=== PATIENT | female | born 1955 | race Caucasian/White ===

== ENCOUNTER 2017-05-12 13:04 | Inpatient (IN) | payer OTHER, MEDICARE ==
[~2017-05-12] VITALS: Ht 165.1 cm; Wt 62.7 kg
[2017-05-12] MEDS ORDERED: FLEET ENEMA PR PRN (13:45)
[2017-05-12] MEDS ORDERED: GLUCAGON FOR INJ 1 MG VIAL (J1610) SC PRN (13:45)
[2017-05-12] MEDS ORDERED: DEXTROSE 50% 50 ML SYRINGE IV PRN (13:45)
[2017-05-12] MEDS ORDERED: GLUCOSE 4 GM CHEW TABLET PO PRN (13:45)
[2017-05-12] MEDS ORDERED: POLYVINYL ALCOHOL OPHTH SOLN 15 ML(LIQUITEARS) OU PRN (13:45)
[2017-05-12] MEDS ORDERED: SYMBICORT 80/4.5MCG INHALER 6GM INH PRN (13:45)
[2017-05-12 14:23] VITALS: BP 121/60
[2017-05-12] MEDS ORDERED: AMIT50TA PO (15:25)
[2017-05-12] MEDS ORDERED: SENN8.6T17 PO (15:25)
[2017-05-12] MEDS ORDERED: DIFL200T PO (15:25)
[2017-05-12] MEDS ORDERED: METH18TA2 PO (15:25)
[2017-05-12] MEDS ORDERED: ALEN70SO PO (15:25)
[2017-05-12] MEDS ORDERED: DILT60TA PO (15:25)
[2017-05-12] MEDS ORDERED: FLUTISP (15:25)
[2017-05-12] MEDS ORDERED: PANT40TA2 PO (15:25)
[2017-05-12] MEDS ORDERED: LOPR1TAB6 PO (15:25)
[2017-05-12] MEDS ORDERED: INSUHUMDS SC (15:25)
[2017-05-12] MEDS ORDERED: DEXA2TA PO ×2 (15:25→15:27)
[2017-05-12] MEDS ORDERED: FLOM5CAP PO (15:25)
[2017-05-12] MEDS ORDERED: DEXA1TA PO (15:25)
[2017-05-12] MEDS ORDERED: TYLE500T78 PO (15:25)
[2017-05-12] MEDS ORDERED: LISI40TAB PO (15:25)
[2017-05-12] MEDS ORDERED: ARTI99.0 OU (15:25)
[2017-05-12] MEDS ORDERED: CLAR10CA3 PO (15:25)
[2017-05-12] MEDS ORDERED: TRAM50TA2 PO (15:25)
[2017-05-12] MEDS ORDERED: HYDR25TAB PO (15:25)
[2017-05-12] MEDS ORDERED: DOCU60SY2 PO (15:25)
[2017-05-12] MEDS ORDERED: SYMB80INH INH (15:25)
[2017-05-12] MEDS ORDERED: SIMV10TA2 PO (15:25)
[2017-05-12] MEDS ORDERED: BACI500O8 TOP (15:25)
--- NOTE | 2017-05-12 16:27 | PMRHPE ---
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 HISTORY OF PRESENT ILLNESS: The patient is a right-handed, middle-aged, white female who had had progressive loss of hearing in her right ear and some facial weakness. 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 The patient is having trouble with closing the right eye as well as closing the right mouth and having facial drooling. The patient needs to regain moderate distance mobility, approximately 4-5 steps to enter home and will function on the first floor until she is able to better tolerate ambulation to the second floor of the home. The patient lives with her and has a number of adult family members in the area to assist her. They live in the [place], [place] area. PAST MEDICAL HISTORY: Includes: 1. Hypertension. 2. Hyperlipidemia. 3. Attention deficit hyperactivity disorder. 4. Gastroesophageal reflux disease (GERD). 5. Osteoarthritis with intravertebral disc disease. PAST SURGICAL HISTORY: Includes: 1. section. 2. Tonsillectomy. 3. Right ankle surgery in 1998 secondary to trauma from a fall. 4. Sinus surgery with polyp removal in the . SOCIAL HISTORY: As noted above, the patient lives with her in the [facility] in a two-story home. They have two dogs and several cats as well as a bird, hamster, and rabbit in the home. 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 She has never smoked. She occasionally drinks alcohol, 1-2 drinks per month. No illicit drug use. She consumes about one cup of coffee per day. ALLERGIES: Allergic to AMOXICILLIN, SHELLFISH, STRAWBERRIES, and SULFA ANTIBIOTICS. MEDICATIONS ON ADMISSION: - Fosamax for osteoporosis - amitriptyline - artificial tears - bacitracin ointment to the mastoid sinus incision - Symbicort for chronic obstructive pulmonary disease (COPD)/asthma - Decadron 20 mg twice a day for the next three days and then 2 mg daily for three more and then discontinue - diltiazem 60 mg every six hours for hypertension - Diflucan 200 mg daily for urinary tract infection (UTI) and this will also be helpful with thrush - fluticasone propionate nasal spray - heparin 5000 units every 12 hours for deep vein thrombosis (DVT) prophylaxis - hydrochlorothiazide 25 mg a day - insulin sliding scale for diabetes - lisinopril 20 mg twice a day for hypertension - Claritin 10 mg daily for allergies - Ritalin, patient previously on long-acting. However, due to swallowing difficulties, we will switch her over to twice a day at 0700 and 1200 hours which will assist more with therapy participation of 10 mg each time. - metoprolol tartrate 50 mg twice a day - pantoprazole 40 mg daily - Zocor 10 mg at bedtime - tamsulosin 0.4 mg at bedtime - tramadol 50 mg every 12 hours as needed for pain - Dulcolax suppositories for constipation - Fleets enema for constipation The patient will have hypoglycemic protocol of glucagon, glucose and IV dextrose ordered. REVIEW OF SYSTEMS: The patient is a fair historian but has principally the right facial weakness causing difficulty keeping the right eye moist as well as frequent drooling from the right mouth that she is having difficulty closing and some ataxia motion in the right upper and lower extremity affecting her dominant arm in function. Otherwise, negative 10-point review of systems. PHYSICAL EXAMINATION: The patient is a short, mildly overweight, 61-year-old white female who looks slightly older than stated age and weighs 67.5 kg. VITAL SIGNS: Show a temperature of 98.4, blood pressure 121/60, pulse is 94 beats per minute, respiratory rate 16, and pulse oximetry 99% on room air on admission. HEENT: Right lower motor neuron facial palsy with right pupil at 4 mm and left pupil at 6 mm but extraocular motions grossly intact on tracking and some mild reduction on accommodation in both pupils. Speech is dysarthric and the patient is having difficulty with secretion, drooling frequently out of the open right side of the mouth and appears to have more secretion in her mouth than normal and a little bit of gurgling to her speech pattern. She is very hard of hearing in the right ear and appears to have mild decrease in the left ear. NECK: Supple. LUNGS: Clear in all saez to auscultation. CARDIAC: Regular rate and rhythm with normal S1, S2 without S3, S4, murmurs or rubs. ABDOMEN: Mildly obese but nontender with normal bowel sounds in all quadrants. There is a healing incision at the umbilicus which is Steri-Stripped. The fat donation site to go with the right mastoid sinus surgery which is dressed in a bulky dry gauze dressing. EXTREMITIES: With functional range of motion. However, the patient with mild ataxia noted in the right upper and lower extremities. NEUROLOGIC: The patient is alert and oriented to person, place, general aspects of time but does not seem to be fully oriented to situation and is getting confused on right and left body at times. Memory will be further assessed at speech therapy evaluation. Speech at this time is somewhat concrete in nature and dysarthric as noted above. Affect is mildly anxious but overall pleasant and cooperative and trying hard to participate. Motor strength on the left upper and lower extremities is approximately 4/5 but only +3 to -4 out of 5 in the right upper and lower extremities, limited by some ataxia that is affecting both the upper and lower extremities. Light touch is intact in bilateral upper and lower extremities and vibration is grossly intact in bilateral upper extremities and mildly diminished in both lower extremities down in the feet and ankle areas. ASSESSMENT AND PLAN: 1. Rehabilitation of right acoustic neuroma, status post resection. The patient with secondary complications of infarct in the ventral right cerebellar region and the cerebral pontine angle affecting the isha. This is causing a number of difficulties. She clearly has a lower motor neuron lesion with the loss of good muscle control in both the upper and lower right face and also some difficulty with the visual nerve for balancing out her pupils as noted with the constriction on the right eye versus the left. The patient, however, should be able to work to learn adaptive mobility and build up her strength to allow her to return home with assistance from the family. She has multiple trained professional caregivers in the family to aide with this, so this should facilitate well. However, a very significant factor is going to be the dysarthria, dysphagia, and control of secretions to avoid aspiration pneumonia. The patient is currently on a pureed diet with honey-thickened liquids and we will be trying to limit risk in pill taking at this time. The patient will probably need modified barium swallow going forward, and so will be participating in speech as well as physical and occupational therapy. 2. 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 We will go ahead and work with this in physical and occupational therapy. 3. Lethargy/confusion. It is unclear fully to me why the patient is having these confusions, as this was supposedly not present prior to the development of this tumor and surgery. It does raise some concern in spite of postoperative imaging as to whether there was any type of brainstem or any period of anoxia. We will go ahead and continue to observe this and we will consider further testing and evaluation, including a neurology consult as appropriate. 4. Diabetes mellitus. The patient is on a taper off of Decadron. She is on insulin sliding scale at this time and we will see how she responds and what her needs are going forward. 5. Atherosclerotic cardiovascular disease with hypertension, hyperlipidemia. The patient will continue on the Lopressor and lisinopril and hydrochlorothiazide. She does have a positive family history including father with history of coronary artery bypass grafting as well as secondary kidney disease and mother with stroke. 6. Leukocytosis: Declining with Decadron taper. 39.2 K on 05/11. Medicine consultation has been sent and will assist care and management of this fairly complex patient. POSTADMISSION PHYSICIAN EVALUATION: The patient has some unexplained deficits including some decrease in sensorium in the lower extremities distally as well as the lethargy and confusion. The actual source is uncertain and of course these will not be assisting the patient in having a rapid progress through her therapy. However, I do feel that the patient has a fairly good prognosis for being able to participate in three hours of therapy a day and gain from it, especially in light of very good family support, and I anticipate discharge in approximately 17 days to home with family. Time spent on chart review, history and physical, and documentation was greater than 70 minutes. CARLO
[2017-05-12] MEDS: METHYLPHENIDATE 5 MG TAB PO SCH (17:16)
[2017-05-12] MEDS: HumaLOG INSULIN (NovoLOG) PER UNIT SC SCH ×2 (17:42→20:17)
[2017-05-12] MEDS: AMITRIPTYLINE 50 MG TAB PO SCH (20:14)
[2017-05-12] MEDS: SIMVASTATIN 10 MG TAB PO SCH (20:14)
[2017-05-12] MEDS: METOPROLOL TART 50 MG TAB PO SCH (20:15)
[2017-05-12] MEDS: traMADol 50 MG TAB PO PRN (20:16)
[2017-05-12 20:17] VITALS: BP 117/59
[2017-05-12] MEDS: HEPARIN SOD (PORCINE) 5000 UNITS/ML VIAL SC SCH (20:17)
[2017-05-13 06:00] VITALS: BP 102/59
[2017-05-13 06:50] LABS: BASO % 0.2 % (0.0-1.0); IMMATURE GRANULOCYTE % 4.8 % (0-0); LYMPH # 1.3 10^3/uL (1.5-4.5); LYMPH % 6.2 % (24.0-44.0); MEAN CORPUSCULAR HEMOGLOBIN 30.1 pg (27.0-33.0); MEAN CORPUSCULAR HGB CONC 33.4 g/dl (32.0-36.5); MONO # 1.4 10^3/uL (0.0-0.8); MONO % 6.6 % (0.0-5.0); NEUTROPHILS # 17.4 10^3/uL (1.8-7.7); NEUTROPHILS % 82.2 % (36.0-66.0); PLATELET COUNT, AUTOMATED 269 10^3/uL (150-450); RED CELL DISTRIBUTION WIDTH 15.8 % (11.5-14.5); WHITE BLOOD COUNT 21.2 10^3/uL (4.0-10.0)
[2017-05-13 07:18] LABS: ALBUMIN 2.6 GM/DL (3.2-5.2); ALBUMIN/GLOBULIN RATIO 0.81 (1.00-1.93); ALKALINE PHOSPHATASE 42 U/L (45-117); ALT/SGPT 29 U/L (12-78); ANION GAP 10 MEQ/L (8-16); AST/SGOT 11 U/L (7-37); BILIRUBIN,TOTAL 0.6 MG/DL (0.2-1.0); BLOOD UREA NITROGEN 48 MG/DL (7-18); CALCIUM LEVEL 8.4 MG/DL (8.8-10.2); CARBON DIOXIDE LEVEL 16 MEQ/L (21-32); CHLORIDE LEVEL 104 MEQ/L (98-107); CREATININE FOR GFR 0.71 MG/DL (0.55-1.02); GLOMERULAR FILTRATION RATE > 60.0 (>45); GLUCOSE, FASTING 143 MG/DL (80-110); POTASSIUM SERUM 4.7 MEQ/L (3.5-5.1); SODIUM LEVEL 130 MEQ/L (136-145); TOTAL PROTEIN 5.8 GM/DL (6.4-8.2)
[2017-05-13] MEDS: FLUTICASONE PROP 0.05% NASAL SPRAY 16 GM (FLONASE) SCH (08:45)
[2017-05-13] MEDS: BACITRACIN OINT 30GM TOP SCH (08:45)
[2017-05-13] MEDS: HEPARIN SOD (PORCINE) 5000 UNITS/ML VIAL SC SCH ×2 (08:46→21:49)
[2017-05-13] MEDS: LORATADINE 10 MG TAB PO SCH (08:47)
[2017-05-13] MEDS: TAMSULOSIN 0.4 MG CAP PO SCH (08:47)
[2017-05-13] MEDS: METHYLPHENIDATE 5 MG TAB PO SCH ×2 (08:47→15:23)
[2017-05-13] MEDS: hydroCHLOROthiazide 25 MG TAB PO SCH (08:47)
[2017-05-13] MEDS: PANTOPRAZOLE 40MG TAB (PROTONIX) PO SCH (08:47)
[2017-05-13] MEDS: HumaLOG INSULIN (NovoLOG) PER UNIT SC SCH ×4 (08:47→21:00)
[2017-05-13] MEDS: FLUCONAZOLE 100 MG TAB PO SCH (08:48)
[2017-05-13] MEDS: METOPROLOL TART 50 MG TAB PO SCH ×2 (09:00→21:50)
[2017-05-13] MEDS: LISINOPRIL 20 MG TAB PO SCH ×2 (09:00→21:49)
--- NOTE | 2017-05-13 12:23 | CR.PDOC ---
[facility] Consultation Consultation CONSULTATION REPORT FOR: Dr Duran REASON FOR CONSULTATION: Medical Management DATE OF VISIT: 05/13/17 ATTENDING: Dr. Robbi Galo PCP: Dr Fabiano RAZA. HPI: 61year oldF S/P resection of Rt acoustic neuroma with secondary infarcts Rt cerebellum and cerebral pontine angle of the isha 04/28/17 at [facility]. Pt with residual Rt facial droop, dysarthria, dysphagia, Rt facial nerve palsy, ataxia and generalized weakness. Pt was transferred to the care of [facility]U, Dr Duran 05/12/17. The Pt's only complaint today is dry eyes, requesting artificial tears. No eye pain, drainage per pt. Denies any fevers, chills, weakness, fatigue, Headache, Chest Pain, Shortness of breath, cough, palpitations, abdominal pain, N/V/D or changes in bowel or bladder habits. PAST MEDICAL HISTORY: Includes: 1. Hypertension. 2. Hyperlipidemia. 3. Attention deficit hyperactivity disorder. 4. Gastroesophageal reflux disease (GERD). 5. Osteoarthritis with intravertebral disc disease. 6. Osteoporosis 7. COPD 8. DM 9. Allergic rhinitis PAST SURGICAL HISTORY: Includes: 1. section. 2. Tonsillectomy. 3. Right ankle surgery in 1998 secondary to trauma from a fall. 4. Sinus surgery with polyp removal in the SOCHX: Resides in: [facility] Marital Status: Tobacco use: denies ETOH: denies Illicit Drugs: Denies FAMHX: non contributory. ROS: As noted in HPI, otherwise 11pt ROS of systems reviewed and unremarkable. PE: GEN: 61yoF, appears stated age. Well-nourished, well developed. No acute distress. Alert and oriented x 3. Pleasant, interactive. HEENT: Normocephalic, atraumatic. Extraocular movements are intact. Sclera are nonicteric. Conjunctiva without injection. Nose midline. Rt facial droop noted. Moist mucous membranes. Pharynx pink and moist. Neck supple, trachea midline. No lymphadenopathy or thyromegaly appreciated. CHEST: Regular rate and rhythm, +S1, +S2 LUNGS: Clear to auscultation bilaterally. No wheezes, rales, or rhonchi. Breathing appears symmetric and easy. Patient is speaking in full sentences. No accessory muscle use. ABD: Round, soft, non-tender, non-distended. +Bowel sounds throughout. No rebound or guarding. No costovertebral angle tenderness. EXT: Pulses 2+ bilaterally dorsalis pedis and radial. No lower extremity edema appreciated. SKIN: [place], dry, warm. Capillary refill <2sec. No rashes. NEURO: Alert and oriented x 3. Speech is dysarthric. Pathology pending from [place]. A&P: 61year oldF S/P resection of Rt acoustic neuroma with secondary infarcts Rt cerebellum and cerebral pontine angle of the isha 04/28/17 at [facility]. Pt with residual Rt facial droop, dysarthria, dysphagia, Rt facial nerve palsy, ataxia and weakness. Pt was transferred to the care of ARU, Dr Duran 05/12/17. 1. S/P resection of Rt acoustic neuroma with secondary infarcts Rt cerebellum and cerebral pontine angle of the isha 04/28/17 at [facility]. Pt with residual Rt facial droop, dysarthria, dysphagia, Rt facial nerve palsy, ataxia and weakness. Mgmt as per ARU. PT/OT/St as per ARU. pain control as per ARU. bowel care as per ARU. DVT prophylaxis. As per ARU. Dispo as per ARU. Outpt F/U with neurosurgery Decadron tapering. Final pathology result pending from [place]. 2. HTN. Cont current regimen. Metoprolol 50mg BID with hold parameters. Lisinopril 20 mg BID. with hold parameters Diltiazem 60 Q6hrs. with hold parameters. HCTZ 25 mg po daily. 3. HLD. Statin. 4. GERD. Continue PPI. 5. OA/DDD. 6. Osteoporosis. Fosamax. 7. Dry eyes. Artificial tears. 8. Allergic rhinitis. Claritin/Flonase. 9. COPD. Symbicort. Enc I/S. 10. Hyponatremia. Monitor I/O. Recheck BMP in AM. Add mag and TSH to labs today. Check Ur Na, Cr and Osm. 11. Leukocytosis. Trending downward from [facility] with Decadron tapering. Pt with no complaints. T Max 99.1 Check UA/UC. Monitor. Recheck CBC in AM. 12. Recent UTI. Currently treated with Diflucan. Recheck UA/UC. 13. DM. CC diet. SSI. 14. Anemia. Check Fe studies, B12, folate. Stool OB. Thank you for your consultation. We will continue to follow along with you. Vital Signs/I&O Vital Signs Date Time Temp Pulse Resp B/P (MAP) Pulse Ox O2 Delivery O2 Flow Rate FiO2 05/13/17 09:00 81 102/59 05/13/17 06:00 98.9 16 100 Room Air I&O- Last 24 Hours up to 6 AM 05/14/17 06:00 Intake Total 60 ml Output Total 800 ml Balance -740 ml Laboratory Data Labs 24H Laboratory Tests 2 05/12/17 16:38: Bedside Glucose (Misc Panel) 128H 05/12/17 20:11: Bedside Glucose (Misc Panel) 135H 05/13/17 06:20: Immature Granulocyte % (Auto) 4.8H, White Blood Count 21.2H, Red Blood Count 3.19L, Hemoglobin 9.6L, Hematocrit 28.7L, Mean Corpuscular Volume 90.0, Mean Corpuscular Hemoglobin 30.1, Mean Corpuscular Hemoglobin Concent 33.4, Red Cell Distribution Width 15.8H, Platelet Count 269, Neutrophils (%) (Auto) 82.2H, Lymphocytes (%) (Auto) 6.2L, Monocytes (%) (Auto) 6.6H, Eosinophils (%) (Auto) 0.0, Basophils (%) (Auto) 0.2, Neutrophils # (Auto) 17.4H, Lymphocytes # (Auto) 1.3L, Monocytes # (Auto) 1.4H, Eosinophils # (Auto) 0.0, Basophils # (Auto) 0.0 , Immature Granulocyte # (Auto) 1.0H, Nucleated Red Blood Cells % (auto) 0.0, Anion Gap 10, Glomerular Filtration Rate > 60.0, Blood Urea Nitrogen 48H, Creatinine 0.71, Sodium Level 130L, Potassium Level 4.7, Chloride Level 104, Carbon Dioxide Level 16L, Calcium Level 8.4L, Aspartate Amino Transf (AST/SGOT) 11, Alanine Aminotransferase (ALT/SGPT) 29, Alkaline Phosphatase 42L, Total Bilirubin 0.6, Total Protein 5.8L, Albumin 2.6L, Albumin/Globulin Ratio 0.81L 05/13/17 11:40: Bedside Glucose (Misc Panel) 167H CBC/BMP Laboratory Tests 05/13/17 06:20 Red Blood Count 3.19 L, Mean Corpuscular Volume 90.0, Mean Corpuscular Hemoglobin 30.1, Mean Corpuscular Hemoglobin Concent 33.4, Red Cell Distribution Width 15.8 H, Neutrophils (%) (Auto) 82.2 H, Lymphocytes (%) (Auto ) 6.2 L, Monocytes (%) (Auto) 6.6 H, Eosinophils (%) (Auto) 0.0, Basophils (%) ( Auto) 0.2, Neutrophils # (Auto) 17.4 H, Lymphocytes # (Auto) 1.3 L, Monocytes # (Auto) 1.4 H, Eosinophils # (Auto) 0.0, Basophils # (Auto) 0.0, Calcium Level 8.4 L, Aspartate Amino Transf (AST/SGOT) 11, Alanine Aminotransferase (ALT/SGPT ) 29, Alkaline Phosphatase 42 L, Total Bilirubin 0.6, Total Protein 5.8 L, Albumin 2.6 L Allergies Coded Allergies: Amoxicillin (Verified Allergy, Unknown, 05/12/17) Shellfish Allergy (Verified Allergy, Unknown, 05/12/17) [place] (Verified Allergy, Unknown, 05/12/17) Sulfa Antibiotics (Verified Allergy, Unknown, 05/12/17) Home Medications Scheduled (Docusate Sodium) 60 Mg/15 Ml Syp, 60 MG PO BID, (Reported) Alendronate Sodium (Alendronate Sodium) 70 Mg/75 Ml Kerri, 70 MG PO QWEEK, ( Reported) WEDNESDAY Amitriptyline HCl (Amitriptyline HCl) 50 Mg Tab, 50 MG PO QHS, (Reported) Artificial Tears (Artificial Tears) 1.4 % Kerri, 2 DROP OU Q4H for DRY EYES, ( Reported) Bacitracin Base (Bacitracin) 500 Unit/Gm Oin, 1 DOSE TOP DAILY, (Reported) Dexamethasone (Dexamethasone) 2 Mg Tab, 2 MG PO BID, (Reported) TO START 05/13, TO END 05/16 Dexamethasone (Dexamethasone) 1 Mg Tab, 3 MG PO BID, (Reported) TO END 05/12 Dexamethasone (Dexamethasone) 2 Mg Tab, 2 MG PO DAILY, (Reported) TO START 05/17 TO 05/20 THEN STOP Diltiazem Hcl (Cardizem) 60 Mg Tab, 60 MG PO QID, (Reported) Fluconazole (Diflucan) 200 Mg Tab, 200 MG PO DAILY, (Reported) FOR 14 DAYS Fluticasone Propionate (Fluticasone Propionate) 50 Mcg/Act Spr, 2 SPRAY NA BID, #1 (Reported) Hydrochlorothiazide (Hydrochlorothiazide) 25 Mg Tab, 25 MG PO DAILY, (Reported) Insulin Human Lispro (Humalog) 1 Units/0.01 Ml Inj, 1 DOSE SC ACHS, (Reported) Lisinopril (Lisinopril) 40 Mg Tab, 40 MG PO DAILY, (Reported) Loratadine (Claritin) 10 Mg Cap, 10 MG PO DAILY, (Reported) Methylphenidate HCl (Methylphenidate HCl ER) 18 Mg Tab, 18 MG PO DAILY, ( Reported) Metoprolol Tartrate (Lopressor) 50 Mg Tab, 50 MG PO BID, (Reported) Pantoprazole Sodium (Pantoprazole Sodium) 40 Mg Tab, 40 MG PO DAILY, (Reported) Senna (Senna Laxative) 8.6 Mg Tab, 2 TAB PO QHS, (Reported) Simvastatin (Simvastatin) 10 Mg Tab, 10 MG PO QHS, (Reported) Tamsulosin Hydrochloride (Flomax) 0.4 Mg Cap, 0.4 MG PO DAILY, (Reported) Scheduled PRN Acetaminophen (Tylenol Extra Strength) 500 Mg Tab, 1,000 MG PO Q6H PRN for PAIN, (Reported) Budesonide/Formoterol (Symbicort 80-4.5 Mcg/Act) 60 Puff/Inhaler Aers, 2 PUFF INH BID PRN for SHORTNESS OF BREATH, (Reported) Tramadol HCl (Tramadol HCl) 50 Mg Tab, 50 MG PO BID PRN for PAIN, (Reported) Miranda Morin May 13, 2017 12:23
[2017-05-13 14:00] VITALS: BP 130/58
--- NOTE | 2017-05-13 15:54 | IPNPDOC ---
PM&R Progress Note Grades 1 Thru 5 Teacher Progress Note DATE OF SERVICE: 05/13/17 DATE OF ADMISSION: May 12, 2017 at 13:49 INPATIENT REHABILITATION ADMISSION DAY: #2 SUBJECTIVE: The patient is a right-handed, middle-aged, white female who had had progressive loss of hearing in her right ear and some facial weakness. 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 The patient is having trouble with closing the right eye as well as closing the right mouth and having facial drooling. The patient needs to regain moderate distance mobility, approximately 4-5 steps to enter home and will function on the first floor until she is able to better tolerate ambulation to the second floor of the home. The patient lives with her and has a number of adult family members in the area to assist her. They live in the [place], [place] area. ALLERGIES: See Below MEDICATIONS: Reviewed, see below. OBJECTIVE: VITAL SIGNS: Please see below. 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 HEENT: Patient with difficulty closing right INR right facial droop and left tongue deviation who is hard of hearing in the right ear. CARDIOVASCULAR: Regular rate and rhythm with normal S1-S2. 2 out 4 radial pulses. LUNGS: All saez clear auscultation. ABDOMEN: Bowel sounds normal in all quadrants. NEUROLOGICAL: The patient is alert and oriented to person, place, general aspects of time but does not seem to be fully oriented to situation and is getting confused on right and left body at times. Memory will be further assessed at speech therapy evaluation. Speech at this time is somewhat concrete in nature and dysarthric as noted above. Affect is mildly anxious but overall pleasant and cooperative and trying hard to participate. Motor strength on the left upper and lower extremities is approximately 4/5 but only +3 to -4 out of 5 in the right upper and lower extremities, limited by some ataxia that is affecting both the upper and lower extremities. Light touch is intact in bilateral upper and lower extremities and vibration is grossly intact in bilateral upper extremities and mildly diminished in both lower extremities down in the feet and ankle areas. SKIN: Grossly intact except for healing right mastoid incision and abdominal umbilicus incision. Both of which are without inflammation. LABORATORY DATA: Reviewed. Please see below. MICROBIOLOGY: Please see below. IMAGING: No new imaging. DVT prophylaxis ordered?: 5000 units heparin subcutaneous twice a day, PIPER hose and sequential compression stockings. ASSESSMENT AND PLAN: 1. 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 Final pathology is pending on the neuroma. At this time a should start a program of physical, occupational and speech therapies. Please see initial evaluations. Rehabilitation team conference: Patient with multiple deficits functioning at fairly low level is anticipated to require approximately 21 days to reach discharge goals. She has a very supportive family and we will work with them and try to train them. Approximate date of discharge is expected be 06/03/17. 2. Urinary retention: As patient is having low blood pressures and alpha sumeet will not be a choice at this time. For now we will work on getting patient more up and active and consider voiding trials. 3. Type 2 diabetes mellitus: At this time we'll proceed with consistent carbohydrate diet and insulin sliding scale. Medicine to make adjustments as appropriate. TIME SPENT: Chart Review, examination and documentation require greater than 25 minutes. Allergies Coded Allergies: Amoxicillin (Verified Allergy, Unknown, 05/12/17) Shellfish Allergy (Verified Allergy, Unknown, 05/12/17) Burdine (Verified Allergy, Unknown, 05/12/17) Sulfa Antibiotics (Verified Allergy, Unknown, 05/12/17) Vital Signs Vital Signs Date Time Temp Pulse Resp B/P (MAP) Pulse Ox O2 Delivery O2 Flow Rate FiO2 05/13/17 14:00 98.8 94 14 130/58 (82) 95 Room Air Laboratory Data CBC/BMP Laboratory Tests 05/13/17 06:20 Red Blood Count 3.19 L, Mean Corpuscular Volume 90.0, Mean Corpuscular Hemoglobin 30.1, Mean Corpuscular Hemoglobin Concent 33.4, Red Cell Distribution Width 15.8 H, Neutrophils (%) (Auto) 82.2 H, Lymphocytes (%) (Auto ) 6.2 L, Monocytes (%) (Auto) 6.6 H, Eosinophils (%) (Auto) 0.0, Basophils (%) ( Auto) 0.2, Neutrophils # (Auto) 17.4 H, Lymphocytes # (Auto) 1.3 L, Monocytes # (Auto) 1.4 H, Eosinophils # (Auto) 0.0, Basophils # (Auto) 0.0, Calcium Level 8.4 L, Aspartate Amino Transf (AST/SGOT) 11, Alanine Aminotransferase (ALT/SGPT ) 29, Alkaline Phosphatase 42 L, Total Bilirubin 0.6, Total Protein 5.8 L, Albumin 2.6 L Labs 24H Laboratory Tests 2 05/12/17 16:38: Bedside Glucose (Misc Panel) 128H 05/12/17 20:11: Bedside Glucose (Misc Panel) 135H 05/13/17 06:20: Immature Granulocyte % (Auto) 4.8H, White Blood Count 21.2H, Red Blood Count 3.19L, Hemoglobin 9.6L, Hematocrit 28.7L, Mean Corpuscular Volume 90.0, Mean Corpuscular Hemoglobin 30.1, Mean Corpuscular Hemoglobin Concent 33.4, Red Cell Distribution Width 15.8H, Platelet Count 269, Neutrophils (%) (Auto) 82.2H, Lymphocytes (%) (Auto) 6.2L, Monocytes (%) (Auto) 6.6H, Eosinophils (%) (Auto) 0.0, Basophils (%) (Auto) 0.2, Neutrophils # (Auto) 17.4H, Lymphocytes # (Auto) 1.3L, Monocytes # (Auto) 1.4H, Eosinophils # (Auto) 0.0, Basophils # (Auto) 0.0 , Immature Granulocyte # (Auto) 1.0H, Nucleated Red Blood Cells % (auto) 0.0, Anion Gap 10, Glomerular Filtration Rate > 60.0, Blood Urea Nitrogen 48H, Creatinine 0.71, Sodium Level 130L, Potassium Level 4.7, Chloride Level 104, Carbon Dioxide Level 16L, Calcium Level 8.4L, Aspartate Amino Transf (AST/SGOT) 11, Alanine Aminotransferase (ALT/SGPT) 29, Alkaline Phosphatase 42L, Total Bilirubin 0.6, Total Protein 5.8L, Albumin 2.6L, Albumin/Globulin Ratio 0.81L 05/13/17 11:40: Bedside Glucose (Misc Panel) 167H Current Medications Current Medications Current Medications Alendronate Sodium (Fosamax) 70 mg Sa@07 PO ; Start 05/15/17 at 07:00; Stop at 06:59 Amitriptyline HCl (Elavil) 50 mg QHS PO Last administered on 05/12/17 20:14; Start 05/12/17 at 21:00; Stop 06/11/17 at 20:59 Artificial Tears ([place] Tears) 2 drop Q4H OU ; Start 05/13/17 at 16:00; Stop at 15:59 Artificial Tears ([place] Tears) 2 drop Q4HP PRN OU DRY EYES; Start 05/12/17 at 13:45; Stop 05/13/17 at 12:04; Status DC Bacitracin (Bacitracin Oint) Right Mastoid a... DAILY TOP Last administered on 05/13/17 08:45; Start 05/13/17 at 09:00; Stop 06/12/17 at 08:59 Bisacodyl (Dulcolax Suppository) 10 mg DAILYPRN PRN [place] CONSTIPATION; Start at 13:45; Stop 06/11/17 at 13:44 Budesonide/ Formoterol Fumarate (Symbicort 80/ 4.5mcg) 2 puff BID PRN INH Dyspnea; Start 05/12/17 at 13:45; Stop 06/11/17 at 13:44 Dexamethasone (Decadron) 2 mg BID PO Last administered on 05/13/17 08:49; Start 05/12/17 at 21:00; Stop 05/16/17 at 23:55 Dexamethasone (Decadron) 2 mg DAILY PO ; Start 05/17/17 at 09:00; Stop at 08:59 Dextrose (Dextrose 50%) 25 ml ASDIRECTED PRN IV SEE LABEL COMMENTS; Start at 13:45; Stop 06/11/17 at 13:44 Diltiazem HCl (Cardizem) 60 mg Q6H PO Last administered on 05/13/17 12:13; Start 05/12/17 at 18:00; Stop 06/11/17 at 17:59 Fluconazole (Diflucan) 200 mg DAILY PO Last administered on 05/13/17 08:48; Start 05/13/17 at 09:00; Stop 05/27/17 at 08:59 Fluticasone Propionate (Flonase 0.05% Nasal [place]) 2 spray DAILY NA Last administered on 05/13/17 08:45; Start 05/13/17 at 09:00; Stop 06/12/17 at 08 :59 Glucagon (Glucagon) 1 mg ASDIRECTED PRN SC SEE LABEL COMMENTS; Start 05/12/17 at 13:45; Stop 06/11/17 at 13:44 Glucose (Glucose) 16 GM ASDIRECTED PRN PO SEE LABEL COMMENTS; Start 05/12/17 at 13:45; Stop 06/11/17 at 13:44 Heparin Sodium (Porcine) (Heparin) 5,000 units Q12H SC Last administered on 08:46; Start 05/12/17 at 21:00; Stop 05/17/17 at 20:59 Home Med (Med Rec Complete!) ASDIRECTED XX ; Start 05/12/17 at 15:30; Stop at 15:33; Status DC Hydrochlorothiazide (Hydrodiuril) 25 mg DAILY PO Last administered on 08:47; Start 05/13/17 at 09:00; Stop 06/12/17 at 08:59 Insulin Human Lispro (HumaLOG INSULIN) See Protocol Table AC SC Last administered on 05/13/17 12:13; Start 05/12/17 at 17:30; Stop 06/11/17 at 17 :29 Insulin Human Lispro (HumaLOG INSULIN) See Protocol Table QHS SC ; Start at 21:00; Stop 06/11/17 at 20:59 Lisinopril (Prinivil) 20 mg BID PO ; Start 05/13/17 at 09:00; Stop 06/12/17 at 08:59 Loratadine (Claritin) 10 mg DAILY PO Last administered on 05/13/17 08:47; Start 05/13/17 at 09:00; Stop 06/12/17 at 08:59 Methylphenidate HCl (Ritalin) 10 mg BID@,14 PO Last administered on 15:23; Start 05/12/17 at 14:00; Stop 05/19/17 at 13:59 Metoprolol Tartrate (Lopressor) 50 mg BID PO Last administered on 05/12/17 20 :15; Start 05/12/17 at 21:00; Stop 06/11/17 at 20:59 Pantoprazole Sodium (Protonix) 40 mg DAILY PO Last administered on 05/13/17 08:47; Start 05/13/17 at 09:00; Stop 06/12/17 at 08:59 Simvastatin (Zocor) 10 mg QHS PO Last administered on 05/12/17 20:14; Start 05/12/17 at 21:00; Stop 06/11/17 at 20:59 Sodium Biphosphate/ Sodium Phosphate (Fleet Enema) 1 ea DAILYPRN PRN [place] CONSTIPATION; Start 05/12/17 at 13:45; Stop 06/11/17 at 13:44 Tamsulosin HCl (Flomax) 0.4 mg DAILY PO Last administered on 05/13/17 08:47; Start 05/13/17 at 09:00; Stop 06/12/17 at 08:59 Tramadol HCl (Ultram) 50 mg Q12HP PRN PO PAIN Last administered on 05/12/17 20:16; Start 05/12/17 at 13:45; Stop 05/19/17 at 13:44 NICOLASA MACK MD May 13, 2017 15:54
[2017-05-13] MEDS: POLYVINYL ALCOHOL OPHTH SOLN 15 ML(LIQUITEARS) OU SCH ×2 (16:00→20:48)
[2017-05-13 20:00] VITALS: BP 124/60
[2017-05-13] MEDS: AMITRIPTYLINE 50 MG TAB PO SCH (21:49)
[2017-05-13] MEDS: SIMVASTATIN 10 MG TAB PO SCH (21:50)
[2017-05-14] MEDS: POLYVINYL ALCOHOL OPHTH SOLN 15 ML(LIQUITEARS) OU SCH ×6 (00:17→21:14)
[2017-05-14 06:00] VITALS: BP 112/84
[2017-05-14] MEDS: HumaLOG INSULIN (NovoLOG) PER UNIT SC SCH ×4 (08:04→21:00)
[2017-05-14 08:30] LABS: MEAN CORPUSCULAR HEMOGLOBIN 30.4 pg (27.0-33.0); MEAN CORPUSCULAR HGB CONC 33.3 g/dl (32.0-36.5); MEAN CORPUSCULAR VOLUME 91.2 fl (80.0-96.0); PLATELET COUNT, AUTOMATED 287 10^3/uL (150-450); RED CELL DISTRIBUTION WIDTH 15.9 % (11.5-14.5); WHITE BLOOD COUNT 16.4 10^3/uL (4.0-10.0)
[2017-05-14 08:48] LABS: ANION GAP 11 MEQ/L (8-16); BLOOD UREA NITROGEN 39 MG/DL (7-18); CALCIUM LEVEL 8.7 MG/DL (8.8-10.2); CARBON DIOXIDE LEVEL 20 MEQ/L (21-32); CHLORIDE LEVEL 100 MEQ/L (98-107); FERRITIN 478 NG/ML (8-252); GLOMERULAR FILTRATION RATE > 60.0 (>45); GLUCOSE, FASTING 148 MG/DL (80-110); PERCENT SATURATION 21.3 % (13.2-45.0); POTASSIUM SERUM 5.1 MEQ/L (3.5-5.1); SODIUM LEVEL 131 MEQ/L (136-145); TOTAL IRON BINDING CAPACITY 287 UG/DL (250-450)
[2017-05-14] MEDS: TAMSULOSIN 0.4 MG CAP PO SCH (09:00)
[2017-05-14] MEDS: LISINOPRIL 20 MG TAB PO SCH ×2 (09:00→21:23)
[2017-05-14] MEDS: METOPROLOL TART 50 MG TAB PO SCH ×2 (09:00→21:23)
[2017-05-14] MEDS: HEPARIN SOD (PORCINE) 5000 UNITS/ML VIAL SC SCH ×2 (09:19→21:24)
[2017-05-14] MEDS: FLUCONAZOLE 100 MG TAB PO SCH (09:20)
[2017-05-14] MEDS: PANTOPRAZOLE 40MG TAB (PROTONIX) PO SCH (09:20)
[2017-05-14] MEDS: METHYLPHENIDATE 5 MG TAB PO SCH ×2 (09:20→13:15)
[2017-05-14] MEDS: LORATADINE 10 MG TAB PO SCH (09:20)
[2017-05-14] MEDS: FLUTICASONE PROP 0.05% NASAL SPRAY 16 GM (FLONASE) SCH (09:21)
[2017-05-14] MEDS: BACITRACIN OINT 30GM TOP SCH (09:21)
[2017-05-14 09:23] LABS: FOLATE 13.4 NG/ML (>5.4); VITAMIN B12 LEVEL 814 PG/ML (247-911)
[2017-05-14] MEDS: hydroCHLOROthiazide 25 MG TAB PO SCH (09:24)
--- NOTE | 2017-05-14 12:24 | IPNPDOC ---
Date Seen The patient was seen on 05/14/17. Progress Note HPI: 61year oldF S/P resection of Rt acoustic neuroma with secondary infarcts Rt cerebellum and cerebral pontine angle of the isha 04/28/17 at [facility]. Pt with residual Rt facial droop, dysarthria, dysphagia, Rt facial nerve palsy, ataxia and generalized weakness. Pt was transferred to the care of ARU, Dr Duran 05/12/17. Pt states the right eye still feels irritated but overall better today. No eye pain, drainage per pt. Denies any fevers, chills, weakness, fatigue, Headache, Chest Pain, Shortness of breath, cough, palpitations, abdominal pain, N/V/D or changes in bowel or bladder habits. PAST MEDICAL HISTORY: Includes: 1. Hypertension. 2. Hyperlipidemia. 3. Attention deficit hyperactivity disorder. 4. Gastroesophageal reflux disease (GERD). 5. Osteoarthritis with intravertebral disc disease. 6. Osteoporosis 7. COPD 8. DM 9. Allergic rhinitis PAST SURGICAL HISTORY: Includes: 1. section. 2. Tonsillectomy. 3. Right ankle surgery in 1998 secondary to trauma from a fall. 4. Sinus surgery with polyp removal in the PE: GEN: 61yoF, appears stated age. Well-nourished, well developed. No acute distress. Alert and oriented x 3. Pleasant, interactive. HEENT: Normocephalic, atraumatic. Wearing eye patch on Rt eye. Sclera are nonicteric. Conjunctiva with injection noted Rt eye, no TTP, surrounding erythema, warmth, slight amt of yellowish drainage. Nose midline. Rt facial droop noted. Moist mucous membranes. Pharynx pink and moist. Neck supple, trachea midline. No lymphadenopathy or thyromegaly appreciated. CHEST: Regular rate and rhythm, +S1, +S2 LUNGS: Clear to auscultation bilaterally. No wheezes, rales, or rhonchi. Breathing appears symmetric and easy. ABD: Round, soft, non-tender, non-distended. +Bowel sounds throughout. No rebound or guarding. No costovertebral angle tenderness. EXT: Pulses 2+ bilaterally dorsalis pedis and radial. No lower extremity edema appreciated. SKIN: [place], dry, warm. Capillary refill <2sec. No rashes. NEURO: Alert and oriented x 3. Speech is dysarthric. Pathology pending from [place]. A&P: 61year oldF S/P resection of Rt acoustic neuroma with secondary infarcts Rt cerebellum and cerebral pontine angle of the isha 04/28/17 at [facility]. Pt with residual Rt facial droop, dysarthria, dysphagia, Rt facial nerve palsy, ataxia and weakness. Pt was transferred to the care of ARU, Dr Duran 05/12/17. 1. S/P resection of Rt acoustic neuroma with secondary infarcts Rt cerebellum and cerebral pontine angle of the isah 04/28/17 at [facility]. Pt with residual Rt facial droop, dysarthria, dysphagia, Rt facial nerve palsy, ataxia and weakness. Mgmt as per ARU. PT/OT/St as per ARU. pain control as per ARU. bowel care as per ARU. DVT prophylaxis. As per ARU. Dispo as per ARU. Outpt F/U with neurosurgery Decadron tapering. Final pathology result pending from [place]. 2. HTN. Cont current regimen. Metoprolol 50mg BID with hold parameters. Lisinopril 20 mg BID. with hold parameters Diltiazem 60 Q6hrs. with hold parameters. HCTZ 25 mg po daily. 3. HLD. Statin. 4. GERD. Continue PPI. 5. OA/DDD. 6. Osteoporosis. Fosamax. 7. Dry eyes/Rt eye irritation. Cont Artificial tears QID. Add erythromycin ointment Rt eye. 8. Allergic rhinitis. Claritin/Flonase. 9. COPD. Symbicort. Enc I/S. 10. Hyponatremia. Na improved slightly today. Recheck BMP in AM. Mag and TSH pending. Check Ur Na, Cr and Osm. 11. Leukocytosis. Trending downward from [place] with Decadron tapering. Pt was seen by Hematology at [place] with plan for outpt f/u. Pt with no complaints. T Max 99.0 UC pending. Monitor. Recheck CBC in AM. 12. Recent UTI. Currently treated with Diflucan. UA neg. 05/13/17 UC pending. Pt with urinary retention, IC 13. DM. CC diet. SSI. 14. Anemia. Hgb trend upward. Fe studies, B12, folate. Stool OB. VS, I&O, 24H, Fishbone Vital Signs/I&O Vital Signs Date Time Temp Pulse Resp B/P (MAP) Pulse Ox O2 Delivery O2 Flow Rate FiO2 05/14/17 12:00 70 104/68 05/14/17 06:00 97.8 18 97 Room Air I&O- Last 24 Hours up to 6 AM 05/15/17 06:00 Intake Total 60 ml Output Total 950 ml Balance -890 ml Laboratory Data 24H LABS Laboratory Tests 2 05/13/17 16:59: Bedside Glucose (Misc Panel) 167H 05/13/17 18:17: Urine Appearance CLEAR, Urine Color YELLOW, Urine pH 5.0, Urine Specific [place] 1.017, Urine Protein NEGATIVE, Urine Glucose (UA) NEGATIVE, Urine Ketones NEGATIVE, Urine Urobilinogen 0.2, Urine Bilirubin NEGATIVE, Urine Leukocyte Esterase NEGATIVE, Urine Blood NEGATIVE, Urine Nitrite NEGATIVE, Urine WBC (Auto) 1, Urine RBC (Auto) 1, Urine Hyaline Casts (Auto) 0, Urine Bacteria (Auto) NEGATIVE, Urine Squamous Epithelial Cells 0, Urine Mucus (Auto) SMALL, Urine Sperm (Auto) 05/13/17 19:53: Bedside Glucose (Misc Panel) 194H 05/14/17 07:48: Bedside Glucose (Misc Panel) 248H 05/14/17 07:54: Nucleated Red Blood Cells % (auto) 0.0, Anion Gap 11, Glomerular Filtration Rate > 60.0, Blood Urea Nitrogen 39H, Creatinine 0.80, Sodium Level 131L, Potassium Level 5.1, Chloride Level 100, Carbon Dioxide Level 20L, Calcium Level 8.7L, Iron Level 61, Total Iron Binding Capacity 287, Transferrin % Saturation 21.3, Ferritin 478H, Vitamin B12 Level 814, Folate 13.4 05/14/17 11:06: Bedside Glucose (Misc Panel) 163H CBC/BMP Laboratory Tests 05/14/17 07:54 Red Blood Count 3.42 L, Mean Corpuscular Volume 91.2, Mean Corpuscular Hemoglobin 30.4, Mean Corpuscular Hemoglobin Concent 33.3, Red Cell Distribution Width 15.9 H, Calcium Level 8.7 L Microbiology Microbiology 05/13/17 Urine Culture, Received Pending Miranda Morin May 14, 2017 12:24
[2017-05-14 13:22] LABS: MAGNESIUM LEVEL 2.2 MG/DL (1.8-2.4)
[2017-05-14 14:10] VITALS: BP 125/61
[2017-05-14] MEDS: ERYTHROMYCIN OPHTH OINT OD SCH ×2 (15:43→21:13)
[2017-05-14 20:00] VITALS: BP 114/56
[2017-05-14] MEDS: AMITRIPTYLINE 50 MG TAB PO SCH (21:22)
[2017-05-14] MEDS: SIMVASTATIN 10 MG TAB PO SCH (21:24)
[2017-05-15] MEDS: POLYVINYL ALCOHOL OPHTH SOLN 15 ML(LIQUITEARS) OU SCH ×7 (00:34→23:57)
[2017-05-15 04:51] VITALS: BP 106/56
[2017-05-15] MEDS: ALENDRONATE 35MG TABLET PO SCH (06:29)
[2017-05-15 06:56] LABS: MEAN CORPUSCULAR HEMOGLOBIN 30.4 pg (27.0-33.0); MEAN CORPUSCULAR HGB CONC 33.9 g/dl (32.0-36.5); MEAN CORPUSCULAR VOLUME 89.6 fl (80.0-96.0); PLATELET COUNT, AUTOMATED 289 10^3/uL (150-450); RED CELL DISTRIBUTION WIDTH 15.8 % (11.5-14.5); WHITE BLOOD COUNT 14.8 10^3/uL (4.0-10.0)
[2017-05-15 07:24] LABS: ANION GAP 12 MEQ/L (8-16); BLOOD UREA NITROGEN 45 MG/DL (7-18); CALCIUM LEVEL 8.8 MG/DL (8.8-10.2); CARBON DIOXIDE LEVEL 17 MEQ/L (21-32); CHLORIDE LEVEL 101 MEQ/L (98-107); CREATININE FOR GFR 0.75 MG/DL (0.55-1.02); GLOMERULAR FILTRATION RATE > 60.0 (>45); GLUCOSE, FASTING 158 MG/DL (80-110); POTASSIUM SERUM 4.6 MEQ/L (3.5-5.1); SODIUM LEVEL 130 MEQ/L (136-145)
[2017-05-15] MEDS: FLUCONAZOLE 100 MG TAB PO SCH (07:57)
[2017-05-15] MEDS: PANTOPRAZOLE 40MG TAB (PROTONIX) PO SCH (07:57)
[2017-05-15] MEDS: FLUTICASONE PROP 0.05% NASAL SPRAY 16 GM (FLONASE) SCH (07:57)
[2017-05-15] MEDS: LORATADINE 10 MG TAB PO SCH (07:57)
[2017-05-15] MEDS: TAMSULOSIN 0.4 MG CAP PO SCH (07:57)
[2017-05-15] MEDS: METHYLPHENIDATE 5 MG TAB PO SCH ×2 (07:58→14:07)
[2017-05-15] MEDS: hydroCHLOROthiazide 25 MG TAB PO SCH (07:59)
[2017-05-15] MEDS: HEPARIN SOD (PORCINE) 5000 UNITS/ML VIAL SC SCH ×2 (07:59→21:17)
[2017-05-15] MEDS: HumaLOG INSULIN (NovoLOG) PER UNIT SC SCH ×4 (07:59→21:00)
[2017-05-15] MEDS: ERYTHROMYCIN OPHTH OINT OD SCH ×3 (07:59→21:20)
[2017-05-15] MEDS: BACITRACIN OINT 30GM TOP SCH (08:00)
[2017-05-15] MEDS: METOPROLOL TART 50 MG TAB PO SCH ×2 (08:08→21:00)
[2017-05-15] MEDS: LISINOPRIL 20 MG TAB PO SCH ×2 (08:09→21:00)
[2017-05-15 14:00] VITALS: BP 96/54
[2017-05-15 20:25] VITALS: BP 103/53
[2017-05-15] MEDS: AMITRIPTYLINE 50 MG TAB PO SCH (21:17)
[2017-05-15] MEDS: SIMVASTATIN 10 MG TAB PO SCH (21:17)
[2017-05-16] MEDS: POLYVINYL ALCOHOL OPHTH SOLN 15 ML(LIQUITEARS) OU SCH ×6 (04:14→23:54)
[2017-05-16 05:19] VITALS: BP 128/66
[2017-05-16 06:55] LABS: MEAN CORPUSCULAR HEMOGLOBIN 29.8 pg (27.0-33.0); MEAN CORPUSCULAR HGB CONC 33.1 g/dl (32.0-36.5); MEAN CORPUSCULAR VOLUME 90.1 fl (80.0-96.0); PLATELET COUNT, AUTOMATED 305 10^3/uL (150-450); RED CELL DISTRIBUTION WIDTH 15.8 % (11.5-14.5); WHITE BLOOD COUNT 18.1 10^3/uL (4.0-10.0)
[2017-05-16 07:16] LABS: ANION GAP 11 MEQ/L (8-16); BLOOD UREA NITROGEN 52 MG/DL (7-18); CALCIUM LEVEL 8.8 MG/DL (8.8-10.2); CARBON DIOXIDE LEVEL 17 MEQ/L (21-32); CHLORIDE LEVEL 102 MEQ/L (98-107); CREATININE FOR GFR 0.96 MG/DL (0.55-1.02); GLOMERULAR FILTRATION RATE > 60.0 (>45); GLUCOSE, FASTING 149 MG/DL (80-110); POTASSIUM SERUM 4.8 MEQ/L (3.5-5.1); SODIUM LEVEL 130 MEQ/L (136-145)
[2017-05-16] MEDS: HumaLOG INSULIN (NovoLOG) PER UNIT SC SCH ×4 (08:35→20:41)
[2017-05-16] MEDS: HEPARIN SOD (PORCINE) 5000 UNITS/ML VIAL SC SCH ×2 (08:36→20:41)
[2017-05-16] MEDS: METHYLPHENIDATE 5 MG TAB PO SCH ×2 (08:38→13:42)
[2017-05-16] MEDS: TAMSULOSIN 0.4 MG CAP PO SCH (08:38)
[2017-05-16] MEDS: METOPROLOL TART 50 MG TAB PO SCH ×2 (08:38→20:42)
[2017-05-16] MEDS: PANTOPRAZOLE 40MG TAB (PROTONIX) PO SCH (08:38)
[2017-05-16] MEDS: LISINOPRIL 20 MG TAB PO SCH ×2 (08:38→20:41)
[2017-05-16] MEDS: FLUCONAZOLE 100 MG TAB PO SCH (08:39)
[2017-05-16] MEDS: ERYTHROMYCIN OPHTH OINT OD SCH ×3 (08:39→20:41)
[2017-05-16] MEDS: LORATADINE 10 MG TAB PO SCH (08:39)
[2017-05-16] MEDS: FLUTICASONE PROP 0.05% NASAL SPRAY 16 GM (FLONASE) SCH (08:39)
[2017-05-16] MEDS: hydroCHLOROthiazide 25 MG TAB PO SCH (08:39)
[2017-05-16] MEDS: BACITRACIN OINT 30GM TOP SCH (08:39)
[2017-05-16] MEDS: BISACODYL 10 MG SUPP PR PRN (13:40)
[2017-05-16 14:00] VITALS: BP 83/55
[2017-05-16] MEDS ORDERED: METHYLPHENIDATE 5 MG TAB PO SCH (14:00)
[2017-05-16 20:00] VITALS: BP 122/65
[2017-05-16] MEDS: AMITRIPTYLINE 50 MG TAB PO SCH (20:40)
[2017-05-16] MEDS: SIMVASTATIN 10 MG TAB PO SCH (20:40)
[2017-05-17] MEDS: POLYVINYL ALCOHOL OPHTH SOLN 15 ML(LIQUITEARS) OU SCH ×5 (04:47→20:29)
[2017-05-17 06:00] VITALS: BP 97/58
[2017-05-17] MEDS: METHYLPHENIDATE 5 MG TAB PO SCH ×2 (06:30→14:58)
[2017-05-17 06:59] LABS: MEAN CORPUSCULAR HEMOGLOBIN 29.8 pg (27.0-33.0); MEAN CORPUSCULAR HGB CONC 33.1 g/dl (32.0-36.5); PLATELET COUNT, AUTOMATED 302 10^3/uL (150-450); RED CELL DISTRIBUTION WIDTH 15.8 % (11.5-14.5); WHITE BLOOD COUNT 16.4 10^3/uL (4.0-10.0)
[2017-05-17 07:19] LABS: ANION GAP 8 MEQ/L (8-16); BLOOD UREA NITROGEN 42 MG/DL (7-18); CALCIUM LEVEL 8.9 MG/DL (8.8-10.2); CARBON DIOXIDE LEVEL 20 MEQ/L (21-32); CHLORIDE LEVEL 101 MEQ/L (98-107); CREATININE FOR GFR 0.81 MG/DL (0.55-1.02); GLOMERULAR FILTRATION RATE > 60.0 (>45); GLUCOSE, FASTING 126 MG/DL (80-110); SODIUM LEVEL 129 MEQ/L (136-145)
[2017-05-17] MEDS: HumaLOG INSULIN (NovoLOG) PER UNIT SC SCH ×4 (08:28→21:00)
[2017-05-17] MEDS: FLUCONAZOLE 100 MG TAB PO SCH (08:29)
[2017-05-17] MEDS: hydroCHLOROthiazide 25 MG TAB PO SCH (08:29)
[2017-05-17] MEDS: PANTOPRAZOLE 40MG TAB (PROTONIX) PO SCH (08:29)
[2017-05-17] MEDS: HEPARIN SOD (PORCINE) 5000 UNITS/ML VIAL SC SCH (08:30)
[2017-05-17] MEDS: LORATADINE 10 MG TAB PO SCH (08:30)
[2017-05-17] MEDS: BACITRACIN OINT 30GM TOP SCH (08:31)
[2017-05-17] MEDS: ERYTHROMYCIN OPHTH OINT OD SCH ×3 (08:31→20:29)
[2017-05-17] MEDS: FLUTICASONE PROP 0.05% NASAL SPRAY 16 GM (FLONASE) SCH (08:31)
[2017-05-17] MEDS: METOPROLOL TART 50 MG TAB PO SCH (08:32)
[2017-05-17] MEDS: LISINOPRIL 20 MG TAB PO SCH ×2 (08:32→20:32)
[2017-05-17 08:33] VITALS: BP 99/53
[2017-05-17] MEDS: TAMSULOSIN 0.4 MG CAP PO SCH (08:33)
--- NOTE | 2017-05-17 11:39 | IPNPDOC ---
Date Seen The patient was seen on 05/17/17. Progress Note HPI: 61year oldF S/P resection of Rt acoustic neuroma with secondary infarcts Rt cerebellum and cerebral pontine angle of the isha 04/28/17 at [facility]. Pt with residual Rt facial droop, dysarthria, dysphagia, Rt facial nerve palsy, ataxia and generalized weakness. Pt was transferred to the care of ARU, Dr Duran 05/12/17. Pt states the right eye is feeling better. No eye pain per pt. Denies any fevers, chills, weakness, fatigue, Headache, Chest Pain, Shortness of breath, cough, palpitations, abdominal pain, N/V/D or changes in bowel or bladder habits. PAST MEDICAL HISTORY: Includes: 1. Hypertension. 2. Hyperlipidemia. 3. Attention deficit hyperactivity disorder. 4. Gastroesophageal reflux disease (GERD). 5. Osteoarthritis with intravertebral disc disease. 6. Osteoporosis 7. COPD 8. DM 9. Allergic rhinitis PAST SURGICAL HISTORY: Includes: 1. section. 2. Tonsillectomy. 3. Right ankle surgery in 1998 secondary to trauma from a fall. 4. Sinus surgery with polyp removal in the PE: GEN: 61yoF, appears stated age. Well-nourished, well developed. No acute distress. Alert and oriented x 3. Pleasant, interactive. HEENT: Normocephalic, atraumatic. Wearing eye patch on Rt eye. Sclera are nonicteric. Conjunctiva with injection noted Rt eye, no TTP, no surrounding erythema, warmth, no drainage. Nose midline. Rt facial droop noted. Moist mucous membranes. Pharynx pink and moist. Neck supple, trachea midline. No lymphadenopathy or thyromegaly appreciated. CHEST: Regular rate and rhythm, +S1, +S2 LUNGS: Clear to auscultation bilaterally. No wheezes, rales, or rhonchi. Breathing appears symmetric and easy. ABD: Round, soft, non-tender, non-distended. +Bowel sounds throughout. No rebound or guarding. No costovertebral angle tenderness. EXT: Pulses 2+ bilaterally dorsalis pedis and radial. No lower extremity edema appreciated. SKIN: [place], dry, warm. Capillary refill <2sec. No rashes. NEURO: Alert and oriented x 3. Speech is dysarthric. Pathology pending from [place]. A&P: 61year oldF S/P resection of Rt acoustic neuroma with secondary infarcts Rt cerebellum and cerebral pontine angle of the isha 04/28/17 at [facility]. Pt with residual Rt facial droop, dysarthria, dysphagia, Rt facial nerve palsy, ataxia and weakness. Pt was transferred to the care of ARU, Dr Duran 05/12/17. 1. S/P resection of Rt acoustic neuroma with secondary infarcts Rt cerebellum and cerebral pontine angle of the isha 04/28/17 at [facility]. Pt with residual Rt facial droop, dysarthria, dysphagia, Rt facial nerve palsy, ataxia and weakness. Mgmt as per ARU. PT/OT/St as per ARU. pain control as per ARU. bowel care as per ARU. DVT prophylaxis. As per ARU. Dispo as per ARU. Outpt F/U with neurosurgery Decadron tapering. Final pathology result pending from [place]. 2. HTN. BP is noted in 90s systolic. Per nursing, Pt weak, mild dizziness. IVF x 500cc x 1 this afternoon. Monitor. Reduce Metoprolol to 25mg BID with hold parameters. Lisinopril 20 mg BID, with hold parameters Hold Diltiazem and HCTZ. 3. HLD. Statin. 4. GERD. Continue PPI. 5. OA/DDD. 6. Osteoporosis. Fosamax. 7. Dry eyes/Rt eye irritation. Cont Artificial tears QID. Erythromycin ointment Rt eye. 8. Allergic rhinitis. Claritin/Flonase. 9. COPD. Symbicort. Enc I/S. 10. Hyponatremia. Na 129 today. Daily BMP Mag WNL TSH WNL. Ur Na, Cr and Osm pending. (Orders 05/14/17 cancelled.) 11. Leukocytosis. Trending downward from [place] with Decadron tapering. Pt was seen by Hematology at [place] with plan for outpt f/u. Pt with no complaints. Afebrile Monitor. 12. Recent UTI. Currently treated with Diflucan. UA neg. 05/13/17 UC 05/13/17 Organism 1 ENTEROCOCCUS FAECALIS COLONY COUNT 80,000 CFU/ml. Pt with perez cath since 05/15. Monitor. 13. DM. CC diet. SSI. 14. Anemia. Hgb trend upward. Fe studies, B12, folate. Stool OB pending. 15. Poor po intake. Daily weight. I/O. Nutrition consult. VS, I&O, 24H, Fishbone Vital Signs/I&O Vital Signs Date Time Temp Pulse Resp B/P (MAP) Pulse Ox O2 Delivery O2 Flow Rate FiO2 05/17/17 08:33 85 99/53 (68) 05/17/17 06:00 97.5 18 100 Room Air Laboratory Data 24H LABS Laboratory Tests 2 05/16/17 16:32: Bedside Glucose (Misc Panel) 135H 05/16/17 20:38: Bedside Glucose (Misc Panel) 150H 05/17/17 06:39: Nucleated Red Blood Cells % (auto) 0.0, Anion Gap 8, Glomerular Filtration Rate > 60.0, Blood Urea Nitrogen 42H, Creatinine 0.81, Sodium Level 129L, Potassium Level 5.0, Chloride Level 101, Carbon Dioxide Level 20L, Calcium Level 8.9 CBC/BMP Laboratory Tests 05/17/17 06:39 Red Blood Count 3.49 L, Mean Corpuscular Volume 90.0, Mean Corpuscular Hemoglobin 29.8, Mean Corpuscular Hemoglobin Concent 33.1, Red Cell Distribution Width 15.8 H, Calcium Level 8.9 Microbiology Microbiology 05/13/17 Urine Culture - Final, Complete Enterococcus Faecalis Miranda Morin May 17, 2017 11:39
[2017-05-17 12:37] VITALS: BP 98/52
[2017-05-17] MEDS: traMADol 50 MG TAB PO PRN (13:09)
[2017-05-17 14:00] VITALS: BP 92/54
[2017-05-17] MEDS ORDERED: NS 500 ML IV ONE (15:45)
[2017-05-17 16:56] VITALS: BP 118/78
[2017-05-17 20:00] VITALS: BP 120/56
[2017-05-17] MEDS: AMITRIPTYLINE 50 MG TAB PO SCH (20:29)
[2017-05-17] MEDS: SIMVASTATIN 10 MG TAB PO SCH (20:29)
[2017-05-17] MEDS: ACETAMINOPHEN TAB 650MG DOSE (2X325MG) PO PRN (20:30)
[2017-05-17] MEDS: METOPROLOL TART 25 MG TABLET PO SCH (20:32)
[2017-05-18] MEDS: POLYVINYL ALCOHOL OPHTH SOLN 15 ML(LIQUITEARS) OU SCH ×6 (00:23→20:00)
[2017-05-18] MEDS: HEPARIN SOD (PORCINE) 5000 UNITS/ML VIAL SC SCH ×3 (03:15→21:21)
[2017-05-18 06:00] VITALS: BP 115/62
[2017-05-18] MEDS: METHYLPHENIDATE 5 MG TAB PO SCH ×2 (06:34→14:11)
[2017-05-18] MEDS: ACETAMINOPHEN TAB 650MG DOSE (2X325MG) PO PRN ×3 (06:36→21:27)
[2017-05-18 06:38] LABS: MEAN CORPUSCULAR HEMOGLOBIN 29.7 pg (27.0-33.0); MEAN CORPUSCULAR HGB CONC 32.7 g/dl (32.0-36.5); PLATELET COUNT, AUTOMATED 270 10^3/uL (150-450); RED CELL DISTRIBUTION WIDTH 15.8 % (11.5-14.5)
[2017-05-18 06:53] LABS: ANION GAP 9 MEQ/L (8-16); BLOOD UREA NITROGEN 42 MG/DL (7-18); CALCIUM LEVEL 8.8 MG/DL (8.8-10.2); CARBON DIOXIDE LEVEL 21 MEQ/L (21-32); CHLORIDE LEVEL 101 MEQ/L (98-107); CREATININE FOR GFR 0.83 MG/DL (0.55-1.02); GLOMERULAR FILTRATION RATE > 60.0 (>45); GLUCOSE, FASTING 108 MG/DL (80-110); POTASSIUM SERUM 5.1 MEQ/L (3.5-5.1); SODIUM LEVEL 131 MEQ/L (136-145)
[2017-05-18] MEDS: MUPIROCIN 2% OINT 22 GM TUBE TOP SCH ×2 (09:00→21:27)
[2017-05-18] MEDS: METOPROLOL TART 25 MG TABLET PO SCH ×2 (09:00→21:25)
[2017-05-18] MEDS: LISINOPRIL 20 MG TAB PO SCH (09:00)
[2017-05-18] MEDS: HumaLOG INSULIN (NovoLOG) PER UNIT SC SCH ×4 (09:25→21:00)
[2017-05-18] MEDS: PANTOPRAZOLE 40MG TAB (PROTONIX) PO SCH (09:26)
[2017-05-18] MEDS: LORATADINE 10 MG TAB PO SCH (09:26)
[2017-05-18] MEDS: FLUCONAZOLE 100 MG TAB PO SCH (09:26)
[2017-05-18] MEDS: TAMSULOSIN 0.4 MG CAP PO SCH (09:26)
[2017-05-18] MEDS: ERYTHROMYCIN OPHTH OINT OD SCH ×3 (09:27→21:26)
[2017-05-18] MEDS: FLUTICASONE PROP 0.05% NASAL SPRAY 16 GM (FLONASE) SCH (09:27)
[2017-05-18] MEDS: BACITRACIN OINT 30GM TOP SCH (09:28)
--- NOTE | 2017-05-18 10:24 | IPNPDOC ---
Date Seen The patient was seen on 05/18/17. 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 Pt with residual Rt facial droop, dysarthria, dysphagia, Rt facial nerve palsy, ataxia and generalized weakness. Pt was transferred to the care of ARU, Dr Duran 05/12/17. Pt states the right eye is feeling better. No eye pain per pt. Denies any fevers, chills, weakness, fatigue, Headache, Chest Pain, Shortness of breath, cough, palpitations, abdominal pain, N/V/D or changes in bowel or bladder habits. PAST MEDICAL HISTORY: Includes: 1. Hypertension. 2. Hyperlipidemia. 3. Attention deficit hyperactivity disorder. 4. Gastroesophageal reflux disease (GERD). 5. Osteoarthritis with intravertebral disc disease. 6. Osteoporosis 7. COPD 8. DM 9. Allergic rhinitis PAST SURGICAL HISTORY: Includes: 1. section. 2. Tonsillectomy. 3. Right ankle surgery in 1998 secondary to trauma from a fall. 4. Sinus surgery with polyp removal in the PE: GEN: 61yoF, appears stated age. Well-nourished, well developed. No acute distress. Alert and oriented x 3. Pleasant, interactive. HEENT: Normocephalic, atraumatic. Wearing eye patch on Rt eye. Sclera are nonicteric. Conjunctiva with injection noted Rt eye, no TTP, no surrounding erythema, warmth, no drainage. Nose midline. Rt facial droop noted. Moist mucous membranes. Pharynx pink and moist. Neck supple, trachea midline. No lymphadenopathy or thyromegaly appreciated. CHEST: Regular rate and rhythm, +S1, +S2 LUNGS: Clear to auscultation bilaterally. No wheezes, rales, or rhonchi. Breathing appears symmetric and easy. ABD: Round, soft, non-tender, non-distended. +Bowel sounds throughout. No rebound or guarding. No costovertebral angle tenderness. EXT: Pulses 2+ bilaterally dorsalis pedis and radial. No lower extremity edema appreciated. SKIN: [place], dry, warm. Capillary refill <2sec. No rashes. NEURO: Alert and oriented x 3. Speech is dysarthric. Pathology pending from [facility]. 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 Pt with residual Rt facial droop, dysarthria, dysphagia, Rt facial nerve palsy, ataxia and weakness. Pt was transferred to the care of ARU, Dr Duran 05/12/17. 1. 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 Pt with residual Rt facial droop, dysarthria, dysphagia, Rt facial nerve palsy, ataxia and weakness. Mgmt as per ARU. PT/OT/St as per ARU. pain control as per ARU. bowel care as per ARU. DVT prophylaxis. As per ARU. Dispo as per [facility]U. Outpt F/U with neurosurgery Decadron tapering as per D/C instructions. Final pathology result pending from [facility]. Plan for outpt F/U with Dr Salguero, Neurosurgery [facility]. 2. HTN. IVF 500cc x 1 05/17 Metoprolol decreased to 25mg BID with hold parameters. Lisinopril decreased to 10 mg BID, with hold parameters D/Cd Diltiazem and HCTZ. Will give additional 500cc x 1 today. 3. HLD. Statin. 4. GERD. Continue PPI. 5. OA/DDD. 6. Osteoporosis. Fosamax. 7. Dry eyes/Rt eye irritation. Cont Artificial tears QID. Erythromycin ointment Rt eye. 8. Allergic rhinitis. Claritin/Flonase. 9. COPD. Symbicort. Enc I/S. 10. Hyponatremia. Na 131 today. Improved. Daily BMP Mag WNL TSH WNL. Ur Na, Cr and Osm. 11. Leukocytosis. Trending downward from [facility] with Decadron tapering. Pt was seen by Hematology at [facility] with plan for outpt f/u with Dr Kitty Dawn/ [facility]. Pt with no complaints. Afebrile Monitor. UC pending. 12. Recent UTI. Currently treated with Diflucan. UA neg. 05/13/17 UC 05/13/17 Organism 1 ENTEROCOCCUS FAECALIS COLONY COUNT 80,000 CFU/ml. Pt with perez catheter since 05/15. Recheck UC. Monitor. 13. DM. CC diet. SSI. 14. Anemia. Hgb trend upward. Fe studies, B12, folate. Stool OB pending. 15. Poor po intake. Daily weight. I/O. Nutrition consult. VS, I&O, 24H, Fishbone Vital Signs/I&O Vital Signs Date Time Temp Pulse Resp B/P (MAP) Pulse Ox O2 Delivery O2 Flow Rate FiO2 05/18/17 09:00 68 90/54 05/18/17 06:00 98.5 16 100 Room Air I&O- Last 24 Hours up to 6 AM 05/19/17 05:59 Intake Total 240 ml Output Total 1150 ml Balance -910 ml Laboratory Data 24H LABS Laboratory Tests 2 05/17/17 11:35: Bedside Glucose (Misc Panel) 182H 05/17/17 13:27: Urine Random Osmolality 487L, Urine Random Creatinine 68.5, Urine Random Sodium 52 05/17/17 16:57: Bedside Glucose (Misc Panel) 105 05/17/17 21:45: Bedside Glucose (Misc Panel) 166H 05/18/17 06:16: Nucleated Red Blood Cells % (auto) 0.0, Anion Gap 9, Glomerular Filtration Rate > 60.0, Blood Urea Nitrogen 42H, Creatinine 0.83, Sodium Level 131L, Potassium Level 5.1, Chloride Level 101, Carbon Dioxide Level 21, Calcium Level 8.8 CBC/BMP Laboratory Tests 05/18/17 06:16 Red Blood Count 3.33 L, Mean Corpuscular Volume 91.0, Mean Corpuscular Hemoglobin 29.7, Mean Corpuscular Hemoglobin Concent 32.7, Red Cell Distribution Width 15.8 H, Calcium Level 8.8 Microbiology Microbiology 05/13/17 Urine Culture - Final, Complete Enterococcus Faecalis Miranda Morin May 18, 2017 10:24
[2017-05-18 14:00] VITALS: BP 107/62
[2017-05-18] MEDS ORDERED: NS 500 ML IV ONE (14:30)
--- NOTE | 2017-05-18 18:28 | IPNPDOC ---
PM&R Progress Note [facility] Progress Note DATE OF SERVICE: 05/18/17 DATE OF ADMISSION: May 12, 2017 at 13:49 INPATIENT REHABILITATION ADMISSION DAY: #7 SUBJECTIVE: The patient is a right-handed, middle-aged, white female who had had progressive loss of hearing in her right ear and some facial weakness. 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 The patient is having trouble with closing the right eye as well as closing the right mouth and having facial drooling. The patient needs to regain moderate distance mobility, approximately 4-5 steps to enter home and will function on the first floor until she is able to better tolerate ambulation to the second floor of the home. The patient lives with her and has a number of adult family members in the area to assist her. They live in the [place], [place] area. ALLERGIES: See Below MEDICATIONS: Reviewed, see below. OBJECTIVE: VITAL SIGNS: Please see below. 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 HEENT: Patient with difficulty closing right INR right facial droop and left tongue deviation who is hard of hearing in the right ear. CARDIOVASCULAR: Regular rate and rhythm with normal S1-S2. 2 out 4 radial pulses. LUNGS: All saez clear auscultation. ABDOMEN: Bowel sounds normal in all quadrants. NEUROLOGICAL: The patient is alert and oriented to person, place, general aspects of time but does not seem to be fully oriented to situation and is getting confused on right and left body at times. Memory will be further assessed at speech therapy evaluation. Speech at this time is somewhat concrete in nature and dysarthric as noted above. Affect is mildly anxious but overall pleasant and cooperative and trying hard to participate. Motor strength on the left upper and lower extremities is approximately 4/5 but only +3 to -4 out of 5 in the right upper and lower extremities, limited by some ataxia that is affecting both the upper and lower extremities. Light touch is intact in bilateral upper and lower extremities and vibration is grossly intact in bilateral upper extremities and mildly diminished in both lower extremities down in the feet and ankle areas. SKIN: Grossly intact except for healing right mastoid incision and abdominal umbilicus incision. Both of which are without inflammation. LABORATORY DATA: Reviewed. Please see below. MICROBIOLOGY: Please see below. IMAGING: No new imaging. DVT prophylaxis ordered?: 5000 units heparin subcutaneous twice a day, PIPER hose and sequential compression stockings. ASSESSMENT AND PLAN: 1. 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 Final pathology is pending on the neuroma. At this time a should start a program of physical, occupational and speech therapies. Please see initial evaluations. Rehabilitation team conference: Patient working very hard with PT, OT and SECURITY SOFTWARE ENGINEER showing very good motivation. Currently having difficulties with hypotension and dizziness as fluid status and blood pressure medicines are being adjusted by Medicine account consultant. Significant problem is with oral awareness that limits her ability to advance diet. Approximate date of discharge is expected be . Please see attached therapy notes below. 2. Urinary retention: As patient is having low blood pressures and alpha sumeet will not be a choice at this time, so she is on perez to gravity. For now we will work on getting patient more up and active and consider voiding trials. 3. Type 2 diabetes mellitus: At this time we'll proceed with consistent carbohydrate diet and insulin sliding scale. Medicine to make adjustments as appropriate. 4. Anemia: H&H today is 9.9 and 30.3%. We will continue to watch this along with her blood pressure. 5. Hyponatremia: Hopefully the fluid challenge will further increase her sodium level which is 131 today up from 129 a couple days ago. BUN remains elevated at 42. TIME SPENT: Chart Review, examination and documentation require greater than 25 minutes. Patient: Cris Reardon : 1955 Age/Sex: 61/F Unit#: [id number] Room/Bed: [place] [address] User: Migdalia Garcia OT OT Date: 05/18/17 12:02 Type: OT Progress Time In * 10:15 Time Out * 11:30 OT Treatment Time-Minutes * 75 mins Type of Therapy Provided * Individual Precautions * Fall Unit * Acute Inpatient Rehab Pain Start of Session * 0 Pain Comment * No formal c/o pain Subjective * Pt supine upon OT arrival, agreeable to tx. Cognition Comments * WFL; A&Ox3, polite and cooperative throughout tx. Supine to Sit * Standby Assist Sit to Supine * Standby Assist Rolling * Standby Assist Bed Mobility Notes * SBA rolling bilaterally during LB dressing. Pt transfers supine to sit EOB with SBA. SBA sit to supine with assist to boost to HOB due to fatigue Sit to Stand * Total Assist Stand to Sit * Total Assist Functional Transfer Notes: * Min assist x2 sit<>stand at RW. Pt unable to stand long due to increased dizziness. Unable to take BP in standing, though initially upon returning to sit EOB, BP= 85/48. No further standing attempts due to dizziness. Bathing * Moderate Assist Dressing-Upper Body * Standby Assist Dressing-Lower Body * Moderate Assist Grooming * Standby Assist Toileting * Total Assist Eating * Not Tested Meal Preparation/Home Management * Not Tested ADL Training Note * Pt completed sponge bathing while supine. Pt able to wash all parts except B feet and buttocks. UB dressing- set-up assist only. LB dressing- pt edu re: ore sampler for threading BLE into LB clothing. Pt then able to thread BLE into brief with incidental assistance for correct holes, as well as able to thread BLE into pants. Pt able to roll bilaterally to complete pulling up pants with min assist. Assist to don B slippers while supine. Pt able to complete grooming to wash face and comb hair with VCs to avoid incision behind R ear. Assist to put hair up in ponytail. Pt currently with perez catheter. A. Eating (include only those with PO intake): * 88.Not Attempted Oral Hygiene Comments: * Pt completed with SECURITY SOFTWARE ENGINEER this am. C. Toileting Hygiene (not transfers): * 01.Dependent Toileting Hygiene Comments: * Perez catheter E. Shower/Bathe Self (not transfers, can be sponge bath): * 03.Partial/Mod Assist Shower/Bathe Self Comments: * See ADL note. F. Upper Body Dressing (includes bra, not hospital gown): * 05.Setup/clean up Asst Upper Body Dressing Comments: * See ADL note. G. Lower Body Dressing (includes briefs and knee braces): * 03.Partial/Mod Assist Lower Body Dressing Comments: * See ADL note. H. Putting on/taking off footwear (includes TEDS and AFO): * 01.Dependent Putting on/taking off footwear Comments: * See ADL note. Dependent for slippers. Sit-Static * F+ Sit-Dynamic * F- Stand-Static * F- Stand-Dynamic * P+ Balance Training Note * Pt able to sit EOB for ~20 minutes during session today with occasional LUE assist on bed rail; increasing when fatigued. Sit<>Stand with min assist x2 and pt noted to have fair balance in standing, though unable to tolerate longer than 15-20 seconds due to dizziness/fatigue. OT Intervention Note * BP taken in supine= 106/543. Pt then completed supine ADLs. BP following ADLs= 93/53. Pt edu re: ankle pumps and BLE ex's to increase BP. Co-tx with PT and pt able to transfer to EOB with SBA. No c/o dizziness upon initial sit EOB and FF=523/54. BP after ~4minutes in bggifho=196/58 We then attempted standing briefly; pt able to stand with min assist x2 for safety to RW. Pt able to stand only 15-20 seconds, then returned to sitting EOB due to dizziness. BP taken once returned to sitting=85/48. Unable to get further BP readings due to machine at this time, though pt reports dizziness decreased some once returning to sitting, requesting to return to supine. Pt did return to supine with all needs met, call light and phone in reach. Pts family present throughout tx. RN notified of BP readings during activity. Discharge Recommendations * Home w/services Safe for discharge at this time * No Patient: Cris Reardon : 1955 Age/Sex: 61/F Unit#: [id number] Room/Bed: M4142/01 User: Alexa Mandel PT PT Date: 05/18/17 16:01 Type: PT Progress Note Time In * 15:00 Time Out * 15:30 PT Treatment Time-Minutes * 30 mins Type of Therapy Provided * Individual Precautions * Fall Unit * Acute Inpatient Rehab Pain Start of Session * 0 Pain Comment * No formal c/o pain Subjective * pt presents supine in bed upon entering the room. She is excited to complete therapy today. Cognition Comments * WFL; A&Ox3, polite and cooperative throughout tx. Supine to Sit * Standby Assist Sit to Supine * Standby Assist Rolling * Standby Assist Bed Mobility Notes * pt con't to be SBA t/o session with bed mobility and in bed movement. Pt given technique for "sift scoot" to move one side of pelvis forward on the bed then "shift scoot" to move the otherside to get her feet on the floor. Pt able to complete well. Bed to Chair * Not Tested Chair to Bed * Not Tested Toilet/Commode * Not Tested Transfer Training Notes * Pt does not reach full standing today however with Mod A x 1 is able to gain partial standing with brief ~5 sec squat position maintained x 2. Will con't to retry in hopes of strengthening LEs for ambulation and standing. Sit-Static * F+ Sit-Dynamic * F- Balance Training Note * Pt sits EOB for ~20 minutes during session with 5 full minutes of unsupported time, however this time is broken into smaller pieces due to being later in the day. Pt tolerating 1 minute at a time prior to needing ~15-30secon break Ambulation Level of Assist * Not Tested Gait Training Note * BP con't to decrease to with symptomatic dizziness. Wheelchair Mobility Level of Assist * Not Tested Stair Training Note * pt has ramp present to get into her home. Should check with family when present. A. Roll Left and Right: * 05.Setup/clean up Asst B. Sit to Lying: * 05.Setup/clean up Asst C. Lying to Sitting on Side of Bed: * 05.Setup/clean up Asst D. Sit to Stand: * 88.Not Attempted E. Chair/Tmb-fi-Noafc Transfer: * 88.Not Attempted F. Toilet Transfer: * 88.Not Attempted G. Car Transfer: * 88.Not Attempted H. Does the patient walk?: * 1. No, indicated Q. Does the patient use a w/c (other than just transport): * 0. No Lower Extremity Exercised * Bilateral Supine Exercises * Ankle Pumps Number of Reps Supine * 15-20 Reps PT Interventions * Gait Training * Wheelchair Mobility * Therapeutic Excercise * Functional Training * Bed Mobility * Balance Activities * Safety/Precautions * HEP * Pt./Family Education * D/C Needs * Neuro Re-Education PT Progress Note * pt was left supine in her bed after session. Pt tolerating session with with imporved balance while sitting EOB. Pt states that she would be willing to try use of the tilt table in an effort to complete standing. PT Goal Note * sitting up in Stretcher chair for meals as tolerated, close observation needed while in the chair due to soft BP. Discharge Recommendations * Home w/services Safe for discharge at this time * No Patient: Cris Reardon : 1955 Age/Sex: 61/F Unit#: [id number] Room/Bed: M4142/01 User: St Luis Hernandez Date: 05/18/17 14:28 Type: Progress-Dysphagia Exercise Exercise Education Label * Effortful Swallow Manuver * Other Direct Dysphagia Mangement OME's face/lip/tongue, compensatory strategies during mealtime, oral care * Measure Initiates OME's w/ written instructions. Mod verbal cues to inc. accuracy * Level of Assistance Maximal Assist Moderate Assist * Level of Assistance Comment Recalled 3/6 compensatory strategies. Assist needed for oral care 3x/day. * Tolerance Excellent * Therapeutic Exercise Yes Compensatory Strategies Pt/Family Education * Therapeutic Exercise Comment Supervising SECURITY SOFTWARE ENGINEER present, agrees w/ tx and outcomes. MS Emily, CCC-SECURITY SOFTWARE ENGINEER. Patient: Cris Reardon : 1955 Age/Sex: 61/F Unit#: [id number] Room/Bed: [place] [address] User: St Luis Hernandez SP Date: 05/18/17 14:32 Type: ST-Progress Speech Production ... Exercise Education Label * Bilabials Word * Other Speech Production Exercises Functional phrases. Isolation of bilabials and labiodentals. * Level of Assistance Maximal Assist Consistently Multi-modality Cues * Level of Assistance Comment Phonetic placement cues, clinician models, mirror use, audio record/playbac * Tolerance Excellent * Therapeutic Exercise Yes Pt/Family Education * Therapeutic Exercise Comment Supervising SECURITY SOFTWARE ENGINEER present, agrees w/ tx and outcomes. MS Emily, CCC-SECURITY SOFTWARE ENGINEER. Allergies Coded Allergies: Amoxicillin (Verified Allergy, Unknown, 05/12/17) Shellfish Allergy (Verified Allergy, Unknown, 05/12/17) [place] (Verified Allergy, Unknown, 05/12/17) Sulfa Antibiotics (Verified Allergy, Unknown, 05/12/17) Vital Signs Vital Signs Date Time Temp Pulse Resp B/P (MAP) Pulse Ox O2 Delivery O2 Flow Rate FiO2 05/18/17 14:00 97.2 94 18 107/62 (77) 100 05/18/17 06:00 Room Air Laboratory Data CBC/BMP Laboratory Tests 05/18/17 06:16 Red Blood Count 3.33 L, Mean Corpuscular Volume 91.0, Mean Corpuscular Hemoglobin 29.7, Mean Corpuscular Hemoglobin Concent 32.7, Red Cell Distribution Width 15.8 H, Calcium Level 8.8 Labs 24H Laboratory Tests 2 05/17/17 21:45: Bedside Glucose (Misc Panel) 166H 05/18/17 06:16: Nucleated Red Blood Cells % (auto) 0.0, Anion Gap 9, Glomerular Filtration Rate > 60.0, Blood Urea Nitrogen 42H, Creatinine 0.83, Sodium Level 131L, Potassium Level 5.1, Chloride Level 101, Carbon Dioxide Level 21, Calcium Level 8.8 05/18/17 16:49: Bedside Glucose (Misc Panel) 293H Microbiology Microbiology 05/18/17 Urine Culture, Received Pending 05/13/17 Urine Culture - Final, Complete Enterococcus Faecalis Current Medications Current Medications Current Medications Acetaminophen (Tylenol Tab) 650 mg Q6HP PRN PO PAIN / FEVER Last administered on 05/18/17 14:11; Start 05/17/17 at 14:15; Stop 06/16/17 at 14:14 Alendronate Sodium (Fosamax) 70 mg Sa@07 PO Last administered on 05/15/17 06: 29; Start 05/15/17 at 07:00; Stop 06/14/17 at 06:59 Amitriptyline HCl (Elavil) 50 mg QHS PO Last administered on 05/17/17 20:29; Start 05/12/17 at 21:00; Stop 06/11/17 at 20:59 Artificial Tears (Akwa Tears) 2 drop Q4H OU Last administered on 05/18/17 16: 30; Start 05/13/17 at 16:00; Stop 06/11/17 at 15:59 Artificial Tears (Akwa Tears) 2 drop Q4HP PRN OU DRY EYES; Start 05/12/17 at 13:45; Stop 05/13/17 at 12:04; Status DC Bacitracin (Bacitracin Oint) Right Mastoid a... DAILY TOP Last administered on 05/18/17 09:28; Start 05/13/17 at 09:00; Stop 06/12/17 at 08:59 Bisacodyl (Dulcolax Suppository) 10 mg DAILYPRN PRN MS CONSTIPATION Last administered on 05/16/17 13:40; Start 05/12/17 at 13:45; Stop 06/11/17 at 13 :44 Budesonide/ Formoterol Fumarate (Symbicort 80/ 4.5mcg) 2 puff BID PRN INH Dyspnea; Start 05/12/17 at 13:45; Stop 06/11/17 at 13:44 Dexamethasone (Decadron) 2 mg BID PO Last administered on 05/16/17 20:40; Start 05/12/17 at 21:00; Stop 05/16/17 at 23:55; Status DC Dexamethasone (Decadron) 2 mg DAILY PO Last administered on 05/18/17 09:25; Start 05/17/17 at 09:00; Stop 05/20/17 at 08:59 Dextrose (Dextrose 50%) 25 ml ASDIRECTED PRN IV SEE LABEL COMMENTS; Start at 13:45; Stop 06/11/17 at 13:44 Diltiazem HCl (Cardizem) 60 mg Q6H PO Last administered on 05/16/17 23:54; Start 05/12/17 at 18:00; Stop 05/17/17 at 12:33; Status DC Erythromycin (Ilotycin) 1 dose TID OD Last administered on 05/18/17 16:30; Start 05/14/17 at 16:00; Stop 05/24/17 at 12:00 Fluconazole (Diflucan) 200 mg DAILY PO Last administered on 05/18/17 09:26; Start 05/13/17 at 09:00; Stop 05/27/17 at 08:59 Fluticasone Propionate (Flonase 0.05% Nasal [place]) 2 spray DAILY NA Last administered on 05/18/17 09:27; Start 05/13/17 at 09:00; Stop 06/12/17 at 08 :59 Glucagon (Glucagon) 1 mg ASDIRECTED PRN SC SEE LABEL COMMENTS; Start 05/12/17 at 13:45; Stop 06/11/17 at 13:44 Glucose (Glucose) 16 GM ASDIRECTED PRN PO SEE LABEL COMMENTS; Start 05/12/17 at 13:45; Stop 06/11/17 at 13:44 Heparin Sodium (Porcine) (Heparin) 5,000 units Q12H SC Last administered on 09:27; Start 05/12/17 at 21:00; Stop 05/23/17 at 20:59 Home Med (Med Rec Complete!) ASDIRECTED XX ; Start 05/12/17 at 15:30; Stop at 15:33; Status DC Hydrochlorothiazide (Hydrodiuril) 25 mg DAILY PO Last administered on 08:29; Start 05/13/17 at 09:00; Stop 05/17/17 at 12:21; Status DC Insulin Human Lispro (HumaLOG INSULIN) See Protocol Table AC SC Last administered on 05/18/17 18:03; Start 05/12/17 at 17:30; Stop 06/11/17 at 17 :29 Insulin Human Lispro (HumaLOG INSULIN) See Protocol Table QHS SC ; Start at 21:00; Stop 06/11/17 at 20:59 Lisinopril (Prinivil) 10 mg BID PO ; Start 05/18/17 at 21:00; Stop 06/17/17 at 20:59 Lisinopril (Prinivil) 20 mg BID PO Last administered on 05/17/17 20:32; Start 05/13/17 at 09:00; Stop 05/18/17 at 09:45; Status DC Loratadine (Claritin) 10 mg DAILY PO Last administered on 05/18/17 09:26; Start 05/13/17 at 09:00; Stop 06/12/17 at 08:59 Methylphenidate HCl (Ritalin) 10 mg BID@0700,1400 PO Last administered on 05/18 14:11; Start 05/16/17 at 07:00; Stop 05/23/17 at 06:59 Methylphenidate HCl (Ritalin) 10 mg BID@0700,1400 PO ; Start 05/16/17 at 14:00 ; Stop 05/16/17 at 14:00; Status DC Methylphenidate HCl (Ritalin) 10 mg BID@09,14 PO Last administered on 14:07; Start 05/12/17 at 14:00; Stop 05/16/17 at 08:34; Status DC Metoprolol Tartrate (Lopressor) 25 mg BID PO Last administered on 05/17/17 20 :32; Start 05/17/17 at 21:00; Stop 06/16/17 at 20:59 Metoprolol Tartrate (Lopressor) 50 mg BID PO Last administered on 05/16/17 20 :42; Start 05/12/17 at 21:00; Stop 05/17/17 at 12:33; Status DC Mupirocin (Bactroban 2% Ointment) 1 dose BID TOP Last administered on 09:00; Start 05/18/17 at 09:00; Stop 06/17/17 at 08:59 Pantoprazole Sodium (Protonix) 40 mg DAILY PO Last administered on 05/18/17 09:26; Start 05/13/17 at 09:00; Stop 06/12/17 at 08:59 Simvastatin (Zocor) 10 mg QHS PO Last administered on 05/17/17 20:29; Start 05/12/17 at 21:00; Stop 06/11/17 at 20:59 Sodium Biphosphate/ Sodium Phosphate (Fleet Enema) 1 ea DAILYPRN PRN MS CONSTIPATION; Start 05/12/17 at 13:45; Stop 06/11/17 at 13:44 Tamsulosin HCl (Flomax) 0.4 mg DAILY PO Last administered on 05/18/17 09:26; Start 05/13/17 at 09:00; Stop 06/12/17 at 08:59 Tramadol HCl (Ultram) 50 mg Q12HP PRN PO PAIN Last administered on 05/17/17 13:09; Start 05/12/17 at 13:45; Stop 05/17/17 at 14:15; Status DC NICOLASA MACK MD May 18, 2017 18:28
[2017-05-18 20:00] VITALS: BP 119/60
[2017-05-18] MEDS: SIMVASTATIN 10 MG TAB PO SCH (21:22)
[2017-05-18] MEDS: AMITRIPTYLINE 50 MG TAB PO SCH (21:22)
[2017-05-18] MEDS: LISINOPRIL 10 MG TAB PO SCH (21:26)
[2017-05-19] MEDS: POLYVINYL ALCOHOL OPHTH SOLN 15 ML(LIQUITEARS) OU SCH ×7 (00:58→23:18)
[2017-05-19 06:00] VITALS: BP 118/56
[2017-05-19] MEDS: METHYLPHENIDATE 5 MG TAB PO SCH ×2 (06:48→13:40)
[2017-05-19 07:01] LABS: MEAN CORPUSCULAR HEMOGLOBIN 30.1 pg (27.0-33.0); MEAN CORPUSCULAR HGB CONC 32.5 g/dl (32.0-36.5); MEAN CORPUSCULAR VOLUME 92.6 fl (80.0-96.0); PLATELET COUNT, AUTOMATED 259 10^3/uL (150-450); RED CELL DISTRIBUTION WIDTH 15.9 % (11.5-14.5); WHITE BLOOD COUNT 17.2 10^3/uL (4.0-10.0)
[2017-05-19 07:13] LABS: ANION GAP 9 MEQ/L (8-16); BLOOD UREA NITROGEN 28 MG/DL (7-18); CALCIUM LEVEL 8.9 MG/DL (8.8-10.2); CARBON DIOXIDE LEVEL 21 MEQ/L (21-32); CHLORIDE LEVEL 103 MEQ/L (98-107); CREATININE FOR GFR 0.62 MG/DL (0.55-1.02); GLOMERULAR FILTRATION RATE > 60.0 (>45); GLUCOSE, FASTING 92 MG/DL (80-110); POTASSIUM SERUM 4.6 MEQ/L (3.5-5.1); SODIUM LEVEL 133 MEQ/L (136-145)
[2017-05-19] MEDS: HumaLOG INSULIN (NovoLOG) PER UNIT SC SCH ×4 (07:56→21:00)
[2017-05-19] MEDS: MUPIROCIN 2% OINT 22 GM TUBE TOP SCH ×2 (09:20→21:28)
[2017-05-19] MEDS: HEPARIN SOD (PORCINE) 5000 UNITS/ML VIAL SC SCH ×2 (09:21→21:27)
[2017-05-19] MEDS: FLUTICASONE PROP 0.05% NASAL SPRAY 16 GM (FLONASE) SCH (09:21)
[2017-05-19] MEDS: BACITRACIN OINT 30GM TOP SCH (09:21)
[2017-05-19] MEDS: ERYTHROMYCIN OPHTH OINT OD SCH ×3 (09:21→21:28)
[2017-05-19] MEDS: FLUCONAZOLE 100 MG TAB PO SCH (09:22)
[2017-05-19] MEDS: TAMSULOSIN 0.4 MG CAP PO SCH (09:22)
[2017-05-19] MEDS: LORATADINE 10 MG TAB PO SCH (09:22)
[2017-05-19] MEDS: PANTOPRAZOLE 40MG TAB (PROTONIX) PO SCH (09:22)
[2017-05-19] MEDS: METOPROLOL TART 25 MG TABLET PO SCH (09:25)
[2017-05-19] MEDS: LISINOPRIL 10 MG TAB PO SCH (09:25)
[2017-05-19 10:40] VITALS: BP 72/50
[2017-05-19] MEDS: BISACODYL 10 MG SUPP PR PRN (11:50)
[2017-05-19] MEDS ORDERED: NS 500 ML IV ONE (13:30)
[2017-05-19 14:00] VITALS: BP 111/74
--- NOTE | 2017-05-19 14:21 | IPNPDOC ---
Text Note Date of Service The patient was seen on 05/19/17. NOTE Called to see patient for hypotension. Pt asymptomatic. Taking PO. Held BP meds this am. Discussed with Dr. Duran in person. Likely secondary to PO intake, medication effect, and recovery from acute illness. Less likely adrenal insufficiency. Plan as follows: 1) IV fluid bolus 2) D/C sheyla inhibitor/ D/C beta sumeet 3) D/C Flomax 4) increase steroid to BID VS,Fishbone, I+O VS, Fishbone, I+O Laboratory Tests 05/19/17 06:35 Red Blood Count 3.26 L, Mean Corpuscular Volume 92.6, Mean Corpuscular Hemoglobin 30.1, Mean Corpuscular Hemoglobin Concent 32.5, Red Cell Distribution Width 15.9 H, Calcium Level 8.9 Vital Signs Date Time Temp Pulse Resp B/P (MAP) Pulse Ox O2 Delivery O2 Flow Rate FiO2 05/19/17 10:40 72/50 (57) 05/19/17 09:25 102 05/19/17 06:00 97.4 18 100 Room Air I&O- Last 24 Hours up to 6 AM 05/20/17 06:00 Intake Total 360 ml Balance 360 ml KYLE MCKEON MD May 19, 2017 14:21
--- NOTE | 2017-05-19 15:08 | IPNPDOC ---
PM&R Progress Note Jewel Setter Progress Note DATE OF SERVICE: 05/19/17 DATE OF ADMISSION: May 12, 2017 at 13:49 INPATIENT REHABILITATION ADMISSION DAY: #8 SUBJECTIVE: The patient is a right-handed, middle-aged, white female who had had progressive loss of hearing in her right ear and some facial weakness. 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 The patient is having trouble with closing the right eye as well as closing the right mouth and having facial drooling. The patient needs to regain moderate distance mobility, approximately 4-5 steps to enter home and will function on the first floor until she is able to better tolerate ambulation to the second floor of the home. The patient lives with her and has a number of adult family members in the area to assist her. They live in the [facility]. Main complaint is lightheadedness when up and this is consistent with her BP dropping when she is elevated. ALLERGIES: See Below MEDICATIONS: Reviewed, see below. OBJECTIVE: VITAL SIGNS: Please see below. 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 HEENT: Patient with difficulty closing right INR right facial droop and left tongue deviation who is hard of hearing in the right ear. CARDIOVASCULAR: Regular rate and rhythm with normal S1-S2. 2/4 radial pulses. LUNGS: All saez clear auscultation. ABDOMEN: Bowel sounds normal in all quadrants. NEUROLOGICAL: The patient is alert and oriented to person, place, general aspects of time but does not seem to be fully oriented to situation and is getting confused on right and left body at times. Memory will be further assessed at speech therapy evaluation. Speech at this time is somewhat concrete in nature and dysarthric as noted above. Affect is mildly anxious but overall pleasant and cooperative and trying hard to participate. Motor strength on the left upper and lower extremities is approximately 4/5 but only +3 to -4 out of 5 in the right upper and lower extremities, limited by some ataxia that is affecting both the upper and lower extremities. Light touch is intact in bilateral upper and lower extremities and vibration is grossly intact in bilateral upper extremities and mildly diminished in both lower extremities down in the feet and ankle areas. SKIN: Grossly intact except for healing right mastoid incision and abdominal umbilicus incision. Both of which are without inflammation. LABORATORY DATA: Reviewed. Please see below. MICROBIOLOGY: Please see below. IMAGING: No new imaging. DVT prophylaxis ordered?: 5000 units heparin subcutaneous twice a day, PIPER hose and sequential compression stockings. ASSESSMENT AND PLAN: 1. 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 Final pathology is pending on the neuroma. 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 Currently having difficulties with hypotension and dizziness as fluid status and blood pressure medicines are being adjusted by Medicine securities consultant. Significant problem is with oral awareness that limits her ability to advance diet. We will increase oral care. Approximate date of discharge is expected be 06/03/17. 2. Urinary retention: Patient on perez catheter for now. When BP improved, we need to try voiding schedule. 3. Type 2 diabetes mellitus: At this time we'll proceed with consistent carbohydrate diet and insulin sliding scale. Medicine to make adjustments as appropriate. 4. Anemia: H&H today is 9.8 and 30.2%. We will continue to watch this along with her blood pressure. 5. Hyponatremia: Hopefully the fluid challenge will further increase her sodium level which is 133 today. BUN remains elevated at 28, but improved. 6. Leukocytosis: Currently, it remains elevated, but steady at around today's 17.2K. TIME SPENT: Chart Review, examination and documentation require greater than 25 minutes. Allergies Coded Allergies: Amoxicillin (Verified Allergy, Unknown, 05/12/17) Shellfish Allergy (Verified Allergy, Unknown, 05/12/17) [place] (Verified Allergy, Unknown, 05/12/17) Sulfa Antibiotics (Verified Allergy, Unknown, 05/12/17) Vital Signs Vital Signs Date Time Temp Pulse Resp B/P (MAP) Pulse Ox O2 Delivery O2 Flow Rate FiO2 05/19/17 10:40 72/50 (57) 05/19/17 09:25 102 05/19/17 06:00 97.4 18 100 Room Air Laboratory Data CBC/BMP Laboratory Tests 05/19/17 06:35 Red Blood Count 3.26 L, Mean Corpuscular Volume 92.6, Mean Corpuscular Hemoglobin 30.1, Mean Corpuscular Hemoglobin Concent 32.5, Red Cell Distribution Width 15.9 H, Calcium Level 8.9 Labs 24H Laboratory Tests 2 05/18/17 16:49: Bedside Glucose (Misc Panel) 293H 05/18/17 20:38: Bedside Glucose (Misc Panel) 90 05/19/17 06:35: Nucleated Red Blood Cells % (auto) 0.0, Anion Gap 9, Glomerular Filtration Rate > 60.0, Blood Urea Nitrogen 28H, Creatinine 0.62, Sodium Level 133L, Potassium Level 4.6, Chloride Level 103, Carbon Dioxide Level 21, Calcium Level 8.9 05/19/17 11:40: Bedside Glucose (Misc Panel) 149H Microbiology Microbiology 05/19/17 Stool Occult Blood (COOKIE) - Final, Complete 05/19/17 Stool Occult Blood (COOKIE) - Final, Complete 05/18/17 Urine Culture, Received Pending 05/13/17 Urine Culture - Final, Complete Enterococcus Faecalis Current Medications Current Medications Current Medications Acetaminophen (Tylenol Tab) 650 mg Q6HP PRN PO PAIN / FEVER Last administered on 05/18/17 21:27; Start 05/17/17 at 14:15; Stop 06/16/17 at 14:14 Alendronate Sodium (Fosamax) 70 mg Sa@07 PO Last administered on 05/15/17 06: 29; Start 05/15/17 at 07:00; Stop 06/14/17 at 06:59 Amitriptyline HCl (Elavil) 50 mg QHS PO Last administered on 05/18/17 21:22; Start 05/12/17 at 21:00; Stop 06/11/17 at 20:59 Artificial Tears ([place] Tears) 2 drop Q4H OU Last administered on 05/19/17 13: 40; Start 05/13/17 at 16:00; Stop 06/11/17 at 15:59 Artificial Tears ([place]wa Tears) 2 drop Q4HP PRN OU DRY EYES; Start 05/12/17 at 13:45; Stop 05/13/17 at 12:04; Status DC Bacitracin (Bacitracin Oint) Right Mastoid a... DAILY TOP Last administered on 05/19/17 09:21; Start 05/13/17 at 09:00; Stop 06/12/17 at 08:59 Bisacodyl (Dulcolax Suppository) 10 mg DAILYPRN PRN [place] CONSTIPATION Last administered on 05/19/17 11:50; Start 05/12/17 at 13:45; Stop 06/11/17 at 13 :44 Budesonide/ Formoterol Fumarate (Symbicort 80/ 4.5mcg) 2 puff BID PRN INH Dyspnea; Start 05/12/17 at 13:45; Stop 06/11/17 at 13:44 Dexamethasone (Decadron) 2 mg BID PO Last administered on 05/16/17 20:40; Start 05/12/17 at 21:00; Stop 05/16/17 at 23:55; Status DC Dexamethasone (Decadron) 2 mg DAILY PO Last administered on 05/19/17 09:22; Start 05/17/17 at 09:00; Stop 05/19/17 at 13:31; Status DC Dexamethasone (Decadron) 2 mg Q12H PO ; Start 05/19/17 at 21:00; Stop at 20:59 Dextrose (Dextrose 50%) 25 ml ASDIRECTED PRN IV SEE LABEL COMMENTS; Start at 13:45; Stop 06/11/17 at 13:44 Diltiazem HCl (Cardizem) 60 mg Q6H PO Last administered on 05/16/17 23:54; Start 05/12/17 at 18:00; Stop 05/17/17 at 12:33; Status DC Erythromycin (Ilotycin) 1 dose TID OD Last administered on 05/19/17 09:21; Start 05/14/17 at 16:00; Stop 05/24/17 at 12:00 Fluconazole (Diflucan) 200 mg DAILY PO Last administered on 05/19/17 09:22; Start 05/13/17 at 09:00; Stop 05/27/17 at 08:59 Fluticasone Propionate (Flonase 0.05% Nasal [place]) 2 spray DAILY NA Last administered on 05/19/17 09:21; Start 05/13/17 at 09:00; Stop 06/12/17 at 08 :59 Glucagon (Glucagon) 1 mg ASDIRECTED PRN SC SEE LABEL COMMENTS; Start 05/12/17 at 13:45; Stop 06/11/17 at 13:44 Glucose (Glucose) 16 GM ASDIRECTED PRN PO SEE LABEL COMMENTS; Start 05/12/17 at 13:45; Stop 06/11/17 at 13:44 Heparin Sodium (Porcine) (Heparin) 5,000 units Q12H SC Last administered on 09:21; Start 05/12/17 at 21:00; Stop 05/23/17 at 20:59 Home Med (Med Rec Complete!) ASDIRECTED XX ; Start 05/12/17 at 15:30; Stop at 15:33; Status DC Hydrochlorothiazide (Hydrodiuril) 25 mg DAILY PO Last administered on 08:29; Start 05/13/17 at 09:00; Stop 05/17/17 at 12:21; Status DC Insulin Human Lispro (HumaLOG INSULIN) See Protocol Table AC SC Last administered on 05/19/17 13:39; Start 05/12/17 at 17:30; Stop 06/11/17 at 17 :29 Insulin Human Lispro (HumaLOG INSULIN) See Protocol Table QHS SC ; Start at 21:00; Stop 06/11/17 at 20:59 Lansoprazole (First-Lansoprazole Oral Suspension) 30 mg DAILY PO ; Start at 09:00; Stop 06/19/17 at 08:59 Lisinopril (Prinivil) 10 mg BID PO Last administered on 05/18/17 21:26; Start 05/18/17 at 21:00; Stop 05/19/17 at 13:29; Status DC Lisinopril (Prinivil) 20 mg BID PO Last administered on 05/17/17 20:32; Start 05/13/17 at 09:00; Stop 05/18/17 at 09:45; Status DC Loratadine (Claritin) 10 mg DAILY PO Last administered on 05/19/17 09:22; Start 05/13/17 at 09:00; Stop 06/12/17 at 08:59 Methylphenidate HCl (Ritalin) 10 mg BID@0700,1400 PO Last administered on 05/19 13:40; Start 05/16/17 at 07:00; Stop 05/23/17 at 06:59 Methylphenidate HCl (Ritalin) 10 mg BID@0700,1400 PO ; Start 05/16/17 at 14:00 ; Stop 05/16/17 at 14:00; Status DC Methylphenidate HCl (Ritalin) 10 mg BID@,14 PO Last administered on 14:07; Start 05/12/17 at 14:00; Stop 05/16/17 at 08:34; Status DC Metoprolol Tartrate (Lopressor) 25 mg BID PO Last administered on 05/18/17 21 :25; Start 05/17/17 at 21:00; Stop 05/19/17 at 13:29; Status DC Metoprolol Tartrate (Lopressor) 50 mg BID PO Last administered on 05/16/17 20 :42; Start 05/12/17 at 21:00; Stop 05/17/17 at 12:33; Status DC Mupirocin (Bactroban 2% Ointment) 1 dose BID TOP Last administered on 09:20; Start 05/18/17 at 09:00; Stop 06/17/17 at 08:59 Pantoprazole Sodium (Protonix) 40 mg DAILY PO Last administered on 05/19/17 09:22; Start 05/13/17 at 09:00; Stop 05/19/17 at 13:30; Status DC Simvastatin (Zocor) 10 mg QHS PO Last administered on 05/18/17 21:22; Start 05/12/17 at 21:00; Stop 06/11/17 at 20:59 Sodium Biphosphate/ Sodium Phosphate (Fleet Enema) 1 ea DAILYPRN PRN [place] CONSTIPATION; Start 05/12/17 at 13:45; Stop 06/11/17 at 13:44 Tamsulosin HCl (Flomax) 0.4 mg DAILY PO Last administered on 05/19/17 09:22; Start 05/13/17 at 09:00; Stop 05/19/17 at 13:29; Status DC Tramadol HCl (Ultram) 50 mg Q12HP PRN PO PAIN Last administered on 05/17/17 13:09; Start 05/12/17 at 13:45; Stop 05/17/17 at 14:15; Status DC NICOLASA MACK MD May 19, 2017 15:08
[2017-05-19 20:00] VITALS: BP 129/66
[2017-05-19] MEDS: SIMVASTATIN 10 MG TAB PO SCH (21:26)
[2017-05-19] MEDS: AMITRIPTYLINE 50 MG TAB PO SCH (21:26)
[2017-05-19] MEDS: ACETAMINOPHEN TAB 650MG DOSE (2X325MG) PO PRN (21:27)
[2017-05-20] MEDS: POLYVINYL ALCOHOL OPHTH SOLN 15 ML(LIQUITEARS) OU SCH ×5 (04:06→20:19)
[2017-05-20 06:00] VITALS: BP 141/77
[2017-05-20] MEDS: METHYLPHENIDATE 5 MG TAB PO SCH ×2 (06:21→13:38)
[2017-05-20 07:29] LABS: MEAN CORPUSCULAR HEMOGLOBIN 29.8 pg (27.0-33.0); MEAN CORPUSCULAR HGB CONC 32.2 g/dl (32.0-36.5); MEAN CORPUSCULAR VOLUME 92.5 fl (80.0-96.0); PLATELET COUNT, AUTOMATED 237 10^3/uL (150-450); RED CELL DISTRIBUTION WIDTH 15.8 % (11.5-14.5); WHITE BLOOD COUNT 14.7 10^3/uL (4.0-10.0)
[2017-05-20] MEDS: FLUTICASONE PROP 0.05% NASAL SPRAY 16 GM (FLONASE) SCH (07:41)
[2017-05-20] MEDS: HumaLOG INSULIN (NovoLOG) PER UNIT SC SCH ×4 (07:41→20:39)
[2017-05-20] MEDS: HEPARIN SOD (PORCINE) 5000 UNITS/ML VIAL SC SCH ×2 (07:41→20:17)
[2017-05-20] MEDS: FLUCONAZOLE 100 MG TAB PO SCH (07:42)
[2017-05-20] MEDS: LORATADINE 10 MG TAB PO SCH (07:42)
[2017-05-20] MEDS: ERYTHROMYCIN OPHTH OINT OD SCH ×3 (07:42→20:19)
[2017-05-20] MEDS: LANSOPRAZOLE SUSPENSION 30 MG/10 ML ORAL SYRINGE (FIRST-LANSOPRAZOLE) PO SCH (07:42)
[2017-05-20] MEDS: BACITRACIN OINT 30GM TOP SCH (07:43)
[2017-05-20] MEDS: MUPIROCIN 2% OINT 22 GM TUBE TOP SCH ×2 (07:43→20:20)
[2017-05-20 07:52] LABS: ANION GAP 8 MEQ/L (8-16); BLOOD UREA NITROGEN 23 MG/DL (7-18); CALCIUM LEVEL 8.8 MG/DL (8.8-10.2); CARBON DIOXIDE LEVEL 22 MEQ/L (21-32); CHLORIDE LEVEL 101 MEQ/L (98-107); GLOMERULAR FILTRATION RATE > 60.0 (>45); GLUCOSE, FASTING 139 MG/DL (80-110); POTASSIUM SERUM 4.7 MEQ/L (3.5-5.1); SODIUM LEVEL 131 MEQ/L (136-145)
[2017-05-20] MEDS: ACETAMINOPHEN TAB 650MG DOSE (2X325MG) PO PRN ×2 (13:39→20:19)
[2017-05-20 14:00] VITALS: BP 126/68
[2017-05-20 20:00] VITALS: BP 143/76
[2017-05-20] MEDS: SIMVASTATIN 10 MG TAB PO SCH (20:19)
[2017-05-20] MEDS: AMITRIPTYLINE 50 MG TAB PO SCH (20:19)
[2017-05-21] MEDS: POLYVINYL ALCOHOL OPHTH SOLN 15 ML(LIQUITEARS) OU SCH ×6 (00:02→20:31)
[2017-05-21 06:00] VITALS: BP 152/80
[2017-05-21] MEDS: HEPARIN SOD (PORCINE) 5000 UNITS/ML VIAL SC SCH ×2 (08:12→20:30)
[2017-05-21] MEDS: HumaLOG INSULIN (NovoLOG) PER UNIT SC SCH ×4 (08:12→21:00)
[2017-05-21] MEDS: ERYTHROMYCIN OPHTH OINT OD SCH ×3 (08:13→20:30)
[2017-05-21] MEDS: LANSOPRAZOLE SUSPENSION 30 MG/10 ML ORAL SYRINGE (FIRST-LANSOPRAZOLE) PO SCH (08:13)
[2017-05-21] MEDS: LORATADINE 10 MG TAB PO SCH (08:13)
[2017-05-21] MEDS: FLUTICASONE PROP 0.05% NASAL SPRAY 16 GM (FLONASE) SCH (08:13)
[2017-05-21] MEDS: METHYLPHENIDATE 5 MG TAB PO SCH ×2 (08:13→15:19)
[2017-05-21] MEDS: FLUCONAZOLE 100 MG TAB PO SCH (08:13)
[2017-05-21] MEDS: MUPIROCIN 2% OINT 22 GM TUBE TOP SCH ×2 (08:14→20:30)
[2017-05-21] MEDS: BACITRACIN OINT 30GM TOP SCH (08:14)
[2017-05-21] MEDS: BISACODYL 10 MG SUPP PR PRN (10:25)
[2017-05-21] MEDS: METOPROLOL TART 25 MG TABLET PO SCH ×2 (12:08→18:05)
[2017-05-21 14:00] VITALS: BP 142/73
--- NOTE | 2017-05-21 16:51 | IPNPDOC ---
PM&R Progress Note Paper Colorer Progress Note DATE OF SERVICE: 05/21/17 DATE OF ADMISSION: May 12, 2017 at 13:49 INPATIENT REHABILITATION ADMISSION DAY: #10 SUBJECTIVE: The patient is a right-handed, middle-aged, white female who had had progressive loss of hearing in her right ear and some facial weakness. 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 The patient is having trouble with closing the right eye as well as closing the right mouth and having facial drooling. The patient needs to regain moderate distance mobility, approximately 4-5 steps to enter home and will function on the first floor until she is able to better tolerate ambulation to the second floor of the home. The patient lives with her and has a number of adult family members in the area to assist her. They [facility] in the [facility]. Main complaint is lightheadedness when standing up: this is consistent with her BP dropping when she is elevated. Some headache whenever she bends over. ALLERGIES: See Below MEDICATIONS: Reviewed, see below. OBJECTIVE: VITAL SIGNS: Please see below. 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 HEENT: Patient with difficulty closing right INR right facial droop and left tongue deviation who is hard of hearing in the right ear. CARDIOVASCULAR: Regular rate and rhythm with normal S1-S2. 2/4 radial pulses. LUNGS: All saez clear auscultation. ABDOMEN: Bowel sounds normal in all quadrants. NEUROLOGICAL: The patient is alert and oriented to person, place, general aspects of time but does not seem to be fully oriented to situation and is getting confused on right and left body at times. Memory will be further assessed at speech therapy evaluation. Speech at this time is somewhat concrete in nature and dysarthric as noted above. Affect is mildly anxious but overall pleasant and cooperative and trying hard to participate. Motor strength on the left upper and lower extremities is approximately 4/5 but only +3 to -4 out of 5 in the right upper and lower extremities, limited by some ataxia that is affecting both the upper and lower extremities. Light touch is intact in bilateral upper and lower extremities and vibration is grossly intact in bilateral upper extremities and mildly diminished in both lower extremities down in the feet and ankle areas. SKIN: Grossly intact except for healing right mastoid incision with some serosanguineous drainage and abdominal umbilicus incision. Both of which are without inflammation. LABORATORY DATA: Reviewed. Please see below. MICROBIOLOGY: Please see below. IMAGING: No new imaging. DVT prophylaxis ordered?: 5000 units heparin subcutaneous twice a day, PIPER hose and sequential compression stockings. ASSESSMENT AND PLAN: 1. 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 Final pathology is pending on the neuroma. Patient working very hard with PT, OT and CHOCOLATE COATER showing very good motivation. Currently having difficulties with hypotension and dizziness as fluid status and blood pressure medicines are being adjusted by Medicine senior management consultant. Significant problem is with oral awareness that limits her ability to advance diet. We will increase oral care. REHAB. TEAM ROUNDS: Patient is doing better with higher BP and less dizziness sitting and standing, which has lead to better PT/OT performance in mobility, transfers and ADL's which require her to be up. Speech clarity is much better, but facial palsy still a problem, especially the trouble with right eyelid closing and blink/tearing to keep eye moist. Family is asking about Ophthalmology consult, however, this is the CN VII palsy and truly a ENT issue to address, but I will consult geophysical support specialist if family really wants the opinion. Approximate date of discharge is expected be 06/03/17. Patient should need DME (FWW, Commoder, Shower chair or bench, and possible w/c). Please see attached therapy notes below. 2. Urinary retention: Patient on perez catheter for now. If BP remains improved , we need to try voiding schedule. 3. Type 2 diabetes mellitus: At this time we'll proceed with consistent carbohydrate diet and insulin sliding scale. Medicine to make adjustments as appropriate. 4. Anemia: H&H today is 9.6 and 29.8%. We will continue to watch this along with her blood pressure. 5. Hyponatremia: Hopefully the fluid challenge will further increase her sodium level which is 131 today. BUN remains elevated at 23, but improved fro last one at 28. 6. Leukocytosis: Currently, it remains elevated, but steady at around today's 14.2K down from 17.2K. TIME SPENT: Chart Review, examination and documentation require greater than 25 minutes. Patient: Cris Reardon : 1955 Age/Sex: 61/F Unit#: [id number] Room/Bed: M4142/01 User: Migdalia Garcia OT OT Date: 05/21/17 12:43 Type: OT Progress Time In * 10:45 Time Out * 11:45 OT Treatment Time-Minutes * 60 mins Type of Therapy Provided * Individual Precautions * Fall Unit * Acute Inpatient Rehab Pain Start of Session * 0 Pain Comment * No c/o pain Subjective * Pt supine upon OT arrival, agreeable to tx. Requesting use of bedpan. Cognition * Impaired Cognition Comments * WFL, A&Ox3, polite and cooperative. Significant R facial droop affecting intelligibility of speech production. Supine to Sit * Not Tested Sit to Supine * Not Tested Rolling * Not Tested Bed Mobility Notes * SBA rolling bilaterally, as well as supine to sit EOB with increased time. BP supine= 156/86 BP EOB= 139/83. Pt does c/o dizziness, though reports it decreases with short rest break sitting EOB. Sit to Stand * Minimum Assist Stand to Sit * Minimum Assist Bed to Chair * Minimum Assist Functional Transfer Notes: * Pt completed sit<>stand transfer with RW for clothing management with min assist. At completion of ADLs, PT arrived to assist with transfer. Pt able to stand with min assist x1 and transferred using RW to recliner with min assist x1. Therefore, no need for further co-tx for transfers. Bathing * Moderate Assist Dressing-Upper Body * Standby Assist Dressing-Lower Body * Minimum Assist Grooming * Standby Assist Toileting * Total Assist Eating * Not Tested Meal Preparation/Home Management * Not Tested ADL Training Note * Toileting- total assist for clothing management and hygiene following BM using bed allen. Pt then transferred to EOB and completed sponge bathing. Pt able to wash chest, abdomen, BUE, elvis area, and B thighs. Assist for buttocks and B feet. UB dressing- set-up assist. LB dressing- pt able to thread BLE into brief and pants with increased time using soccer commentator. Min assist to stand to pull up brief and pants. Pt does c/o dizziness following standing, though BP remained stable =164/78. Grooming completed to wash face and hands with set-up only. A. Eating (include only those with PO intake): * 88.Not Attempted B. Oral Hygiene (includes gums in edentulous pts): * 88.Not Attempted Oral Hygiene Comments: * Pt completed with CHOCOLATE COATER this am. C. Toileting Hygiene (not transfers): * 01.Dependent Toileting Hygiene Comments: * Perez catheter, total assist for BM using bed allen E. Shower/Bathe Self (not transfers, can be sponge bath): * 03.Partial/Mod Assist Shower/Bathe Self Comments: * See ADL note. F. Upper Body Dressing (includes bra, not hospital gown): * 05.Setup/clean up Asst Upper Body Dressing Comments: * See ADL note. G. Lower Body Dressing (includes briefs and knee braces): * 04.Sup/Touch Assist Lower Body Dressing Comments: * See ADL note. H. Putting on/taking off footwear (includes TEDS and AFO): * 04.Sup/Touch Assist Putting on/taking off footwear Comments: * See ADL note. Set-up assist with sock aide to don B socks. Sit-Static * G- Sit-Dynamic * F+ Stand-Static * F Stand-Dynamic * F- Balance Training Note * sitting balance observed EOB, standing balance observed with 1 assist for safety and use of RW. OT Intervention Note * See ADL note above. Following ADL, pt transferred to recliner with OT/PT present with only min assist x1 required. Hand off to PT at this time. Discharge Recommendations * Home w/services Safe for discharge at this time * No Patient: Cris Reardon : 1955 Age/Sex: 61/F Unit#: [id number] Room/Bed: [place] [address] User: Glenda Denise ADDING MACHINE OPERATOR ADDING MACHINE OPERATOR Date: 05/20/17 12:11 Type: PT Progress Note Time In * 10:45 Time Out * 11:00 PT Treatment Time-Minutes * 15 mins Type of Therapy Provided * Co-Treatment Precautions * Fall Unit * Acute Inpatient Rehab Pain Start of Session * 0 Pain Comment * Pt does not offer c/o pain during session. Subjective * Pt sitting EOB with OT Sharon present upon arrival. Pt is agreeable to PT/OT co-treatment session to attempt standing and bed>chair transfer. Cognition * Impaired Cognition Comments * WFL, A&Ox3, polite and cooperative. Significant R facial droop affecting intelligibility of speech production. Supine to Sit * Not Tested Sit to Supine * Not Tested Rolling * Not Tested Bed Mobility Notes * Pt completed bed mobility prior to this therapists arrival. See OT note. Sit to Stand * Minimum Assist Stand to Sit * Minimum Assist Bed to Chair * Moderate Assist Chair to Bed * Not Tested Toilet/Commode * Not Tested Transfer Training Notes * sit<>stand at the EOB with Kaiser x2, bed>chair with modA x1 on the right, aKiser x1 on the left. Mild R knee buckling on one occasion while standing static for blood pressure reading, which pt self corrects. Sit-Static * G- Sit-Dynamic * F+ Stand-Static * F Stand-Dynamic * F- Balance Training Note * sitting balance observed EOB, standing balance observed with 2 assist for safety and use of RW. Ambulation Distance * 2 Feet Ambulation Level of Assist * Moderate Assist Assistive Device Used * Rolling Walker * Gait Belt Gait Training Note * Gait during SPT bed>chair only. See transfer training note. Wheelchair Mobility Level of Assist * Not Tested Stair Training Note * pt has ramp present to get into her home. Should check with family when present. A. Roll Left and Right: * 88.Not Attempted B. Sit to Lying: * 88.Not Attempted C. Lying to Sitting on Side of Bed: * 88.Not Attempted D. Sit to Stand: * 01.Dependent E. Chair/Icc-eg-Raaum Transfer: * 01.Dependent Chair/Uwa-gm-Eqdus Transfer Comments: * Kaiser x1 on the left, modA x1 on the right F. Toilet Transfer: * 88.Not Attempted G. Car Transfer: * 88.Not Attempted H. Does the patient walk?: * 2. Yes Does the patient walk Comments: * Short distance bed>chair this session due to decreasing blood pressure with increased time in standing. I. Walk 10 Feet: * 88.Not Attempted J. Walk 50' with Two Turns: * 88.Not Attempted K. Walk 150 Feet: * 88.Not Attempted L. Walking 10' on uneven surfaces: * 88.Not Attempted Q. Does the patient use a w/c (other than just transport): * 0. No Lower Extremity Exercised * Bilateral PT Interventions * Gait Training * Functional Training * Balance Activities * Safety/Precautions * Pt./Family Education PT Progress Note * Pt demonstrates good tolerance to sit<>stands and bed>chair with 2 assist for safety. Blood pressure monitored throughout transfers, reported to CHARIS Naylor: 146/66 sitting EOB, 106/57 standing ~1 min, 136/75 after transfer and return to sitting in recliner chair. Pt left seated in recliner chair with OT Sharon to complete OT session. PT Goal Note * sitting up in recliner chair for meals as tolerated, close observation needed while in the chair due to soft BP. Discharge Recommendations * Home w/services Safe for discharge at this time * No Patient: Cris Reardon : 1955 Age/Sex: 61/F Unit#: [id number] Room/Bed: M4142/01 User: Jovanni Mendoza Date: 05/21/17 10:27 Type: ST Progress-Dysphagia Exercise Exercise Education Label * Effortful Swallow Manuver * Other Direct Dysphagia Mangement Tiffanie's * Measure successful w/effortful, approx 50% w/tiffanie's * Level of Assistance Moderate Assist * Level of Assistance Comment Required verbal reminders and DM for new exercise * Tolerance Good * Therapeutic Exercise Yes Compensatory Strategies Pt/Family Education * Therapeutic Exercise Comment Patient: Cris Reardon : 1955 Age/Sex: 61/F Unit#: [id number] Room/Bed: M4142/ User: Jovanni Mendoza Date: 05/21/17 10:28 Type: ST Martin-Dysphagia Manageme... Exercise Education Label * Diet Modification Postural Strategies * Other Dysphagia Management PO trials of honey thick liquid * Measure confusion regarding head tilt (pt was using head turn) education provided * Level of Assistance Moderate Assist * Tolerance Good * Therapeutic Exercise Yes Compensatory Strategies Pt/Family Education Patient: Cris Reardon : 1955 Age/Sex: 61/F Unit#: [id number] Room/Bed: M4142/01 User: Jovanni Mendoza Date: 05/21/17 10:29 Type: ST-Progress Speech Production ... Exercise Education Label * Bilabials Word * Other Speech Production Exercises OME for lip closure * Level of Assistance Minimum Assist * Tolerance Good * Therapeutic Exercise Yes Compensatory Strategies Pt/Family Education * Therapeutic Exercise Comment improved intelligibility Allergies Coded Allergies: Amoxicillin (Verified Allergy, Unknown, 05/12/17) Shellfish Allergy (Verified Allergy, Unknown, 05/12/17) Sanborn (Verified Allergy, Unknown, 05/12/17) Sulfa Antibiotics (Verified Allergy, Unknown, 05/12/17) Vital Signs Vital Signs Date Time Temp Pulse Resp B/P (MAP) Pulse Ox O2 Delivery O2 Flow Rate FiO2 05/21/17 14:00 99.3 95 18 142/73 (96) 100 Room Air Laboratory Data Labs 24H Laboratory Tests 2 05/20/17 19:55: Bedside Glucose (Misc Panel) 157H 05/21/17 06:57: Bedside Glucose (Misc Panel) 124H 05/21/17 11:33: Bedside Glucose (Misc Panel) 124H Microbiology Microbiology 05/21/17 Stool Occult Blood (COOKIE) - Final, Complete 05/19/17 Stool Occult Blood (COOKIE) - Final, Complete 05/19/17 Stool Occult Blood (COOKIE) - Final, Complete 05/18/17 Urine Culture - Final, Complete Enterococcus Faecalis 05/13/17 Urine Culture - Final, Complete Enterococcus Faecalis Current Medications Current Medications Current Medications Acetaminophen (Tylenol Tab) 650 mg Q6HP PRN PO PAIN / FEVER Last administered on 05/20/17 20:19; Start 05/17/17 at 14:15; Stop 06/16/17 at 14:14 Alendronate Sodium (Fosamax) 70 mg Sa@07 PO Last administered on 05/15/17 06: 29; Start 05/15/17 at 07:00; Stop 06/14/17 at 06:59 Amitriptyline HCl (Elavil) 50 mg QHS PO Last administered on 05/20/17 20:19; Start 05/12/17 at 21:00; Stop 06/11/17 at 20:59 Artificial Tears (Akwa Tears) 2 drop Q4H OU Last administered on 05/21/17 12: 08; Start 05/13/17 at 16:00; Stop 06/11/17 at 15:59 Artificial Tears (Akwa Tears) 2 drop Q4HP PRN OU DRY EYES; Start 05/12/17 at 13:45; Stop 05/13/17 at 12:04; Status DC Bacitracin (Bacitracin Oint) Right Mastoid a... DAILY TOP Last administered on 05/21/17 08:14; Start 05/13/17 at 09:00; Stop 06/12/17 at 08:59 Bisacodyl (Dulcolax Suppository) 10 mg DAILYPRN PRN [place] CONSTIPATION Last administered on 05/21/17 10:25; Start 05/12/17 at 13:45; Stop 06/11/17 at 13 :44 Budesonide/ Formoterol Fumarate (Symbicort 80/ 4.5mcg) 2 puff BID PRN INH Dyspnea; Start 05/12/17 at 13:45; Stop 06/11/17 at 13:44 Dexamethasone (Decadron) 2 mg BID PO Last administered on 05/16/17 20:40; Start 05/12/17 at 21:00; Stop 05/16/17 at 23:55; Status DC Dexamethasone (Decadron) 2 mg DAILY PO Last administered on 05/19/17 09:22; Start 05/17/17 at 09:00; Stop 05/19/17 at 13:31; Status DC Dexamethasone (Decadron) 2 mg Q12H PO Last administered on 05/21/17 08:13; Start 05/19/17 at 21:00; Stop 06/18/17 at 20:59 Dextrose (Dextrose 50%) 25 ml ASDIRECTED PRN IV SEE LABEL COMMENTS; Start at 13:45; Stop 06/11/17 at 13:44 Diltiazem HCl (Cardizem) 60 mg Q6H PO Last administered on 05/16/17 23:54; Start 05/12/17 at 18:00; Stop 05/17/17 at 12:33; Status DC Erythromycin (Ilotycin) 1 dose TID OD Last administered on 05/21/17 08:13; Start 05/14/17 at 16:00; Stop 05/24/17 at 12:00 Fluconazole (Diflucan) 200 mg DAILY PO Last administered on 05/21/17 08:13; Start 05/13/17 at 09:00; Stop 05/27/17 at 08:59 Fluticasone Propionate (Flonase 0.05% Nasal [place]) 2 spray DAILY NA Last administered on 05/21/17 08:13; Start 05/13/17 at 09:00; Stop 06/12/17 at 08 :59 Glucagon (Glucagon) 1 mg ASDIRECTED PRN SC SEE LABEL COMMENTS; Start 05/12/17 at 13:45; Stop 06/11/17 at 13:44 Glucose (Glucose) 16 GM ASDIRECTED PRN PO SEE LABEL COMMENTS; Start 05/12/17 at 13:45; Stop 06/11/17 at 13:44 Heparin Sodium (Porcine) (Heparin) 5,000 units Q12H SC Last administered on 08:12; Start 05/12/17 at 21:00; Stop 05/28/17 at 23:55 Home Med (Med Rec Complete!) ASDIRECTED XX ; Start 05/12/17 at 15:30; Stop at 15:33; Status DC Hydrochlorothiazide (Hydrodiuril) 25 mg DAILY PO Last administered on 08:29; Start 05/13/17 at 09:00; Stop 05/17/17 at 12:21; Status DC Insulin Human Lispro (HumaLOG INSULIN) See Protocol Table AC SC Last administered on 05/21/17 12:08; Start 05/12/17 at 17:30; Stop 06/11/17 at 17 :29 Insulin Human Lispro (HumaLOG INSULIN) See Protocol Table QHS SC ; Start at 21:00; Stop 06/11/17 at 20:59 Lansoprazole (First-Lansoprazole Oral Suspension) 30 mg DAILY PO Last administered on 05/21/17 08:13; Start 05/20/17 at 09:00; Stop 06/19/17 at 08 :59 Lisinopril (Prinivil) 10 mg BID PO Last administered on 05/18/17 21:26; Start 05/18/17 at 21:00; Stop 05/19/17 at 13:29; Status DC Lisinopril (Prinivil) 20 mg BID PO Last administered on 05/17/17 20:32; Start 05/13/17 at 09:00; Stop 05/18/17 at 09:45; Status DC Loratadine (Claritin) 10 mg DAILY PO Last administered on 05/21/17 08:13; Start 05/13/17 at 09:00; Stop 06/12/17 at 08:59 Methylphenidate HCl (Ritalin) 10 mg BID@0700,1400 PO Last administered on 05/21 15:19; Start 05/16/17 at 07:00; Stop 05/28/17 at 23:55 Methylphenidate HCl (Ritalin) 10 mg BID@0700,1400 PO ; Start 05/16/17 at 14:00 ; Stop 05/16/17 at 14:00; Status DC Methylphenidate HCl (Ritalin) 10 mg BID@09,14 PO Last administered on 14:07; Start 05/12/17 at 14:00; Stop 05/16/17 at 08:34; Status DC Metoprolol Tartrate (Lopressor) 25 mg BID PO Last administered on 05/18/17 21 :25; Start 05/17/17 at 21:00; Stop 05/19/17 at 13:29; Status DC Metoprolol Tartrate (Lopressor) 25 mg Q6H PO Last administered on 05/21/17 12 :08; Start 05/21/17 at 12:00; Stop 06/20/17 at 11:59 Metoprolol Tartrate (Lopressor) 50 mg BID PO Last administered on 05/16/17 20 :42; Start 05/12/17 at 21:00; Stop 05/17/17 at 12:33; Status DC Mupirocin (Bactroban 2% Ointment) 1 dose BID TOP Last administered on 08:14; Start 05/18/17 at 09:00; Stop 06/17/17 at 08:59 Pantoprazole Sodium (Protonix) 40 mg DAILY PO Last administered on 05/19/17 09:22; Start 05/13/17 at 09:00; Stop 05/19/17 at 13:30; Status DC Simvastatin (Zocor) 10 mg QHS PO Last administered on 05/20/17 20:19; Start 05/12/17 at 21:00; Stop 06/11/17 at 20:59 Sodium Biphosphate/ Sodium Phosphate (Fleet Enema) 1 ea DAILYPRN PRN [place] CONSTIPATION; Start 05/12/17 at 13:45; Stop 06/11/17 at 13:44 Tamsulosin HCl (Flomax) 0.4 mg DAILY PO Last administered on 05/19/17 09:22; Start 05/13/17 at 09:00; Stop 05/19/17 at 13:29; Status DC Tramadol HCl (Ultram) 50 mg Q12HP PRN PO PAIN Last administered on 05/17/17 13:09; Start 05/12/17 at 13:45; Stop 05/17/17 at 14:15; Status DC NICOLASA MACK MD May 21, 2017 16:51
[2017-05-21] MEDS: ACETAMINOPHEN TAB 650MG DOSE (2X325MG) PO PRN (18:32)
[2017-05-21 20:00] VITALS: BP 169/80
[2017-05-21] MEDS: SIMVASTATIN 10 MG TAB PO SCH (20:30)
[2017-05-21] MEDS: AMITRIPTYLINE 50 MG TAB PO SCH (20:30)
[2017-05-22] MEDS: METOPROLOL TART 25 MG TABLET PO SCH ×4 (00:39→17:05)
[2017-05-22] MEDS: ACETAMINOPHEN TAB 650MG DOSE (2X325MG) PO PRN ×2 (00:39→17:45)
[2017-05-22] MEDS: POLYVINYL ALCOHOL OPHTH SOLN 15 ML(LIQUITEARS) OU SCH ×6 (00:40→20:22)
[2017-05-22 06:00] VITALS: BP 155/76
[2017-05-22] MEDS: ALENDRONATE 35MG TABLET PO SCH (06:00)
[2017-05-22] MEDS: METHYLPHENIDATE 5 MG TAB PO SCH ×2 (06:00→13:25)
[2017-05-22] MEDS: LANSOPRAZOLE SUSPENSION 30 MG/10 ML ORAL SYRINGE (FIRST-LANSOPRAZOLE) PO SCH (08:08)
[2017-05-22] MEDS: FLUTICASONE PROP 0.05% NASAL SPRAY 16 GM (FLONASE) SCH (08:09)
[2017-05-22] MEDS: HEPARIN SOD (PORCINE) 5000 UNITS/ML VIAL SC SCH ×2 (08:09→20:21)
[2017-05-22] MEDS: LORATADINE 10 MG TAB PO SCH (08:09)
[2017-05-22] MEDS: MUPIROCIN 2% OINT 22 GM TUBE TOP SCH ×2 (08:09→20:22)
[2017-05-22] MEDS: ERYTHROMYCIN OPHTH OINT OD SCH ×3 (08:09→20:22)
[2017-05-22] MEDS: FLUCONAZOLE 100 MG TAB PO SCH (08:09)
[2017-05-22] MEDS: BACITRACIN OINT 30GM TOP SCH (08:10)
[2017-05-22] MEDS: HumaLOG INSULIN (NovoLOG) PER UNIT SC SCH ×4 (08:11→21:00)
[2017-05-22 11:54] VITALS: BP 134/75
[2017-05-22 14:00] VITALS: BP 158/82
[2017-05-22 16:47] VITALS: BP 150/80
[2017-05-22 20:00] VITALS: BP 152/88
[2017-05-22] MEDS: AMITRIPTYLINE 50 MG TAB PO SCH (20:21)
[2017-05-22] MEDS: SIMVASTATIN 10 MG TAB PO SCH (20:22)
[2017-05-23] MEDS: METOPROLOL TART 25 MG TABLET PO SCH ×4 (00:29→17:16)
[2017-05-23] MEDS: POLYVINYL ALCOHOL OPHTH SOLN 15 ML(LIQUITEARS) OU SCH ×6 (00:29→20:00)
[2017-05-23] MEDS: ACETAMINOPHEN TAB 650MG DOSE (2X325MG) PO PRN ×3 (04:58→20:04)
[2017-05-23 06:00] VITALS: BP 158/88
[2017-05-23] MEDS: METHYLPHENIDATE 5 MG TAB PO SCH ×2 (07:04→13:53)
[2017-05-23] MEDS: HEPARIN SOD (PORCINE) 5000 UNITS/ML VIAL SC SCH ×2 (07:35→20:01)
[2017-05-23] MEDS: FLUTICASONE PROP 0.05% NASAL SPRAY 16 GM (FLONASE) SCH (07:36)
[2017-05-23] MEDS: ERYTHROMYCIN OPHTH OINT OD SCH ×3 (07:36→20:07)
[2017-05-23] MEDS: HumaLOG INSULIN (NovoLOG) PER UNIT SC SCH ×4 (07:36→20:07)
[2017-05-23] MEDS: LANSOPRAZOLE SUSPENSION 30 MG/10 ML ORAL SYRINGE (FIRST-LANSOPRAZOLE) PO SCH (07:36)
[2017-05-23] MEDS: MUPIROCIN 2% OINT 22 GM TUBE TOP SCH ×2 (07:37→20:29)
[2017-05-23] MEDS: LORATADINE 10 MG TAB PO SCH (07:37)
[2017-05-23] MEDS: FLUCONAZOLE 100 MG TAB PO SCH (07:37)
[2017-05-23] MEDS: BACITRACIN OINT 30GM TOP SCH (07:38)
[2017-05-23 11:44] VITALS: BP 158/79
[2017-05-23 14:00] VITALS: BP 159/77
[2017-05-23 16:51] VITALS: BP 154/74
[2017-05-23 20:00] VITALS: BP 164/81
[2017-05-23] MEDS: AMITRIPTYLINE 50 MG TAB PO SCH (20:00)
[2017-05-23] MEDS: SIMVASTATIN 10 MG TAB PO SCH (20:01)
[2017-05-24] VITALS (7 sets, daily range): BP systolic 135–171; BP diastolic 66–84
[2017-05-24] MEDS: POLYVINYL ALCOHOL OPHTH SOLN 15 ML(LIQUITEARS) OU SCH ×5 (04:24→16:48)
[2017-05-24] MEDS: METOPROLOL TART 25 MG TABLET PO SCH ×5 (06:46→23:00)
[2017-05-24] MEDS: METHYLPHENIDATE 5 MG TAB PO SCH ×2 (06:47→12:27)
[2017-05-24 07:37] LABS: MEAN CORPUSCULAR HEMOGLOBIN 29.9 pg (27.0-33.0); MEAN CORPUSCULAR HGB CONC 32.7 g/dl (32.0-36.5); MEAN CORPUSCULAR VOLUME 91.4 fl (80.0-96.0); PLATELET COUNT, AUTOMATED 350 10^3/uL (150-450); RED CELL DISTRIBUTION WIDTH 16.9 % (11.5-14.5); WHITE BLOOD COUNT 16.2 10^3/uL (4.0-10.0)
[2017-05-24 07:55] LABS: ANION GAP 9 MEQ/L (8-16); BLOOD UREA NITROGEN 21 MG/DL (7-18); CALCIUM LEVEL 8.6 MG/DL (8.8-10.2); CARBON DIOXIDE LEVEL 23 MEQ/L (21-32); CHLORIDE LEVEL 99 MEQ/L (98-107); CREATININE FOR GFR 0.59 MG/DL (0.55-1.02); GLOMERULAR FILTRATION RATE > 60.0 (>45); GLUCOSE, FASTING 131 MG/DL (80-110); POTASSIUM SERUM 4.6 MEQ/L (3.5-5.1); SODIUM LEVEL 131 MEQ/L (136-145)
[2017-05-24] MEDS: LORATADINE 10 MG TAB PO SCH (08:16)
[2017-05-24] MEDS: HumaLOG INSULIN (NovoLOG) PER UNIT SC SCH ×4 (08:16→22:47)
[2017-05-24] MEDS: HEPARIN SOD (PORCINE) 5000 UNITS/ML VIAL SC SCH ×2 (08:16→22:59)
[2017-05-24] MEDS: FLUCONAZOLE 100 MG TAB PO SCH (08:17)
[2017-05-24] MEDS: ACETAMINOPHEN TAB 650MG DOSE (2X325MG) PO PRN ×2 (08:17→16:48)
[2017-05-24] MEDS: ERYTHROMYCIN OPHTH OINT OD SCH ×2 (08:18→23:39)
[2017-05-24] MEDS: FLUTICASONE PROP 0.05% NASAL SPRAY 16 GM (FLONASE) SCH (08:18)
[2017-05-24] MEDS: LANSOPRAZOLE SUSPENSION 30 MG/10 ML ORAL SYRINGE (FIRST-LANSOPRAZOLE) PO SCH (08:18)
[2017-05-24] MEDS: MUPIROCIN 2% OINT 22 GM TUBE TOP SCH ×2 (08:19→23:00)
[2017-05-24] MEDS: BACITRACIN OINT 30GM TOP SCH (08:19)
--- NOTE | 2017-05-24 11:25 | IPNPDOC ---
Date Seen The patient was seen on 05/24/17. 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 Pt with residual Rt facial droop, dysarthria, dysphagia, Rt facial nerve palsy, ataxia and generalized weakness. Pt was transferred to the care of ARU, Dr Duran 05/12/17. Pt denies eye pain. Denies any fevers, chills, weakness, fatigue, Headache, Chest Pain, Shortness of breath, cough, palpitations, abdominal pain, N/V/D or changes in bowel or bladder habits. PAST MEDICAL HISTORY: Includes: 1. Hypertension. 2. Hyperlipidemia. 3. Attention deficit hyperactivity disorder. 4. Gastroesophageal reflux disease (GERD). 5. Osteoarthritis with intravertebral disc disease. 6. Osteoporosis 7. COPD 8. DM 9. Allergic rhinitis PAST SURGICAL HISTORY: Includes: 1. section. 2. Tonsillectomy. 3. Right ankle surgery in 1998 secondary to trauma from a fall. 4. Sinus surgery with polyp removal in the PE: GEN: 61yoF, appears stated age. Well-nourished, well developed. No acute distress. Alert and oriented x 3. Pleasant, interactive. HEENT: Normocephalic, atraumatic. Wearing eye patch on Rt eye. Conjunctiva with injection noted Rt eye, no TTP, no surrounding erythema, warmth, no drainage. Nose midline. Rt facial droop noted. Moist mucous membranes. Pharynx pink and moist. Neck supple, trachea midline. No lymphadenopathy or thyromegaly appreciated. CHEST: Regular rate and rhythm, +S1, +S2 LUNGS: Clear to auscultation bilaterally. No wheezes, rales, or rhonchi. Breathing appears symmetric and easy. ABD: Round, soft, non-tender, non-distended. +Bowel sounds throughout. No rebound or guarding. No costovertebral angle tenderness. EXT: Pulses 2+ bilaterally dorsalis pedis and radial. No lower extremity edema appreciated. SKIN: [place], dry, warm. Capillary refill <2sec. No rashes. NEURO: Alert and oriented x 3. Speech is dysarthric. Pathology pending from [facility]. 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 Pt with residual Rt facial droop, dysarthria, dysphagia, Rt facial nerve palsy, ataxia and weakness. Pt was transferred to the care of ARU, Dr Duran 05/12/17. 1. 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 Pt with residual Rt facial droop, dysarthria, dysphagia, Rt facial nerve palsy, ataxia and weakness. Mgmt as per ARU. PT/OT/St as per ARU. pain control as per ARU. bowel care as per ARU. DVT prophylaxis. As per ARU. Dispo as per [facility]U. Outpt F/U with neurosurgery Decadron tapering as per D/C instructions. Final pathology result pending from [facility]. Plan for outpt F/U with Dr Salguero, Neurosurgery [facility]. Opthamology consult pending as per Dr Duran re Rt eye. 2. HTN. S/P IVF. BP 135/74 Metoprolol 25mg Q6with hold parameters. D/Cd Lisinopril, Diltiazem and HCTZ. 3. HLD. Statin. 4. GERD. Continue PPI. 5. OA/DDD. 6. Osteoporosis. Fosamax. 7. Rt eye irritation. Cont Artificial tears QID. S/P Erythromycin ointment Rt eye. Optho pending. 8. Allergic rhinitis. Claritin/Flonase. 9. COPD. Symbicort. Enc I/S. 10. Hyponatremia. Na 131 today. Daily BMP Mag WNL TSH WNL. Ur Na, Cr and Osm. 11. Leukocytosis. Pt was seen by Hematology at [facility] with plan for outpt f/u with Dr Kitty Dawn/ [facility]. [place] related to steroids. Pt with no complaints. Afebrile Monitor. 12. Recent UTI. Currently treated with Diflucan. UA neg. 05/13/17 UC 05/13/17 Organism 1 ENTEROCOCCUS FAECALIS COLONY COUNT 80,000 CFU/ml. 05/18/17 Organism 1 ENTEROCOCCUS FAECALIS COLONY COUNT >100,000 CFU/ml Pt with perez catheter since 05/15. Tmax 100.1 past 24 hrs Recheck UC. Nitrofurantoin 100mg BID D1/10. (PCN allergic) 13. DM. CC diet. SSI. 14. Anemia. Hgb trend 9s. Fe studies, B12, folate. Stool OB x 3 neg. 15. Poor po intake. Daily weight. I/O. Nutrition consult. VS, I&O, 24H, Fishbone Vital Signs/I&O Vital Signs Date Time Temp Pulse Resp B/P (MAP) Pulse Ox O2 Delivery O2 Flow Rate FiO2 05/24/17 06:46 92 135/74 05/24/17 06:00 99.1 18 97 Room Air I&O- Last 24 Hours up to 6 AM 05/25/17 06:00 Intake Total 420 ml Balance 420 ml Laboratory Data 24H LABS Laboratory Tests 2 05/23/17 11:32: Bedside Glucose (Misc Panel) 98 05/23/17 16:08: Bedside Glucose (Misc Panel) 144H 05/23/17 20:06: Bedside Glucose (Misc Panel) 128H 05/24/17 07:03: Nucleated Red Blood Cells % (auto) 0.4H, Anion Gap 9, Glomerular Filtration Rate > 60.0, Blood Urea Nitrogen 21H, Creatinine 0.59, Sodium Level 131L, Potassium Level 4.6, Chloride Level 99, Carbon Dioxide Level 23, Calcium Level 8.6L CBC/BMP Laboratory Tests 05/24/17 07:03 Red Blood Count 3.04 L, Mean Corpuscular Volume 91.4, Mean Corpuscular Hemoglobin 29.9, Mean Corpuscular Hemoglobin Concent 32.7, Red Cell Distribution Width 16.9 H, Calcium Level 8.6 L Microbiology Microbiology 05/21/17 Stool Occult Blood (COOKIE) - Final, Complete 05/19/17 Stool Occult Blood (COOKIE) - Final, Complete 05/19/17 Stool Occult Blood (COOKIE) - Final, Complete 05/18/17 Urine Culture - Final, Complete Enterococcus Faecalis Miranda Morin May 24, 2017 11:25
[2017-05-24] MEDS: NITROFURANTOIN (MACROBID) 100 MG CAP PO SCH ×2 (12:26→22:58)
--- NOTE | 2017-05-24 17:13 | IPNPDOC ---
PM&R Progress Note [employer] Progress Note DATE OF SERVICE: 05/24/17 DATE OF ADMISSION: May 12, 2017 at 13:49 INPATIENT REHABILITATION ADMISSION DAY: #13 SUBJECTIVE: The patient is a right-handed, middle-aged, white female who had had progressive loss of hearing in her right ear and some facial weakness. 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 The patient is having trouble with closing the right eye as well as closing the right mouth and having facial drooling. The patient needs to regain moderate distance mobility, approximately 4-5 steps to enter home and will function on the first floor until she is able to better tolerate ambulation to the second floor of the home. The patient lives with her and has a number of adult family members in the area to assist her. They live in the [facility]. Main complaint is lightheadedness when standing up: this is consistent with her BP dropping when she is elevated. Some headache whenever she bends over. ALLERGIES: See Below MEDICATIONS: Reviewed, see below. OBJECTIVE: VITAL SIGNS: Please see below. 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 HEENT: Patient with difficulty closing right eye, but less right facial droop with some right mouth closing and left tongue deviation. Patient is very hard of hearing in the right ear. CARDIOVASCULAR: Regular rate and rhythm with normal S1-S2. 2/4 radial pulses. LUNGS: All saez clear auscultation. ABDOMEN: Bowel sounds normal in all quadrants. NEUROLOGICAL: The patient is alert and oriented to person, place, general aspects of time but does not seem to be fully oriented to situation and is getting confused on right and left body at times. Memory will be further assessed at speech therapy evaluation. Speech at this time is somewhat concrete in nature and dysarthric as noted above. Affect is mildly anxious but overall pleasant and cooperative and trying hard to participate. Motor strength on the left upper and lower extremities is approximately 4/5 but only +3 to -4 out of 5 in the right upper and lower extremities, limited by some ataxia that is affecting both the upper and lower extremities. Light touch is intact in bilateral upper and lower extremities and vibration is grossly intact in bilateral upper extremities and mildly diminished in both lower extremities down in the feet and ankle areas. SKIN: Grossly intact except for healing right mastoid incision with some serosanguineous drainage and abdominal umbilicus incision. Both of which are without inflammation. LABORATORY DATA: Reviewed. Please see below. MICROBIOLOGY: Please see below. IMAGING: No new imaging. DVT prophylaxis ordered?: 5000 units heparin subcutaneous twice a day, PIPER hose and sequential compression stockings. ASSESSMENT AND PLAN: 1. 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 Final pathology is pending on the neuroma. Patient working very hard with PT, OT and CARPET INSPECTOR FINISHED showing very good motivation. Currently having difficulties with hypotension and dizziness as fluid status and blood pressure medicines are being adjusted by Medicine literacy consultant. Significant problem is with oral awareness that limits her ability to advance diet. We will increase oral care. REHAB. TEAM ROUNDS: Patient is doing better with higher BP and less dizziness sitting and standing, which has lead to better PT/OT performance in mobility, transfers and ADL's which require her to be up. Speech clarity is much better, but facial palsy still a problem, especially the trouble with right eyelid closing and blink/tearing to keep eye moist. Family is asking about Ophthalmology consult, however, this is the CN VII palsy and truly a ENT issue to address, but I will consult screw eye assembler Dr. Waddell today. Approximate date of discharge is expected be 06/03/17. Patient should need DME (FWW, Commode , Shower chair or bench, and possible w/c). Please see attached therapy notes below. 2. Urinary retention: If BP remains improved, we need to d/c perez and try voiding schedule. 3. Type 2 diabetes mellitus: At this time we'll proceed with consistent carbohydrate diet and insulin sliding scale. Medicine to make adjustments as appropriate. 4. Anemia: H&H today is 9.1 and 27.8% which is lower. We will continue to watch this along with her blood pressure. 5. Hyponatremia: Hopefully the fluid challenge will further increase her sodium level which is 131 today. BUN remains elevated at 23, but improved fro last one at 28. 6. Leukocytosis: Currently, it remains elevated, but steady at around today's 16.2K. TIME SPENT: Chart Review, examination and documentation require greater than 25 minutes. Patient: Cris Reardon : 1955 Age/Sex: 61/F Unit#: [id number] Room/Bed: M4142/01 User: Migdalia Garcia OT OT Date: 05/24/17 14:15 Type: OT Progress Time In * 10:50 Time Out * 11:50 OT Treatment Time-Minutes * 60 mins Type of Therapy Provided * Individual Precautions * Fall Unit * Acute Inpatient Rehab Pain Start of Session * 0 Pain Comment * No c/o pain throughout OT treatment. Subjective * Pt sitting in recliner upon OT arrival, agreeable to tx. Cognition * Impaired Cognition Comments * A&Ox3, polite and cooperative. Continues to present with impaired speech production, though able to slow down and correct to get her point across. Bed Mobility Notes * OOB throughout tx. Sit to Stand * Minimum Assist Stand to Sit * Minimum Assist Toilet/Commode * Minimum Assist Functional Transfer Notes: * Pt performed SPT recliner to commode with RW with min A and VCs for safe placement of RW. Pt performed sit<>stand mult occasions t/o session while performing ADLs with light min A-CGA with good carryover of safe hand placement. Bathing * Minimum Assist Dressing-Upper Body * Standby Assist Dressing-Lower Body * Minimum Assist Toileting * Moderate Assist ADL Training Note * Pt transferred onto commode and completed toileting with min assist for steadying. Pt able to pull pants down/up with intermittant assist and completed hygiene with steadying assist. Pt completed sponge bathing while seated on commode, per pt request. Pt able to wash chest, abdomen, BUE, elvis area, and B thighs, assist for B feet and steadying assist to wash buttocks. UB dressing- set-up assist only. LB dressing- pt able to thread BLE into brief/pants using pastry mixer; CGA to stand to pull up brief/pants. Assist only to thread catheter. C. Toileting Hygiene (not transfers): * 03.Partial/Mod Assist Toileting Hygiene Comments: * See ADL note. E. Shower/Bathe Self (not transfers, can be sponge bath): * 04.Sup/Touch Assist Shower/Bathe Self Comments: * See ADL note. F. Upper Body Dressing (includes bra, not hospital gown): * 05.Setup/clean up Asst Upper Body Dressing Comments: * See ADL note. G. Lower Body Dressing (includes briefs and knee braces): * 04.Sup/Touch Assist Lower Body Dressing Comments: * See ADL note. Sit-Static * G Sit-Dynamic * G- Stand-Static * F Stand-Dynamic * F Balance Training Note * Sitting balance assessed on commode, standing using RW. OT Intervention Note * See ADL note above. Following ADL, pt returned to recliner with all needs met, call light in reach. Discharge Recommendations * Home w/services Safe for discharge at this time * No Patient: Cris Reardon : 1955 Age/Sex: 61/F Unit#: [id number] Room/Bed: M4142/01 User: Migdalia Blankenship, PT Therapist PT Date: 05/24/17 09:10 Type: PT Progress Note Time In * 08:32 Time Out * 09:02 PT Treatment Time-Minutes * 30 mins Type of Therapy Provided * Individual Precautions * Fall Unit * Acute Inpatient Rehab Pain Start of Session * 0 Pain Comment * No c/o pain throughout PT treatment. Subjective * Patient supine in bed with HOB elevated upon arrival. Agreeable to PT treatment. Cognition * Impaired Cognition Comments * continues to present with impaired speech production Supine to Sit * Standby Assist Sit to Supine * Not Tested Rolling * Not Tested Bed Mobility Notes * Patient able to perform supine to sit with HOB elevated and use of bed rail without physical assist. BP/HR assessments throughout treatment: Supine HOB elevated = 156/76; HR = 91 Standing = 121/61; HR = 115; patient denies dizziness Sitting at EOB = 145/75; HR = 109 Standing = 116/71; HR = 121; patient reports dizziness Sitting in chair at end of session = 161/82; HR = 99; symptoms improved Sit to Stand * Moderate Assist Stand to Sit * Moderate Assist Bed to Chair * Maximum Assist Chair to Bed * Not Tested Toilet/Commode * Not Tested Transfer Training Notes * Patient required mod A x1 for sit to stand from EOB x2 reps due to significant right lateral lean with transfer. Patient also required mod A for sit to stand from chair. She required mod A for all stand to sits secondary to decreased eccentric control and only occasionally reaching back prior to sitting. She required max A x1 for stand step from bed to chair and demonstrated difficulty following commands. When therapist asked patient to back up to chair she initially started walking forward and required both VCs and tactile cues to correct. Patient reports transfers are significantly harder for her to perform today and dizziness with stand step transfer. Sit-Static * G- Sit-Dynamic * F+ Stand-Static * F Stand-Dynamic * P Balance Training Note * Sitting balance assessed at EOB, patient able to statically sit with SBA, CGA for dynamic sitting. Standing balance assessed at RW. Required mod A-min A for static standing due to right lateral lean and max A for dynamic standing balance. Ambulation Level of Assist * Not Tested Gait Training Note * Stand step only in the AM session secondary to symptomatic positive orthostatics and increased physical assist to perform transfers. Patient not safe to progress ambulation. Wheelchair Mobility Level of Assist * Not Tested Stair Training Note * pt has ramp present to get into her home. Should check with family when present. A. Roll Left and Right: * 88.Not Attempted B. Sit to Lying: * 88.Not Attempted C. Lying to Sitting on Side of Bed: * 05.Setup/clean up Asst D. Sit to Stand: * 03.Partial/Mod Assist E. Chair/[id number]-Ekkva Transfer: * 02.Substantial/Max Assist F. Toilet Transfer: * 88.Not Attempted G. Car Transfer: * 88.Not Attempted H. Does the patient walk?: * 2. Yes Does the patient walk Comments: * Not this date secondary to positive symptomatic orthostatics I. Walk 10 Feet: * 88.Not Attempted J. Walk 50' with Two Turns: * 88.Not Attempted K. Walk 150 Feet: * 88.Not Attempted L. Walking 10' on uneven surfaces: * 88.Not Attempted M. 1 Step (curb): * 88.Not Attempted N. 4 Steps (with or without railing): * 88.Not Attempted O. 12 Steps (with or without railing): * 88.Not Attempted P. Picking up Object from the Floor (from a standing): * 88.Not Attempted Q. Does the patient use a w/c (other than just transport): * 0. No Lower Extremity Exercised * Bilateral Supine Exercises * Glut Sets Number of Reps Supine * 10-15 Reps Sitting Exercises * Long Arc Quads * Marching * Hip Abduction * Hip Adduction * Ankle Pumps Other Sitting Exercises * to increase BP between readings Number of Reps Sitting * 15-20 Reps Standing Exercises * Other Other Standing Exercises * Attempted standing marches however patient with difficulty following commands Therapeutic Exercises Note * Pt demonstrating good tolerance for all exercises PT Interventions * Gait Training * Therapeutic Excercise * Functional Training * Bed Mobility * Balance Activities * Safety/Precautions * Pt./Family Education PT Progress Note * Patient required increased physical assist for transfers this date. She was also was symptomatic with positive orthostatics during transfer. Unable to progress gait this AM. Patient was left sitting in recliner, all needs within reach, and RN aware. PT Goal Note * sitting up in recliner chair for meals as tolerated, close observation needed while in the chair due to soft BP. Discharge Recommendations * Home w/services Patient: Cris Reardon : 1955 Age/Sex: 61/F Unit#: [id number] Room/Bed: M4142/01 User: Jovanni Mendoza Date: 05/24/17 10:51 Type: Progress-Dysphagia Exercise Exercise Education Label * Effortful Swallow Manuver * Other Direct Dysphagia Mangement using tongue to sweep oral cavity, bolus placement, Tiffanie's * Measure increased tongue accuracy and ROM, imprve w/feeding strategies * Level of Assistance Moderate Assist * Level of Assistance Comment Verbal cues * Tolerance Good * Therapeutic Exercise Yes HEP Provided Compensatory Strategies Pt/Family Education * Therapeutic Exercise Comment highly motivated and practices in room outside of tx Patient: Cris Reardon : 1955 Age/Sex: 61/F Unit#: [id number] Room/Bed: [place] [address] User: Jovanni Mendoza Date: 05/24/17 10:52 Type: ST-Progress Speech Production ... Exercise Education Label * Bilabials Word * Other Speech Production Exercises "f," "s," "p," 'b," and "m" at the word level * Measure increased accuracy w/ "f" and "s" * Level of Assistance Maximal Assist * Level of Assistance Comment required DM and significant cues * Tolerance Good * Therapeutic Exercise Yes Compensatory Strategies Pt/Family Education * Therapeutic Exercise Comment worked hard and highly motivated to improve Allergies Coded Allergies: Amoxicillin (Verified Allergy, Unknown, 05/12/17) Shellfish Allergy (Verified Allergy, Unknown, 05/12/17) [place] (Verified Allergy, Unknown, 05/12/17) Sulfa Antibiotics (Verified Allergy, Unknown, 05/12/17) Vital Signs Vital Signs Date Time Temp Pulse Resp B/P (MAP) Pulse Ox O2 Delivery O2 Flow Rate FiO2 05/24/17 14:00 99.7 100 18 150/80 (103) 98 Room Air Laboratory Data CBC/BMP Laboratory Tests 05/24/17 07:03 Red Blood Count 3.04 L, Mean Corpuscular Volume 91.4, Mean Corpuscular Hemoglobin 29.9, Mean Corpuscular Hemoglobin Concent 32.7, Red Cell Distribution Width 16.9 H, Calcium Level 8.6 L Labs 24H Laboratory Tests 2 05/23/17 20:06: Bedside Glucose (Misc Panel) 128H 05/24/17 07:03: Nucleated Red Blood Cells % (auto) 0.4H, Anion Gap 9, Glomerular Filtration Rate > 60.0, Blood Urea Nitrogen 21H, Creatinine 0.59, Sodium Level 131L, Potassium Level 4.6, Chloride Level 99, Carbon Dioxide Level 23, Calcium Level 8.6L 05/24/17 11:29: Urine Appearance CLEAR, Urine Color WADE, Urine pH 6.0, Urine Specific [place] 1.025, Urine Protein 1+H, Urine Glucose (UA) NEGATIVE, Urine Ketones NEGATIVE, Urine Urobilinogen 0.2, Urine Bilirubin NEGATIVE, Urine Leukocyte Esterase 1+H, Urine Blood 3+H, Urine Nitrite POSITIVE, Urine WBC (Auto) 44H, Urine RBC (Auto) TNTCH, Urine Hyaline Casts (Auto) 0, Urine Bacteria (Auto) 2+H, Urine Squamous Epithelial Cells 1, Urine Amorphous Sediment SMALLH, Urine Mucus (Auto) SMALL, Urine Sperm (Auto) 05/24/17 11:59: Bedside Glucose (Misc Panel) 99 Microbiology Microbiology 05/21/17 Stool Occult Blood (COOKIE) - Final, Complete 05/19/17 Stool Occult Blood (COOKIE) - Final, Complete 05/19/17 Stool Occult Blood (COOKIE) - Final, Complete 05/24/17 Urine Culture, Received Pending 05/18/17 Urine Culture - Final, Complete Enterococcus Faecalis Current Medications Current Medications Current Medications Acetaminophen (Tylenol Tab) 650 mg Q6HP PRN PO PAIN / FEVER Last administered on 05/24/17 16:48; Start 05/17/17 at 14:15; Stop 06/16/17 at 14:14 Alendronate Sodium (Fosamax) 70 mg Sa@07 PO Last administered on 05/22/17 06: 00; Start 05/15/17 at 07:00; Stop 06/14/17 at 06:59 Amitriptyline HCl (Elavil) 50 mg QHS PO Last administered on 05/23/17 20:00; Start 05/12/17 at 21:00; Stop 06/11/17 at 20:59 Artificial Tears (Akwa Tears) 2 drop Q4H OU Last administered on 05/24/17 16: 48; Start 05/13/17 at 16:00; Stop 06/11/17 at 15:59 Artificial Tears (Akwa Tears) 2 drop Q4HP PRN OU DRY EYES; Start 05/12/17 at 13:45; Stop 05/13/17 at 12:04; Status DC Bacitracin (Bacitracin Oint) Right Mastoid a... DAILY TOP Last administered on 05/24/17 08:19; Start 05/13/17 at 09:00; Stop 06/12/17 at 08:59 Bisacodyl (Dulcolax Suppository) 10 mg DAILYPRN PRN OK CONSTIPATION Last administered on 05/21/17 10:25; Start 05/12/17 at 13:45; Stop 06/11/17 at 13 :44 Budesonide/ Formoterol Fumarate (Symbicort 80/ 4.5mcg) 2 puff BID PRN INH Dyspnea; Start 05/12/17 at 13:45; Stop 06/11/17 at 13:44 Dexamethasone (Decadron) 2 mg BID PO Last administered on 05/16/17 20:40; Start 05/12/17 at 21:00; Stop 05/16/17 at 23:55; Status DC Dexamethasone (Decadron) 2 mg DAILY PO Last administered on 05/19/17 09:22; Start 05/17/17 at 09:00; Stop 05/19/17 at 13:31; Status DC Dexamethasone (Decadron) 2 mg Q12H PO Last administered on 05/24/17 08:17; Start 05/19/17 at 21:00; Stop 06/18/17 at 20:59 Dextrose (Dextrose 50%) 25 ml ASDIRECTED PRN IV SEE LABEL COMMENTS; Start at 13:45; Stop 06/11/17 at 13:44 Diltiazem HCl (Cardizem) 60 mg Q6H PO Last administered on 05/16/17 23:54; Start 05/12/17 at 18:00; Stop 05/17/17 at 12:33; Status DC Erythromycin (Ilotycin) 1 dose TID OD Last administered on 05/24/17 08:18; Start 05/14/17 at 16:00; Stop 05/24/17 at 10:16; Status DC Fluconazole (Diflucan) 200 mg DAILY PO Last administered on 05/24/17 08:17; Start 05/13/17 at 09:00; Stop 05/27/17 at 08:59 Fluticasone Propionate (Flonase 0.05% Nasal [place]) 2 spray DAILY NA Last administered on 05/24/17 08:18; Start 05/13/17 at 09:00; Stop 06/12/17 at 08 :59 Glucagon (Glucagon) 1 mg ASDIRECTED PRN SC SEE LABEL COMMENTS; Start 05/12/17 at 13:45; Stop 06/11/17 at 13:44 Glucose (Glucose) 16 GM ASDIRECTED PRN PO SEE LABEL COMMENTS; Start 05/12/17 at 13:45; Stop 06/11/17 at 13:44 Heparin Sodium (Porcine) (Heparin) 5,000 units Q12H SC Last administered on 08:16; Start 05/12/17 at 21:00; Stop 05/28/17 at 23:55 Home Med (Med Rec Complete!) ASDIRECTED XX ; Start 05/12/17 at 15:30; Stop at 15:33; Status DC Hydrochlorothiazide (Hydrodiuril) 25 mg DAILY PO Last administered on 08:29; Start 05/13/17 at 09:00; Stop 05/17/17 at 12:21; Status DC Insulin Human Lispro (HumaLOG INSULIN) See Protocol Table AC SC Last administered on 05/24/17 08:16; Start 05/12/17 at 17:30; Stop 06/11/17 at 17 :29 Insulin Human Lispro (HumaLOG INSULIN) See Protocol Table QHS SC ; Start at 21:00; Stop 06/11/17 at 20:59 Lansoprazole (First-Lansoprazole Oral Suspension) 30 mg DAILY PO Last administered on 05/24/17 08:18; Start 05/20/17 at 09:00; Stop 06/19/17 at 08 :59 Lisinopril (Prinivil) 10 mg BID PO Last administered on 05/18/17 21:26; Start 05/18/17 at 21:00; Stop 05/19/17 at 13:29; Status DC Lisinopril (Prinivil) 20 mg BID PO Last administered on 05/17/17 20:32; Start 05/13/17 at 09:00; Stop 05/18/17 at 09:45; Status DC Loratadine (Claritin) 10 mg DAILY PO Last administered on 05/24/17 08:16; Start 05/13/17 at 09:00; Stop 06/12/17 at 08:59 Methylphenidate HCl (Ritalin) 10 mg BID@0700,1400 PO Last administered on 05/24 12:27; Start 05/16/17 at 07:00; Stop 05/28/17 at 23:55 Methylphenidate HCl (Ritalin) 10 mg BID@0700,1400 PO ; Start 05/16/17 at 14:00 ; Stop 05/16/17 at 14:00; Status DC Methylphenidate HCl (Ritalin) 10 mg BID@09,14 PO Last administered on 14:07; Start 05/12/17 at 14:00; Stop 05/16/17 at 08:34; Status DC Metoprolol Tartrate (Lopressor) 25 mg BID PO Last administered on 05/18/17 21 :25; Start 05/17/17 at 21:00; Stop 05/19/17 at 13:29; Status DC Metoprolol Tartrate (Lopressor) 25 mg Q6H PO Last administered on 05/24/17 12 :26; Start 05/21/17 at 12:00; Stop 06/20/17 at 11:59 Metoprolol Tartrate (Lopressor) 50 mg BID PO Last administered on 05/16/17 20 :42; Start 05/12/17 at 21:00; Stop 05/17/17 at 12:33; Status DC Mupirocin (Bactroban 2% Ointment) 1 dose BID TOP Last administered on 08:19; Start 05/18/17 at 09:00; Stop 06/17/17 at 08:59 Nitrofurantoin Monoh/Nitrofur Macro (Macrobid) 100 mg BID PO Last administered on 05/24/17 12:26; Start 05/24/17 at 09:00; Stop 06/03/17 at 08:59 Pantoprazole Sodium (Protonix) 40 mg DAILY PO Last administered on 05/19/17 09:22; Start 05/13/17 at 09:00; Stop 05/19/17 at 13:30; Status DC Simvastatin (Zocor) 10 mg QHS PO Last administered on 05/23/17 20:01; Start 05/12/17 at 21:00; Stop 06/11/17 at 20:59 Sodium Biphosphate/ Sodium Phosphate (Fleet Enema) 1 ea DAILYPRN PRN OK CONSTIPATION; Start 05/12/17 at 13:45; Stop 06/11/17 at 13:44 Tamsulosin HCl (Flomax) 0.4 mg DAILY PO Last administered on 05/19/17 09:22; Start 05/13/17 at 09:00; Stop 05/19/17 at 13:29; Status DC Tramadol HCl (Ultram) 50 mg Q12HP PRN PO PAIN Last administered on 05/17/17 13:09; Start 05/12/17 at 13:45; Stop 05/17/17 at 14:15; Status DC NICOLASA MACK MD May 24, 2017 17:13
[2017-05-24] MEDS ORDERED: LIDOCAINE 2% W/EPIN INJ 20ML **PRES FREE As Ordered ONE (20:48)
[2017-05-24] MEDS ORDERED: POVIDONE-IODINE 5% OPHTH PREP SOL 30ML As Ordered ONE (20:48)
[2017-05-24] MEDS ORDERED: LIDOCAINE 2% INJ 100 MG/5 ML SDV (FOR ANES.) As Ordered ONE (20:50)
[2017-05-24] MEDS ORDERED: PROPOFOL 200 MG/20 ML VIAL As Ordered ONE (20:50)
[2017-05-24] MEDS ORDERED: MIDAZOLAM INJ 2 MG/2 ML VIAL (J2250) As Ordered ONE (20:50)
[2017-05-24] MEDS ORDERED: fentaNYL 100 MCG/2 ML INJECTION (J3010) As Ordered ONE (20:50)
[2017-05-24] MEDS ORDERED: ERYTHROMYCIN OPHTH OINT ONE (21:19)
[2017-05-24] MEDS ORDERED: ERYTHROMYCIN OPHTH OINT As Ordered ONE (21:19)
[2017-05-24] MEDS ORDERED: fentaNYL 100 MCG/2 ML INJECTION (J3010) IV PRN (22:00)
[2017-05-24] MEDS ORDERED: LR 1,000 ML IV SCH (22:00)
[2017-05-24] MEDS: SIMVASTATIN 10 MG TAB PO SCH (22:57)
[2017-05-24] MEDS: AMITRIPTYLINE 50 MG TAB PO SCH (22:58)
[2017-05-25] VITALS (7 sets, daily range): BP systolic 129–168; BP diastolic 75–89
[2017-05-25] MEDS: POLYVINYL ALCOHOL OPHTH SOLN 15 ML(LIQUITEARS) OS SCH ×6 (01:00→21:29)
[2017-05-25] MEDS: ERYTHROMYCIN OPHTH OINT OD SCH ×3 (06:00→18:17)
[2017-05-25] MEDS: METHYLPHENIDATE 5 MG TAB PO SCH ×2 (06:26→12:55)
[2017-05-25] MEDS: METOPROLOL TART 25 MG TABLET PO SCH ×3 (06:27→18:16)
[2017-05-25] MEDS: ACETAMINOPHEN TAB 650MG DOSE (2X325MG) PO PRN ×3 (06:41→22:12)
[2017-05-25 08:31] LABS: MEAN CORPUSCULAR HEMOGLOBIN 31.1 pg (27.0-33.0); MEAN CORPUSCULAR HGB CONC 32.9 g/dl (32.0-36.5); MEAN CORPUSCULAR VOLUME 94.5 fl (80.0-96.0); PLATELET COUNT, AUTOMATED 387 10^3/uL (150-450); RED CELL DISTRIBUTION WIDTH 17.2 % (11.5-14.5); WHITE BLOOD COUNT 15.7 10^3/uL (4.0-10.0)
[2017-05-25] MEDS: NITROFURANTOIN (MACROBID) 100 MG CAP PO SCH ×2 (08:50→21:27)
[2017-05-25] MEDS: HEPARIN SOD (PORCINE) 5000 UNITS/ML VIAL SC SCH ×2 (08:50→21:28)
[2017-05-25] MEDS: FLUCONAZOLE 100 MG TAB PO SCH (08:50)
[2017-05-25] MEDS: LORATADINE 10 MG TAB PO SCH (08:50)
[2017-05-25] MEDS: HumaLOG INSULIN (NovoLOG) PER UNIT SC SCH ×4 (08:50→21:00)
[2017-05-25] MEDS: FLUTICASONE PROP 0.05% NASAL SPRAY 16 GM (FLONASE) SCH (08:51)
[2017-05-25] MEDS: LANSOPRAZOLE SUSPENSION 30 MG/10 ML ORAL SYRINGE (FIRST-LANSOPRAZOLE) PO SCH (08:51)
[2017-05-25] MEDS: MUPIROCIN 2% OINT 22 GM TUBE TOP SCH ×2 (08:52→21:30)
[2017-05-25] MEDS: BACITRACIN OINT 30GM TOP SCH (08:52)
[2017-05-25 09:06] LABS: ANION GAP 9 MEQ/L (8-16); BLOOD UREA NITROGEN 23 MG/DL (7-18); CALCIUM LEVEL 8.9 MG/DL (8.8-10.2); CARBON DIOXIDE LEVEL 24 MEQ/L (21-32); CHLORIDE LEVEL 99 MEQ/L (98-107); CREATININE FOR GFR 0.63 MG/DL (0.55-1.02); GLOMERULAR FILTRATION RATE > 60.0 (>45); GLUCOSE, FASTING 121 MG/DL (80-110); SODIUM LEVEL 132 MEQ/L (136-145)
--- NOTE | 2017-05-25 10:33 | IPNPDOC ---
PM&R Progress Note [employer] Placing Supervisor Progress Note DATE OF SERVICE: 05/25/17 DATE OF ADMISSION: May 12, 2017 at 13:49 INPATIENT REHABILITATION ADMISSION DAY: #14 SUBJECTIVE: The patient is a right-handed, middle-aged, white female who had had progressive loss of hearing in her right ear and some facial weakness. 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 The patient is having trouble with closing the right eye as well as closing the right mouth and having facial drooling. The patient needs to regain moderate distance mobility, approximately 4-5 steps to enter home and will function on the first floor until she is able to better tolerate ambulation to the second floor of the home. The patient lives with her and has a number of adult family members in the area to assist her. They live in the [facility]. Main complaint is lightheadedness when standing up: this is consistent with her BP dropping when she is elevated. Some headache whenever she bends over. Patient notes right eye feels much better after Temporary Total Tarsorrhaphy last night. No other complaints, as less lightheadedness today. ALLERGIES: See Below MEDICATIONS: Reviewed, see below. OBJECTIVE: VITAL SIGNS: Please see below. 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 HEENT: Patient with temporary total tarsorrhaphy, but less right facial droop with some right mouth closing and left tongue deviation. Patient is very hard of hearing in the right ear. CARDIOVASCULAR: Regular rate and rhythm with normal S1-S2. 2/4 radial pulses. LUNGS: All saez clear auscultation. ABDOMEN: Bowel sounds normal in all quadrants. NEUROLOGICAL: The patient is alert and oriented to person, place, general aspects of time but does not seem to be fully oriented to situation and is getting confused on right and left body at times. Memory will be further assessed at speech therapy evaluation. Speech at this time is somewhat concrete in nature and dysarthric as noted above. Affect is mildly anxious but overall pleasant and cooperative and trying hard to participate. Motor strength on the left upper and lower extremities is approximately 4/5 but only +3 to -4 out of 5 in the right upper and lower extremities, limited by some ataxia that is affecting both the upper and lower extremities. Light touch is intact in bilateral upper and lower extremities and vibration is grossly intact in bilateral upper extremities and mildly diminished in both lower extremities down in the feet and ankle areas. SKIN: Grossly intact except for healing right mastoid incision with some serosanguineous drainage and abdominal umbilicus incision. Both of which are without inflammation. LABORATORY DATA: Reviewed. Please see below. MICROBIOLOGY: Please see below. IMAGING: No new imaging. DVT prophylaxis ordered?: 5000 units heparin subcutaneous twice a day, PIPER hose and sequential compression stockings. ASSESSMENT AND PLAN: 1. 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 Final pathology is pending on the neuroma. Patient working very hard with PT, OT and REPACKER showing very good motivation. Currently having difficulties with hypotension and dizziness as fluid status and blood pressure medicines are being adjusted by Medicine salon sales consultant. Significant problem is with oral awareness that limits her ability to advance diet. We will increase oral care. Patient should need DME ( FWW, Commode, Shower chair or bench, and possible w/c). Approximate date of discharge is expected be 06/03/17. 2. Urinary retention: If BP remains improved, we need to d/c Juarez and try voiding schedule. 3. Type 2 diabetes mellitus: At this time we'll proceed with consistent carbohydrate diet and insulin sliding scale. Medicine to make adjustments as appropriate. 4. Anemia: H&H is 9.6 and 29.2% on 05/25/17. We will continue to watch this along with her blood pressure. 5. Hyponatremia: Hopefully the fluid challenge will further increase her sodium level which is 132 today. BUN remains elevated at 23. 6. Leukocytosis: Currently, it remains elevated, but steady at around 15.7K today. TIME SPENT: Chart Review, examination and documentation require greater than 25 minutes. Allergies Coded Allergies: Amoxicillin (Verified Allergy, Unknown, 05/12/17) Shellfish Allergy (Verified Allergy, Unknown, 05/12/17) [place] (Verified Allergy, Unknown, 05/12/17) Sulfa Antibiotics (Verified Allergy, Unknown, 05/12/17) Vital Signs Vital Signs Date Time Temp Pulse Resp B/P (MAP) Pulse Ox O2 Delivery O2 Flow Rate FiO2 05/25/17 07:00 98.7 89 19 156/87 (110) 98 Room Air Laboratory Data CBC/BMP Laboratory Tests 05/25/17 08:10 Red Blood Count 3.09 L, Mean Corpuscular Volume 94.5, Mean Corpuscular Hemoglobin 31.1, Mean Corpuscular Hemoglobin Concent 32.9, Red Cell Distribution Width 17.2 H, Calcium Level 8.9 Labs 24H Laboratory Tests 2 05/24/17 11:29: Urine Appearance CLEAR, Urine Color WADE, Urine pH 6.0, Urine Specific [place] 1.025, Urine Protein 1+H, Urine Glucose (UA) NEGATIVE, Urine Ketones NEGATIVE, Urine Urobilinogen 0.2, Urine Bilirubin NEGATIVE, Urine Leukocyte Esterase 1+H, Urine Blood 3+H, Urine Nitrite POSITIVE, Urine WBC (Auto) 44H, Urine RBC (Auto) TNTCH, Urine Hyaline Casts (Auto) 0, Urine Bacteria (Auto) 2+H, Urine Squamous Epithelial Cells 1, Urine Amorphous Sediment SMALLH, Urine Mucus (Auto) SMALL, Urine Sperm (Auto) 05/24/17 11:59: Bedside Glucose (Misc Panel) 99 05/24/17 16:47: Bedside Glucose (Misc Panel) 152H 05/24/17 22:43: Bedside Glucose (Misc Panel) 121H 05/25/17 06:50: Bedside Glucose (Misc Panel) 110 05/25/17 08:10: Nucleated Red Blood Cells % (auto) 0.8H, Anion Gap 9, Glomerular Filtration Rate > 60.0, Blood Urea Nitrogen 23H, Creatinine 0.63, Sodium Level 132L, Potassium Level 5.0, Chloride Level 99, Carbon Dioxide Level 24, Calcium Level 8.9 Microbiology Microbiology 05/21/17 Stool Occult Blood (COOKIE) - Final, Complete 05/19/17 Stool Occult Blood (COOKIE) - Final, Complete 05/19/17 Stool Occult Blood (COOKIE) - Final, Complete 05/24/17 Urine Culture, Received Pending 05/18/17 Urine Culture - Final, Complete Enterococcus Faecalis Current Medications Current Medications Current Medications Acetaminophen (Tylenol Tab) 650 mg Q6HP PRN PO PAIN / FEVER Last administered on 05/25/17 06:41; Start 05/17/17 at 14:15; Stop 06/16/17 at 14:14 Alendronate Sodium (Fosamax) 70 mg Sa@07 PO Last administered on 05/22/17 06: 00; Start 05/15/17 at 07:00; Stop 06/14/17 at 06:59 Amitriptyline HCl (Elavil) 50 mg QHS PO Last administered on 05/24/17 22:58; Start 05/12/17 at 21:00; Stop 06/11/17 at 20:59 Artificial Tears (Akwa Tears) 2 drop Q4H OS Last administered on 05/25/17 08: 51; Start 05/25/17 at 01:00; Stop 06/24/17 at 00:59 Artificial Tears (Akwa Tears) 2 drop Q4H OU Last administered on 05/24/17 16: 48; Start 05/13/17 at 16:00; Stop 05/24/17 at 21:52; Status DC Artificial Tears (Akwa Tears) 2 drop Q4HP PRN OU DRY EYES; Start 05/12/17 at 13:45; Stop 05/13/17 at 12:04; Status DC Bacitracin (Bacitracin Oint) Right Mastoid a... DAILY TOP Last administered on 05/25/17 08:52; Start 05/13/17 at 09:00; Stop 06/12/17 at 08:59 Bisacodyl (Dulcolax Suppository) 10 mg DAILYPRN PRN [place] CONSTIPATION Last administered on 05/21/17 10:25; Start 05/12/17 at 13:45; Stop 06/11/17 at 13 :44 Budesonide/ Formoterol Fumarate (Symbicort 80/ 4.5mcg) 2 puff BID PRN INH Dyspnea; Start 05/12/17 at 13:45; Stop 06/11/17 at 13:44 Dexamethasone (Decadron) 2 mg BID PO Last administered on 05/16/17 20:40; Start 05/12/17 at 21:00; Stop 05/16/17 at 23:55; Status DC Dexamethasone (Decadron) 2 mg DAILY PO Last administered on 05/19/17 09:22; Start 05/17/17 at 09:00; Stop 05/19/17 at 13:31; Status DC Dexamethasone (Decadron) 2 mg Q12H PO Last administered on 05/25/17 08:51; Start 05/19/17 at 21:00; Stop 06/18/17 at 20:59 Dextrose (Dextrose 50%) 25 ml ASDIRECTED PRN IV SEE LABEL COMMENTS; Start at 13:45; Stop 06/11/17 at 13:44 Diltiazem HCl (Cardizem) 60 mg Q6H PO Last administered on 05/16/17 23:54; Start 05/12/17 at 18:00; Stop 05/17/17 at 12:33; Status DC Erythromycin (Ilotycin) 1 dose TID OD Last administered on 05/24/17 08:18; Start 05/14/17 at 16:00; Stop 05/24/17 at 10:16; Status DC Erythromycin (Ilotycin) 3/4" INTO RIGHT EYE DIRECTED Q6H OD Last administered on 05/25/17 06:00; Start 05/25/17 at 00:00; Stop 06/24/17 at 00 :00 Fentanyl Citrate (Sublimaze) 25 mcg Q5MP PRN IV MODERATE PAIN (PS 4-7); Start 05/24/17 at 22:00; Stop 05/24/17 at 23:00; Status DC Fluconazole (Diflucan) 200 mg DAILY PO Last administered on 05/25/17 08:50; Start 05/13/17 at 09:00; Stop 05/27/17 at 08:59 Fluticasone Propionate (Flonase 0.05% Nasal [place]) 2 spray DAILY NA Last administered on 05/25/17 08:51; Start 05/13/17 at 09:00; Stop 06/12/17 at 08 :59 Glucagon (Glucagon) 1 mg ASDIRECTED PRN SC SEE LABEL COMMENTS; Start 05/12/17 at 13:45; Stop 06/11/17 at 13:44 Glucose (Glucose) 16 GM ASDIRECTED PRN PO SEE LABEL COMMENTS; Start 05/12/17 at 13:45; Stop 06/11/17 at 13:44 Heparin Sodium (Porcine) (Heparin) 5,000 units Q12H SC Last administered on 08:50; Start 05/12/17 at 21:00; Stop 05/28/17 at 23:55 Home Med (Med Rec Complete!) ASDIRECTED XX ; Start 05/12/17 at 15:30; Stop at 15:33; Status DC Hydrochlorothiazide (Hydrodiuril) 25 mg DAILY PO Last administered on 08:29; Start 05/13/17 at 09:00; Stop 05/17/17 at 12:21; Status DC Insulin Human Lispro (HumaLOG INSULIN) See Protocol Table AC SC Last administered on 05/25/17 08:50; Start 05/12/17 at 17:30; Stop 06/11/17 at 17 :29 Insulin Human Lispro (HumaLOG INSULIN) See Protocol Table QHS SC ; Start at 21:00; Stop 06/11/17 at 20:59 Lactated Ringer's 1,000 ml @ 100 mls/hr Q10H IV ; Start 05/24/17 at 22:00; Stop 05/24/17 at 23:00; Status DC Lansoprazole (First-Lansoprazole Oral Suspension) 30 mg DAILY PO Last administered on 05/25/17 08:51; Start 05/20/17 at 09:00; Stop 06/19/17 at 08 :59 Lisinopril (Prinivil) 10 mg BID PO Last administered on 05/18/17 21:26; Start 05/18/17 at 21:00; Stop 05/19/17 at 13:29; Status DC Lisinopril (Prinivil) 20 mg BID PO Last administered on 05/17/17 20:32; Start 05/13/17 at 09:00; Stop 05/18/17 at 09:45; Status DC Loratadine (Claritin) 10 mg DAILY PO Last administered on 05/25/17 08:50; Start 05/13/17 at 09:00; Stop 06/12/17 at 08:59 Methylphenidate HCl (Ritalin) 10 mg BID@0700,1400 PO Last administered on 05/25 06:26; Start 05/16/17 at 07:00; Stop 05/28/17 at 23:55 Methylphenidate HCl (Ritalin) 10 mg BID@0700,1400 PO ; Start 05/16/17 at 14:00 ; Stop 05/16/17 at 14:00; Status DC Methylphenidate HCl (Ritalin) 10 mg BID@09,14 PO Last administered on 14:07; Start 05/12/17 at 14:00; Stop 05/16/17 at 08:34; Status DC Metoprolol Tartrate (Lopressor) 25 mg BID PO Last administered on 05/18/17 21 :25; Start 05/17/17 at 21:00; Stop 05/19/17 at 13:29; Status DC Metoprolol Tartrate (Lopressor) 25 mg Q6H PO Last administered on 05/25/17 06 :27; Start 05/21/17 at 12:00; Stop 06/20/17 at 11:59 Metoprolol Tartrate (Lopressor) 50 mg BID PO Last administered on 05/16/17 20 :42; Start 05/12/17 at 21:00; Stop 05/17/17 at 12:33; Status DC Mupirocin (Bactroban 2% Ointment) 1 dose BID TOP Last administered on 08:52; Start 05/18/17 at 09:00; Stop 06/17/17 at 08:59 Nitrofurantoin Monoh/Nitrofur Macro (Macrobid) 100 mg BID PO Last administered on 05/25/17 08:50; Start 05/24/17 at 09:00; Stop 06/03/17 at 08:59 Pantoprazole Sodium (Protonix) 40 mg DAILY PO Last administered on 05/19/17 09:22; Start 05/13/17 at 09:00; Stop 05/19/17 at 13:30; Status DC Simvastatin (Zocor) 10 mg QHS PO Last administered on 05/24/17 22:57; Start 05/12/17 at 21:00; Stop 06/11/17 at 20:59 Sodium Biphosphate/ Sodium Phosphate (Fleet Enema) 1 ea DAILYPRN PRN [place] CONSTIPATION; Start 05/12/17 at 13:45; Stop 06/11/17 at 13:44 Tamsulosin HCl (Flomax) 0.4 mg DAILY PO Last administered on 05/19/17 09:22; Start 05/13/17 at 09:00; Stop 05/19/17 at 13:29; Status DC Tramadol HCl (Ultram) 50 mg Q12HP PRN PO PAIN Last administered on 05/17/17 13:09; Start 05/12/17 at 13:45; Stop 05/17/17 at 14:15; Status DC NICOLASA MACK MD May 25, 2017 10:33
--- NOTE | 2017-05-25 12:05 | IPNPDOC ---
Date Seen The patient was seen on 05/25/17. Progress Note HPI: 61year oldF S/P resection of Rt CP angle mass (presumed acoustic neuroma with Path pending) with secondary infarcts Rt cerebellum and cerebral pontine angle of the isha 04/28/17 at [facility]. Pt with residual Rt facial droop, dysarthria, dysphagia, Rt facial nerve palsy, ataxia and generalized weakness. Pt was transferred to the care of ARDebra, Dr Duran 05/12/17. Pt seen by Optho, Dr Waddell 05/24/17. As per nursing, pt has had drainage from surgical site, brownish, no purulent drainage. Scant today as per nursing but apparently was increased overnight. Denies any fevers, chills, weakness, fatigue, Headache, Chest Pain, Shortness of breath, cough, palpitations, abdominal pain, N/V/D or changes in bowel or bladder habits. PAST MEDICAL HISTORY: Includes: 1. Hypertension. 2. Hyperlipidemia. 3. Attention deficit hyperactivity disorder. 4. Gastroesophageal reflux disease (GERD). 5. Osteoarthritis with intravertebral disc disease. 6. Osteoporosis 7. COPD 8. DM 9. Allergic rhinitis PAST SURGICAL HISTORY: Includes: 1. section. 2. Tonsillectomy. 3. Right ankle surgery in 1998 secondary to trauma from a fall. 4. Sinus surgery with polyp removal in the PE: GEN: 61yoF, appears stated age. Well-nourished, well developed. No acute distress. Alert and oriented x 3. Pleasant, interactive. HEENT: Normocephalic, atraumatic. Rt eye sutured closed. Nose midline. Rt facial droop noted. Moist mucous membranes. Pharynx pink and moist. Neck supple , trachea midline. No lymphadenopathy or thyromegaly appreciated. CHEST: Regular rate and rhythm, +S1, +S2 LUNGS: Clear to auscultation bilaterally. No wheezes, rales, or rhonchi. Breathing appears symmetric and easy. ABD: Round, soft, non-tender, non-distended. +Bowel sounds throughout. No rebound or guarding. No costovertebral angle tenderness. EXT: Pulses 2+ bilaterally dorsalis pedis and radial. No lower extremity edema appreciated. SKIN: [place], dry, warm. Capillary refill <2sec. No rashes. NEURO: Alert and oriented x 3. Speech is dysarthric. Pathology pending from [facility]. A&P: 61year oldF S/P resection of Rt acoustic neuroma with secondary infarcts Rt cerebellum and cerebral pontine angle of the isha 04/28/17 at [facility]. Pt with residual Rt facial droop, dysarthria, dysphagia, Rt facial nerve palsy, ataxia and weakness. Pt was transferred to the care of ARU, Dr Duran 05/12/17. 1. S/P resection of Rt CP angle mass(presumed acoustic neuroma) with secondary infarcts Rt cerebellum and cerebral pontine angle of the isha 04/28/17 at [facility]. Pt with residual Rt facial droop, dysarthria, dysphagia, Rt facial nerve palsy, ataxia and weakness. Mgmt as per ARU. PT/OT/St as per ARU. pain control as per ARU. bowel care as per ARU. DVT prophylaxis. As per ARU. Dispo as per ARU. Outpt F/U with neurosurgery Decadron tapering as per D/C instructions. Final pathology result pending from [facility]. Plan for outpt F/U with Dr Salguero, Neurosurgery [facility]. Opthamology consult, Dr Waddell. Rt eye sutured closed, plan x 30 days. Outpt F/ U with Optho. Spoke with Dr Duran, plan is for neurosurgical consult re surgical wound drainage. 2. HTN. S/P IVF. BP 129-156 systolic. Metoprolol 25mg Q6with hold parameters. D/Cd Lisinopril, Diltiazem and HCTZ. 3. HLD. Statin. 4. GERD. Continue PPI. 5. OA/DDD. 6. Osteoporosis. Fosamax. 7. Allergic rhinitis. Claritin/Flonase. 8. COPD. Symbicort. Enc I/S. 9. Hyponatremia. Na 132 today. Daily BMP Mag WNL TSH WNL. Ur Na, Cr and Osm. 11. Leukocytosis. Pt was seen by Hematology at [facility] with plan for outpt f/u with Dr Kitty Dawn/ Heme Onc [facility]. Clio related to steroids. Pt with no complaints. Afebrile Monitor. 12. Recent UTI. Currently treated with Diflucan. UA neg. 05/13/17 UC 05/13/17 Organism 1 ENTEROCOCCUS FAECALIS COLONY COUNT 80,000 CFU/ml. 05/18/17 Organism 1 ENTEROCOCCUS FAECALIS COLONY COUNT >100,000 CFU/ml Juarez d/cd this AM. Afebrile past 24 hrs 05/24 pending. Nitrofurantoin 100mg BID D2/10. (PCN allergic) 13. DM. CC diet. SSI. 14. Anemia. Hgb trend 9s. Fe studies, B12, folate. Stool OB x 3 neg. 15. Poor po intake. Daily weight. I/O. Nutrition consult. VS, I&O, 24H, Fishbone Vital Signs/I&O Vital Signs Date Time Temp Pulse Resp B/P (MAP) Pulse Ox O2 Delivery O2 Flow Rate FiO2 05/25/17 07:00 98.7 89 19 156/87 (110) 98 Room Air I&O- Last 24 Hours up to 6 AM 05/26/17 06:00 Intake Total 360 ml Balance 360 ml Laboratory Data 24H LABS Laboratory Tests 2 05/24/17 16:47: Bedside Glucose (Misc Panel) 152H 05/24/17 22:43: Bedside Glucose (Misc Panel) 121H 05/25/17 06:50: Bedside Glucose (Misc Panel) 110 05/25/17 08:10: Nucleated Red Blood Cells % (auto) 0.8H, Anion Gap 9, Glomerular Filtration Rate > 60.0, Blood Urea Nitrogen 23H, Creatinine 0.63, Sodium Level 132L, Potassium Level 5.0, Chloride Level 99, Carbon Dioxide Level 24, Calcium Level 8.9 05/25/17 11:38: Bedside Glucose (Misc Panel) 149H CBC/BMP Laboratory Tests 05/25/17 08:10 Red Blood Count 3.09 L, Mean Corpuscular Volume 94.5, Mean Corpuscular Hemoglobin 31.1, Mean Corpuscular Hemoglobin Concent 32.9, Red Cell Distribution Width 17.2 H, Calcium Level 8.9 Microbiology Microbiology 05/21/17 Stool Occult Blood (COOKIE) - Final, Complete 05/19/17 Stool Occult Blood (COOKIE) - Final, Complete 05/19/17 Stool Occult Blood (COOKIE) - Final, Complete 05/24/17 Urine Culture, Received Pending 05/18/17 Urine Culture - Final, Complete Enterococcus Faecalis Miranda Morin May 25, 2017 12:05
[2017-05-25 16:36] LABS: ERYTHROCYTE SEDIMENTATION RATE 35 mm/hr (0-30)
[2017-05-25] MEDS: AMITRIPTYLINE 50 MG TAB PO SCH (21:27)
[2017-05-25] MEDS: SIMVASTATIN 10 MG TAB PO SCH (21:27)
[2017-05-26] MEDS: POLYVINYL ALCOHOL OPHTH SOLN 15 ML(LIQUITEARS) OS SCH ×6 (00:22→21:33)
[2017-05-26] MEDS: METOPROLOL TART 25 MG TABLET PO SCH ×4 (00:23→17:26)
[2017-05-26] MEDS: ERYTHROMYCIN OPHTH OINT OD SCH ×4 (00:24→17:27)
[2017-05-26 06:00] VITALS: BP 150/78
[2017-05-26] MEDS: ACETAMINOPHEN TAB 650MG DOSE (2X325MG) PO PRN ×2 (06:04→17:25)
[2017-05-26] MEDS: METHYLPHENIDATE 5 MG TAB PO SCH ×2 (06:05→11:50)
[2017-05-26 07:16] LABS: MEAN CORPUSCULAR HEMOGLOBIN 29.7 pg (27.0-33.0); MEAN CORPUSCULAR HGB CONC 31.9 g/dl (32.0-36.5); MEAN CORPUSCULAR VOLUME 93.1 fl (80.0-96.0); PLATELET COUNT, AUTOMATED 385 10^3/uL (150-450); RED CELL DISTRIBUTION WIDTH 17.4 % (11.5-14.5); WHITE BLOOD COUNT 14.2 10^3/uL (4.0-10.0)
[2017-05-26 07:27] LABS: ANION GAP 8 MEQ/L (8-16); BLOOD UREA NITROGEN 22 MG/DL (7-18); CARBON DIOXIDE LEVEL 25 MEQ/L (21-32); CHLORIDE LEVEL 99 MEQ/L (98-107); CREATININE FOR GFR 0.71 MG/DL (0.55-1.02); GLOMERULAR FILTRATION RATE > 60.0 (>45); GLUCOSE, FASTING 154 MG/DL (80-110); POTASSIUM SERUM 4.6 MEQ/L (3.5-5.1); SODIUM LEVEL 132 MEQ/L (136-145)
[2017-05-26] MEDS: HumaLOG INSULIN (NovoLOG) PER UNIT SC SCH ×4 (08:20→21:00)
[2017-05-26] MEDS: LANSOPRAZOLE SUSPENSION 30 MG/10 ML ORAL SYRINGE (FIRST-LANSOPRAZOLE) PO SCH (08:21)
[2017-05-26] MEDS: FLUCONAZOLE 100 MG TAB PO SCH (08:21)
[2017-05-26] MEDS: LORATADINE 10 MG TAB PO SCH (08:21)
[2017-05-26] MEDS: HEPARIN SOD (PORCINE) 5000 UNITS/ML VIAL SC SCH ×2 (08:22→21:33)
[2017-05-26] MEDS: FLUTICASONE PROP 0.05% NASAL SPRAY 16 GM (FLONASE) SCH (08:23)
[2017-05-26] MEDS: BACITRACIN OINT 30GM TOP SCH (08:24)
[2017-05-26] MEDS: MUPIROCIN 2% OINT 22 GM TUBE TOP SCH ×2 (08:24→21:33)
[2017-05-26] MEDS: NITROFURANTOIN (MACROBID) 100 MG CAP PO SCH ×2 (10:32→21:32)
[2017-05-26 14:00] VITALS: BP 152/76
--- NOTE | 2017-05-26 14:20 | IPNPDOC ---
Date Seen The patient was seen on 05/26/17. 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. Pt with residual Rt facial droop, dysarthria, dysphagia, Rt facial nerve palsy, ataxia and generalized weakness. Pt was transferred to the care of ARDebra, Dr Duran 05/12/17. Pt seen by Optho, Dr Waddell 05/24/17. As per nursing, pt has had clear drainage from surgical site, small amt. No purulent drainage. Denies any fevers, chills, weakness, fatigue, Headache, Chest Pain, Shortness of breath, cough, palpitations, abdominal pain, N/V/D or changes in bowel or bladder habits. PAST MEDICAL HISTORY: Includes: 1. Hypertension. 2. Hyperlipidemia. 3. Attention deficit hyperactivity disorder. 4. Gastroesophageal reflux disease (GERD). 5. Osteoarthritis with intravertebral disc disease. 6. Osteoporosis 7. COPD 8. DM 9. Allergic rhinitis PAST SURGICAL HISTORY: Includes: 1. section. 2. Tonsillectomy. 3. Right ankle surgery in 1998 secondary to trauma from a fall. 4. Sinus surgery with polyp removal in the PE: GEN: 61yoF, appears stated age. Well-nourished, well developed. No acute distress. Alert and oriented x 3. Pleasant, interactive. HEENT: Normocephalic, atraumatic. Rt eye sutured closed. Nose midline. Rt facial droop noted. Moist mucous membranes. Pharynx pink and moist. Neck supple , trachea midline. No lymphadenopathy or thyromegaly appreciated. CHEST: Regular rate and rhythm, +S1, +S2 LUNGS: Clear to auscultation bilaterally. No wheezes, rales, or rhonchi. Breathing appears symmetric and easy. ABD: Round, soft, non-tender, non-distended. +Bowel sounds throughout. No rebound or guarding. No costovertebral angle tenderness. EXT: Pulses 2+ bilaterally dorsalis pedis and radial. No lower extremity edema appreciated. SKIN: [place], dry, warm. Capillary refill <2sec. No rashes. NEURO: Alert and oriented x 3. Speech is dysarthric. Pathology pending from [facility]. 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. Pt with residual Rt facial droop, dysarthria, dysphagia, Rt facial nerve palsy, ataxia and weakness. Pt was transferred to the care of ARU, Dr Duran 05/12/17. 1. 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. Pt with residual Rt facial droop, dysarthria, dysphagia, Rt facial nerve palsy, ataxia and weakness. Mgmt as per ARU. PT/OT/St as per ARU. pain control as per ARU. bowel care as per ARU. DVT prophylaxis. As per ARU. Dispo as per ARU. Outpt F/U with neurosurgery Decadron tapering as per D/C instructions. Final pathology result pending from [facility]. Plan for outpt F/U with Dr Salguero, [facility]surgery [facility]. Opthamology consult, Dr Waddell. Rt eye sutured closed, plan x 30 days. Outpt F/ U with Optho. Spoke with Dr Duran 05/25, plan was for neurosurgical consult re surgical wound drainage. As per Dr Duran, he spoke with [facility] [place] who did Pt's surgery (Dr Salguero) and plan is to continue to monitor as this time. Low level of concern for CSF leakage. Pt remains afebrile. Pt has f/u there scheduled 06/04/17. 2. HTN. S/P IVF. BP 129-156 systolic. Metoprolol 25mg Q6with hold parameters. D/Cd Lisinopril, Diltiazem and HCTZ. 3. HLD. Statin. 4. GERD. Continue PPI. 5. OA/DDD. 6. Osteoporosis. Fosamax. 7. Allergic rhinitis. Claritin/Flonase. 8. COPD. Symbicort. Enc I/S. 9. Hyponatremia. Na 132 today. Daily BMP Mag WNL TSH WNL. Ur Na, Cr and Osm. 11. Leukocytosis. Pt was seen by Hematology at [facility] with plan for outpt f/u with Dr Kitty Dawn/ Heme On[facility]. Sims related to steroids. Pt with no complaints. Afebrile Monitor. 12. Recent UTI. Currently treated with Diflucan. UA neg. 05/13/17 05/13/17 Organism 1 ENTEROCOCCUS FAECALIS COLONY COUNT 80,000 CFU/ml. 05/18/17 Organism 1 ENTEROCOCCUS FAECALIS COLONY COUNT >100,000 CFU/ml Juarez d/cd this AM. Afebrile past 24 hrs 05/24 neg. Nitrofurantoin 100mg BID D3/10. (PCN allergic) 13. DM. CC diet. SSI. 14. Anemia. Hgb trend 9s. Fe studies, B12, folate. Stool OB x 3 neg. 15. Poor po intake. Daily weight. I/O. Nutrition consult. VS, I&O, 24H, Fishbone Vital Signs/I&O Vital Signs Date Time Temp Pulse Resp B/P (MAP) Pulse Ox O2 Delivery O2 Flow Rate FiO2 05/26/17 11:53 80 144/80 05/26/17 06:00 97.6 18 98 Room Air I&O- Last 24 Hours up to 6 AM 05/27/17 06:00 Intake Total 360 ml Output Total 400 ml Balance -40 ml Laboratory Data 24H LABS Laboratory Tests 2 05/25/17 16:54: Bedside Glucose (Misc Panel) 152H 05/25/17 20:38: Bedside Glucose (Misc Panel) 181H 05/26/17 05:21: Bedside Glucose (Misc Panel) 134H 05/26/17 06:45: Nucleated Red Blood Cells % (auto) 0.8H, Anion Gap 8, Glomerular Filtration Rate > 60.0, Blood Urea Nitrogen 22H, Creatinine 0.71, Sodium Level 132L, Potassium Level 4.6, Chloride Level 99, Carbon Dioxide Level 25, Calcium Level 9.0 05/26/17 11:40: Bedside Glucose (Misc Panel) 126H CBC/BMP Laboratory Tests 05/26/17 06:45 Red Blood Count 3.03 L, Mean Corpuscular Volume 93.1, Mean Corpuscular Hemoglobin 29.7, Mean Corpuscular Hemoglobin Concent 31.9 L, Red Cell Distribution Width 17.4 H, Calcium Level 9.0 Microbiology Microbiology 05/21/17 Stool Occult Blood (COOKIE) - Final, Complete 05/19/17 Stool Occult Blood (COOKIE) - Final, Complete 05/19/17 Stool Occult Blood (COOKIE) - Final, Complete 05/24/17 Urine Culture - Final, Complete 05/18/17 Urine Culture - Final, Complete Enterococcus Faecalis Miranda Morin May 26, 2017 14:20
--- NOTE | 2017-05-26 14:45 | IPNPDOC ---
PM&R Progress Note Flute Teacher Progress Note DATE OF SERVICE: 05/26/17 DATE OF ADMISSION: May 12, 2017 at 13:49 INPATIENT REHABILITATION ADMISSION DAY: #15 SUBJECTIVE: The patient is a right-handed, middle-aged, white female who had had progressive loss of hearing in her right ear and some facial weakness. 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 Patient notes right eye feels much better after Temporary Total Tarsorrhaphy. She expresses her happiness with Dr. Waddell' s care. No other complaints today. ALLERGIES: See Below MEDICATIONS: Reviewed, see below. OBJECTIVE: VITAL SIGNS: Please see below. 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 HEENT: Patient with temporary total tarsorrhaphy, but less right facial droop with some right mouth closing and left tongue deviation. Patient is very hard of hearing in the right ear. CARDIOVASCULAR: Regular rate and rhythm with normal S1-S2. 2/4 radial pulses. LUNGS: All saez clear auscultation. ABDOMEN: Bowel sounds normal in all quadrants. NEUROLOGICAL: The patient is alert and oriented to person, place, general aspects of time but does not seem to be fully oriented to situation and is getting confused on right and left body at times. Memory will be further assessed at speech therapy evaluation. Speech at this time is somewhat concrete in nature and dysarthric as noted above. Affect is mildly anxious but overall pleasant and cooperative and trying hard to participate. Motor strength on the left upper and lower extremities is approximately 4/5 but only +3 to -4 out of 5 in the right upper and lower extremities, limited by some ataxia that is affecting both the upper and lower extremities. Light touch is intact in bilateral upper and lower extremities and vibration is grossly intact in bilateral upper extremities and mildly diminished in both lower extremities down in the feet and ankle areas. SKIN: Grossly intact except for healing right mastoid incision with some serous drainage and abdominal umbilicus incision is healed. Both of which are without inflammation. No odor, inflammation, erythema at right mastoid site. LABORATORY DATA: Reviewed. Please see below. MICROBIOLOGY: Please see below. IMAGING: No new imaging. DVT prophylaxis ordered?: 5000 units heparin subcutaneous twice a day, PIPER hose and sequential compression stockings. ASSESSMENT AND PLAN: 1. 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 Final pathology is pending on the neuroma. Patient working very hard with PT, OT and [employer] COUNSEL showing very good motivation. Currently having much less difficulties with hypotension and dizziness as fluid status and blood pressure medicines are being adjusted by Medicine senior consultant. Significant problem is with oral awareness that limits her ability to advance diet, however facial droop and drooling are much better today. We will increase oral care. Patient should need DME (FWW, Commode, Shower chair or bench, and possible w/c). Approximate date of discharge is expected be 06/03/17. 2. Urinary retention: Juarez discontinued and we are try a voiding schedule. Urinary retention still present, but some voiding happening. 3. Type 2 diabetes mellitus: At this time we'll proceed with consistent carbohydrate diet and insulin sliding scale. Medicine to make adjustments as appropriate. 4. Anemia: H&H is 9.0 and 28.2% on 05/26/17. We will continue to watch this along with her blood pressure. 5. Hyponatremia: Hopefully the fluid challenge will further increase her sodium level which is 132 today. BUN remains elevated at 22. 6. Leukocytosis: Currently, it remains elevated, but steady at around 14.2K today. 7. Wound Drainage: I met with the patient and her significant other and also called Ms. Patricia Mills TAPPER OPERATOR for Dr. Salguero today 05/26/17 to review the right mastoid incision and subsequent drainage. Current, measurable drainage is <5 ml onto a 4 by 4 gauze in a shift. It is serous, patient is afebrile for 48 hours since starting Macrodantin for UTI. No odor, purulence or sanguinous drainage has occurred and the wound has not turned red, hot, streaked or shown other signs of infection. In my experience, CSF leaks are much higher volume than 2 unsoaked 4 by 4 gauze pads a day. CSP however is hard to decern from Serous drainage though. I do not feel that this is other than the serous drainage that would follow the hematoma breakdown as the hematoma cavity must heal from into to out. Ms. Mills did not feel that sending the patient to ENT outpatient clinic was warranted at this time. She and Dr. Jose Luis Salguero have my cell to call back if they wish to alter care or follow up, but for now the patient will be seen on 06/04/17 in their clinic. The patient and her significant other expressed their understanding and acceptance of the current care plan. TIME SPENT: Chart Review, examination and documentation require greater than 25 minutes. Allergies Coded Allergies: Amoxicillin (Verified Allergy, Unknown, 05/12/17) Shellfish Allergy (Verified Allergy, Unknown, 05/12/17) [place] (Verified Allergy, Unknown, 05/12/17) Sulfa Antibiotics (Verified Allergy, Unknown, 05/12/17) Vital Signs Vital Signs Date Time Temp Pulse Resp B/P (MAP) Pulse Ox O2 Delivery O2 Flow Rate FiO2 05/26/17 11:53 80 144/80 05/26/17 06:00 97.6 18 98 Room Air Laboratory Data CBC/BMP Laboratory Tests 05/26/17 06:45 Red Blood Count 3.03 L, Mean Corpuscular Volume 93.1, Mean Corpuscular Hemoglobin 29.7, Mean Corpuscular Hemoglobin Concent 31.9 L, Red Cell Distribution Width 17.4 H, Calcium Level 9.0 Labs 24H Laboratory Tests 2 05/25/17 16:54: Bedside Glucose (Misc Panel) 152H 05/25/17 20:38: Bedside Glucose (Misc Panel) 181H 05/26/17 05:21: Bedside Glucose (Misc Panel) 134H 05/26/17 06:45: Nucleated Red Blood Cells % (auto) 0.8H, Anion Gap 8, Glomerular Filtration Rate > 60.0, Blood Urea Nitrogen 22H, Creatinine 0.71, Sodium Level 132L, Potassium Level 4.6, Chloride Level 99, Carbon Dioxide Level 25, Calcium Level 9.0 05/26/17 11:40: Bedside Glucose (Misc Panel) 126H Microbiology Microbiology 05/21/17 Stool Occult Blood (COOKIE) - Final, Complete 05/19/17 Stool Occult Blood (COOKIE) - Final, Complete 05/19/17 Stool Occult Blood (COOKIE) - Final, Complete 05/24/17 Urine Culture - Final, Complete 05/18/17 Urine Culture - Final, Complete Enterococcus Faecalis Current Medications Current Medications Current Medications Acetaminophen (Tylenol Tab) 650 mg Q6HP PRN PO PAIN / FEVER Last administered on 05/26/17 06:04; Start 05/17/17 at 14:15; Stop 06/16/17 at 14:14 Alendronate Sodium (Fosamax) 70 mg Sa@07 PO Last administered on 05/22/17 06: 00; Start 05/15/17 at 07:00; Stop 06/14/17 at 06:59 Amitriptyline HCl (Elavil) 50 mg QHS PO Last administered on 05/25/17 21:27; Start 05/12/17 at 21:00; Stop 06/11/17 at 20:59 Artificial Tears (Akwa Tears) 2 drop Q4H OS Last administered on 05/26/17 13: 44; Start 05/25/17 at 01:00; Stop 06/24/17 at 00:59 Artificial Tears ([place]wa Tears) 2 drop Q4H OU Last administered on 05/24/17 16: 48; Start 05/13/17 at 16:00; Stop 05/24/17 at 21:52; Status DC Artificial Tears (Akwa Tears) 2 drop Q4HP PRN OU DRY EYES; Start 05/12/17 at 13:45; Stop 05/13/17 at 12:04; Status DC Bacitracin (Bacitracin Oint) Right Mastoid a... DAILY TOP Last administered on 05/26/17 08:24; Start 05/13/17 at 09:00; Stop 06/12/17 at 08:59 Bisacodyl (Dulcolax Suppository) 10 mg DAILYPRN PRN ID CONSTIPATION Last administered on 05/21/17 10:25; Start 05/12/17 at 13:45; Stop 06/11/17 at 13 :44 Budesonide/ Formoterol Fumarate (Symbicort 80/ 4.5mcg) 2 puff BID PRN INH Dyspnea; Start 05/12/17 at 13:45; Stop 06/11/17 at 13:44 Dexamethasone (Decadron) 2 mg BID PO Last administered on 05/16/17 20:40; Start 05/12/17 at 21:00; Stop 05/16/17 at 23:55; Status DC Dexamethasone (Decadron) 2 mg DAILY PO Last administered on 05/19/17 09:22; Start 05/17/17 at 09:00; Stop 05/19/17 at 13:31; Status DC Dexamethasone (Decadron) 2 mg Q12H PO Last administered on 05/26/17 08:21; Start 05/19/17 at 21:00; Stop 06/18/17 at 20:59 Dextrose (Dextrose 50%) 25 ml ASDIRECTED PRN IV SEE LABEL COMMENTS; Start at 13:45; Stop 06/11/17 at 13:44 Diltiazem HCl (Cardizem) 60 mg Q6H PO Last administered on 05/16/17 23:54; Start 05/12/17 at 18:00; Stop 05/17/17 at 12:33; Status DC Erythromycin (Ilotycin) 1 dose TID OD Last administered on 05/24/17 08:18; Start 05/14/17 at 16:00; Stop 05/24/17 at 10:16; Status DC Erythromycin (Ilotycin) 3/4" INTO RIGHT EYE DIRECTED Q6H OD Last administered on 05/26/17 11:54; Start 05/25/17 at 00:00; Stop 06/24/17 at 00 :00 Fentanyl Citrate (Sublimaze) 25 mcg Q5MP PRN IV MODERATE PAIN (PS 4-7); Start 05/24/17 at 22:00; Stop 05/24/17 at 23:00; Status DC Fluconazole (Diflucan) 200 mg DAILY PO Last administered on 05/26/17 08:21; Start 05/13/17 at 09:00; Stop 05/27/17 at 08:59 Fluticasone Propionate (Flonase 0.05% Nasal [place]) 2 spray DAILY NA Last administered on 11/29/17at 08:23; Start 05/13/17 at 09:00; Stop 06/12/17 at 08 :59 Glucagon (Glucagon) 1 mg ASDIRECTED PRN SC SEE LABEL COMMENTS; Start 05/12/17 at 13:45; Stop 06/11/17 at 13:44 Glucose (Glucose) 16 GM ASDIRECTED PRN PO SEE LABEL COMMENTS; Start 05/12/17 at 13:45; Stop 06/11/17 at 13:44 Heparin Sodium (Porcine) (Heparin) 5,000 units Q12H SC Last administered on 08:22; Start 05/12/17 at 21:00; Stop 06/02/17 at 23:55 Home Med (Med Rec Complete!) ASDIRECTED XX ; Start 05/12/17 at 15:30; Stop at 15:33; Status DC Hydrochlorothiazide (Hydrodiuril) 25 mg DAILY PO Last administered on 08:29; Start 05/13/17 at 09:00; Stop 05/17/17 at 12:21; Status DC Insulin Human Lispro (HumaLOG INSULIN) See Protocol Table AC SC Last administered on 05/26/17 11:50; Start 05/12/17 at 17:30; Stop 06/11/17 at 17 :29 Insulin Human Lispro (HumaLOG INSULIN) See Protocol Table QHS SC ; Start at 21:00; Stop 06/11/17 at 20:59 Lactated Ringer's 1,000 ml @ 100 mls/hr Q10H IV ; Start 05/24/17 at 22:00; Stop 05/24/17 at 23:00; Status DC Lansoprazole (First-Lansoprazole Oral Suspension) 30 mg DAILY PO Last administered on 05/26/17 08:21; Start 05/20/17 at 09:00; Stop 06/19/17 at 08 :59 Lisinopril (Prinivil) 10 mg BID PO Last administered on 05/18/17 21:26; Start 05/18/17 at 21:00; Stop 05/19/17 at 13:29; Status DC Lisinopril (Prinivil) 20 mg BID PO Last administered on 05/17/17 20:32; Start 05/13/17 at 09:00; Stop 05/18/17 at 09:45; Status DC Loratadine (Claritin) 10 mg DAILY PO Last administered on 05/26/17 08:21; Start 05/13/17 at 09:00; Stop 06/12/17 at 08:59 Methylphenidate HCl (Ritalin) 10 mg BID@0700,1200 PO Last administered on 05/26 11:50; Start 05/25/17 at 12:00; Stop 06/01/17 at 11:59 Methylphenidate HCl (Ritalin) 10 mg BID@0700,1400 PO Last administered on 05/25 06:26; Start 05/16/17 at 07:00; Stop 05/25/17 at 10:24; Status DC Methylphenidate HCl (Ritalin) 10 mg BID@0700,1400 PO ; Start 05/16/17 at 14:00 ; Stop 05/16/17 at 14:00; Status DC Methylphenidate HCl (Ritalin) 10 mg BID@09,14 PO Last administered on 14:07; Start 05/12/17 at 14:00; Stop 05/16/17 at 08:34; Status DC Metoprolol Tartrate (Lopressor) 25 mg BID PO Last administered on 05/18/17 21 :25; Start 05/17/17 at 21:00; Stop 05/19/17 at 13:29; Status DC Metoprolol Tartrate (Lopressor) 25 mg Q6H PO Last administered on 05/26/17 11 :53; Start 05/21/17 at 12:00; Stop 06/20/17 at 11:59 Metoprolol Tartrate (Lopressor) 50 mg BID PO Last administered on 05/16/17 20 :42; Start 05/12/17 at 21:00; Stop 05/17/17 at 12:33; Status DC Mupirocin (Bactroban 2% Ointment) 1 dose BID TOP Last administered on 08:24; Start 05/18/17 at 09:00; Stop 06/17/17 at 08:59 Nitrofurantoin Monoh/Nitrofur Macro (Macrobid) 100 mg BID PO Last administered on 05/26/17 10:32; Start 05/24/17 at 09:00; Stop 06/03/17 at 08:59 Pantoprazole Sodium (Protonix) 40 mg DAILY PO Last administered on 05/19/17 09:22; Start 05/13/17 at 09:00; Stop 05/19/17 at 13:30; Status DC Simvastatin (Zocor) 10 mg QHS PO Last administered on 05/25/17 21:27; Start 05/12/17 at 21:00; Stop 06/11/17 at 20:59 Sodium Biphosphate/ Sodium Phosphate (Fleet Enema) 1 ea DAILYPRN PRN ID CONSTIPATION; Start 05/12/17 at 13:45; Stop 06/11/17 at 13:44 Tamsulosin HCl (Flomax) 0.4 mg DAILY PO Last administered on 05/19/17 09:22; Start 05/13/17 at 09:00; Stop 05/19/17 at 13:29; Status DC Tramadol HCl (Ultram) 50 mg Q12HP PRN PO PAIN Last administered on 05/17/17 13:09; Start 05/12/17 at 13:45; Stop 05/17/17 at 14:15; Status DC NICOLASA MACK MD May 26, 2017 14:45
[2017-05-26 20:00] VITALS: BP 140/73
[2017-05-26] MEDS: AMITRIPTYLINE 50 MG TAB PO SCH (21:32)
[2017-05-26] MEDS: SIMVASTATIN 10 MG TAB PO SCH (21:33)
--- NOTE | 2017-05-26 22:08 | RO ---
DATE OF PROCEDURE: 05/24/2017 INDICATION FOR THE PROCEDURE: This pleasant middle-aged female had an acoustic neuroma resection at [facility] in the early part of April. She was transferred to [facility] on 05/12/2017 for rehabilitation. I was contacted in the morning of the by Dr. Roland Duran who said that the patient's eye was irritated and he asked me to see her. I presented about 6:30 in the evening on the . It was obvious this poor lady had a total VII right cranial nerve palsy and her eye had been open for almost a month. There was severe exposure keratopathy. In addition, she also had no blink reflex indicating that cranial nerve V was also injured from the acoustic neuroma resection. I discussed this very grave situation with the patient and her family and we decided to do an emergent tarsorrhaphy to try to save this eye. 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 OPERATIVE PROCEDURE: Emergent complete temporary tarsorrhaphy of the lids of the right eye. SURGEON: Sudheer Waddell Jr., DO, FACS BACTERIOLOGIST MEDICAL: ANESTHESIA: Local 2% lidocaine with epinephrine with sedation and monitoring by the anesthesia ESTIMATED BLOOD LOSS: None. COMPLICATIONS: None. DESCRIPTION OF PROCEDURE: After obtaining informed consent the patient was taken to the operating room. A time out was performed to confirm that this was the right eye that we were going to perform the emergent complete temporary tarsorraphy. Some sedation was administered by the octave board assembler and the eye was prepped and draped in a sterile fashion. Lidocaine was injected in the right upper and lower lid. Two double-armed #4-0 silk sutures wereplaced through the skin of the upper lid into the lower lid through the roman line at the lid margin and through the tarsal plates with butterfly tubing acting as plastic bolsters through the end of these horizontal mattress sutures, upper and lower. The eye was closed successfully. The wound was clean and dry. Erythromycin ointment was instilled into the right eye and the patient was taken back to the recovery area in excellent condition. CARLO
[2017-05-27] MEDS: METOPROLOL TART 25 MG TABLET PO SCH ×4 (00:10→17:59)
[2017-05-27] MEDS: ACETAMINOPHEN TAB 650MG DOSE (2X325MG) PO PRN ×3 (00:10→16:51)
[2017-05-27] MEDS: POLYVINYL ALCOHOL OPHTH SOLN 15 ML(LIQUITEARS) OS SCH ×6 (00:10→20:14)
[2017-05-27] MEDS: ERYTHROMYCIN OPHTH OINT OD SCH ×4 (00:11→17:59)
[2017-05-27 06:00] VITALS: BP_SYST 152; BP_SYST 160; BP_DIAS 70; BP_DIAS 82; BP_DIAS 84
[2017-05-27] MEDS: METHYLPHENIDATE 5 MG TAB PO SCH ×2 (06:55→12:18)
[2017-05-27] MEDS: HumaLOG INSULIN (NovoLOG) PER UNIT SC SCH ×4 (08:23→20:52)
[2017-05-27] MEDS: LORATADINE 10 MG TAB PO SCH (08:26)
[2017-05-27] MEDS: NITROFURANTOIN (MACROBID) 100 MG CAP PO SCH ×2 (08:26→20:13)
[2017-05-27] MEDS: HEPARIN SOD (PORCINE) 5000 UNITS/ML VIAL SC SCH ×2 (08:26→20:14)
[2017-05-27] MEDS: FLUTICASONE PROP 0.05% NASAL SPRAY 16 GM (FLONASE) SCH (08:27)
[2017-05-27] MEDS: LANSOPRAZOLE SUSPENSION 30 MG/10 ML ORAL SYRINGE (FIRST-LANSOPRAZOLE) PO SCH (08:27)
[2017-05-27] MEDS: BACITRACIN OINT 30GM TOP SCH (08:28)
[2017-05-27] MEDS: MUPIROCIN 2% OINT 22 GM TUBE TOP SCH ×2 (08:28→20:14)
[2017-05-27 09:07] LABS: MEAN CORPUSCULAR HEMOGLOBIN 30.1 pg (27.0-33.0); MEAN CORPUSCULAR HGB CONC 31.8 g/dl (32.0-36.5); MEAN CORPUSCULAR VOLUME 94.6 fl (80.0-96.0); PLATELET COUNT, AUTOMATED 403 10^3/uL (150-450); RED CELL DISTRIBUTION WIDTH 17.8 % (11.5-14.5); WHITE BLOOD COUNT 14.7 10^3/uL (4.0-10.0)
[2017-05-27 09:28] LABS: ANION GAP 8 MEQ/L (8-16); BLOOD UREA NITROGEN 24 MG/DL (7-18); CALCIUM LEVEL 8.9 MG/DL (8.8-10.2); CARBON DIOXIDE LEVEL 26 MEQ/L (21-32); CHLORIDE LEVEL 100 MEQ/L (98-107); CREATININE FOR GFR 0.69 MG/DL (0.55-1.02); GLOMERULAR FILTRATION RATE > 60.0 (>45); GLUCOSE, FASTING 114 MG/DL (80-110); POTASSIUM SERUM 4.4 MEQ/L (3.5-5.1); SODIUM LEVEL 134 MEQ/L (136-145)
--- NOTE | 2017-05-27 10:49 | IPNPDOC ---
PM&R Progress Note Treatment Counselor Progress Note DATE OF SERVICE: 05/27/17 DATE OF ADMISSION: May 12, 2017 at 13:49 INPATIENT REHABILITATION ADMISSION DAY: #16 SUBJECTIVE: The patient is a right-handed, middle-aged, white female who had had progressive loss of hearing in her right ear and some facial weakness. 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 Patient notes right eye feels much better after Temporary Total Tarsorrhaphy. She expressed her happiness with Dr. Waddell' s care. She reports feeling "Great" today. No complaints today. ALLERGIES: See Below MEDICATIONS: Reviewed, see below. OBJECTIVE: VITAL SIGNS: Please see below. 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 Patient in very good spirits and more energetic in therapies. HEENT: Patient with temporary total tarsorrhaphy, but less right facial droop with some right mouth closing and left tongue deviation. Patient is very hard of hearing in the right ear. CARDIOVASCULAR: Regular rate and rhythm with normal S1-S2. 2/4 radial pulses. LUNGS: All saez clear auscultation. ABDOMEN: Bowel sounds normal in all quadrants. NEUROLOGICAL: The patient is alert and oriented to person, place, time and situation. Speech at this time is much less concrete in nature and much less dysarthric. Affect is pleasant and cooperative and positive. Motor strength on the left upper and lower extremities is approximately 4/5 but only +3 to -4 out of 5 in the right upper and lower extremities, limited by some ataxia that is affecting both the upper and lower extremities. Light touch is intact in bilateral upper and lower extremities and vibration is grossly intact in bilateral upper extremities and mildly diminished in both lower extremities down in the feet and ankle areas. SKIN: Grossly intact except for healing right mastoid incision with almost no serous drainage or other drainage, which is without inflammation. No odor, or erythema at right mastoid site. LABORATORY DATA: Reviewed. Please see below. MICROBIOLOGY: Please see below. IMAGING: No new imaging. DVT prophylaxis ordered?: 5000 units heparin subcutaneous twice a day, PIPER hose and sequential compression stockings. ASSESSMENT AND PLAN: 1. 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 Final pathology is pending on the neuroma. Patient working very hard with PT, OT and BOARDMARKER showing very good motivation. Currently having much less difficulties with hypotension and dizziness as fluid status and blood pressure medicines are being adjusted by Medicine bridal stylist sales consultant. Regular improvement in oral awareness and facial droop is much better today. Patient should need DME (FWW, Commode, Shower chair or bench, and possible w/c). Approximate date of discharge is expected be 06/03/17. REHAB. TEAM ROUNDS: Patient has been doing much better with less lightheadedness , improved mood and attention the last 3 days and tolerating being up more. She is able to transition this into better performance in PT/OT/BOARDMARKER, though fatigue as the day goes on is a problem. Discharge to home with family planned for with a trial in the Rehab. Apt. this weekend and Patient/Family Conference on Wednesday06/01/17. Please see attached therapy notes below. 2. Urinary retention: Juarez discontinued and we are try a voiding schedule. Urinary retention still present, but some voiding happening. 3. Type 2 diabetes mellitus: At this time we'll proceed with consistent carbohydrate diet and insulin sliding scale. Medicine to make adjustments as appropriate. 4. Anemia: H&H is 10.0 and 31.4% on 05/27/17. We will continue to watch this along with her blood pressure. 5. Hyponatremia: Hopefully the fluid challenge will further increase her sodium level which is 134 today on 05/27/17. BUN remains elevated at 24. 6. Leukocytosis: Currently, it remains elevated, but steady at around 14.7K today on 05/27/17. 7. Wound Drainage: 05/26/17:I met with the patient and her significant other and also called Ms. Patricia Mills NP for Dr. Salguero to review the right mastoid incision and subsequent drainage. Current, measurable drainage is <5 ml onto a 4 by 4 gauze in a shift. It is serous, patient is afebrile for 48 hours since starting Macrodantin for UTI. No odor, purulence or sanguinous drainage has occurred and the wound has not turned red, hot, streaked or shown other signs of infection. In my experience, CSF leaks are much higher volume than 2 unsoaked 4 by 4 gauze pads a day. CSP however is hard to decern from Serous drainage though. I do not feel that this is other than the serous drainage that would follow the hematoma breakdown as the hematoma cavity must heal from into to out. Ms. Mills did not feel that sending the patient to ENT outpatient clinic was warranted at this time. She and Dr. Jose Luis Salguero have my cell to call back if they wish to alter care or follow up, but for now the patient will be seen on 06/04/17 in their clinic. The patient and her significant other expressed their understanding and acceptance of the current care plan. TIME SPENT: Chart Review, examination and documentation require greater than 25 minutes. Patient: Cris Reardon : 1955 Age/Sex: 61/F Unit#: [id number] Room/Bed: M4142/01 User: Migdaila Garcia OT OT Date: 05/27/17 14:49 Type: OT Progress Time In * 07:00 Time Out * 08:15 OT Treatment Time-Minutes * 75 mins Type of Therapy Provided * Individual Precautions * Fall Unit * Medical/Surgical Floor Pain Start of Session * 4 Pain Comment * Pt c/o headache this am once EOB and transferring. RN notified and brought tylenol. Subjective * Pt supine upon OT arrival, agreeable to tx. Cognition * Impaired Cognition Comments * Impaired speech production but able to communicate with slowed speech. Supine to Sit * Standby Assist Sit to Supine * Standby Assist Bed Mobility Notes * SBA for all bed mobility this date., Sit to Stand * Minimum Assist Stand to Sit * Minimum Assist Bed to Chair * Minimum Assist Chair to Bed * Minimum Assist Toilet/Commode * Moderate Assist Functional Transfer Notes: * With RW, min A for sit to/from stand only for steadying with lean too far forward. Due to R lean, pt requires mod assist for transfer onto commode, though able to correct lean for transfer off, requiring only min assist off. Bathing * Contact Guard Assist Dressing-Upper Body * Standby Assist Dressing-Lower Body * Contact Guard Assist Grooming * Standby Assist Toileting * Minimum Assist ADL Training Note * Pt transferred to EOB and then to commode using RW. Pt able to complete clothing management and hygiene with assist to steady and use of RW. Pt then transferred back to EOB>supine for bladder scan/straight cath from RN. Pt retunred to EOB and transferred to w/c with min assist, then taken to bathroom for bathing/dressing. Pt able to wash all areas with only CGA to stand to reach buttocks. Pt utilizes LHS for washing B feet. UB dressing- set-up assist. LB dressing- pt utilized suspect artist supervisor and sock aide to thread LB clothing, only requires CGA to stand to pull up brief/pants. Pt completed grooming with supervision at sink only. B. Oral Hygiene (includes gums in edentulous pts): * 05.Setup/clean up Asst Oral Hygiene Comments: * See ADL note C. Toileting Hygiene (not transfers): * 04.Sup/Touch Assist Toileting Hygiene Comments: * See ADL note. E. Shower/Bathe Self (not transfers, can be sponge bath): * 04.Sup/Touch Assist Shower/Bathe Self Comments: * See ADL note F. Upper Body Dressing (includes bra, not hospital gown): * 05.Setup/clean up Asst Upper Body Dressing Comments: * See ADL note G. Lower Body Dressing (includes briefs and knee braces): * 04.Sup/Touch Assist Lower Body Dressing Comments: * See ADL note H. Putting on/taking off footwear (includes TEDS and AFO): * 04.Sup/Touch Assist Putting on/taking off footwear Comments: * See ADL note Sit-Static * G- Sit-Dynamic * G- Stand-Static * F Stand-Dynamic * F Balance Training Note * Pt presents with Rt lean in standing but with VCs is able to correct without increased assistance. sitting observed in chair and w/c today. OT Intervention Note * Pt very cooperative, pleasant and grateful during therapy session and in progressing well towards OT goals demonstrating greater (I) with ADL skills this session. Following ADLs, pt remained seated in w/c with all needs met, call light in reach, awaiting breakfast. OT Goal Note * Continue with OT plan of care. Discharge Recommendations * Home w/services Safe for discharge at this time * No Patient: Cris Reardon : 1955 Age/Sex: 61/F Unit#: [id number] [facility] User: Alexa Mandel PT PT Date: 05/27/17 11:56 Type: PT Progress Note Time In * 09:11 Time Out * 09:41 PT Treatment Time-Minutes * 30 mins Type of Therapy Provided * Individual Precautions * Fall Unit * Medical/Surgical Floor Pain Start of Session * 0 Pain Comment * Pt denies pain Subjective * pt was seated up in her chair upon enteirng the room and was ready and willing to participate in all that was asked of her. Cognition * Impaired Cognition Comments * Impaired speech production but able to communicate with slowed speech. Supine to Sit * Not Tested Sit to Supine * Not Tested Rolling * Not Tested Bed Mobility Notes * OOB t/o Sit to Stand * Minimum Assist Stand to Sit * Minimum Assist Bed to Chair * Not Tested Chair to Bed * Not Tested Toilet/Commode * Not Tested Transfer Training Notes * pt was able to complete sit to stand with Min A today t/o session with VCs for balance, hand placement. She completes well today and is more aware of the fact that when she is tired she has increased lean to the Right Sit-Static * G- Sit-Dynamic * G- Stand-Static * F Stand-Dynamic * F Balance Training Note * Pt presents with Rt lean in standing but with VCs is able to correct without increased assistance. sitting observed in chair and w/c today. Ambulation Distance * 25 Feet Ambulation Level of Assist * Minimum Assist Assistive Device Used * Rolling Walker * Gait Belt Gait Training Note * Pt completing 25 ft and 10 ft x 2 today during session she only needs Min A today with the shorter distances. Increased ability for self correction today. Wheelchair Distance * 50 feet Wheelchair Mobility Level of Assist * Standby Assist Wheelchair Mobility Comment * SBA only today with VCs for brake use only. Pt manuvering well with use of bilateral UEs and LEs. Stair Training Note * pt has ramp present to get into her home. Should check with family when present. A. Roll Left and Right: * 88.Not Attempted B. Sit to Lying: * 88.Not Attempted C. Lying to Sitting on Side of Bed: * 88.Not Attempted D. Sit to Stand: * 03.Partial/Mod Assist E. Chair/Sir-kz-Uhheo Transfer: * 03.Partial/Mod Assist F. Toilet Transfer: * 88.Not Attempted G. Car Transfer: * 88.Not Attempted H. Does the patient walk?: * 2. Yes Does the patient walk Comments: * Not this date secondary to positive symptomatic orthostatics I. Walk 10 Feet: * 03.Partial/Mod Assist J. Walk 50' with Two Turns: * 88.Not Attempted K. Walk 150 Feet: * 88.Not Attempted L. Walking 10' on uneven surfaces: * 88.Not Attempted M. 1 Step (curb): * 88.Not Attempted N. 4 Steps (with or without railing): * 88.Not Attempted O. 12 Steps (with or without railing): * 88.Not Attempted P. Picking up Object from the Floor (from a standing): * 88.Not Attempted Q. Does the patient use a w/c (other than just transport): * 0. No R. Wheel 50' with 2 Turns(seated in w/c): * 05.Setup/clean up Asst RR. What type of w/c?: * 1. Manual S. Wheel 150' (seated in w/c): * 88.Not Attempted SS. What type of w/c?: * 1. Manual Lower Extremity Exercised * Bilateral Other Sitting Exercises * nuestep 8 min level 7 for increased coordination and endurance of Bilat LEs. PT Interventions * Gait Training * Wheelchair Mobility * Therapeutic Excercise * Functional Training * Bed Mobility * Balance Activities * Safety/Precautions * Pt./Family Education PT Progress Note * Pt was able to complete ambulation and increased ther ex on the nuestep today. She does not LE fatigue with this but was able to con't to ambulate after its completion. Pt con't to show increased independence with the w/c today also. Pt con't to need to work on balance both static and dynamic to increase her control while ambulating. Pt left reclined in recliner today with her call ramirez in reach. Nursing was notified. PT Goal Note * OOB for meals. Safe for w/c on floor with family. Discharge Recommendations * Home w/services Safe for discharge at this time * No Patient: Cris Reardon : 1955 Age/Sex: 61/F Unit#: [id number] Room/Bed: [place] [address] User: ST Luis Hernandez SP Date: 05/27/17 12:02 Type: Progress-Dysphagia Exercise Exercise Education Label * Effortful Swallow Manuver * Other Direct Dysphagia Mangement PO trials level II, swish & spit nectar, OME's face/lip/tongue/jaw * Measure Inspirometer, sustained ahEffortful x4 w/ difficulty initiating dry swallow * Level of Assistance Comment Tolerated Level II well w/ bolus placement left and tongue sweep. * Tolerance Excellent * Therapeutic Exercise Yes Pt/Family Education * Therapeutic Exercise Comment Supervising BOARDMARKER present, agrees w/ tx and outcomes. MS Emily, [facility]-BOARDMARKER. Patient: Cris Reardon : 1955 Age/Sex: 61/F Unit#: [id number] Room/Bed: [place] [address] User: ST Luis Hernandez SP Date: 05/27/17 12:09 Type: -Progress Speech Production ... Exercise Education Label * Bilabials Word * Other Speech Production Exercises Interdentals. isolation, word, sentnce level. Reviewed use of alphabet boar * Level of Assistance Maximal Assist Imitatively * Level of Assistance Comment Frequent models, maximum verbal cues and phonetic placement cues * Tolerance Excellent * Therapeutic Exercise Yes Pt/Family Education * Therapeutic Exercise Comment Supervising BOARDMARKER present, agrees w/ tx and outcomes. MS Emily, [facility]-BOARDMARKER. Allergies Coded Allergies: Amoxicillin (Verified Allergy, Unknown, 05/12/17) Shellfish Allergy (Verified Allergy, Unknown, 05/12/17) Bethel (Verified Allergy, Unknown, 05/12/17) Sulfa Antibiotics (Verified Allergy, Unknown, 05/12/17) Vital Signs Vital Signs Date Time Temp Pulse Resp B/P (MAP) Pulse Ox O2 Delivery O2 Flow Rate FiO2 05/27/17 06:58 84 168/84 05/27/17 06:00 97.4 18 98 Room Air Laboratory Data CBC/BMP Laboratory Tests 05/27/17 08:38 Red Blood Count 3.32 L, Mean Corpuscular Volume 94.6, Mean Corpuscular Hemoglobin 30.1, Mean Corpuscular Hemoglobin Concent 31.8 L, Red Cell Distribution Width 17.8 H, Calcium Level 8.9 Labs 24H Laboratory Tests 2 05/26/17 11:40: Bedside Glucose (Misc Panel) 126H 05/26/17 16:47: Bedside Glucose (Misc Panel) 121H 05/26/17 21:17: Bedside Glucose (Misc Panel) 146H 05/27/17 07:39: Bedside Glucose (Misc Panel) 106 05/27/17 08:38: Nucleated Red Blood Cells % (auto) 1.6H, Anion Gap 8, Glomerular Filtration Rate > 60.0, Blood Urea Nitrogen 24H, Creatinine 0.69, Sodium Level 134L, Potassium Level 4.4, Chloride Level 100, Carbon Dioxide Level 26, Calcium Level 8.9 Microbiology Microbiology 05/21/17 Stool Occult Blood (COOKIE) - Final, Complete 05/19/17 Stool Occult Blood (COOKIE) - Final, Complete 05/19/17 Stool Occult Blood (COOKIE) - Final, Complete 05/24/17 Urine Culture - Final, Complete 05/18/17 Urine Culture - Final, Complete Enterococcus Faecalis Current Medications Current Medications Current Medications Acetaminophen (Tylenol Tab) 650 mg Q6HP PRN PO PAIN / FEVER Last administered on 05/27/17 07:33; Start 05/17/17 at 14:15; Stop 06/16/17 at 14:14 Alendronate Sodium (Fosamax) 70 mg Sa@07 PO Last administered on 05/22/17 06: 00; Start 05/15/17 at 07:00; Stop 06/14/17 at 06:59 Amitriptyline HCl (Elavil) 50 mg QHS PO Last administered on 05/26/17 21:32; Start 05/12/17 at 21:00; Stop 06/11/17 at 20:59 Artificial Tears (Akwa Tears) 2 drop Q4H OS Last administered on 05/27/17 08: 27; Start 05/25/17 at 01:00; Stop 06/24/17 at 00:59 Artificial Tears (Akwa Tears) 2 drop Q4H OU Last administered on 05/24/17 16: 48; Start 05/13/17 at 16:00; Stop 05/24/17 at 21:52; Status DC Artificial Tears (Akwa Tears) 2 drop Q4HP PRN OU DRY EYES; Start 05/12/17 at 13:45; Stop 05/13/17 at 12:04; Status DC Bacitracin (Bacitracin Oint) Right Mastoid a... DAILY TOP Last administered on 05/27/17 08:28; Start 05/13/17 at 09:00; Stop 06/12/17 at 08:59 Bisacodyl (Dulcolax Suppository) 10 mg DAILYPRN PRN DC CONSTIPATION Last administered on 05/21/17 10:25; Start 05/12/17 at 13:45; Stop 06/11/17 at 13 :44 Budesonide/ Formoterol Fumarate (Symbicort 80/ 4.5mcg) 2 puff BID PRN INH Dyspnea; Start 05/12/17 at 13:45; Stop 06/11/17 at 13:44 Dexamethasone (Decadron) 2 mg BID PO Last administered on 05/16/17 20:40; Start 05/12/17 at 21:00; Stop 05/16/17 at 23:55; Status DC Dexamethasone (Decadron) 2 mg DAILY PO Last administered on 05/19/17 09:22; Start 05/17/17 at 09:00; Stop 05/19/17 at 13:31; Status DC Dexamethasone (Decadron) 2 mg Q12H PO Last administered on 05/27/17 08:26; Start 05/19/17 at 21:00; Stop 06/18/17 at 20:59 Dextrose (Dextrose 50%) 25 ml ASDIRECTED PRN IV SEE LABEL COMMENTS; Start at 13:45; Stop 06/11/17 at 13:44 Diltiazem HCl (Cardizem) 60 mg Q6H PO Last administered on 05/16/17 23:54; Start 05/12/17 at 18:00; Stop 05/17/17 at 12:33; Status DC Erythromycin (Ilotycin) 1 dose TID OD Last administered on 05/24/17 08:18; Start 05/14/17 at 16:00; Stop 05/24/17 at 10:16; Status DC Erythromycin (Ilotycin) 3/4" INTO RIGHT EYE DIRECTED Q6H OD Last administered on 05/27/17 06:57; Start 05/25/17 at 00:00; Stop 06/24/17 at 00 :00 Fentanyl Citrate (Sublimaze) 25 mcg Q5MP PRN IV MODERATE PAIN (PS 4-7); Start 05/24/17 at 22:00; Stop 05/24/17 at 23:00; Status DC Fluconazole (Diflucan) 200 mg DAILY PO Last administered on 05/26/17 08:21; Start 05/13/17 at 09:00; Stop 05/27/17 at 08:59; Status DC Fluticasone Propionate (Flonase 0.05% Nasal [place]) 2 spray DAILY NA Last administered on 05/27/17 08:27; Start 05/13/17 at 09:00; Stop 06/12/17 at 08 :59 Glucagon (Glucagon) 1 mg ASDIRECTED PRN SC SEE LABEL COMMENTS; Start 05/12/17 at 13:45; Stop 06/11/17 at 13:44 Glucose (Glucose) 16 GM ASDIRECTED PRN PO SEE LABEL COMMENTS; Start 05/12/17 at 13:45; Stop 06/11/17 at 13:44 Heparin Sodium (Porcine) (Heparin) 5,000 units Q12H SC Last administered on 08:26; Start 05/12/17 at 21:00; Stop 06/02/17 at 23:55 Home Med (Med Rec Complete!) ASDIRECTED XX ; Start 05/12/17 at 15:30; Stop at 15:33; Status DC Hydrochlorothiazide (Hydrodiuril) 25 mg DAILY PO Last administered on 08:29; Start 05/13/17 at 09:00; Stop 05/17/17 at 12:21; Status DC Insulin Human Lispro (HumaLOG INSULIN) See Protocol Table AC SC Last administered on 05/27/17 08:23; Start 05/12/17 at 17:30; Stop 06/11/17 at 17 :29 Insulin Human Lispro (HumaLOG INSULIN) See Protocol Table QHS SC ; Start at 21:00; Stop 06/11/17 at 20:59 Lactated Ringer's 1,000 ml @ 100 mls/hr Q10H IV ; Start 05/24/17 at 22:00; Stop 05/24/17 at 23:00; Status DC Lansoprazole (First-Lansoprazole Oral Suspension) 30 mg DAILY PO Last administered on 05/27/17 08:27; Start 05/20/17 at 09:00; Stop 06/19/17 at 08 :59 Lisinopril (Prinivil) 10 mg BID PO Last administered on 05/18/17 21:26; Start 05/18/17 at 21:00; Stop 05/19/17 at 13:29; Status DC Lisinopril (Prinivil) 20 mg BID PO Last administered on 05/17/17 20:32; Start 05/13/17 at 09:00; Stop 05/18/17 at 09:45; Status DC Loratadine (Claritin) 10 mg DAILY PO Last administered on 05/27/17 08:26; Start 05/13/17 at 09:00; Stop 06/12/17 at 08:59 Methylphenidate HCl (Ritalin) 10 mg BID@0700,1200 PO Last administered on 05/27 06:55; Start 05/25/17 at 12:00; Stop 06/01/17 at 11:59 Methylphenidate HCl (Ritalin) 10 mg BID@0700,1400 PO Last administered on 05/25 06:26; Start 05/16/17 at 07:00; Stop 05/25/17 at 10:24; Status DC Methylphenidate HCl (Ritalin) 10 mg BID@0700,1400 PO ; Start 05/16/17 at 14:00 ; Stop 05/16/17 at 14:00; Status DC Methylphenidate HCl (Ritalin) 10 mg BID@09,14 PO Last administered on 14:07; Start 05/12/17 at 14:00; Stop 05/16/17 at 08:34; Status DC Metoprolol Tartrate (Lopressor) 25 mg BID PO Last administered on 05/18/17 21 :25; Start 05/17/17 at 21:00; Stop 05/19/17 at 13:29; Status DC Metoprolol Tartrate (Lopressor) 25 mg Q6H PO Last administered on 05/27/17 06 :58; Start 05/21/17 at 12:00; Stop 06/20/17 at 11:59 Metoprolol Tartrate (Lopressor) 50 mg BID PO Last administered on 05/16/17 20 :42; Start 05/12/17 at 21:00; Stop 05/17/17 at 12:33; Status DC Mupirocin (Bactroban 2% Ointment) 1 dose BID TOP Last administered on 08:28; Start 05/18/17 at 09:00; Stop 06/17/17 at 08:59 Nitrofurantoin Monoh/Nitrofur Macro (Macrobid) 100 mg BID PO Last administered on 05/27/17 08:26; Start 05/24/17 at 09:00; Stop 06/03/17 at 08:59 Pantoprazole Sodium (Protonix) 40 mg DAILY PO Last administered on 05/19/17 09:22; Start 05/13/17 at 09:00; Stop 05/19/17 at 13:30; Status DC Simvastatin (Zocor) 10 mg QHS PO Last administered on 05/26/17 21:33; Start 05/12/17 at 21:00; Stop 06/11/17 at 20:59 Sodium Biphosphate/ Sodium Phosphate (Fleet Enema) 1 ea DAILYPRN PRN DC CONSTIPATION; Start 05/12/17 at 13:45; Stop 06/11/17 at 13:44 Tamsulosin HCl (Flomax) 0.4 mg DAILY PO Last administered on 05/19/17 09:22; Start 05/13/17 at 09:00; Stop 05/19/17 at 13:29; Status DC Tramadol HCl (Ultram) 50 mg Q12HP PRN PO PAIN Last administered on 05/17/17 13:09; Start 05/12/17 at 13:45; Stop 05/17/17 at 14:15; Status DC NICOLASA MACK MD May 27, 2017 10:49
[2017-05-27 14:00] VITALS: BP 152/86
--- NOTE | 2017-05-27 14:14 | IPNPDOC ---
Date Seen The patient was seen on 05/27/17. 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 Pt with residual Rt facial droop, dysarthria, dysphagia, Rt facial nerve palsy, ataxia and generalized weakness. Pt was transferred to the care of ARU, Dr Duran 05/12/17. Pt seen by Optho, Dr Waddell 05/24/17. As per nursing, pt has had clear drainage from surgical site, small amt today. No purulent drainage. Pt denies DE [place] SANTOS, nausea, vomitting, neck pain, vision changes. Denies any fevers, chills, weakness, fatigue, Chest Pain, Shortness of breath, cough, palpitations, abdominal pain, diarrhea or changes in bowel or bladder habits. PAST MEDICAL HISTORY: Includes: 1. Hypertension. 2. Hyperlipidemia. 3. Attention deficit hyperactivity disorder. 4. Gastroesophageal reflux disease (GERD). 5. Osteoarthritis with intravertebral disc disease. 6. Osteoporosis 7. COPD 8. DM 9. Allergic rhinitis PAST SURGICAL HISTORY: Includes: 1. section. 2. Tonsillectomy. 3. Right ankle surgery in 1998 secondary to trauma from a fall. 4. Sinus surgery with polyp removal in the PE: GEN: 61yoF, appears stated age. Well-nourished, well developed. No acute distress. Alert and oriented x 3. Pleasant, interactive. HEENT: Normocephalic, atraumatic. Rt eye sutured closed. Nose midline. Rt facial droop noted. Moist mucous membranes. Pharynx pink and moist. Neck supple , trachea midline. No lymphadenopathy or thyromegaly appreciated. CHEST: Regular rate and rhythm, +S1, +S2 LUNGS: Clear to auscultation bilaterally. No wheezes, rales, or rhonchi. Breathing appears symmetric and easy. ABD: Round, soft, non-tender, non-distended. +Bowel sounds throughout. No rebound or guarding. No costovertebral angle tenderness. EXT: Pulses 2+ bilaterally dorsalis pedis and radial. No lower extremity edema appreciated. SKIN: [place], dry, warm. Capillary refill <2sec. No rashes. NEURO: Alert and oriented x 3. Speech is dysarthric. Pathology pending from [facility]. 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 Pt with residual Rt facial droop, dysarthria, dysphagia, Rt facial nerve palsy, ataxia and weakness. Pt was transferred to the care of ARU, Dr Duran 05/12/17. 1. 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 Pt with residual Rt facial droop, dysarthria, dysphagia, Rt facial nerve palsy, ataxia and weakness. Mgmt as per ARU. PT/OT/St as per ARU. pain control as per ARU. bowel care as per ARU. DVT prophylaxis. As per ARU. Dispo as per ARU. Outpt F/U with neurosurgery Decadron tapering as per D/C instructions. Final pathology result pending from [facility]. Plan for outpt F/U with Dr Salguero, [facility]. Opthamology consult, Dr Waddell. Rt eye sutured closed, plan x 30 days. Outpt F/ U with Optho. Spoke with Dr Duran 05/25, plan was for neurosurgical consult re surgical wound drainage. As per Dr Duran, he spoke with [facility] [place] who did Pt's surgery (Dr Salguero) and plan is to continue to monitor as this time. Low level of concern for CSF leakage. Pt remains afebrile. Pt has f/u there scheduled 06/04/17. Pt states she feels well today and denies DE [place] SANTOS, nausea, vomiting, neck pain, vision changes. Has been OOB with therapy today. 2. HTN. S/P IVF. BP 129-156 systolic. Metoprolol 25mg Q6with hold parameters. D/Cd Lisinopril, Diltiazem and HCTZ. 3. HLD. Statin. 4. GERD. Continue PPI. 5. OA/DDD. 6. Osteoporosis. Fosamax. 7. Allergic rhinitis. Claritin/Flonase. 8. COPD. Symbicort. Enc I/S. 9. Hyponatremia. Na 134 today. Daily BMP Mag WNL TSH WNL. Ur Na, Cr and Osm. 11. Leukocytosis. Pt was seen by Hematology at [facility] with plan for outpt f/u with Dr Kitty Dawn/ [facility]. [place] related to steroids. Pt with no complaints. Afebrile Monitor. 12. Recent UTI. Currently treated with Diflucan. UA neg. 05/13/17 05/13/17 Organism 1 ENTEROCOCCUS FAECALIS COLONY COUNT 80,000 CFU/ml. 05/18/17 Organism 1 ENTEROCOCCUS FAECALIS COLONY COUNT >100,000 CFU/ml Juarez d/cd this AM. Afebrile past 24 hrs 05/24 neg. Nitrofurantoin 100mg BID D4/10. (PCN allergic) 13. DM. CC diet. SSI. 14. Anemia. Hgb trend 9s. Fe studies, B12, folate. Stool OB x 3 neg. 15. Poor po intake. Daily weight. I/O. Nutrition consult. VS, I&O, [facility] Vital Signs/I&O Vital Signs Date Time Temp Pulse Resp B/P (MAP) Pulse Ox O2 Delivery O2 Flow Rate FiO2 05/27/17 12:18 78 138/62 05/27/17 06:00 97.4 18 98 Room Air I&O- Last 24 Hours up to 6 AM 05/28/17 06:00 Intake Total 360 ml Output Total 300 ml Balance 60 ml Laboratory Data 24H LABS Laboratory Tests 2 05/26/17 16:47: Bedside Glucose (Misc Panel) 121H 05/26/17 21:17: Bedside Glucose (Misc Panel) 146H 05/27/17 07:39: Bedside Glucose (Misc Panel) 106 05/27/17 08:38: Nucleated Red Blood Cells % (auto) 1.6H, Anion Gap 8, Glomerular Filtration Rate > 60.0, Blood Urea Nitrogen 24H, Creatinine 0.69, Sodium Level 134L, Potassium Level 4.4, Chloride Level 100, Carbon Dioxide Level 26, Calcium Level 8.9 05/27/17 11:44: Bedside Glucose (Misc Panel) 157H CBC/BMP Laboratory Tests 05/27/17 08:38 Red Blood Count 3.32 L, Mean Corpuscular Volume 94.6, Mean Corpuscular Hemoglobin 30.1, Mean Corpuscular Hemoglobin Concent 31.8 L, Red Cell Distribution Width 17.8 H, Calcium Level 8.9 Microbiology Microbiology 05/21/17 Stool Occult Blood (COOKIE) - Final, Complete 05/19/17 Stool Occult Blood (COOKIE) - Final, Complete 05/19/17 Stool Occult Blood (COOKIE) - Final, Complete 05/24/17 Urine Culture - Final, Complete 05/18/17 Urine Culture - Final, Complete Enterococcus Faecalis Miranda Morin May 27, 2017 14:13
[2017-05-27 20:00] VITALS: BP 148/82
[2017-05-27] MEDS: SIMVASTATIN 10 MG TAB PO SCH (20:13)
[2017-05-27] MEDS: AMITRIPTYLINE 50 MG TAB PO SCH (20:13)
[2017-05-28] MEDS: METOPROLOL TART 25 MG TABLET PO SCH ×4 (00:01→18:00)
[2017-05-28] MEDS: ACETAMINOPHEN TAB 650MG DOSE (2X325MG) PO PRN ×3 (00:02→21:49)
[2017-05-28] MEDS: ERYTHROMYCIN OPHTH OINT OD SCH ×4 (00:02→18:00)
[2017-05-28] MEDS: POLYVINYL ALCOHOL OPHTH SOLN 15 ML(LIQUITEARS) OS SCH ×6 (00:02→21:02)
[2017-05-28 05:47] VITALS: BP 148/84
[2017-05-28 05:50] VITALS: BP 156/88
[2017-05-28 05:53] VITALS: BP 162/90
[2017-05-28] MEDS: METHYLPHENIDATE 5 MG TAB PO SCH ×2 (06:37→13:02)
[2017-05-28 08:53] LABS: MEAN CORPUSCULAR HEMOGLOBIN 30.8 pg (27.0-33.0); MEAN CORPUSCULAR HGB CONC 32.1 g/dl (32.0-36.5); MEAN CORPUSCULAR VOLUME 95.8 fl (80.0-96.0); PLATELET COUNT, AUTOMATED 361 10^3/uL (150-450); RED CELL DISTRIBUTION WIDTH 17.9 % (11.5-14.5); WHITE BLOOD COUNT 13.5 10^3/uL (4.0-10.0)
[2017-05-28 09:12] LABS: ANION GAP 7 MEQ/L (8-16); BLOOD UREA NITROGEN 29 MG/DL (7-18); CALCIUM LEVEL 8.8 MG/DL (8.8-10.2); CARBON DIOXIDE LEVEL 26 MEQ/L (21-32); CHLORIDE LEVEL 101 MEQ/L (98-107); CREATININE FOR GFR 0.72 MG/DL (0.55-1.02); GLOMERULAR FILTRATION RATE > 60.0 (>45); GLUCOSE, FASTING 100 MG/DL (80-110); POTASSIUM SERUM 4.1 MEQ/L (3.5-5.1); SODIUM LEVEL 134 MEQ/L (136-145)
[2017-05-28] MEDS: HEPARIN SOD (PORCINE) 5000 UNITS/ML VIAL SC SCH ×2 (09:23→21:01)
[2017-05-28] MEDS: LORATADINE 10 MG TAB PO SCH (09:23)
[2017-05-28] MEDS: NITROFURANTOIN (MACROBID) 100 MG CAP PO SCH ×2 (09:23→21:05)
[2017-05-28] MEDS: HumaLOG INSULIN (NovoLOG) PER UNIT SC SCH ×4 (09:24→21:00)
[2017-05-28] MEDS: LANSOPRAZOLE SUSPENSION 30 MG/10 ML ORAL SYRINGE (FIRST-LANSOPRAZOLE) PO SCH (09:24)
[2017-05-28] MEDS: MUPIROCIN 2% OINT 22 GM TUBE TOP SCH ×2 (09:25→21:02)
[2017-05-28] MEDS: FLUTICASONE PROP 0.05% NASAL SPRAY 16 GM (FLONASE) SCH (09:25)
[2017-05-28] MEDS: BACITRACIN OINT 30GM TOP SCH (09:26)
--- NOTE | 2017-05-28 10:55 | IPNPDOC ---
PM&R Progress Note [employer] Progress Note DATE OF SERVICE: 05/28/17 DATE OF ADMISSION: May 12, 2017 at 13:49 INPATIENT REHABILITATION ADMISSION DAY: #17 SUBJECTIVE: The patient is a right-handed, middle-aged, white female who had had progressive loss of hearing in her right ear and some facial weakness. 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 Patient notes right eye feels much better after Temporary Total Tarsorrhaphy. She expressed her happiness with Dr. Waddell' s care. She reports feeling frontal headache this morning that disappeared after taking Tylenol and getting up in a chair. No complaints today. ALLERGIES: See Below MEDICATIONS: Reviewed, see below. OBJECTIVE: VITAL SIGNS: Please see below. 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 Patient in very good spirits and more energetic in therapies. HEENT: Patient with temporary total tarsorrhaphy, but less right facial droop with some right mouth closing and left tongue deviation. Patient is very hard of hearing in the right ear. Good Right Buccal tone. CARDIOVASCULAR: Regular rate and rhythm with normal S1-S2. 2/4 radial pulses. LUNGS: All saez clear auscultation. ABDOMEN: Bowel sounds normal in all quadrants. NEUROLOGICAL: The patient is alert and oriented to person, place, time and situation. Speech at this time is much less concrete in nature and much less dysarthric. Affect is pleasant and cooperative and positive. Motor strength on the left upper and lower extremities is approximately 4/5 but only +3 to -4 out of 5 in the right upper and lower extremities, limited by some ataxia that is affecting both the upper and lower extremities. Light touch is intact in bilateral upper and lower extremities and vibration is grossly intact in bilateral upper extremities and mildly diminished in both lower extremities down in the feet and ankle areas. SKIN: Grossly intact except for healing right mastoid incision with little to no serous drainage or other drainage, which is without inflammation, odor, or erythema at right mastoid site. LABORATORY DATA: Reviewed. Please see below. MICROBIOLOGY: Please see below. IMAGING: No new imaging. DVT prophylaxis ordered?: 5000 units heparin subcutaneous twice a day, PIPER hose and sequential compression stockings. ASSESSMENT AND PLAN: 1. 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 Final pathology is pending on the neuroma. 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 Currently having much less difficulties with hypotension and dizziness as fluid status and blood pressure medicines are being adjusted by Medicine building energy consultant. Regular improvement in oral awareness and facial droop is much better today. Patient should need DME (FWW, Commode, Shower chair or bench, and possible w/c). Patient has been doing much better with less lightheadedness, improved mood and attention the last 4 days and tolerating being up more. She is able to transition this into better performance in PT/OT/ HEAT TREAT TECHNICIAN, though fatigue as the day goes on is a problem. Discharge to home with family planned for 06/03/17 with a trial in the Rehab. Apt. this weekend and Patient/Family Conference on Wednesday06/01/17. 2. Urinary retention: Juarez discontinued and we are try a voiding schedule. Urinary retention still present, but some voiding happening. I will restart Flomax trial. 3. Type 2 diabetes mellitus: At this time we'll proceed with consistent carbohydrate diet and insulin sliding scale. Medicine to make adjustments as appropriate. 4. Anemia: H&H is 9.6 and 29.9% today on 05/28/17. We will continue to watch this along with her blood pressure. 5. Hyponatremia: Hopefully the fluid challenge will further increase her sodium level which is 134 today on 05/28/17. BUN remains elevated at 24. 6. Leukocytosis: Currently, it remains elevated, but steady at around 113.5K today on 05/28/17. 7. Wound Drainage: 05/26/17:I met with the patient and her significant other and also called Ms. Patricia Mills NP for Dr. Salguero to review the right mastoid incision and subsequent drainage. Current, measurable drainage is <5 ml onto a 4 by 4 gauze in a shift. It is serous, patient is afebrile for 48 hours since starting Macrodantin for UTI. No odor, purulence or sanguinous drainage has occurred and the wound has not turned red, hot, streaked or shown other signs of infection. In my experience, CSF leaks are much higher volume than 2 unsoaked 4 by 4 gauze pads a day. CSP however is hard to decern from Serous drainage though. I do not feel that this is other than the serous drainage that would follow the hematoma breakdown as the hematoma cavity must heal from into to out. Ms. Mills did not feel that sending the patient to ENT outpatient clinic was warranted at this time. She and Dr. Jose Luis Salguero have my cell to call back if they wish to alter care or follow up, but for now the patient will be seen on 06/04/17 in their clinic. The patient and her significant other expressed their understanding and acceptance of the current care plan. Drainage remains serous for last 2 days and small amounts <15ml per day. TIME SPENT: Chart Review, examination and documentation require greater than 25 minutes. Allergies Coded Allergies: Amoxicillin (Verified Allergy, Unknown, 05/12/17) Shellfish Allergy (Verified Allergy, Unknown, 05/12/17) [place] (Verified Allergy, Unknown, 05/12/17) Sulfa Antibiotics (Verified Allergy, Unknown, 05/12/17) Vital Signs Vital Signs Date Time Temp Pulse Resp B/P (MAP) Pulse Ox O2 Delivery O2 Flow Rate FiO2 05/28/17 06:37 105 162/90 05/28/17 05:47 99.2 18 98 Room Air Laboratory Data CBC/BMP Laboratory Tests 05/28/17 08:10 Red Blood Count 3.12 L, Mean Corpuscular Volume 95.8, Mean Corpuscular Hemoglobin 30.8, Mean Corpuscular Hemoglobin Concent 32.1, Red Cell Distribution Width 17.9 H, Calcium Level 8.8 Labs 24H Laboratory Tests 2 05/27/17 11:44: Bedside Glucose (Misc Panel) 157H 05/27/17 16:35: Bedside Glucose (Misc Panel) 92 05/27/17 19:44: Bedside Glucose (Misc Panel) 145H 05/28/17 06:35: Bedside Glucose (Misc Panel) 110 05/28/17 08:10: Nucleated Red Blood Cells % (auto) 1.7H, Anion Gap 7L, Glomerular Filtration Rate > 60.0, Blood Urea Nitrogen 29H, Creatinine 0.72, Sodium Level 134L, Potassium Level 4.1, Chloride Level 101, Carbon Dioxide Level 26, Calcium Level 8.8 Microbiology Microbiology 05/21/17 Stool Occult Blood (COOKIE) - Final, Complete 05/19/17 Stool Occult Blood (COOKIE) - Final, Complete 05/19/17 Stool Occult Blood (COOKIE) - Final, Complete 05/24/17 Urine Culture - Final, Complete 05/18/17 Urine Culture - Final, Complete Enterococcus Faecalis Current Medications Current Medications Current Medications Acetaminophen (Tylenol Tab) 650 mg Q6HP PRN PO PAIN / FEVER Last administered on 05/28/17 06:37; Start 05/17/17 at 14:15; Stop 06/16/17 at 14:14 Alendronate Sodium (Fosamax) 70 mg Sa@07 PO Last administered on 05/22/17 06: 00; Start 05/15/17 at 07:00; Stop 06/14/17 at 06:59 Amitriptyline HCl (Elavil) 50 mg QHS PO Last administered on 05/27/17 20:13; Start 05/12/17 at 21:00; Stop 06/11/17 at 20:59 Artificial Tears (Akwa Tears) 2 drop Q4H OS Last administered on 05/28/17 09: 25; Start 05/25/17 at 01:00; Stop 06/24/17 at 00:59 Artificial Tears (Akwa Tears) 2 drop Q4H OU Last administered on 05/24/17 16: 48; Start 05/13/17 at 16:00; Stop 05/24/17 at 21:52; Status DC Artificial Tears (Akwa Tears) 2 drop Q4HP PRN OU DRY EYES; Start 05/12/17 at 13:45; Stop 05/13/17 at 12:04; Status DC Bacitracin (Bacitracin Oint) Right Mastoid a... DAILY TOP Last administered on 05/28/17 09:26; Start 05/13/17 at 09:00; Stop 06/12/17 at 08:59 Bisacodyl (Dulcolax Suppository) 10 mg DAILYPRN PRN WI CONSTIPATION Last administered on 05/21/17 10:25; Start 05/12/17 at 13:45; Stop 06/11/17 at 13 :44 Budesonide/ Formoterol Fumarate (Symbicort 80/ 4.5mcg) 2 puff BID PRN INH Dyspnea; Start 05/12/17 at 13:45; Stop 06/11/17 at 13:44 Dexamethasone (Decadron) 2 mg BID PO Last administered on 05/16/17 20:40; Start 05/12/17 at 21:00; Stop 05/16/17 at 23:55; Status DC Dexamethasone (Decadron) 2 mg DAILY PO Last administered on 05/19/17 09:22; Start 05/17/17 at 09:00; Stop 05/19/17 at 13:31; Status DC Dexamethasone (Decadron) 2 mg Q12H PO Last administered on 05/28/17 09:23; Start 05/19/17 at 21:00; Stop 06/18/17 at 20:59 Dextrose (Dextrose 50%) 25 ml ASDIRECTED PRN IV SEE LABEL COMMENTS; Start at 13:45; Stop 06/11/17 at 13:44 Diltiazem HCl (Cardizem) 60 mg Q6H PO Last administered on 05/16/17 23:54; Start 05/12/17 at 18:00; Stop 05/17/17 at 12:33; Status DC Erythromycin (Ilotycin) 1 dose TID OD Last administered on 05/24/17 08:18; Start 05/14/17 at 16:00; Stop 05/24/17 at 10:16; Status DC Erythromycin (Ilotycin) 3/4" INTO RIGHT EYE DIRECTED Q6H OD Last administered on 05/28/17 06:37; Start 05/25/17 at 00:00; Stop 06/24/17 at 00: 00 Fentanyl Citrate (Sublimaze) 25 mcg Q5MP PRN IV MODERATE PAIN (PS 4-7); Start 05/24/17 at 22:00; Stop 05/24/17 at 23:00; Status DC Fluconazole (Diflucan) 200 mg DAILY PO Last administered on 05/26/17 08:21; Start 05/13/17 at 09:00; Stop 05/27/17 at 08:59; Status DC Fluticasone Propionate (Flonase 0.05% Nasal [place]) 2 spray DAILY NA Last administered on 05/28/17 09:25; Start 05/13/17 at 09:00; Stop 06/12/17 at 08: 59 Glucagon (Glucagon) 1 mg ASDIRECTED PRN SC SEE LABEL COMMENTS; Start 05/12/17 at 13:45; Stop 06/11/17 at 13:44 Glucose (Glucose) 16 GM ASDIRECTED PRN PO SEE LABEL COMMENTS; Start 05/12/17 at 13:45; Stop 06/11/17 at 13:44 Heparin Sodium (Porcine) (Heparin) 5,000 units Q12H SC Last administered on 09:23; Start 05/12/17 at 21:00; Stop 06/04/17 at 23:55 Home Med (Med Rec Complete!) ASDIRECTED XX ; Start 05/12/17 at 15:30; Stop at 15:33; Status DC Hydrochlorothiazide (Hydrodiuril) 25 mg DAILY PO Last administered on 08:29; Start 05/13/17 at 09:00; Stop 05/17/17 at 12:21; Status DC Insulin Human Lispro (HumaLOG INSULIN) See Protocol Table AC SC Last administered on 05/28/17 09:24; Start 05/12/17 at 17:30; Stop 06/11/17 at 17: 29 Insulin Human Lispro (HumaLOG INSULIN) See Protocol Table QHS SC ; Start at 21:00; Stop 06/11/17 at 20:59 Lactated Ringer's 1,000 ml @ 100 mls/hr Q10H IV ; Start 05/24/17 at 22:00; Stop 05/24/17 at 23:00; Status DC Lansoprazole (First-Lansoprazole Oral Suspension) 30 mg DAILY PO Last administered on 05/28/17 09:24; Start 05/20/17 at 09:00; Stop 06/19/17 at 08: 59 Lisinopril (Prinivil) 10 mg BID PO Last administered on 05/18/17 21:26; Start 05/18/17 at 21:00; Stop 05/19/17 at 13:29; Status DC Lisinopril (Prinivil) 20 mg BID PO Last administered on 05/17/17 20:32; Start 05/13/17 at 09:00; Stop 05/18/17 at 09:45; Status DC Loratadine (Claritin) 10 mg DAILY PO Last administered on 05/28/17 09:23; Start 05/13/17 at 09:00; Stop 06/12/17 at 08:59 Methylphenidate HCl (Ritalin) 10 mg BID@0700,1200 PO Last administered on 06:37; Start 05/25/17 at 12:00; Stop 06/04/17 at 23:55 Methylphenidate HCl (Ritalin) 10 mg BID@0700,1400 PO Last administered on 05/25 06:26; Start 05/16/17 at 07:00; Stop 05/25/17 at 10:24; Status DC Methylphenidate HCl (Ritalin) 10 mg BID@0700,1400 PO ; Start 05/16/17 at 14:00 ; Stop 05/16/17 at 14:00; Status DC Methylphenidate HCl (Ritalin) 10 mg BID@09,14 PO Last administered on 14:07; Start 05/12/17 at 14:00; Stop 05/16/17 at 08:34; Status DC Metoprolol Tartrate (Lopressor) 25 mg BID PO Last administered on 05/18/17 21 :25; Start 05/17/17 at 21:00; Stop 05/19/17 at 13:29; Status DC Metoprolol Tartrate (Lopressor) 25 mg Q6H PO Last administered on 05/28/17 06: 37; Start 05/21/17 at 12:00; Stop 06/20/17 at 11:59 Metoprolol Tartrate (Lopressor) 50 mg BID PO Last administered on 05/16/17 20 :42; Start 05/12/17 at 21:00; Stop 05/17/17 at 12:33; Status DC Mupirocin (Bactroban 2% Ointment) 1 dose BID TOP Last administered on 09:25; Start 05/18/17 at 09:00; Stop 06/17/17 at 08:59 Nitrofurantoin Monoh/Nitrofur Macro (Macrobid) 100 mg BID PO Last administered on 05/28/17 09:23; Start 05/24/17 at 09:00; Stop 06/03/17 at 08:59 Pantoprazole Sodium (Protonix) 40 mg DAILY PO Last administered on 05/19/17 09:22; Start 05/13/17 at 09:00; Stop 05/19/17 at 13:30; Status DC Simvastatin (Zocor) 10 mg QHS PO Last administered on 05/27/17 20:13; Start 05/12/17 at 21:00; Stop 06/11/17 at 20:59 Sodium Biphosphate/ Sodium Phosphate (Fleet Enema) 1 ea DAILYPRN PRN [place] CONSTIPATION; Start 05/12/17 at 13:45; Stop 06/11/17 at 13:44 Tamsulosin HCl (Flomax) 0.4 mg DAILY PO Last administered on 05/19/17 09:22; Start 05/13/17 at 09:00; Stop 05/19/17 at 13:29; Status DC Tramadol HCl (Ultram) 50 mg Q12HP PRN PO PAIN Last administered on 05/17/17 13:09; Start 05/12/17 at 13:45; Stop 05/17/17 at 14:15; Status DC NICOLASA MACK MD May 28, 2017 10:55
--- NOTE | 2017-05-28 12:15 | IPNPDOC ---
Date Seen The patient was seen on 05/28/17. 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 Pt with residual Rt facial droop, dysarthria, dysphagia, Rt facial nerve palsy, ataxia and generalized weakness. Pt was transferred to the care of ARU, Dr Duran 05/12/17. Pt seen by Optho, Dr Waddell 05/24/17. Pt has had clear drainage from surgical site this AM after getting up, few drops visible on left side of neck at time of exam. There is wetness noted on her pillow case and sheet. Dressing is applied. Per nursing, drainage not noted last PM. No purulent drainage, no erythema noted. Pt reports that she had a DE LOS SANTOS when she first got up this AM, but states that it is now gone. Pt denies nausea, vomiting, neck pain, vision changes. Denies any fevers, chills, weakness, fatigue, Chest Pain, Shortness of breath, cough, palpitations, abdominal pain, diarrhea or changes in bowel or bladder habits. PAST MEDICAL HISTORY: Includes: 1. Hypertension. 2. Hyperlipidemia. 3. Attention deficit hyperactivity disorder. 4. Gastroesophageal reflux disease (GERD). 5. Osteoarthritis with intravertebral disc disease. 6. Osteoporosis 7. COPD 8. DM 9. Allergic rhinitis PAST SURGICAL HISTORY: Includes: 1. section. 2. Tonsillectomy. 3. Right ankle surgery in 1998 secondary to trauma from a fall. 4. Sinus surgery with polyp removal in the PE: GEN: 61yoF, appears stated age. Well-nourished, well developed. No acute distress. Alert and oriented x 3. Pleasant, interactive. HEENT: Normocephalic, atraumatic. Rt eye sutured closed. Nose midline. Rt facial droop noted. Moist mucous membranes. Pharynx pink and moist. Neck supple , trachea midline. No lymphadenopathy or thyromegaly appreciated. Dressing is applied over surgical site Rt mastoid. There is no noted edema, erythema, streaking, purulent drainage or TTP. Drainage noted appears to be clear liquid. CHEST: Regular rate and rhythm, +S1, +S2 LUNGS: Clear to auscultation bilaterally. No wheezes, rales, or rhonchi. Breathing appears symmetric and easy. ABD: Round, soft, non-tender, non-distended. +Bowel sounds throughout. No rebound or guarding. No costovertebral angle tenderness. EXT: Pulses 2+ bilaterally dorsalis pedis and radial. No lower extremity edema appreciated. SKIN: [place], dry, warm. Capillary refill <2sec. No rashes. NEURO: Alert and oriented x 3. Speech is dysarthric. Pathology pending from [place]. 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 Pt with residual Rt facial droop, dysarthria, dysphagia, Rt facial nerve palsy, ataxia and weakness. Pt was transferred to the care of ARU, Dr Duran 05/12/17. 1. 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 Pt with residual Rt facial droop, dysarthria, dysphagia, Rt facial nerve palsy, ataxia and weakness. Mgmt as per ARU. PT/OT/St as per ARU. pain control as per ARU. bowel care as per ARU. DVT prophylaxis. As per ARU. Dispo as per ARU. Outpt F/U with neurosurgery Decadron tapering as per D/C instructions. Final pathology result pending from [place]. Plan for outpt F/U with Dr Jose Luis Salguero, [facility]. * Opthamology consult, Dr Waddell, 05/24/17. Rt eye sutured closed, plan x 30 days. Outpt F/U with Optho. * Spoke with Dr Duran 05/25, recommendation for Neurosurgical opinion re wound drainage. Plan at that time was for neurosurgical consult re surgical wound drainage. As per Dr Duran's note 05/26/17, he had spoken with [facility] [place] who did Pt's surgery (Dr Jose Luis Salguero) and plan is to continue to monitor at this time. Per Dr Duran's note following discussion, there was a low level of concern for CSF leakage. Also low level of concern for infection. Pt remains afebrile. There has been no purulent drainage or erythema noted. Pt has f/u scheduled there 06/04/17, as per note they did not feel earlier evaluation was warranted. Pt states she feels well currently and currently denies DE LOS SANTOS, nausea, vomiting, neck pain, vision changes. Has been OOB with therapy today. Dr Duran aware of continued drainage. Defer continued mgmt to Dr Duran. * Urinary retention. Pt continues with straight cath QID. Recommend trial of Flomax BID. Recommend Urology consultation for any additional recommendations. * Above discussed and reviewed with Dr Duran and Dr Nicole. 2. HTN. S/P IVF. BP 129-156 systolic. Metoprolol 25mg Q6with hold parameters. Flomax is being added back. (Previously D/Cd Lisinopril, Diltiazem and HCTZ.) 3. HLD. Statin. 4. GERD. Continue PPI. 5. OA/DDD. 6. Osteoporosis. Fosamax. 7. Allergic rhinitis. Claritin/Flonase. 8. COPD. Symbicort. Enc I/S. 9. Hyponatremia. Na 134 today. Daily BMP Mag WNL TSH WNL. Ur Na, Cr and Osm. 11. Leukocytosis. Pt was seen by Hematology at [place] with plan for outpt f/u with Dr Kitty Dawn/ [facility]. [place] related to steroids. Pt with no complaints. Afebrile Monitor. 12. Recent UTI. Currently treated with Diflucan. UA neg. 05/13/17 05/13/17 Organism 1 ENTEROCOCCUS FAECALIS COLONY COUNT 80,000 CFU/ml. 05/18/17 Organism 1 ENTEROCOCCUS FAECALIS COLONY COUNT >100,000 CFU/ml [place] d/cd this AM. Afebrile past 24 hrs 05/24 neg. Nitrofurantoin 100mg BID D5/10. (PCN allergic) 13. DM. CC diet. SSI. 14. Anemia. Hgb trend 9s. Fe studies, B12, folate. Stool OB x 3 neg. 15. Poor po intake. ST following, advancing po as able. Daily weight. Trend upward. I/O. Nutrition consult. VS, I&O, 24H, Fishbone Vital Signs/I&O Vital Signs Date Time Temp Pulse Resp B/P (MAP) Pulse Ox O2 Delivery O2 Flow Rate FiO2 05/28/17 06:37 105 162/90 05/28/17 05:47 99.2 18 98 Room Air I&O- Last 24 Hours up to 6 AM 05/29/17 06:00 Intake Total 540 ml Output Total 250 ml Balance 290 ml Laboratory Data 24H LABS Laboratory Tests 2 05/27/17 16:35: Bedside Glucose (Misc Panel) 92 05/27/17 19:44: Bedside Glucose (Misc Panel) 145H 05/28/17 06:35: Bedside Glucose (Misc Panel) 110 05/28/17 08:10: Nucleated Red Blood Cells % (auto) 1.7H, Anion Gap 7L, Glomerular Filtration Rate > 60.0, Blood Urea Nitrogen 29H, Creatinine 0.72, Sodium Level 134L, Potassium Level 4.1, Chloride Level 101, Carbon Dioxide Level 26, Calcium Level 8.8 05/28/17 11:25: Bedside Glucose (Misc Panel) 169H CBC/BMP Laboratory Tests 05/28/17 08:10 Red Blood Count 3.12 L, Mean Corpuscular Volume 95.8, Mean Corpuscular Hemoglobin 30.8, Mean Corpuscular Hemoglobin Concent 32.1, Red Cell Distribution Width 17.9 H, Calcium Level 8.8 Microbiology Microbiology 05/21/17 Stool Occult Blood (COOKIE) - Final, Complete 05/19/17 Stool Occult Blood (COOKIE) - Final, Complete 05/19/17 Stool Occult Blood (COOKIE) - Final, Complete 05/24/17 Urine Culture - Final, Complete 05/18/17 Urine Culture - Final, Complete Enterococcus Faecalis Miranda Morin May 28, 2017 12:15
[2017-05-28] MEDS: TAMSULOSIN 0.4 MG CAP PO SCH ×2 (13:02→21:00)
[2017-05-28 14:00] VITALS: BP 142/82
--- NOTE | 2017-05-28 15:52 | ECGEPIP ---
Stationary ECG Study [facility] Test Date: 2017-05-28 Pat Name: HAIM TREJO Department: Room: [place] [address] Gender: F Front Desk Admin: YVETTE : [id number] Requested By: Miranda Morin Order Number: [id number] Reading MD: Brandie Zhu Measurements Intervals [place] Rate: 90 P: 68 CA: 167 QRS: 12 QRSD: 73 T: 69 QT: 349 QTc: 428 Interpretive Statements SINUS RHYTHM 1st degree block NO PRIOR Electronically Signed On 05-28-2017 15:52:07 EST by Brandie Zhu
[2017-05-28 20:23] VITALS: BP 150/80
[2017-05-28] MEDS: SIMVASTATIN 10 MG TAB PO SCH (21:00)
[2017-05-28] MEDS: AMITRIPTYLINE 50 MG TAB PO SCH (21:00)
[2017-05-29] VITALS (7 sets, daily range): BP systolic 126–169; BP diastolic 62–88
[2017-05-29] MEDS: METOPROLOL TART 25 MG TABLET PO SCH ×4 (00:17→17:36)
[2017-05-29] MEDS: ERYTHROMYCIN OPHTH OINT OD SCH ×4 (00:18→17:36)
[2017-05-29] MEDS: POLYVINYL ALCOHOL OPHTH SOLN 15 ML(LIQUITEARS) OS SCH ×6 (00:18→20:31)
[2017-05-29] MEDS: METHYLPHENIDATE 5 MG TAB PO SCH ×2 (06:21→12:17)
[2017-05-29] MEDS: ALENDRONATE 35MG TABLET PO SCH (06:22)
[2017-05-29 06:46] LABS: MEAN CORPUSCULAR HEMOGLOBIN 30.4 pg (27.0-33.0); MEAN CORPUSCULAR HGB CONC 32.1 g/dl (32.0-36.5); MEAN CORPUSCULAR VOLUME 94.8 fl (80.0-96.0); PLATELET COUNT, AUTOMATED 266 10^3/uL (150-450); RED CELL DISTRIBUTION WIDTH 18.1 % (11.5-14.5); WHITE BLOOD COUNT 12.2 10^3/uL (4.0-10.0)
[2017-05-29 07:17] LABS: ANION GAP 9 MEQ/L (8-16); BLOOD UREA NITROGEN 19 MG/DL (7-18); CALCIUM LEVEL 7.8 MG/DL (8.8-10.2); CARBON DIOXIDE LEVEL 24 MEQ/L (21-32); CHLORIDE LEVEL 102 MEQ/L (98-107); CREATININE FOR GFR 0.55 MG/DL (0.55-1.02); GLOMERULAR FILTRATION RATE > 60.0 (>45); GLUCOSE, FASTING 114 MG/DL (80-110); POTASSIUM SERUM 4.5 MEQ/L (3.5-5.1); SODIUM LEVEL 135 MEQ/L (136-145)
[2017-05-29] MEDS: LORATADINE 10 MG TAB PO SCH (08:14)
[2017-05-29] MEDS: TAMSULOSIN 0.4 MG CAP PO SCH ×2 (08:14→20:30)
[2017-05-29] MEDS: LANSOPRAZOLE SUSPENSION 30 MG/10 ML ORAL SYRINGE (FIRST-LANSOPRAZOLE) PO SCH (08:14)
[2017-05-29] MEDS: HumaLOG INSULIN (NovoLOG) PER UNIT SC SCH ×4 (08:14→20:31)
[2017-05-29] MEDS: NITROFURANTOIN (MACROBID) 100 MG CAP PO SCH ×2 (08:15→20:29)
[2017-05-29] MEDS: HEPARIN SOD (PORCINE) 5000 UNITS/ML VIAL SC SCH ×2 (08:15→20:30)
[2017-05-29] MEDS: FLUTICASONE PROP 0.05% NASAL SPRAY 16 GM (FLONASE) SCH (08:16)
[2017-05-29] MEDS: BACITRACIN OINT 30GM TOP SCH (08:17)
[2017-05-29] MEDS: MUPIROCIN 2% OINT 22 GM TUBE TOP SCH ×2 (08:18→20:32)
[2017-05-29] MEDS: ACETAMINOPHEN TAB 650MG DOSE (2X325MG) PO PRN (16:19)
[2017-05-29] MEDS: SIMVASTATIN 10 MG TAB PO SCH (20:29)
[2017-05-29] MEDS: AMITRIPTYLINE 50 MG TAB PO SCH (20:30)
[2017-05-30] VITALS (8 sets, daily range): BP systolic 122–172; BP diastolic 70–88
[2017-05-30] MEDS: ERYTHROMYCIN OPHTH OINT OD SCH ×4 (00:12→17:25)
[2017-05-30] MEDS: POLYVINYL ALCOHOL OPHTH SOLN 15 ML(LIQUITEARS) OS SCH ×6 (00:12→21:05)
[2017-05-30] MEDS: METOPROLOL TART 25 MG TABLET PO SCH ×4 (00:12→17:25)
[2017-05-30] MEDS: METHYLPHENIDATE 5 MG TAB PO SCH ×2 (06:13→12:53)
[2017-05-30] MEDS: ACETAMINOPHEN TAB 650MG DOSE (2X325MG) PO PRN ×3 (06:18→21:07)
[2017-05-30 06:34] LABS: MEAN CORPUSCULAR HEMOGLOBIN 30.4 pg (27.0-33.0); MEAN CORPUSCULAR HGB CONC 32.3 g/dl (32.0-36.5); MEAN CORPUSCULAR VOLUME 93.9 fl (80.0-96.0); PLATELET COUNT, AUTOMATED 235 10^3/uL (150-450); RED CELL DISTRIBUTION WIDTH 18.2 % (11.5-14.5); WHITE BLOOD COUNT 11.2 10^3/uL (4.0-10.0)
[2017-05-30 06:52] LABS: ANION GAP 9 MEQ/L (8-16); BLOOD UREA NITROGEN 21 MG/DL (7-18); CALCIUM LEVEL 8.3 MG/DL (8.8-10.2); CARBON DIOXIDE LEVEL 24 MEQ/L (21-32); CHLORIDE LEVEL 102 MEQ/L (98-107); CREATININE FOR GFR 0.59 MG/DL (0.55-1.02); GLOMERULAR FILTRATION RATE > 60.0 (>45); GLUCOSE, FASTING 126 MG/DL (80-110); POTASSIUM SERUM 4.4 MEQ/L (3.5-5.1); SODIUM LEVEL 135 MEQ/L (136-145)
[2017-05-30] MEDS: LORATADINE 10 MG TAB PO SCH (08:19)
[2017-05-30] MEDS: TAMSULOSIN 0.4 MG CAP PO SCH ×2 (08:19→21:04)
[2017-05-30] MEDS: HumaLOG INSULIN (NovoLOG) PER UNIT SC SCH ×4 (08:19→21:00)
[2017-05-30] MEDS: HEPARIN SOD (PORCINE) 5000 UNITS/ML VIAL SC SCH ×2 (08:20→21:04)
[2017-05-30] MEDS: NITROFURANTOIN (MACROBID) 100 MG CAP PO SCH ×2 (08:20→21:04)
[2017-05-30] MEDS: FLUTICASONE PROP 0.05% NASAL SPRAY 16 GM (FLONASE) SCH (08:20)
[2017-05-30] MEDS: LANSOPRAZOLE SUSPENSION 30 MG/10 ML ORAL SYRINGE (FIRST-LANSOPRAZOLE) PO SCH (08:21)
[2017-05-30] MEDS: BACITRACIN OINT 30GM TOP SCH (08:22)
[2017-05-30] MEDS: MUPIROCIN 2% OINT 22 GM TUBE TOP SCH ×2 (08:23→21:05)
[2017-05-30] MEDS: LISINOPRIL 20 MG TAB PO SCH (15:51)
[2017-05-30] MEDS: SIMVASTATIN 10 MG TAB PO SCH (21:04)
[2017-05-30] MEDS: AMITRIPTYLINE 50 MG TAB PO SCH (21:04)
[2017-05-31] VITALS (7 sets, daily range): BP systolic 93–159; BP diastolic 48–86
[2017-05-31] MEDS: POLYVINYL ALCOHOL OPHTH SOLN 15 ML(LIQUITEARS) OS SCH ×6 (00:32→20:09)
[2017-05-31] MEDS: ERYTHROMYCIN OPHTH OINT OD SCH ×4 (00:32→18:01)
[2017-05-31] MEDS: METHYLPHENIDATE 5 MG TAB PO SCH ×2 (06:05→12:09)
[2017-05-31] MEDS: METOPROLOL TART 25 MG TABLET PO SCH ×4 (06:08→18:00)
[2017-05-31] MEDS: LORATADINE 10 MG TAB PO SCH (08:41)
[2017-05-31] MEDS: HEPARIN SOD (PORCINE) 5000 UNITS/ML VIAL SC SCH ×2 (08:41→20:08)
[2017-05-31] MEDS: NITROFURANTOIN (MACROBID) 100 MG CAP PO SCH ×2 (08:41→20:08)
[2017-05-31] MEDS: TAMSULOSIN 0.4 MG CAP PO SCH ×2 (08:41→20:08)
[2017-05-31] MEDS: HumaLOG INSULIN (NovoLOG) PER UNIT SC SCH ×4 (08:41→21:00)
[2017-05-31] MEDS: LISINOPRIL 20 MG TAB PO SCH (08:42)
[2017-05-31] MEDS: LANSOPRAZOLE SUSPENSION 30 MG/10 ML ORAL SYRINGE (FIRST-LANSOPRAZOLE) PO SCH (08:42)
[2017-05-31] MEDS: FLUTICASONE PROP 0.05% NASAL SPRAY 16 GM (FLONASE) SCH (08:42)
[2017-05-31] MEDS: MUPIROCIN 2% OINT 22 GM TUBE TOP SCH ×2 (08:43→20:09)
[2017-05-31] MEDS: BACITRACIN OINT 30GM TOP SCH (08:43)
[2017-05-31 09:45] LABS: MEAN CORPUSCULAR HEMOGLOBIN 31.2 pg (27.0-33.0); MEAN CORPUSCULAR HGB CONC 32.3 g/dl (32.0-36.5); MEAN CORPUSCULAR VOLUME 96.5 fl (80.0-96.0); PLATELET COUNT, AUTOMATED 220 10^3/uL (150-450); RED CELL DISTRIBUTION WIDTH 18.8 % (11.5-14.5)
[2017-05-31 10:08] LABS: ANION GAP 9 MEQ/L (8-16); BLOOD UREA NITROGEN 18 MG/DL (7-18); CARBON DIOXIDE LEVEL 26 MEQ/L (21-32); CHLORIDE LEVEL 99 MEQ/L (98-107); GLOMERULAR FILTRATION RATE > 60.0 (>45); GLUCOSE, FASTING 132 MG/DL (80-110); POTASSIUM SERUM 4.5 MEQ/L (3.5-5.1); SODIUM LEVEL 134 MEQ/L (136-145)
--- NOTE | 2017-05-31 11:49 | IPNPDOC ---
Date Seen The patient was seen on 05/31/17. 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 Pt with residual Rt facial droop, dysarthria, dysphagia, Rt facial nerve palsy, ataxia and generalized weakness. Pt was transferred to the care of ARU, Dr Duran 05/12/17. Pt seen by Optho, Dr Waddell 05/24/17. Pt has had clear drainage from surgical site. Dressing is applied. Pt denies nausea, vomiting, neck pain, vision changes. Sometimes has a DE LOS SANTOS if she is coloring. Resolves with Tylenol. Denies any fevers, chills, weakness, fatigue, Chest Pain, Shortness of breath, cough, palpitations, abdominal pain, diarrhea or changes in bowel or bladder habits. PAST MEDICAL HISTORY: Includes: 1. Hypertension. 2. Hyperlipidemia. 3. Attention deficit hyperactivity disorder. 4. Gastroesophageal reflux disease (GERD). 5. Osteoarthritis with intravertebral disc disease. 6. Osteoporosis 7. COPD 8. DM 9. Allergic rhinitis PAST SURGICAL HISTORY: Includes: 1. section. 2. Tonsillectomy. 3. Right ankle surgery in 1998 secondary to trauma from a fall. 4. Sinus surgery with polyp removal in the PE: GEN: 61yoF, appears stated age. Well-nourished, well developed. No acute distress. Alert and oriented x 3. Pleasant, interactive. HEENT: Normocephalic, atraumatic. Rt eye sutured closed. Nose midline. Rt facial droop noted. Moist mucous membranes. Pharynx pink and moist. Neck supple , trachea midline. No lymphadenopathy or thyromegaly appreciated. Dressing is applied over surgical site Rt mastoid. CHEST: Regular rate and rhythm, +S1, +S2 LUNGS: Clear to auscultation bilaterally. No wheezes, rales, or rhonchi. Breathing appears symmetric and easy. ABD: Round, soft, non-tender, non-distended. +Bowel sounds throughout. No rebound or guarding. No costovertebral angle tenderness. EXT: Pulses 2+ bilaterally dorsalis pedis and radial. No lower extremity edema appreciated. SKIN: [place], dry, warm. Capillary refill <2sec. No rashes. NEURO: Alert and oriented x 3. Speech is dysarthric. Pathology pending from [place]. 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 Pt with residual Rt facial droop, dysarthria, dysphagia, Rt facial nerve palsy, ataxia and weakness. Pt was transferred to the care of ARU, Dr Duran 05/12/17. 1. 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 Pt with residual Rt facial droop, dysarthria, dysphagia, Rt facial nerve palsy, ataxia and weakness. Mgmt as per ARU. Dr Duran. PT/OT/St as per ARU. Dr Duran. pain control as per ARU. Dr Duran. bowel care as per ARU. Dr Duran. DVT prophylaxis. As per ARU. Dr Duran. Dispo as per ARU. Outpt F/U with neurosurgery Reduce Decadron to 1 mg BID. Final pathology result pending from [place]. Plan for outpt F/U with Dr Jose Luis Salguero, [facility]surgery [facility]. * Opthamology consult, Dr Waddell, 05/24/17. Rt eye sutured closed, plan x 30 days. Outpt F/U with Optho. * Spoke with Dr Duran 05/25, recommendation for Neurosurgical opinion re wound drainage. Plan at that time was for neurosurgical consult re surgical wound drainage. As per Dr Duran's note 05/26/17, he had spoken with [facility] [place] who did Pt's surgery (Dr Jose Luis Salguero) and plan is to continue to monitor at this time. Per Dr Duran's note following discussion, there was a low level of concern for CSF leakage. Also low level of concern for infection. Pt remains afebrile. There has been no purulent drainage or erythema noted. Pt has f/u scheduled there 06/04/17, as per note they did not feel earlier evaluation was warranted. Pt states she feels well currently. Dr Duran aware of drainage. Defer continued mgmt to Dr Duran. * Urinary retention. Mgmt as per ARU, Dr Druan. Cont Flomax BID. Urecholine added as per Dr Duran. Recommend Urology consultation for any additional recommendations if needed. 2. HTN. Metoprolol 25mg Q6with hold parameters. Lisinopril 20 mg daily added back 05/31. SBP 93-138. Monitor. (Previously D/Cd Diltiazem and HCTZ.) 3. HLD. Statin. 4. GERD. Continue PPI. 5. OA/DDD. 6. Osteoporosis. Fosamax. 7. Allergic rhinitis. Claritin/Flonase. 8. COPD. Symbicort. Enc I/S. 9. Hyponatremia. Na 134-135. Daily BMP Mag WNL TSH WNL. Ur Na, Cr and Osm. 11. Leukocytosis. Pt was seen by Hematology at [place] with plan for outpt f/u with Dr Kitty Dawn/ [facility]. [place] related to steroids. Pt with no complaints. Afebrile Monitor. 12. Recent UTI. Currently treated with Diflucan. UA neg. 05/13/17 05/13/17 Organism 1 ENTEROCOCCUS FAECALIS COLONY COUNT 80,000 CFU/ml. 05/18/17 Organism 1 ENTEROCOCCUS FAECALIS COLONY COUNT >100,000 CFU/ml [place] d/cd this AM. Afebrile past 24 hrs 05/24 neg. Nitrofurantoin 100mg BID D8/10. (PCN allergic) 13. DM. CC diet. SSI. 14. Anemia. Hgb trend 9s. Fe studies, B12, folate. Stool OB x 3 neg. 15. Poor po intake. ST following, advancing po as able. Daily weight. Trend upward. I/O. Nutrition consult. VS, I&O, 24H, Fishbone Vital Signs/I&O Vital Signs Date Time Temp Pulse Resp B/P (MAP) Pulse Ox O2 Delivery O2 Flow Rate FiO2 05/31/17 08:42 138/86 05/31/17 08:00 98.1 90 20 97 Room Air I&O- Last 24 Hours up to 6 AM 06/01/17 06:00 Intake Total 440 ml Output Total 925 ml Balance -485 ml Laboratory Data 24H LABS Laboratory Tests 2 05/30/17 11:41: Bedside Glucose (Misc Panel) 138H 05/30/17 16:49: Bedside Glucose (Misc Panel) 147H 05/31/17 07:05: Bedside Glucose (Misc Panel) 116H 05/31/17 09:17: Nucleated Red Blood Cells % (auto) 0.9H, Anion Gap 9, Glomerular Filtration Rate > 60.0, Blood Urea Nitrogen 18, Creatinine 0.60, Sodium Level 134L, Potassium Level 4.5, Chloride Level 99, Carbon Dioxide Level 26, Calcium Level 9.0 CBC/BMP Laboratory Tests 05/31/17 09:17 Red Blood Count 3.11 L, Mean Corpuscular Volume 96.5 H, Mean Corpuscular Hemoglobin 31.2, Mean Corpuscular Hemoglobin Concent 32.3, Red Cell Distribution Width 18.8 H, Calcium Level 9.0 Microbiology Microbiology 05/21/17 Stool Occult Blood (COOKIE) - Final, Complete 05/24/17 Urine Culture - Final, Complete Miranda Morin May 31, 2017 11:49
--- NOTE | 2017-05-31 11:56 | IPNPDOC ---
PM&R Progress Note Belt Glass Sander Progress Note DATE OF SERVICE: 05/31/17 DATE OF ADMISSION: May 12, 2017 at 13:49 INPATIENT REHABILITATION ADMISSION DAY: #20 SUBJECTIVE: The patient is a right-handed, middle-aged, white female who had had progressive loss of hearing in her right ear and some facial weakness. 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 Patient notes right eye feels much better after Temporary Total Tarsorrhaphy. She expressed her happiness with Dr. Waddell' s care. She reports feeling frontal headache this morning that disappeared after taking Tylenol and getting up in a chair. No complaints today. ALLERGIES: See Below MEDICATIONS: Reviewed, see below. OBJECTIVE: VITAL SIGNS: Please see below. 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 Patient in very good spirits and more energetic in therapies. HEENT: Patient with temporary total tarsorrhaphy, but less right facial droop with some right mouth closing and left tongue deviation. Patient is very hard of hearing in the right ear. Good Right Buccal tone. CARDIOVASCULAR: Regular rate and rhythm with normal S1-S2. 2/4 radial pulses. LUNGS: All saez clear auscultation. ABDOMEN: Bowel sounds normal in all quadrants. NEUROLOGICAL: The patient is alert and oriented to person, place, time and situation. Speech at this time is much less concrete in nature and much less dysarthric. Affect is pleasant and cooperative and positive. Motor strength on the left upper and lower extremities is approximately 4/5 but only +3 to -4 out of 5 in the right upper and lower extremities, limited by some ataxia that is affecting both the upper and lower extremities. Light touch is intact in bilateral upper and lower extremities and vibration is grossly intact in bilateral upper extremities and mildly diminished in both lower extremities down in the feet and ankle areas. SKIN: Grossly intact except for healing right mastoid incision with little to no serous drainage or other drainage, which is without inflammation, odor, or erythema at right mastoid site. LABORATORY DATA: Reviewed. Please see below. MICROBIOLOGY: Please see below. IMAGING: No new imaging. DVT prophylaxis ordered?: 5000 units heparin subcutaneous twice a day, PIPER hose and sequential compression stockings. ASSESSMENT AND PLAN: 1. 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 Final pathology is pending on the neuroma. Patient working very hard with PT, OT and MATERIAL REPROCESSING ASSOCIATE showing very good motivation. Currently having much less difficulties with hypotension and dizziness as fluid status and blood pressure medicines are being adjusted by Medicine medical cost consultant. Regular improvement in oral awareness and facial droop is much better today. Patient should need DME (FWW, Commode, Shower chair or bench, and possible w/c). Patient has been doing much better with less lightheadedness, improved mood and attention the last 4 days and tolerating being up more. She is able to transition this into better performance in PT/OT/ MATERIAL REPROCESSING ASSOCIATE, though fatigue as the day goes on is a problem. Discharge to home with family planned for 06/03/17 with a trial in the Rehab. Apt. this weekend and Patient/Family Conference on Wednesday06/01/17. 2. Urinary retention: Juarez discontinued and we are try a voiding schedule. Urinary retention still present, but some voiding more at a time, yet high residuals Flomax 0.4mg BID trial. I will add Urecholine 10 mg BID to increase the bladder contraction. I will continue to treat as neurogenic retention for now. I was called back by the patient's son to the room, as they want a Urology consult done before she goes so everything can be done including surgery. I will consult Urology. However, I do not feel that more aggressive treatment is in the patient's best interest. 3. Type 2 diabetes mellitus: At this time we'll proceed with consistent carbohydrate diet and insulin sliding scale. Medicine to make adjustments as appropriate. 4. Anemia: H&H is 9.7 and 30.0% today on 05/31/17. We will continue to watch this along with her blood pressure. 5. Hyponatremia: Hopefully the fluid challenge will further increase her sodium level which is 134 today on 05/31/17. BUN normal at 18 today on 05/31/17. 6. Leukocytosis: Currently, it remains elevated, but better at around 11.0K today on 05/31/17. 7. Wound Drainage: 05/26/17:I met with the patient and her significant other and also called Ms. Patricia Mills CLINICAL DOCUMENTATION DEVELOPER for Dr. Salguero to review the right mastoid incision and subsequent drainage. Current, measurable drainage is <5 ml onto a 4 by 4 gauze in a shift. It is serous, patient is afebrile for 48 hours since starting Macrodantin for UTI. No odor, purulence or sanguinous drainage has occurred and the wound has not turned red, hot, streaked or shown other signs of infection. In my experience, CSF leaks are much higher volume than 2 unsoaked 4 by 4 gauze pads a day. CSP however is hard to decern from Serous drainage though. I do not feel that this is other than the serous drainage that would follow the hematoma breakdown as the hematoma cavity must heal from into to out. Ms. Mills did not feel that sending the patient to ENT outpatient clinic was warranted at this time. She and Dr. Jose Luis Salguero have my cell to call back if they wish to alter care or follow up, but for now the patient will be seen on 06/04/17 in their clinic. The patient and her significant other expressed their understanding and acceptance of the current care plan. 05/31/17: Spot drainage with wound down to 3mm by 1mm opening and no inflammation /purulence/odor, but small wick of fibrous tissue 1mm diameter and 2 mm length sticking out of the wound keeping it open. I pulled on it and it is now below the skin level and no longer in the open wound track as 3 mm length came off with the sterile tweezers. Hopefully, the incision will complete it's closure. REHAB. TEAM ROUNDS: Patient improved oral control to allow [place] Thicken liquids and in preparation for discharge to home, will allow room privileges with family. Family will also need to learn Heparin injections if patient not able to be up ambulating > 30 ft. every 2 hours. However, she still has problems with right mouth awareness and pocketing food, though she is cleaning it out better. Her gaiting is Min. Assist with FWW for 82 ft. Anticipated Date of Discharge is 06/03/17 with Patient/Family Conference tomorrow at 1300hrs. Patient should need FWW, Commode, and Shower Bench. Please see attached therapy notes below. TIME SPENT: Chart Review, examination and documentation require greater than 25 minutes. Patient: Cris Reardon : 1955 Age/Sex: 61/F Unit#: [id number] Room/Bed: M4142/01 User: Migdalia Garcia OT OT Date: 05/31/17 12:11 Type: OT Progress Time In * 07:00 Time Out * 08:15 OT Treatment Time-Minutes * 75 mins Type of Therapy Provided * Individual Precautions * Fall Unit * Acute Inpatient Rehab Pain Comment * No c/o pain this am. Subjective * Pt supine upon OT arrival, agreeable to tx. Pt very excited she was able to void minimally this am. Cognition * Within Normal Limits Cognition Comments * Impaired speech production but able to communicate with slowed speech. Supine to Sit * Modified Independant Bed Mobility Notes * Mod I supine to sit EOB with use of bed rail. Sit to Stand * Contact Guard Assist Stand to Sit * Contact Guard Assist Bed to Chair * Contact Guard Assist Shower/Tub * Minimum Assist Functional Transfer Notes: * Pt performed all functional transfers with CGA using RW. Bathing * Contact Guard Assist Dressing-Upper Body * Standby Assist Dressing-Lower Body * Contact Guard Assist Grooming * Standby Assist ADL Training Note * Pt ambulated to bathroom with min assist and transferred into w/c. Pt completed grooming at sink with supervision only. Pt participated with sponge bath in sitting at sink using long handled sponge to wash lower body with CGA for standing portion only to wash buttocks. Pt donned shirt wtih s/u and LB clothing including socks, slippers and pants with CGA for standing portion to pull pants up to waist. Pt able to don B socks using sock aide and shoes using LHSH. Pt then ambulated back to EOB and transferred to supine for RN to complete bladder scan. A. Eating (include only those with PO intake): * 05.Setup/clean up Asst Eating Comments: * see ADL note. B. Oral Hygiene (includes gums in edentulous pts): * 05.Setup/clean up Asst Oral Hygiene Comments: * See ADL note C. Toileting Hygiene (not transfers): * 04.Sup/Touch Assist Toileting Hygiene Comments: * See ADL note. E. Shower/Bathe Self (not transfers, can be sponge bath): * 04.Sup/Touch Assist Shower/Bathe Self Comments: * See ADL note F. Upper Body Dressing (includes bra, not hospital gown): * 05.Setup/clean up Asst Upper Body Dressing Comments: * See ADL note G. Lower Body Dressing (includes briefs and knee braces): * 04.Sup/Touch Assist Lower Body Dressing Comments: * See ADL note H. Putting on/taking off footwear (includes TEDS and AFO): * 04.Sup/Touch Assist Putting on/taking off footwear Comments: * See ADL note Sit-Static * G- Sit-Dynamic * F+ Stand-Static * F+ Stand-Dynamic * F Balance Training Note * Sitting observed EOB, standing observed with RW and during ADLs. OT Intervention Note * Pt is motivated and participated well throughout the session. Pt remained supine with RN present for bladder scan. All needs met, call light in reach. OT Goal Note * Continue with OT plan of care. Discharge Recommendations * Home w/services Safe for discharge at this time * No Comment * Pt making good progress toward goals. Patient: Cris Reardon : 1955 Age/Sex: 61/F Unit#: [id number] Room/Bed: M4142/01 User: Belem Jose PT PT Date: 05/30/17 12:34 Type: PT Progress Note Time In * 11:30 Time Out * 12:10 PT Treatment Time-Minutes * 40 mins Type of Therapy Provided * Individual Precautions * Fall Unit * Medical/Surgical Floor Pain Comment * Pt with no c/o pain this session. Subjective * Pt agreeable to PT treatment and motivated to participate. Cognition * Within Normal Limits Cognition Comments * Impaired speech production but able to communicate with slowed speech. Supine to Sit * Not Tested Sit to Supine * Minimum Assist Rolling * Not Tested Sit to Stand * Minimum Assist Stand to Sit * Contact Guard Assist Bed to Chair * Contact Guard Assist Chair to Bed * Not Tested Toilet/Commode * Standby Assist Transfer Training Notes * VCs for safe hand placement and Min (A) required at times due to Pt leaning too far forward upon first standing. Sit-Static * G- Sit-Dynamic * F+ Stand-Static * F+ Stand-Dynamic * F Balance Training Note * Sitting observed EOB, standing observed with RW and during ADLs. Ambulation Distance * 50 Feet Ambulation Level of Assist * Minimum Assist Assistive Device Used * Rolling Walker * Gait Belt Gait Training Note * VCs to decrease dean and widen CHRISTIAN, Pt ambualted from bathroom to chair and then x 50 feet as above. Wheelchair Distance * 0 feet Wheelchair Mobility Level of Assist * Not Tested Level of Assist for Stairs * Not Tested A. Roll Left and Right: * 05.Setup/clean up Asst Roll Left and Right Comments: * OOB throughout B. Sit to Lying: * 88.Not Attempted C. Lying to Sitting on Side of Bed: * 05.Setup/clean up Asst D. Sit to Stand: * 03.Partial/Mod Assist E. Chair/Azl-jy-Rvijy Transfer: * 03.Partial/Mod Assist Chair/Yns-ug-Eivju Transfer Comments: * Levi x1 on the left F. Toilet Transfer: * 88.Not Attempted G. Car Transfer: * 88.Not Attempted H. Does the patient walk?: * 2. Yes Does the patient walk Comments: * Not this date secondary to positive symptomatic orthostatics I. Walk 10 Feet: * 88.Not Attempted Walk 10 Feet Comments: * See gait notes J. Walk 50' with Two Turns: * 88.Not Attempted Walk 50' with Two Turns Comments: * family assists with gait distance today. He completes well and able to give appropriate VCs t/o gait K. Walk 150 Feet: * 88.Not Attempted L. Walking 10' on uneven surfaces: * 88.Not Attempted M. 1 Step (curb): * 88.Not Attempted N. 4 Steps (with or without railing): * 88.Not Attempted O. 12 Steps (with or without railing): * 88.Not Attempted P. Picking up Object from the Floor (from a standing): * 88.Not Attempted Q. Does the patient use a w/c (other than just transport): * 1. Yes R. Wheel 50' with 2 Turns(seated in w/c): * 88.Not Attempted RR. What type of w/c?: * 1. Manual S. Wheel 150' (seated in w/c): * 88.Not Attempted SS. What type of w/c?: * 1. Manual Lower Extremity Exercised * Bilateral Sitting Exercises * Long Arc Quads * Marching * Hip Abduction * Hip Adduction * Toe Raises * Heel Raises Number of Reps Sitting * 15-20 Reps Other Standing Exercises * Sit<>stand 2 x 3 reps with CGA to Min (A) Therapeutic Exercises Note * Patient requires cues for proper technique with ther ex. PT Interventions * Gait Training * Therapeutic Excercise * Functional Training * Safety/Precautions * HEP * Pt./Family Education PT Progress Note * Upon first ambulating Pt leans to the right heavily requiring Min (A) of therapist to maintain safety, however second attempt at ambulation Pt's balance is improved with less right leaning. PT Goal Note * OOB for meals. Safe for w/c on floor with family. Discharge Recommendations * Home w/services Safe for discharge at this time * No Patient: ReardonGuidoa : 1955 Age/Sex: 61/F Unit#: [id number] Room/Bed: M4142/01 User: Belem Jose, PT PT Date: 05/30/17 14:26 Type: PT Progress Note Time In * 13:55 Time Out * 14:25 PT Treatment Time-Minutes * 30 mins Type of Therapy Provided * Individual Precautions * Fall Unit * Acute Inpatient Rehab Pain Comment * Pt with no c/o pain this session. Pt just states she is stiff. Cognition * Within Normal Limits Cognition Comments * Impaired speech production but able to communicate with slowed speech. Supine to Sit * Not Tested Sit to Supine * Not Tested Rolling * Not Tested Bed Mobility Notes * Pt OOB throughout session Sit to Stand * Contact Guard Assist Stand to Sit * Contact Guard Assist Bed to Chair * Contact Guard Assist Chair to Bed * Not Tested Toilet/Commode * Standby Assist Transfer Training Notes * CGA and minimal verbal cueing only for slow descent into chair Sit-Static * G- Sit-Dynamic * F+ Stand-Static * F+ Stand-Dynamic * F Balance Training Note * Sitting observed EOB, standing observed with RW and during ADLs. Ambulation Distance * 82 Feet Ambulation Level of Assist * Minimum Assist Assistive Device Used * Rolling Walker * Gait Belt Gait Training Note * VCs to improve foot clearance and decrease dean. Wheelchair Distance * 0 feet Wheelchair Mobility Level of Assist * Not Tested Wheelchair Mobility Comment * SBA, patient requires verbal cues break use only today Level of Assist for Stairs * Not Tested A. Roll Left and Right: * 05.Setup/clean up Asst Roll Left and Right Comments: * OOB throughout B. Sit to Lying: * 88.Not Attempted C. Lying to Sitting on Side of Bed: * 05.Setup/clean up Asst D. Sit to Stand: * 03.Partial/Mod Assist E. Chair/Flk-as-Nnujm Transfer: * 03.Partial/Mod Assist Chair/Tsf-au-Nptsn Transfer Comments: * Levi x1 on the left F. Toilet Transfer: * 88.Not Attempted G. Car Transfer: * 88.Not Attempted H. Does the patient walk?: * 2. Yes Does the patient walk Comments: * Not this date secondary to positive symptomatic orthostatics I. Walk 10 Feet: * 88.Not Attempted Walk 10 Feet Comments: * See gait notes J. Walk 50' with Two Turns: * 88.Not Attempted Walk 50' with Two Turns Comments: * family assists with gait distance today. He completes well and able to give appropriate VCs t/o gait K. Walk 150 Feet: * 88.Not Attempted L. Walking 10' on uneven surfaces: * 88.Not Attempted M. 1 Step (curb): * 88.Not Attempted N. 4 Steps (with or without railing): * 88.Not Attempted O. 12 Steps (with or without railing): * 88.Not Attempted P. Picking up Object from the Floor (from a standing): * 88.Not Attempted Q. Does the patient use a w/c (other than just transport): * 1. Yes R. Wheel 50' with 2 Turns(seated in w/c): * 88.Not Attempted RR. What type of w/c?: * 1. Manual S. Wheel 150' (seated in w/c): * 88.Not Attempted SS. What type of w/c?: * 1. Manual Lower Extremity Exercised * Bilateral Sitting Exercises * Long Arc Quads * Marching * Hip Abduction * Hip Adduction * Heel Raises * Other Other Sitting Exercises * glut sets Number of Reps Sitting * 15-20 Reps Standing Exercises * Toe Raises Other Standing Exercises * Sit<>stand 2 x 3 reps with CGA Therapeutic Exercises Note * Patient requires cues for proper technique with ther ex. PT Interventions * Gait Training * Therapeutic Excercise * Functional Training * Safety/Precautions * HEP * Pt./Family Education PT Progress Note * Improved gait distance and safety this day, though did have 2-3 episodes of leaning too far forward and required assist and cueing by therapist. PT Goal Note * OOB for meals. Safe for w/c on floor with family. Discharge Recommendations * Home w/services Safe for discharge at this time * No Allergies Coded Allergies: Amoxicillin (Verified Allergy, Unknown, 05/12/17) Shellfish Allergy (Verified Allergy, Unknown, 05/12/17) [place] (Verified Allergy, Unknown, 05/12/17) Sulfa Antibiotics (Verified Allergy, Unknown, 05/12/17) Vital Signs Vital Signs Date Time Temp Pulse Resp B/P (MAP) Pulse Ox O2 Delivery O2 Flow Rate FiO2 05/31/17 08:42 138/86 05/31/17 08:00 98.1 90 20 97 Room Air Laboratory Data CBC/BMP Laboratory Tests 05/31/17 09:17 Red Blood Count 3.11 L, Mean Corpuscular Volume 96.5 H, Mean Corpuscular Hemoglobin 31.2, Mean Corpuscular Hemoglobin Concent 32.3, Red Cell Distribution Width 18.8 H, Calcium Level 9.0 Labs 24H Laboratory Tests 2 05/30/17 16:49: Bedside Glucose (Misc Panel) 147H 05/31/17 07:05: Bedside Glucose (Misc Panel) 116H 05/31/17 09:17: Nucleated Red Blood Cells % (auto) 0.9H, Anion Gap 9, Glomerular Filtration Rate > 60.0, Blood Urea Nitrogen 18, Creatinine 0.60, Sodium Level 134L, Potassium Level 4.5, Chloride Level 99, Carbon Dioxide Level 26, Calcium Level 9.0 Microbiology Microbiology 05/21/17 Stool Occult Blood (COOKIE) - Final, Complete 05/24/17 Urine Culture - Final, Complete Current Medications Current Medications Current Medications Acetaminophen (Tylenol Tab) 650 mg Q6HP PRN PO PAIN / FEVER Last administered on 05/30/17 21:07; Start 05/17/17 at 14:15; Stop 06/16/17 at 14:14 Alendronate Sodium (Fosamax) 70 mg Sa@07 PO Last administered on 05/29/17 06: 22; Start 05/15/17 at 07:00; Stop 06/14/17 at 06:59 Amitriptyline HCl (Elavil) 50 mg QHS PO Last administered on 05/30/17 21:04; Start 05/12/17 at 21:00; Stop 06/11/17 at 20:59 Artificial Tears (Akwa Tears) 2 drop Q4H OS Last administered on 05/31/17 08: 42; Start 05/25/17 at 01:00; Stop 06/24/17 at 00:59 Artificial Tears ([place]wa Tears) 2 drop Q4H OU Last administered on 05/24/17 16: 48; Start 05/13/17 at 16:00; Stop 05/24/17 at 21:52; Status DC Artificial Tears ([place]wa Tears) 2 drop Q4HP PRN OU DRY EYES; Start 05/12/17 at 13:45; Stop 05/13/17 at 12:04; Status DC Bacitracin (Bacitracin Oint) Right Mastoid a... DAILY TOP Last administered on 05/31/17 08:43; Start 05/13/17 at 09:00; Stop 06/12/17 at 08:59 Bethanechol Chloride (Urecholine) 10 mg BID PO ; Start 05/31/17 at 09:00; Stop 06/30/17 at 08:59 Bisacodyl (Dulcolax Suppository) 10 mg DAILYPRN PRN NM CONSTIPATION Last administered on 05/21/17 10:25; Start 05/12/17 at 13:45; Stop 06/11/17 at 13 :44 Budesonide/ Formoterol Fumarate (Symbicort 80/ 4.5mcg) 2 puff BID PRN INH Dyspnea; Start 05/12/17 at 13:45; Stop 06/11/17 at 13:44 Dexamethasone (Decadron) 1 mg Q12H PO ; Start 05/31/17 at 21:00; Stop 06/30/17 at 20:59 Dexamethasone (Decadron) 2 mg BID PO Last administered on 05/16/17 20:40; Start 05/12/17 at 21:00; Stop 05/16/17 at 23:55; Status DC Dexamethasone (Decadron) 2 mg DAILY PO Last administered on 05/19/17 09:22; Start 05/17/17 at 09:00; Stop 05/19/17 at 13:31; Status DC Dexamethasone (Decadron) 2 mg Q12H PO Last administered on 05/31/17 08:41; Start 05/19/17 at 21:00; Stop 05/31/17 at 11:40; Status DC Dextrose (Dextrose 50%) 25 ml ASDIRECTED PRN IV SEE LABEL COMMENTS; Start at 13:45; Stop 06/11/17 at 13:44 Diltiazem HCl (Cardizem) 60 mg Q6H PO Last administered on 05/16/17 23:54; Start 05/12/17 at 18:00; Stop 05/17/17 at 12:33; Status DC Erythromycin (Ilotycin) 1 dose TID OD Last administered on 05/24/17 08:18; Start 05/14/17 at 16:00; Stop 05/24/17 at 10:16; Status DC Erythromycin (Ilotycin) 3/4" INTO RIGHT EYE DIRECTED Q6H OD Last administered on 05/31/17 06:09; Start 05/25/17 at 00:00; Stop 06/24/17 at 00: 00 Fentanyl Citrate (Sublimaze) 25 mcg Q5MP PRN IV MODERATE PAIN (PS 4-7); Start 05/24/17 at 22:00; Stop 05/24/17 at 23:00; Status DC Fluconazole (Diflucan) 200 mg DAILY PO Last administered on 05/26/17 08:21; Start 05/13/17 at 09:00; Stop 05/27/17 at 08:59; Status DC Fluticasone Propionate (Flonase 0.05% Nasal [place]) 2 spray DAILY NA Last administered on 05/31/17 08:42; Start 05/13/17 at 09:00; Stop 06/12/17 at 08: 59 Glucagon (Glucagon) 1 mg ASDIRECTED PRN SC SEE LABEL COMMENTS; Start 05/12/17 at 13:45; Stop 06/11/17 at 13:44 Glucose (Glucose) 16 GM ASDIRECTED PRN PO SEE LABEL COMMENTS; Start 05/12/17 at 13:45; Stop 06/11/17 at 13:44 Heparin Sodium (Porcine) (Heparin) 5,000 units Q12H SC Last administered on 08:41; Start 05/12/17 at 21:00; Stop 06/04/17 at 23:55 Home Med (Med Rec Complete!) ASDIRECTED XX ; Start 05/12/17 at 15:30; Stop at 15:33; Status DC Hydrochlorothiazide (Hydrodiuril) 25 mg DAILY PO Last administered on 08:29; Start 05/13/17 at 09:00; Stop 05/17/17 at 12:21; Status DC Insulin Human Lispro (HumaLOG INSULIN) See Protocol Table AC SC Last administered on 05/31/17 08:41; Start 05/12/17 at 17:30; Stop 06/11/17 at 17: 29 Insulin Human Lispro (HumaLOG INSULIN) See Protocol Table QHS SC ; Start at 21:00; Stop 06/11/17 at 20:59 Lactated Ringer's 1,000 ml @ 100 mls/hr Q10H IV ; Start 05/24/17 at 22:00; Stop 05/24/17 at 23:00; Status DC Lansoprazole (First-Lansoprazole Oral Suspension) 30 mg DAILY PO Last administered on 05/31/17 08:42; Start 05/20/17 at 09:00; Stop 06/19/17 at 08: 59 Lisinopril (Prinivil) 10 mg BID PO Last administered on 05/18/17 21:26; Start 05/18/17 at 21:00; Stop 05/19/17 at 13:29; Status DC Lisinopril (Prinivil) 20 mg BID PO Last administered on 05/17/17 20:32; Start 05/13/17 at 09:00; Stop 05/18/17 at 09:45; Status DC Lisinopril (Prinivil) 20 mg DAILY PO Last administered on 05/31/17 08:42; Start 05/30/17 at 09:00; Stop 06/29/17 at 08:59 Loratadine (Claritin) 10 mg DAILY PO Last administered on 05/31/17 08:41; Start 05/13/17 at 09:00; Stop 06/12/17 at 08:59 Methylphenidate HCl (Ritalin) 10 mg BID@0700,1200 PO Last administered on 06:05; Start 05/25/17 at 12:00; Stop 06/04/17 at 23:55 Methylphenidate HCl (Ritalin) 10 mg BID@0700,1400 PO Last administered on 05/25 06:26; Start 05/16/17 at 07:00; Stop 05/25/17 at 10:24; Status DC Methylphenidate HCl (Ritalin) 10 mg BID@0700,1400 PO ; Start 05/16/17 at 14:00 ; Stop 05/16/17 at 14:00; Status DC Methylphenidate HCl (Ritalin) 10 mg BID@09,14 PO Last administered on 14:07; Start 05/12/17 at 14:00; Stop 05/16/17 at 08:34; Status DC Metoprolol Tartrate (Lopressor) 25 mg BID PO Last administered on 05/18/17 21 :25; Start 05/17/17 at 21:00; Stop 05/19/17 at 13:29; Status DC Metoprolol Tartrate (Lopressor) 25 mg Q6H PO Last administered on 05/31/17 06: 08; Start 05/21/17 at 12:00; Stop 06/20/17 at 11:59 Metoprolol Tartrate (Lopressor) 50 mg BID PO Last administered on 05/16/17 20 :42; Start 05/12/17 at 21:00; Stop 05/17/17 at 12:33; Status DC Mupirocin (Bactroban 2% Ointment) 1 dose BID TOP Last administered on 08:43; Start 05/18/17 at 09:00; Stop 06/17/17 at 08:59 Nitrofurantoin Monoh/Nitrofur Macro (Macrobid) 100 mg BID PO Last administered on 05/31/17 08:41; Start 05/24/17 at 09:00; Stop 06/03/17 at 08:59 Pantoprazole Sodium (Protonix) 40 mg DAILY PO Last administered on 05/19/17 09:22; Start 05/13/17 at 09:00; Stop 05/19/17 at 13:30; Status DC Simvastatin (Zocor) 10 mg QHS PO Last administered on 05/30/17 21:04; Start 05/12/17 at 21:00; Stop 06/11/17 at 20:59 Sodium Biphosphate/ Sodium Phosphate (Fleet Enema) 1 ea DAILYPRN PRN [place] CONSTIPATION; Start 05/12/17 at 13:45; Stop 06/11/17 at 13:44 Tamsulosin HCl (Flomax) 0.4 mg BID PO Last administered on 05/31/17 08:41; Start 05/28/17 at 09:00; Stop 06/27/17 at 08:59 Tamsulosin HCl (Flomax) 0.4 mg DAILY PO Last administered on 05/19/17 09:22; Start 05/13/17 at 09:00; Stop 05/19/17 at 13:29; Status DC Tramadol HCl (Ultram) 50 mg Q12HP PRN PO PAIN Last administered on 05/17/17 13:09; Start 05/12/17 at 13:45; Stop 05/17/17 at 14:15; Status DC NICOLASA MACK MD May 31, 2017 11:56
[2017-05-31] MEDS: BETHANECHOL 10 MG TAB PO SCH ×2 (12:10→20:09)
[2017-05-31] MEDS: ACETAMINOPHEN TAB 650MG DOSE (2X325MG) PO PRN ×2 (14:09→21:00)
--- NOTE | 2017-05-31 17:31 | SMCUROLCON ---
Urology Consultation General Date of Consultation 05/31/17 Reason For Consultation This patient is seen for Right Vestibular Schwannoma. 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 Duran on 05/12/17. Since her surgery she has had incomplete bladder emptying which has been managed with clean intermittent catheterization (CIC). We are consulted to evaluate the patient and offer recommendations regarding urinary retention. Per nursing the patient attempts to voids and usually voids small amounts and then has high residuals w/ CIC. This morning she voided 75cc and was catheterized for a residual of 850cc. The patient does not have good sensation of when her bladder is full. Prior to her surgery, she had no difficulty voiding. She is currently on macrobid for a UTI. She is on flomax 0.4mg bid as well as urecholine daily. Past Medical History Medical History see HPI Surgical Hstory see HPI Medications Current Medications Current Medications Acetaminophen (Tylenol Tab) 650 mg Q6HP PRN PO PAIN / FEVER Last administered on 05/31/17 14:09; Start 05/17/17 at 14:15; Stop 06/16/17 at 14:14 Alendronate Sodium (Fosamax) 70 mg Sa@07 PO Last administered on 05/29/17 06: 22; Start 05/15/17 at 07:00; Stop 06/14/17 at 06:59 Amitriptyline HCl (Elavil) 50 mg QHS PO Last administered on 05/30/17 21:04; Start 05/12/17 at 21:00; Stop 06/11/17 at 20:59 Artificial Tears (Akwa Tears) 2 drop Q4H OS Last administered on 05/31/17 12: 11; Start 05/25/17 at 01:00; Stop 06/24/17 at 00:59 Artificial Tears (Akwa Tears) 2 drop Q4H OU Last administered on 05/24/17 16: 48; Start 05/13/17 at 16:00; Stop 05/24/17 at 21:52; Status DC Artificial Tears (Akwa Tears) 2 drop Q4HP PRN OU DRY EYES; Start 05/12/17 at 13:45; Stop 05/13/17 at 12:04; Status DC Bacitracin (Bacitracin Oint) Right Mastoid a... DAILY TOP Last administered on 05/31/17 08:43; Start 05/13/17 at 09:00; Stop 06/12/17 at 08:59 Bethanechol Chloride (Urecholine) 10 mg BID PO Last administered on 05/31/17 12:10; Start 05/31/17 at 09:00; Stop 06/30/17 at 08:59 Bisacodyl (Dulcolax Suppository) 10 mg DAILYPRN PRN [place] CONSTIPATION Last administered on 05/21/17 10:25; Start 05/12/17 at 13:45; Stop 06/11/17 at 13 :44 Budesonide/ Formoterol Fumarate (Symbicort 80/ 4.5mcg) 2 puff BID PRN INH Dyspnea; Start 05/12/17 at 13:45; Stop 06/11/17 at 13:44 Dexamethasone (Decadron) 1 mg Q12H PO ; Start 05/31/17 at 21:00; Stop 06/30/17 at 20:59 Dexamethasone (Decadron) 2 mg BID PO Last administered on 05/16/17 20:40; Start 05/12/17 at 21:00; Stop 05/16/17 at 23:55; Status DC Dexamethasone (Decadron) 2 mg DAILY PO Last administered on 05/19/17 09:22; Start 05/17/17 at 09:00; Stop 05/19/17 at 13:31; Status DC Dexamethasone (Decadron) 2 mg Q12H PO Last administered on 05/31/17 08:41; Start 05/19/17 at 21:00; Stop 05/31/17 at 11:40; Status DC Dextrose (Dextrose 50%) 25 ml ASDIRECTED PRN IV SEE LABEL COMMENTS; Start at 13:45; Stop 06/11/17 at 13:44 Diltiazem HCl (Cardizem) 60 mg Q6H PO Last administered on 05/16/17 23:54; Start 05/12/17 at 18:00; Stop 05/17/17 at 12:33; Status DC Erythromycin (Ilotycin) 1 dose TID OD Last administered on 05/24/17 08:18; Start 05/14/17 at 16:00; Stop 05/24/17 at 10:16; Status DC Erythromycin (Ilotycin) 3/4" INTO RIGHT EYE DIRECTED Q6H OD Last administered on 05/31/17 12:11; Start 05/25/17 at 00:00; Stop 06/24/17 at 00: 00 Fentanyl Citrate (Sublimaze) 25 mcg Q5MP PRN IV MODERATE PAIN (PS 4-7); Start 05/24/17 at 22:00; Stop 05/24/17 at 23:00; Status DC Fluconazole (Diflucan) 200 mg DAILY PO Last administered on 05/26/17 08:21; Start 05/13/17 at 09:00; Stop 05/27/17 at 08:59; Status DC Fluticasone Propionate (Flonase 0.05% Nasal [place]) 2 spray DAILY NA Last administered on 05/31/17 08:42; Start 05/13/17 at 09:00; Stop 06/12/17 at 08: 59 Glucagon (Glucagon) 1 mg ASDIRECTED PRN SC SEE LABEL COMMENTS; Start 05/12/17 at 13:45; Stop 06/11/17 at 13:44 Glucose (Glucose) 16 GM ASDIRECTED PRN PO SEE LABEL COMMENTS; Start 05/12/17 at 13:45; Stop 06/11/17 at 13:44 Heparin Sodium (Porcine) (Heparin) 5,000 units Q12H SC Last administered on 08:41; Start 05/12/17 at 21:00; Stop 06/04/17 at 23:55 Home Med (Med Rec Complete!) ASDIRECTED XX ; Start 05/12/17 at 15:30; Stop at 15:33; Status DC Hydrochlorothiazide (Hydrodiuril) 25 mg DAILY PO Last administered on 08:29; Start 05/13/17 at 09:00; Stop 05/17/17 at 12:21; Status DC Insulin Human Lispro (HumaLOG INSULIN) See Protocol Table AC SC Last administered on 05/31/17 12:10; Start 05/12/17 at 17:30; Stop 06/11/17 at 17: 29 Insulin Human Lispro (HumaLOG INSULIN) See Protocol Table QHS SC ; Start at 21:00; Stop 06/11/17 at 20:59 Lactated Ringer's 1,000 ml @ 100 mls/hr Q10H IV ; Start 05/24/17 at 22:00; Stop 05/24/17 at 23:00; Status DC Lansoprazole (First-Lansoprazole Oral Suspension) 30 mg DAILY PO Last administered on 05/31/17 08:42; Start 05/20/17 at 09:00; Stop 06/19/17 at 08: 59 Lisinopril (Prinivil) 10 mg BID PO Last administered on 05/18/17 21:26; Start 05/18/17 at 21:00; Stop 05/19/17 at 13:29; Status DC Lisinopril (Prinivil) 20 mg BID PO Last administered on 05/17/17 20:32; Start 05/13/17 at 09:00; Stop 05/18/17 at 09:45; Status DC Lisinopril (Prinivil) 20 mg DAILY PO Last administered on 05/31/17 08:42; Start 05/30/17 at 09:00; Stop 06/29/17 at 08:59 Loratadine (Claritin) 10 mg DAILY PO Last administered on 05/31/17 08:41; Start 05/13/17 at 09:00; Stop 06/12/17 at 08:59 Methylphenidate HCl (Ritalin) 10 mg BID@0700,1200 PO Last administered on 12:09; Start 05/25/17 at 12:00; Stop 06/04/17 at 23:55 Methylphenidate HCl (Ritalin) 10 mg BID@0700,1400 PO Last administered on 05/25 06:26; Start 05/16/17 at 07:00; Stop 05/25/17 at 10:24; Status DC Methylphenidate HCl (Ritalin) 10 mg BID@0700,1400 PO ; Start 05/16/17 at 14:00 ; Stop 05/16/17 at 14:00; Status DC Methylphenidate HCl (Ritalin) 10 mg BID@09,14 PO Last administered on 14:07; Start 05/12/17 at 14:00; Stop 05/16/17 at 08:34; Status DC Metoprolol Tartrate (Lopressor) 25 mg BID PO Last administered on 05/18/17 21 :25; Start 05/17/17 at 21:00; Stop 05/19/17 at 13:29; Status DC Metoprolol Tartrate (Lopressor) 25 mg Q6H PO Last administered on 05/31/17 12: 09; Start 05/21/17 at 12:00; Stop 06/20/17 at 11:59 Metoprolol Tartrate (Lopressor) 50 mg BID PO Last administered on 05/16/17 20 :42; Start 05/12/17 at 21:00; Stop 05/17/17 at 12:33; Status DC Mupirocin (Bactroban 2% Ointment) 1 dose BID TOP Last administered on 08:43; Start 05/18/17 at 09:00; Stop 06/17/17 at 08:59 Nitrofurantoin Monoh/Nitrofur Macro (Macrobid) 100 mg BID PO Last administered on 05/31/17 08:41; Start 05/24/17 at 09:00; Stop 06/03/17 at 08:59 Pantoprazole Sodium (Protonix) 40 mg DAILY PO Last administered on 05/19/17 09:22; Start 05/13/17 at 09:00; Stop 05/19/17 at 13:30; Status DC Simvastatin (Zocor) 10 mg QHS PO Last administered on 05/30/17 21:04; Start 05/12/17 at 21:00; Stop 06/11/17 at 20:59 Sodium Biphosphate/ Sodium Phosphate (Fleet Enema) 1 ea DAILYPRN PRN [place] CONSTIPATION; Start 05/12/17 at 13:45; Stop 06/11/17 at 13:44 Tamsulosin HCl (Flomax) 0.4 mg BID PO Last administered on 05/31/17 08:41; Start 05/28/17 at 09:00; Stop 06/27/17 at 08:59 Tamsulosin HCl (Flomax) 0.4 mg DAILY PO Last administered on 05/19/17 09:22; Start 05/13/17 at 09:00; Stop 05/19/17 at 13:29; Status DC Tramadol HCl (Ultram) 50 mg Q12HP PRN PO PAIN Last administered on 05/17/17 13:09; Start 05/12/17 at 13:45; Stop 05/17/17 at 14:15; Status DC Allergies Allergies: Coded Allergies: Amoxicillin (Verified Allergy, Unknown, 05/12/17) Shellfish Allergy (Verified Allergy, Unknown, 05/12/17) Stevenson (Verified Allergy, Unknown, 05/12/17) Sulfa Antibiotics (Verified Allergy, Unknown, 05/12/17) Review of Systems General: Reports: Normal Appetite, Denies: Fatigue, Malaise Constitutional: Denies: Fever, Chills, Sweats Pulmonary: Denies: Dyspnea, Cough Cardiovascular: Denies Chest Pain, Denies Palpitations Gastrointestinal: Denies: Nausea, Vomiting, Abdominal Pain Genitourinary: Reports: Retention Neurological: Reports: Weakness, Change in Speech Physical Examination General Exam: Alert, Cooperative, No Acute Distress ENT EXAM: Other ENT (right eyelid surgically shut) Chest Exam: Clear to auscultation Heart Exam: Rate Normal, Regular Rhythm Abdomen Exam: Soft Skin Exam: Nl turgor and temperature Psych Exam: Mental status NL, Mood NL Vital Signs/I&O Vital Signs Date Time Temp Pulse Resp B/P (MAP) Pulse Ox O2 Delivery O2 Flow Rate FiO2 05/31/17 14:00 99.0 112 18 131/62 (85) 96 Room Air I&O- Last 24 Hours up to 6 AM 06/01/17 06:00 Intake Total 800 ml Output Total 925 ml Balance -125 ml Laboratory Data 24H Labs Laboratory Tests 2 05/31/17 07:05: Bedside Glucose (Misc Panel) 116H 05/31/17 09:17: Nucleated Red Blood Cells % (auto) 0.9H, Anion Gap 9, Glomerular Filtration Rate > 60.0, Blood Urea Nitrogen 18, Creatinine 0.60, Sodium Level 134L, Potassium Level 4.5, Chloride Level 99, Carbon Dioxide Level 26, Calcium Level 9.0 05/31/17 11:55: Bedside Glucose (Misc Panel) 158H 05/31/17 16:44: Bedside Glucose (Misc Panel) 155H CBC/BMP Laboratory Tests 05/31/17 09:17 Red Blood Count 3.11 L, Mean Corpuscular Volume 96.5 H, Mean Corpuscular Hemoglobin 31.2, Mean Corpuscular Hemoglobin Concent 32.3, Red Cell Distribution Width 18.8 H, Calcium Level 9.0 Microbiology Microbiology 05/21/17 Stool Occult Blood (COOKIE) - Final, Complete 05/24/17 Urine Culture - Final, Complete Assessment This is a 61 y/o F w/ urinary retention s/p acoustic neuroma resection on w/ 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 Flomax is unlikely to help w/ this as it helps relax outlet obstruction. Urecholine is usually not very effective as well but might help. I would not recommend any surgical treatment at this time as her bladder might regain function w/ time. For now, I would recommend that she continue CIC at least 4 times daily, making sure to catheterize in the morning when she wakes up, in the evening before bed , and at least 2 times during the day in between. I would recommend that the patient try to void prior to catheterizations so that her residuals can be determined. Plan - recommend continuing CIC, at least 4 times daily as discussed above - unless being given for other reasons, flomax can be stopped - can continue to try urecholine, but not optimistic it will help - patient should follow up in the urology office w/i 2-3 wks of discharge to discuss further testing/additional treatment if needed (my office will call to schedule this) NIYA ZUÑIGA MD May 31, 2017 17:31
[2017-05-31] MEDS: SIMVASTATIN 10 MG TAB PO SCH (20:08)
[2017-05-31] MEDS: AMITRIPTYLINE 50 MG TAB PO SCH (20:09)
[2017-06-01] VITALS (8 sets, daily range): BP systolic 111–138; BP diastolic 55–75
[2017-06-01] MEDS: METOPROLOL TART 25 MG TABLET PO SCH ×4 (00:14→18:02)
[2017-06-01] MEDS: POLYVINYL ALCOHOL OPHTH SOLN 15 ML(LIQUITEARS) OS SCH ×6 (00:15→20:04)
[2017-06-01] MEDS: ERYTHROMYCIN OPHTH OINT OD SCH ×4 (00:15→18:02)
[2017-06-01] MEDS: ACETAMINOPHEN TAB 650MG DOSE (2X325MG) PO PRN ×3 (00:39→19:56)
[2017-06-01] MEDS: METHYLPHENIDATE 5 MG TAB PO SCH ×2 (06:34→12:29)
[2017-06-01 07:10] LABS: MEAN CORPUSCULAR HEMOGLOBIN 31.1 pg (27.0-33.0); MEAN CORPUSCULAR HGB CONC 32.3 g/dl (32.0-36.5); MEAN CORPUSCULAR VOLUME 96.2 fl (80.0-96.0); PLATELET COUNT, AUTOMATED 179 10^3/uL (150-450); RED CELL DISTRIBUTION WIDTH 19.5 % (11.5-14.5)
[2017-06-01 07:22] LABS: ANION GAP 8 MEQ/L (8-16); BLOOD UREA NITROGEN 20 MG/DL (7-18); CALCIUM LEVEL 8.7 MG/DL (8.8-10.2); CARBON DIOXIDE LEVEL 26 MEQ/L (21-32); CHLORIDE LEVEL 100 MEQ/L (98-107); CREATININE FOR GFR 0.66 MG/DL (0.55-1.02); GLOMERULAR FILTRATION RATE > 60.0 (>45); GLUCOSE, FASTING 108 MG/DL (80-110); POTASSIUM SERUM 4.4 MEQ/L (3.5-5.1); SODIUM LEVEL 134 MEQ/L (136-145)
[2017-06-01] MEDS: HumaLOG INSULIN (NovoLOG) PER UNIT SC SCH ×4 (08:29→20:48)
[2017-06-01] MEDS: NITROFURANTOIN (MACROBID) 100 MG CAP PO SCH ×2 (08:29→20:00)
[2017-06-01] MEDS: HEPARIN SOD (PORCINE) 5000 UNITS/ML VIAL SC SCH ×2 (08:29→20:03)
[2017-06-01] MEDS: BETHANECHOL 10 MG TAB PO SCH ×2 (08:30→20:00)
[2017-06-01] MEDS: FLUTICASONE PROP 0.05% NASAL SPRAY 16 GM (FLONASE) SCH (08:31)
[2017-06-01] MEDS: LISINOPRIL 20 MG TAB PO SCH (08:31)
[2017-06-01] MEDS: LANSOPRAZOLE SUSPENSION 30 MG/10 ML ORAL SYRINGE (FIRST-LANSOPRAZOLE) PO SCH (08:31)
[2017-06-01] MEDS: LORATADINE 10 MG TAB PO SCH (08:31)
[2017-06-01] MEDS: MUPIROCIN 2% OINT 22 GM TUBE TOP SCH ×2 (08:32→20:04)
[2017-06-01] MEDS: BACITRACIN OINT 30GM TOP SCH (08:32)
--- NOTE | 2017-06-01 16:25 | IPNPDOC ---
PM&R Progress Note Undercar Specialist Progress Note DATE OF SERVICE: 06/01/17 DATE OF ADMISSION: May 12, 2017 at 13:49 INPATIENT REHABILITATION ADMISSION DAY: #21 SUBJECTIVE: The patient is a right-handed, middle-aged, white female who had had progressive loss of hearing in her right ear and some facial weakness. 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 Patient notes right eye feels much better after Temporary Total Tarsorrhaphy. She expressed her happiness with Dr. Waddell' s care. No complaints today. ALLERGIES: See Below MEDICATIONS: Reviewed, see below. OBJECTIVE: VITAL SIGNS: Please see below. 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 Patient in very good spirits and more energetic in therapies. HEENT: Patient with temporary total tarsorrhaphy, but less right facial droop with some right mouth closing and left tongue deviation. Patient is very hard of hearing in the right ear. Good Right Buccal tone. CARDIOVASCULAR: Regular rate and rhythm with normal S1-S2. 2/4 radial pulses. LUNGS: All saez clear auscultation. ABDOMEN: Bowel sounds normal in all quadrants. NEUROLOGICAL: The patient is alert and oriented to person, place, time and situation. Speech at this time is much less concrete in nature and much less dysarthric. Affect is pleasant and cooperative and positive. Motor strength on the left upper and lower extremities is approximately 4/5 but only 4- to 4 out of 5 in the right upper and lower extremities, limited by some ataxia that is affecting both the upper and lower extremities. Light touch is intact in bilateral upper and lower extremities and vibration is grossly intact in bilateral upper extremities and mildly diminished in both lower extremities down in the feet and ankle areas. SKIN: Grossly intact except for healing right mastoid incision with little to no serous drainage or other drainage, which is without inflammation, odor, or erythema at right mastoid site. LABORATORY DATA: Reviewed. Please see below. MICROBIOLOGY: Please see below. IMAGING: No new imaging. DVT prophylaxis ordered?: 5000 units heparin subcutaneous twice a day, PIPER hose and sequential compression stockings. ASSESSMENT AND PLAN: 1. 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 Final pathology is pending on the neuroma. Patient working very hard with PT, OT and PET COUNSELOR showing very good motivation. Currently having much less difficulties with hypotension and dizziness as fluid status and blood pressure medicines are being adjusted by Medicine clinical documentation consultant. Regular improvement in oral awareness and facial droop is much better today. Patient should need DME (FWW, Commode, Shower chair or bench, and possible w/c). Patient has been doing much better with less lightheadedness, improved mood and attention the last 4 days and tolerating being up more. She is able to transition this into better performance in PT/OT/ PET COUNSELOR, though fatigue as the day goes on is a problem. Discharge to home with family planned for 06/03/17 with a trial in the Rehab. Apt. again today was declined at Patient/Family Conference where patient's status in all disciplines and discharge plans were reviewed with this weekend and Patient/Family Conference on Wednesday06/01/17. Family reports that they will get patient up to walk frequently > 4 times a day for > 50 feet to avoid DVT's and using Heparin injections. 2. Urinary retention: Juarez discontinued and we are try a voiding schedule. Urinary retention still present, but some voiding more at a time, yet high residuals. Flomax discontinued as recommended by Dr. Molina. I will continue Urecholine and it may be increased as an outpatient. However, CVA related Neurogenic bladders tend to clear with time. For now, we will continue with QID Intermittent Catheterization. did try to demand riskier Juarez for his convenience at discharge to home. Studies support IC as better/safer choice. 3. Type 2 diabetes mellitus: At this time we'll proceed with consistent carbohydrate diet and insulin sliding scale. Medicine to make adjustments as appropriate. Patient tapering off of Decadron and did not previously need insulin. No insulin at discharge, but will order Glucometer and strips. 4. Anemia: H&H is 9.8 and 30.3% today on 06/01/17. We will continue to watch this along with her blood pressure. 5. Hyponatremia: Her sodium level which is 134 today on 06/01/17. BUN normal at 20 today on 06/01/17. 6. Leukocytosis: Currently it is normal at 10.0K today on 06/01/17. 7. Wound Drainage: 05/26/17:I met with the patient and her significant other and also called Ms. Patricia Mills CAR SUPPLIER for Dr. Salguero to review the right mastoid incision and subsequent drainage. Current, measurable drainage is <5 ml onto a 4 by 4 gauze in a shift. It is serous, patient is afebrile for 48 hours since starting Macrodantin for UTI. No odor, purulence or sanguinous drainage has occurred and the wound has not turned red, hot, streaked or shown other signs of infection. In my experience, CSF leaks are much higher volume than 2 unsoaked 4 by 4 gauze pads a day. CSP however is hard to decern from Serous drainage though. I do not feel that this is other than the serous drainage that would follow the hematoma breakdown as the hematoma cavity must heal from into to out. Ms. Mills did not feel that sending the patient to ENT outpatient clinic was warranted at this time. She and Dr. Jose Luis Salguero have my cell to call back if they wish to alter care or follow up, but for now the patient will be seen on 06/04/17 in their clinic. The patient and her significant other expressed their understanding and acceptance of the current care plan. 05/31/17: Spot drainage with wound down to 3mm by 1mm opening and no inflammation /purulence/odor, but small wick of fibrous tissue 1mm diameter and 2 mm length sticking out of the wound keeping it open. I pulled on it and it is now below the skin level and no longer in the open wound track as 3 mm length came off with the sterile tweezers. Hopefully, the incision will complete it's closure. 06/01/17: Some serous drainage onto ABD pad and chux, but hard to see opening in mastoid incision now. No signs of inflammation, odor, heat or any purulence. TIME SPENT: Chart Review, examination and documentation require greater than 25 minutes. Allergies Coded Allergies: Amoxicillin (Verified Allergy, Unknown, 05/12/17) Shellfish Allergy (Verified Allergy, Unknown, 05/12/17) [place] (Verified Allergy, Unknown, 05/12/17) Sulfa Antibiotics (Verified Allergy, Unknown, 05/12/17) Vital Signs Vital Signs Date Time Temp Pulse Resp B/P (MAP) Pulse Ox O2 Delivery O2 Flow Rate FiO2 06/01/17 14:00 98.6 116 20 129/66 (87) 96 Room Air Laboratory Data CBC/BMP Laboratory Tests 06/01/17 06:45 Red Blood Count 3.15 L, Mean Corpuscular Volume 96.2 H, Mean Corpuscular Hemoglobin 31.1, Mean Corpuscular Hemoglobin Concent 32.3, Red Cell Distribution Width 19.5 H, Calcium Level 8.7 L Labs 24H Laboratory Tests 2 05/31/17 16:44: Bedside Glucose (Misc Panel) 155H 05/31/17 20:11: Bedside Glucose (Misc Panel) 127H 06/01/17 06:32: Bedside Glucose (Misc Panel) 106 06/01/17 06:45: Nucleated Red Blood Cells % (auto) 0.9H, Anion Gap 8, Glomerular Filtration Rate > 60.0, Blood Urea Nitrogen 20H, Creatinine 0.66, Sodium Level 134L, Potassium Level 4.4, Chloride Level 100, Carbon Dioxide Level 26, Calcium Level 8.7L 06/01/17 11:34: Bedside Glucose (Misc Panel) 137H Microbiology Microbiology 05/24/17 Urine Culture - Final, Complete Current Medications Current Medications Current Medications Acetaminophen (Tylenol Tab) 650 mg Q6HP PRN PO PAIN / FEVER Last administered on 06/01/17 06:34; Start 05/17/17 at 14:15; Stop 06/16/17 at 14:14 Alendronate Sodium (Fosamax) 70 mg Sa@07 PO Last administered on 05/29/17 06: 22; Start 05/15/17 at 07:00; Stop 06/14/17 at 06:59 Amitriptyline HCl (Elavil) 50 mg QHS PO Last administered on 05/31/17 20:09; Start 05/12/17 at 21:00; Stop 06/11/17 at 20:59 Artificial Tears (Akwa Tears) 2 drop Q4H OS Last administered on 06/01/17 12: 30; Start 05/25/17 at 01:00; Stop 06/24/17 at 00:59 Artificial Tears ([place]wa Tears) 2 drop Q4H OU Last administered on 05/24/17 16: 48; Start 05/13/17 at 16:00; Stop 05/24/17 at 21:52; Status DC Artificial Tears (Akwa Tears) 2 drop Q4HP PRN OU DRY EYES; Start 05/12/17 at 13:45; Stop 05/13/17 at 12:04; Status DC Bacitracin (Bacitracin Oint) Right Mastoid a... DAILY TOP Last administered on 06/01/17 08:32; Start 05/13/17 at 09:00; Stop 06/12/17 at 08:59 Bethanechol Chloride (Urecholine) 10 mg BID PO Last administered on 06/01/17 08:30; Start 05/31/17 at 09:00; Stop 06/30/17 at 08:59 Bisacodyl (Dulcolax Suppository) 10 mg DAILYPRN PRN OR CONSTIPATION Last administered on 05/21/17 10:25; Start 05/12/17 at 13:45; Stop 06/11/17 at 13 :44 Budesonide/ Formoterol Fumarate (Symbicort 80/ 4.5mcg) 2 puff BID PRN INH Dyspnea Last administered on 06/01/17 07:28; Start 05/12/17 at 13:45; Stop at 13:44 Dexamethasone (Decadron) 1 mg Q12H PO Last administered on 06/01/17 08:30; Start 05/31/17 at 21:00; Stop 06/30/17 at 20:59 Dexamethasone (Decadron) 2 mg BID PO Last administered on 05/16/17 20:40; Start 05/12/17 at 21:00; Stop 05/16/17 at 23:55; Status DC Dexamethasone (Decadron) 2 mg DAILY PO Last administered on 05/19/17 09:22; Start 05/17/17 at 09:00; Stop 05/19/17 at 13:31; Status DC Dexamethasone (Decadron) 2 mg Q12H PO Last administered on 05/31/17 08:41; Start 05/19/17 at 21:00; Stop 05/31/17 at 11:40; Status DC Dextrose (Dextrose 50%) 25 ml ASDIRECTED PRN IV SEE LABEL COMMENTS; Start at 13:45; Stop 06/11/17 at 13:44 Diltiazem HCl (Cardizem) 60 mg Q6H PO Last administered on 05/16/17 23:54; Start 05/12/17 at 18:00; Stop 05/17/17 at 12:33; Status DC Erythromycin (Ilotycin) 1 dose TID OD Last administered on 05/24/17 08:18; Start 05/14/17 at 16:00; Stop 05/24/17 at 10:16; Status DC Erythromycin (Ilotycin) 3/4" INTO RIGHT EYE DIRECTED Q6H OD Last administered on 06/01/17 12:30; Start 05/25/17 at 00:00; Stop 06/24/17 at 00: 00 Fentanyl Citrate (Sublimaze) 25 mcg Q5MP PRN IV MODERATE PAIN (PS 4-7); Start 05/24/17 at 22:00; Stop 05/24/17 at 23:00; Status DC Fluconazole (Diflucan) 200 mg DAILY PO Last administered on 05/26/17 08:21; Start 05/13/17 at 09:00; Stop 05/27/17 at 08:59; Status DC Fluticasone Propionate (Flonase 0.05% Nasal [place]) 2 spray DAILY NA Last administered on 06/01/17 08:31; Start 05/13/17 at 09:00; Stop 06/12/17 at 08: 59 Glucagon (Glucagon) 1 mg ASDIRECTED PRN SC SEE LABEL COMMENTS; Start 05/12/17 at 13:45; Stop 06/11/17 at 13:44 Glucose (Glucose) 16 GM ASDIRECTED PRN PO SEE LABEL COMMENTS; Start 05/12/17 at 13:45; Stop 06/11/17 at 13:44 Heparin Sodium (Porcine) (Heparin) 5,000 units Q12H SC Last administered on 08:29; Start 05/12/17 at 21:00; Stop 06/04/17 at 23:55 Home Med (Med Rec Complete!) ASDIRECTED XX ; Start 05/12/17 at 15:30; Stop at 15:33; Status DC Hydrochlorothiazide (Hydrodiuril) 25 mg DAILY PO Last administered on 08:29; Start 05/13/17 at 09:00; Stop 05/17/17 at 12:21; Status DC Insulin Human Lispro (HumaLOG INSULIN) See Protocol Table AC SC Last administered on 06/01/17 12:30; Start 05/12/17 at 17:30; Stop 06/11/17 at 17: 29 Insulin Human Lispro (HumaLOG INSULIN) See Protocol Table QHS SC ; Start at 21:00; Stop 06/11/17 at 20:59 Lactated Ringer's 1,000 ml @ 100 mls/hr Q10H IV ; Start 05/24/17 at 22:00; Stop 05/24/17 at 23:00; Status DC Lansoprazole (First-Lansoprazole Oral Suspension) 30 mg DAILY PO Last administered on 06/01/17 08:31; Start 05/20/17 at 09:00; Stop 06/19/17 at 08: 59 Lisinopril (Prinivil) 10 mg BID PO Last administered on 05/18/17 21:26; Start 05/18/17 at 21:00; Stop 05/19/17 at 13:29; Status DC Lisinopril (Prinivil) 20 mg BID PO Last administered on 05/17/17 20:32; Start 05/13/17 at 09:00; Stop 05/18/17 at 09:45; Status DC Lisinopril (Prinivil) 20 mg DAILY PO Last administered on 06/01/17 08:31; Start 05/30/17 at 09:00; Stop 06/29/17 at 08:59 Loratadine (Claritin) 10 mg DAILY PO Last administered on 06/01/17 08:31; Start 05/13/17 at 09:00; Stop 06/12/17 at 08:59 Methylphenidate HCl (Ritalin) 10 mg BID@0700,1200 PO Last administered on 12:29; Start 05/25/17 at 12:00; Stop 06/04/17 at 23:55 Methylphenidate HCl (Ritalin) 10 mg BID@0700,1400 PO Last administered on 05/25 06:26; Start 05/16/17 at 07:00; Stop 05/25/17 at 10:24; Status DC Methylphenidate HCl (Ritalin) 10 mg BID@0700,1400 PO ; Start 05/16/17 at 14:00 ; Stop 05/16/17 at 14:00; Status DC Methylphenidate HCl (Ritalin) 10 mg BID@09,14 PO Last administered on 14:07; Start 05/12/17 at 14:00; Stop 05/16/17 at 08:34; Status DC Metoprolol Tartrate (Lopressor) 25 mg BID PO Last administered on 05/18/17 21 :25; Start 05/17/17 at 21:00; Stop 05/19/17 at 13:29; Status DC Metoprolol Tartrate (Lopressor) 25 mg Q6H PO Last administered on 06/01/17 12: 30; Start 05/21/17 at 12:00; Stop 06/20/17 at 11:59 Metoprolol Tartrate (Lopressor) 50 mg BID PO Last administered on 05/16/17 20 :42; Start 05/12/17 at 21:00; Stop 05/17/17 at 12:33; Status DC Mupirocin (Bactroban 2% Ointment) 1 dose BID TOP Last administered on 08:32; Start 05/18/17 at 09:00; Stop 06/17/17 at 08:59 Nitrofurantoin Monoh/Nitrofur Macro (Macrobid) 100 mg BID PO Last administered on 06/01/17 08:29; Start 05/24/17 at 09:00; Stop 06/03/17 at 08:59 Pantoprazole Sodium (Protonix) 40 mg DAILY PO Last administered on 05/19/17 09:22; Start 05/13/17 at 09:00; Stop 05/19/17 at 13:30; Status DC Simvastatin (Zocor) 10 mg QHS PO Last administered on 05/31/17 20:08; Start 05/12/17 at 21:00; Stop 06/11/17 at 20:59 Sodium Biphosphate/ Sodium Phosphate (Fleet Enema) 1 ea DAILYPRN PRN OR CONSTIPATION; Start 05/12/17 at 13:45; Stop 06/11/17 at 13:44 Tamsulosin HCl (Flomax) 0.4 mg BID PO Last administered on 05/31/17 20:08; Start 05/28/17 at 09:00; Stop 06/01/17 at 08:23; Status DC Tamsulosin HCl (Flomax) 0.4 mg DAILY PO Last administered on 05/19/17 09:22; Start 05/13/17 at 09:00; Stop 05/19/17 at 13:29; Status DC Tramadol HCl (Ultram) 50 mg Q12HP PRN PO PAIN Last administered on 05/17/17 13:09; Start 05/12/17 at 13:45; Stop 05/17/17 at 14:15; Status DC NICOLASA MACK MD Jun 01, 2017 16:25
[2017-06-01] MEDS ORDERED: LISI-538 PO (17:27)
[2017-06-01] MEDS: AMITRIPTYLINE 50 MG TAB PO SCH (20:00)
[2017-06-01] MEDS: SIMVASTATIN 10 MG TAB PO SCH (20:00)
[2017-06-02] MEDS: METOPROLOL TART 25 MG TABLET PO SCH ×5 (00:31→23:41)
[2017-06-02] MEDS: ERYTHROMYCIN OPHTH OINT OD SCH ×5 (00:31→23:42)
[2017-06-02] MEDS: POLYVINYL ALCOHOL OPHTH SOLN 15 ML(LIQUITEARS) OS SCH ×6 (00:31→22:11)
[2017-06-02 02:00] VITALS: BP 137/63
[2017-06-02] MEDS: ACETAMINOPHEN TAB 650MG DOSE (2X325MG) PO PRN ×3 (05:40→22:09)
[2017-06-02 06:00] VITALS: BP_SYST 127; BP_SYST 144; BP_SYST 145; BP_DIAS 72; BP_DIAS 88; BP_DIAS 90
[2017-06-02] MEDS: METHYLPHENIDATE 5 MG TAB PO SCH ×2 (06:32→13:00)
[2017-06-02 07:12] LABS: ANION GAP 11 MEQ/L (8-16); BLOOD UREA NITROGEN 25 MG/DL (7-18); CALCIUM LEVEL 8.4 MG/DL (8.8-10.2); CARBON DIOXIDE LEVEL 23 MEQ/L (21-32); CHLORIDE LEVEL 99 MEQ/L (98-107); CREATININE FOR GFR 0.61 MG/DL (0.55-1.02); GLOMERULAR FILTRATION RATE > 60.0 (>45); GLUCOSE, FASTING 115 MG/DL (80-110); POTASSIUM SERUM 4.5 MEQ/L (3.5-5.1); SODIUM LEVEL 133 MEQ/L (136-145)
[2017-06-02] MEDS: HumaLOG INSULIN (NovoLOG) PER UNIT SC SCH ×4 (08:12→21:00)
[2017-06-02] MEDS: LISINOPRIL 20 MG TAB PO SCH (08:12)
[2017-06-02] MEDS: NITROFURANTOIN (MACROBID) 100 MG CAP PO SCH ×2 (08:12→22:07)
[2017-06-02] MEDS: HEPARIN SOD (PORCINE) 5000 UNITS/ML VIAL SC SCH ×2 (08:13→22:07)
[2017-06-02] MEDS: BETHANECHOL 10 MG TAB PO SCH ×2 (08:13→22:08)
[2017-06-02] MEDS: FLUTICASONE PROP 0.05% NASAL SPRAY 16 GM (FLONASE) SCH (08:13)
[2017-06-02] MEDS: BACITRACIN OINT 30GM TOP SCH (08:14)
[2017-06-02] MEDS: LORATADINE 10 MG TAB PO SCH (08:14)
[2017-06-02] MEDS: LANSOPRAZOLE SUSPENSION 30 MG/10 ML ORAL SYRINGE (FIRST-LANSOPRAZOLE) PO SCH (08:14)
[2017-06-02] MEDS: MUPIROCIN 2% OINT 22 GM TUBE TOP SCH ×2 (08:15→22:11)
[2017-06-02] MEDS ORDERED: DEXA1TA PO (11:39)
--- NOTE | 2017-06-02 13:29 | IPNPDOC ---
PM&R Progress Note Educational Paraprofessional Progress Note DATE OF SERVICE: 06/02/17 DATE OF ADMISSION: May 12, 2017 at 13:49 INPATIENT REHABILITATION ADMISSION DAY: #22 SUBJECTIVE: The patient is a right-handed, middle-aged, white female who had had progressive loss of hearing in her right ear and some facial weakness. 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 No complaints today. ALLERGIES: See Below MEDICATIONS: Reviewed, see below. OBJECTIVE: VITAL SIGNS: Please see below. 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 Patient in very good spirits and more energetic in therapies. HEENT: Patient with temporary total tarsorrhaphy, but less right facial droop with some right mouth closing and left tongue deviation. Patient is very hard of hearing in the right ear. Good Right Buccal tone. CARDIOVASCULAR: Regular rate and rhythm with normal S1-S2. 2/4 radial pulses. LUNGS: All saez clear auscultation. ABDOMEN: Bowel sounds normal in all quadrants. NEUROLOGICAL: The patient is alert and oriented to person, place, time and situation. Speech at this time is much less concrete in nature and much less dysarthric. Affect is pleasant and cooperative and positive. Motor strength on the left upper and lower extremities is approximately 4/5 but only 4- to 4 out of 5 in the right upper and lower extremities, limited by some ataxia that is affecting both the upper and lower extremities. Light touch is intact in bilateral upper and lower extremities and vibration is grossly intact in bilateral upper extremities and mildly diminished in both lower extremities down in the feet and ankle areas. SKIN: Grossly intact except for healing right mastoid incision with little to no serous drainage or other drainage, which is without inflammation, odor, or erythema at right mastoid site. LABORATORY DATA: Reviewed. Please see below. MICROBIOLOGY: Please see below. IMAGING: No new imaging. DVT prophylaxis ordered?: 5000 units heparin subcutaneous twice a day, PIPER hose and sequential compression stockings. ASSESSMENT AND PLAN: 1. 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 Final pathology is pending on the neuroma. 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 Currently having much less difficulties with hypotension and dizziness as fluid status and blood pressure medicines are being adjusted by Medicine erp implementation consultant. Regular improvement in oral awareness and facial droop is much better today. Patient should need DME (FWW, Commode, Shower chair or bench, and possible w/c). Patient has been doing much better with less lightheadedness, improved mood and attention the last 4 days and tolerating being up more. She is able to transition this into better performance in PT/OT/ FIRE AND SAFETY HELPER, though fatigue as the day goes on is a problem. Discharge to home with family planned for 06/03/17 with a trial in the Rehab. Apt. again today was declined at Patient/Family Conference where patient's status in all disciplines and discharge plans were reviewed with this weekend and Patient/Family Conference on Wednesday06/01/17. Family reports that they will get patient up to walk frequently > 4 times a day for > 50 feet to avoid DVT's and using Heparin injections. 2. Urinary retention: Juarez discontinued and we are try a voiding schedule. Urinary retention still present, but some voiding more at a time, yet high residuals. Flomax discontinued as recommended by Dr. Molina. I will continue Urecholine and it may be increased as an outpatient. However, CVA related Neurogenic bladders tend to clear with time. For now, we will continue with QID Intermittent Catheterization. did try to demand riskier Juarez for his convenience at discharge to home. Studies support IC as better/safer choice. 3. Type 2 diabetes mellitus: At this time we'll proceed with consistent carbohydrate diet and insulin sliding scale. Medicine to make adjustments as appropriate. Patient tapering off of Decadron and did not previously need insulin. No insulin at discharge, but will order Glucometer and strips. 4. Anemia: H&H is 9.8 and 30.3% today on 06/01/17. We will continue to watch this along with her blood pressure. 5. Hyponatremia: Her sodium level which is 133 today on 06/02/17. BUN elevated at 25 today on 06/02/17. 6. Leukocytosis: Currently it is normal at 10.0K today on 06/01/17. 7. Wound Drainage: 05/26/17:I met with the patient and her significant other and also called Ms. Patricia Mills CASINO SUPERVISOR for Dr. Salguero to review the right mastoid incision and subsequent drainage. Current, measurable drainage is <5 ml onto a 4 by 4 gauze in a shift. It is serous, patient is afebrile for 48 hours since starting Macrodantin for UTI. No odor, purulence or sanguinous drainage has occurred and the wound has not turned red, hot, streaked or shown other signs of infection. In my experience, CSF leaks are much higher volume than 2 unsoaked 4 by 4 gauze pads a day. CSP however is hard to decern from Serous drainage though. I do not feel that this is other than the serous drainage that would follow the hematoma breakdown as the hematoma cavity must heal from into to out. Ms. Mills did not feel that sending the patient to ENT outpatient clinic was warranted at this time. She and Dr. Jose Luis Salguero have my cell to call back if they wish to alter care or follow up, but for now the patient will be seen on 06/04/17 in their clinic. The patient and her significant other expressed their understanding and acceptance of the current care plan. 05/31/17: Spot drainage with wound down to 3mm by 1mm opening and no inflammation /purulence/odor, but small wick of fibrous tissue 1mm diameter and 2 mm length sticking out of the wound keeping it open. I pulled on it and it is now below the skin level and no longer in the open wound track as 3 mm length came off with the sterile tweezers. Hopefully, the incision will complete it's closure. 06/01/17: Some serous drainage onto ABD pad and chux, but hard to see opening in mastoid incision now. No signs of inflammation, odor, heat or any purulence. 06/02/17: No change from yesterday and unable to see the drainage site in the incision line. TIME SPENT: Chart Review, examination and documentation require greater than 25 minutes. Allergies Coded Allergies: Amoxicillin (Verified Allergy, Unknown, 05/12/17) Shellfish Allergy (Verified Allergy, Unknown, 05/12/17) [place] (Verified Allergy, Unknown, 05/12/17) Sulfa Antibiotics (Verified Allergy, Unknown, 05/12/17) Vital Signs Vital Signs Date Time Temp Pulse Resp B/P (MAP) Pulse Ox O2 Delivery O2 Flow Rate FiO2 06/02/17 12:59 106 133/73 06/02/17 06:00 99.0 16 96 Room Air Laboratory Data CBC/BMP Laboratory Tests 06/02/17 06:22 Calcium Level 8.4 L Labs 24H Laboratory Tests 2 06/01/17 16:48: Bedside Glucose (Misc Panel) 112 06/01/17 20:12: Bedside Glucose (Misc Panel) 147H 06/02/17 06:22: Anion Gap 11, Glomerular Filtration Rate > 60.0, Blood Urea Nitrogen 25H, Creatinine 0.61, Sodium Level 133L, Potassium Level 4.5, Chloride Level 99, Carbon Dioxide Level 23, Calcium Level 8.4L 06/02/17 12:39: Bedside Glucose (Misc Panel) 101 Microbiology Microbiology 05/24/17 Urine Culture - Final, Complete Current Medications Current Medications Current Medications Acetaminophen (Tylenol Tab) 650 mg Q6HP PRN PO PAIN / FEVER Last administered on 06/02/17 05:40; Start 05/17/17 at 14:15; Stop 06/16/17 at 14:14 Alendronate Sodium (Fosamax) 70 mg Sa@07 PO Last administered on 05/29/17 06: 22; Start 05/15/17 at 07:00; Stop 06/14/17 at 06:59 Amitriptyline HCl (Elavil) 50 mg QHS PO Last administered on 06/01/17 20:00; Start 05/12/17 at 21:00; Stop 06/11/17 at 20:59 Artificial Tears (Akwa Tears) 2 drop Q4H OS Last administered on 06/02/17 13: 01; Start 05/25/17 at 01:00; Stop 06/24/17 at 00:59 Artificial Tears (Akwa Tears) 2 drop Q4H OU Last administered on 05/24/17 16: 48; Start 05/13/17 at 16:00; Stop 05/24/17 at 21:52; Status DC Artificial Tears (Akwa Tears) 2 drop Q4HP PRN OU DRY EYES; Start 05/12/17 at 13:45; Stop 05/13/17 at 12:04; Status DC Bacitracin (Bacitracin Oint) Right Mastoid a... DAILY TOP Last administered on 06/02/17 08:14; Start 05/13/17 at 09:00; Stop 06/12/17 at 08:59 Bethanechol Chloride (Urecholine) 10 mg BID PO Last administered on 06/02/17 08:13; Start 05/31/17 at 09:00; Stop 06/30/17 at 08:59 Bisacodyl (Dulcolax Suppository) 10 mg DAILYPRN PRN GA CONSTIPATION Last administered on 05/21/17 10:25; Start 05/12/17 at 13:45; Stop 06/11/17 at 13 :44 Budesonide/ Formoterol Fumarate (Symbicort 80/ 4.5mcg) 2 puff BID PRN INH Dyspnea Last administered on 06/01/17 07:28; Start 05/12/17 at 13:45; Stop at 13:44 Dexamethasone (Decadron) 1 mg Q12H PO Last administered on 06/02/17 08:12; Start 05/31/17 at 21:00; Stop 06/30/17 at 20:59 Dexamethasone (Decadron) 2 mg BID PO Last administered on 05/16/17 20:40; Start 05/12/17 at 21:00; Stop 05/16/17 at 23:55; Status DC Dexamethasone (Decadron) 2 mg DAILY PO Last administered on 05/19/17 09:22; Start 05/17/17 at 09:00; Stop 05/19/17 at 13:31; Status DC Dexamethasone (Decadron) 2 mg Q12H PO Last administered on 05/31/17 08:41; Start 05/19/17 at 21:00; Stop 05/31/17 at 11:40; Status DC Dextrose (Dextrose 50%) 25 ml ASDIRECTED PRN IV SEE LABEL COMMENTS; Start at 13:45; Stop 06/11/17 at 13:44 Diltiazem HCl (Cardizem) 60 mg Q6H PO Last administered on 05/16/17 23:54; Start 05/12/17 at 18:00; Stop 05/17/17 at 12:33; Status DC Erythromycin (Ilotycin) 1 dose TID OD Last administered on 05/24/17 08:18; Start 05/14/17 at 16:00; Stop 05/24/17 at 10:16; Status DC Erythromycin (Ilotycin) 3/4" INTO RIGHT EYE DIRECTED Q6H OD Last administered on 06/02/17 13:00; Start 05/25/17 at 00:00; Stop 06/24/17 at 00: 00 Fentanyl Citrate (Sublimaze) 25 mcg Q5MP PRN IV MODERATE PAIN (PS 4-7); Start 05/24/17 at 22:00; Stop 05/24/17 at 23:00; Status DC Fluconazole (Diflucan) 200 mg DAILY PO Last administered on 05/26/17 08:21; Start 05/13/17 at 09:00; Stop 05/27/17 at 08:59; Status DC Fluticasone Propionate (Flonase 0.05% Nasal [place]) 2 spray DAILY NA Last administered on 06/02/17 08:13; Start 05/13/17 at 09:00; Stop 06/12/17 at 08: 59 Glucagon (Glucagon) 1 mg ASDIRECTED PRN SC SEE LABEL COMMENTS; Start 05/12/17 at 13:45; Stop 06/11/17 at 13:44 Glucose (Glucose) 16 GM ASDIRECTED PRN PO SEE LABEL COMMENTS; Start 05/12/17 at 13:45; Stop 06/11/17 at 13:44 Heparin Sodium (Porcine) (Heparin) 5,000 units Q12H SC Last administered on 08:13; Start 05/12/17 at 21:00; Stop 06/04/17 at 23:55 Home Med (Med Rec Complete!) ASDIRECTED XX ; Start 05/12/17 at 15:30; Stop at 15:33; Status DC Hydrochlorothiazide (Hydrodiuril) 25 mg DAILY PO Last administered on 08:29; Start 05/13/17 at 09:00; Stop 05/17/17 at 12:21; Status DC Insulin Human Lispro (HumaLOG INSULIN) See Protocol Table AC SC Last administered on 06/02/17 08:12; Start 05/12/17 at 17:30; Stop 06/11/17 at 17: 29 Insulin Human Lispro (HumaLOG INSULIN) See Protocol Table QHS SC ; Start at 21:00; Stop 06/11/17 at 20:59 Lactated Ringer's 1,000 ml @ 100 mls/hr Q10H IV ; Start 05/24/17 at 22:00; Stop 05/24/17 at 23:00; Status DC Lansoprazole (First-Lansoprazole Oral Suspension) 30 mg DAILY PO Last administered on 06/02/17 08:14; Start 05/20/17 at 09:00; Stop 06/19/17 at 08: 59 Lisinopril (Prinivil) 10 mg BID PO Last administered on 05/18/17 21:26; Start 05/18/17 at 21:00; Stop 05/19/17 at 13:29; Status DC Lisinopril (Prinivil) 20 mg BID PO Last administered on 05/17/17 20:32; Start 05/13/17 at 09:00; Stop 05/18/17 at 09:45; Status DC Lisinopril (Prinivil) 20 mg DAILY PO Last administered on 06/02/17 08:12; Start 05/30/17 at 09:00; Stop 06/29/17 at 08:59 Loratadine (Claritin) 10 mg DAILY PO Last administered on 06/02/17 08:14; Start 05/13/17 at 09:00; Stop 06/12/17 at 08:59 Methylphenidate HCl (Ritalin) 10 mg BID@0700,1200 PO Last administered on 13:00; Start 05/25/17 at 12:00; Stop 06/04/17 at 23:55 Methylphenidate HCl (Ritalin) 10 mg BID@0700,1400 PO Last administered on 05/25 06:26; Start 05/16/17 at 07:00; Stop 05/25/17 at 10:24; Status DC Methylphenidate HCl (Ritalin) 10 mg BID@0700,1400 PO ; Start 05/16/17 at 14:00 ; Stop 05/16/17 at 14:00; Status DC Methylphenidate HCl (Ritalin) 10 mg BID@09,14 PO Last administered on 14:07; Start 05/12/17 at 14:00; Stop 05/16/17 at 08:34; Status DC Metoprolol Tartrate (Lopressor) 25 mg BID PO Last administered on 05/18/17 21 :25; Start 05/17/17 at 21:00; Stop 05/19/17 at 13:29; Status DC Metoprolol Tartrate (Lopressor) 25 mg Q6H PO Last administered on 06/02/17 12: 59; Start 05/21/17 at 12:00; Stop 06/20/17 at 11:59 Metoprolol Tartrate (Lopressor) 50 mg BID PO Last administered on 05/16/17 20 :42; Start 05/12/17 at 21:00; Stop 05/17/17 at 12:33; Status DC Mupirocin (Bactroban 2% Ointment) 1 dose BID TOP Last administered on 08:15; Start 05/18/17 at 09:00; Stop 06/17/17 at 08:59 Nitrofurantoin Monoh/Nitrofur Macro (Macrobid) 100 mg BID PO Last administered on 06/02/17 08:12; Start 05/24/17 at 09:00; Stop 06/03/17 at 08:59 Pantoprazole Sodium (Protonix) 40 mg DAILY PO Last administered on 05/19/17 09:22; Start 05/13/17 at 09:00; Stop 05/19/17 at 13:30; Status DC Simvastatin (Zocor) 10 mg QHS PO Last administered on 06/01/17 20:00; Start 05/12/17 at 21:00; Stop 06/11/17 at 20:59 Sodium Biphosphate/ Sodium Phosphate (Fleet Enema) 1 ea DAILYPRN PRN GA CONSTIPATION; Start 05/12/17 at 13:45; Stop 06/11/17 at 13:44 Tamsulosin HCl (Flomax) 0.4 mg BID PO Last administered on 05/31/17 20:08; Start 05/28/17 at 09:00; Stop 06/01/17 at 08:23; Status DC Tamsulosin HCl (Flomax) 0.4 mg DAILY PO Last administered on 05/19/17 09:22; Start 05/13/17 at 09:00; Stop 05/19/17 at 13:29; Status DC Tramadol HCl (Ultram) 50 mg Q12HP PRN PO PAIN Last administered on 05/17/17 13:09; Start 05/12/17 at 13:45; Stop 05/17/17 at 14:15; Status DC NICOLASA MACK MD Jun 02, 2017 13:29
[2017-06-02 13:30] VITALS: BP 133/73
[2017-06-02 20:00] VITALS: BP 146/61
[2017-06-02] MEDS: SIMVASTATIN 10 MG TAB PO SCH (22:08)
[2017-06-02] MEDS: AMITRIPTYLINE 50 MG TAB PO SCH (22:08)
[2017-06-03] VITALS: BP 112/54
[2017-06-03] MEDS: POLYVINYL ALCOHOL OPHTH SOLN 15 ML(LIQUITEARS) OS SCH ×4 (01:00→11:36)
[2017-06-03 04:00] VITALS: BP 129/70
[2017-06-03] MEDS: ERYTHROMYCIN OPHTH OINT OD SCH ×2 (05:25→11:35)
[2017-06-03] MEDS: METOPROLOL TART 25 MG TABLET PO SCH ×2 (05:25→11:34)
[2017-06-03 06:00] VITALS: BP_SYST 126; BP_SYST 142; BP_SYST 148; BP_DIAS 78; BP_DIAS 80; BP_DIAS 82
[2017-06-03] MEDS: METHYLPHENIDATE 5 MG TAB PO SCH ×2 (06:53→11:34)
[2017-06-03 08:15] LABS: ANION GAP 12 MEQ/L (8-16); BLOOD UREA NITROGEN 21 MG/DL (7-18); CALCIUM LEVEL 8.5 MG/DL (8.8-10.2); CARBON DIOXIDE LEVEL 23 MEQ/L (21-32); CHLORIDE LEVEL 100 MEQ/L (98-107); CREATININE FOR GFR 0.51 MG/DL (0.55-1.02); GLOMERULAR FILTRATION RATE > 60.0 (>45); GLUCOSE, FASTING 112 MG/DL (80-110); POTASSIUM SERUM 4.3 MEQ/L (3.5-5.1); SODIUM LEVEL 135 MEQ/L (136-145)
[2017-06-03] MEDS: LORATADINE 10 MG TAB PO SCH (08:25)
[2017-06-03] MEDS: HEPARIN SOD (PORCINE) 5000 UNITS/ML VIAL SC SCH (08:25)
[2017-06-03] MEDS: BETHANECHOL 10 MG TAB PO SCH (08:26)
[2017-06-03] MEDS: LISINOPRIL 20 MG TAB PO SCH (08:26)
[2017-06-03] MEDS: LANSOPRAZOLE SUSPENSION 30 MG/10 ML ORAL SYRINGE (FIRST-LANSOPRAZOLE) PO SCH (08:27)
[2017-06-03] MEDS: FLUTICASONE PROP 0.05% NASAL SPRAY 16 GM (FLONASE) SCH (08:27)
[2017-06-03] MEDS: HumaLOG INSULIN (NovoLOG) PER UNIT SC SCH ×2 (08:27→11:35)
[2017-06-03] MEDS: BACITRACIN OINT 30GM TOP SCH (08:28)
[2017-06-03] MEDS: MUPIROCIN 2% OINT 22 GM TUBE TOP SCH (08:28)
[2017-06-03] MEDS: ACETAMINOPHEN TAB 650MG DOSE (2X325MG) PO PRN (11:33)
[2017-06-03 11:34] VITALS: BP 120/70
--- NOTE | 2017-06-03 19:01 | PMRDS ---
DATE OF ADMISSION: 05/12/2017 DATE OF DISCHARGE: 06/03/2017 DISCHARGE DIAGNOSIS: Rehabilitation of right pontine and cerebellar CVAs and acoustic neuroma resection with cranial nerve 7 palsy. Patient with dysarthria, dysphagia, aphasia, ataxia, left hemiparesis and hemisensory deficits. HISTORY: The patient is a 61-year-old white female who elected to have debulking resection of a right acoustic neuroma performed on 04/28/2017 at [facility] in [place]. The patient developed a right cerebral pontine area CVA and right ventral cerebellar CVA complicating this. The patient was medically stabilized and treated for problems with right eye closure, right facial droop and drooling, as well as pocketing food, decreased right oral sensation and left upper and lower extremity sensation and spatial awareness on the left with severe dysphagia, along with dysarthria and some aphasia. The patient was able to participate in therapy and felt to be appropriate for acute intensive rehabilitation and was transferred here on 05/12/2017 for physical, occupational, and speech therapy with rehabilitation nursing, physiatry and also internal medicine. During the course of her admission, she was having continued problem with eye dryness and Dr. Waddell was consulted to perform a tarsorrhaphy on 05/24/2017. The patient's course also with urinary retention treated initially by Juarez catheter and then by intermittent catheterization. The patient did show progress in regard to being able initiate and get some fluid out. The family was very concerned and wanted a urology consultation. Dr. Molina saw the patient, but feels that this is a neurogenic bladder and that the Flomax and Urecholine are probably not helping, but this patient should be managed with intermittent catheterization, as the neurogenic bladder recovers. The patient otherwise was relatively medically stable with some low grade fevers and clearing of a urinary tract infection during the course of this admission and was followed for moderate anemia with initial hemoglobin and hematocrit of 9.6 and 28.7 and most recent hemoglobin and hematocrit of 9.8 and 30.3. She also had leukocytosis with initial of 21.2 thousand white blood cells, as her Decadron was reduced, this tended to reduce. But more recently, even though the patient has continued on steroids, her most recent value has declined down to the normal range of 10,000 white blood cells on 06/01/2017. Her sodium has remained slightly low throughout the entire admission with admission sodium 130 and most recent 135. BUN on admission was elevated at 48 and at discharge has come down to 21 and has been holding in the 18 to 25 range in the last week. Blood sugar has been elevated related to the steroids. It is hoped the patient will not need any further treatment as she finishes her taper off of the steroids. Albumin has been reduced during this admission, last check 2.6. The patient did have Enterococcus faecalis urinary tract infection (UTI) and was treated with nitrofurantoin for this. In occupational therapy, the patient has progressed from being total assist in transfers with minimal assistance dressing upper body, max assist dressing lower body, standby assistance in grooming, 4+ standing balance, to contact guard to modified independence in transfers, standby assistance in dressing upper body and contact guard assistance with dressing lower body, standby assistance in grooming, contact guard for toileting, standby assistance for eating, and fair standing dynamic balance. The patient was initially using wheelchair, not able to ambulate in physical therapy, but has transitioned to wheelchair distance of 250 feet with standby assistance in verbal cuing for wheelchair mobility, ambulation 110 feet with contact guard assist when using a rolling walker and gait belt and able to do seven stairs with bilateral railings and contact guard assistance. Speech therapy, the patient has advanced her diet to pureed, thin liquids, able to take pills orally, with speech improved from max assist, frequently using the alphabet board to moderate assist with verbal cuing, mirror use for facial prompting and marked decrease in verbal cuing required. DISCHARGE MEDICATIONS: - dexamethasone 1 mg twice a day for four days and then 1 mg daily for six days and then discontinue - Lisinopril 20 mg daily for hypertension - The patient also to continue her Tylenol extra strength as needed - alendronate 70 mg by mouth weekly on Saturdays - amitriptyline 50 mg at bedtime - artificial tears two drops in each eye every 4 hours as needed - bacitracin based topically as directed - Symbicort two puffs twice a day - diltiazem 60 mg tablet four times a day - fluconazole propionate 50 mcg per actuation two nasal sprays twice a day - loratadine 10 mg daily for allergies - Ritalin extended release 18 mg daily in the morning - metoprolol tartrate 50 mg twice a day - pantoprazole 40 mg daily - Senna 17.2 mg at night - simvastatin 10 mg at night The patient is now off of her prior dexamethasone, fluconazole, hydrochlorothiazide, insulin, Flomax and tramadol. DISCHARGE PLAN AND INSTRUCTIONS: The patient is discharged to living at her [id number] locally. Will attend home care, physical therapy (PT), occupational therapy (OT), speech therapy. Family to assist with her intermittent catheterizations. The patient is to see Dr. Camejo tomorrow at 8:15 in [place] to followup on the acoustic neuroma, to see Dr. Orellana on 06/08/2017 at 10:45 in the morning, Dr. Rosenberg on 06/10/2017 at 2:45 in the afternoon, Dr. Waddell on 08/24/2016 at 2:30 to followup on her eye, and Dr. Almonte in urology on 07/14/2017 at 10:30 a.m. to further assess the patient's neurogenic bladder and urine dynamic studies. COMPLICATIONS: Urinary tract infection. Time spent on discharge was greater than 35 minutes.
== END 2017-06-03 13:05 | disposition home health service (06) | DRG 41 ==
LOC: M PM&R 13:49
PROVIDERS: ADMIT Physical Medicine & Rehabilitation; ATTEND Physical Medicine & Rehabilitation
PROC: 08SNXZZ Reposition Right Upper Eyelid, External Approach (ICD-10-PCS; principal; 2017-05-24 19:16)
DX: I69.354 Hemiplegia and hemiparesis following cerebral infarction affecting left non-dominant side (principal); E87.1 Hypo-osmolality and hyponatremia; N39.0 Urinary tract infection, site not specified; I69.392 Facial weakness following cerebral infarction; I69.391 Dysphagia following cerebral infarction; I69.322 Dysarthria following cerebral infarction; I69.393 Ataxia following cerebral infarction; I69.398 Other sequelae of cerebral infarction; H18.9 Unspecified disorder of cornea; G51.0 Bell's palsy; R53.1 Weakness; R33.9 Retention of urine, unspecified; M81.0 Age-related osteoporosis without current pathological fracture; J30.9 Allergic rhinitis, unspecified; I10 Essential (primary) hypertension; E11.9 Type 2 diabetes mellitus without complications; H91.93 Unspecified hearing loss, bilateral; E78.5 Hyperlipidemia, unspecified; K21.9 Gastro-esophageal reflux disease without esophagitis; F90.8 Attention-deficit hyperactivity disorder, other type; M47.9 Spondylosis, unspecified; Z88.1 Allergy status to other antibiotic agents; Z91.013 Allergy to seafood; Z91.018 Allergy to other foods; Z88.2 Allergy status to sulfonamides; Z79.4 Long term (current) use of insulin; Z79.01 Long term (current) use of anticoagulants; Z79.899 Other long term (current) drug therapy

== ENCOUNTER → 2017-06-09 | Outpatient (REF) | payer OTHER, MEDICARE ==
[~2017-06-09] MED LIST: ALEN70SO PO; AMIT50TA PO; ARTI99.0 OU; BACI500O8 TOP; CLAR10CA3 PO; DEXA1TA PO; DEXA2TA PO; DIFL200T PO; DILT60TA PO; DOCU60SY2 PO; FLOM5CAP PO; FLUTISP; HYDR25TAB PO; INSUHUMDS SC; LISI-538 PO; LISI40TAB PO; LOPR1TAB6 PO; METH18TA2 PO; PANT40TA2 PO; SENN8.6T17 PO; SIMV10TA2 PO; SYMB80INH INH; TRAM50TA2 PO; TYLE500T78 PO
[2017-06-09 13:36] LABS: MEAN CORPUSCULAR HEMOGLOBIN 31.5 pg (27.0-33.0); MEAN CORPUSCULAR HGB CONC 31.4 g/dl (32.0-36.5); MEAN CORPUSCULAR VOLUME 100.3 fl (80.0-96.0); PLATELET COUNT, AUTOMATED 190 10^3/uL (150-450); RED CELL DISTRIBUTION WIDTH 20.1 % (11.5-14.5)
[2017-06-09 13:44] LABS: PLT CLUMPS? POS FLAG; POS COUNT POS FLAG; POSITIVE DIFF POS FLAG; POSITIVE MORPH POS FLAG
[2017-06-09 13:45] LABS: ADD MANUAL DIFFER YES; DIFF SLIDE NUMBER 226
[2017-06-09 13:54] LABS: ANION GAP 14 MEQ/L (8-16); BLOOD UREA NITROGEN 20 MG/DL (7-18); CALCIUM LEVEL 8.5 MG/DL (8.8-10.2); CARBON DIOXIDE LEVEL 19 MEQ/L (21-32); CHLORIDE LEVEL 104 MEQ/L (98-107); CREATININE FOR GFR 0.59 MG/DL (0.55-1.02); GLOMERULAR FILTRATION RATE > 60.0 (>45); GLUCOSE, FASTING 125 MG/DL (80-110); POTASSIUM SERUM 3.3 MEQ/L (3.5-5.1); SODIUM LEVEL 137 MEQ/L (136-145)
[2017-06-09 14:18] LABS: ANISOCYTOSIS 1+; BANDS 2 % (< 11); POIKILOCYTOSIS 1+
== END ==
LOC: M SHH 13:08
PROVIDERS: ATTEND Family Medicine
DX: E87.1 Hypo-osmolality and hyponatremia (principal)

== ENCOUNTER → 2017-06-23 | Outpatient (REF) | payer OTHER, MEDICARE ==
[2017-06-23 14:29] LABS: MEAN CORPUSCULAR HEMOGLOBIN 31.5 pg (27.0-33.0); MEAN CORPUSCULAR VOLUME 101.6 fl (80.0-96.0); PLATELET COUNT, AUTOMATED 224 10^3/uL (150-450); RED CELL DISTRIBUTION WIDTH 20.1 % (11.5-14.5); WHITE BLOOD COUNT 16.2 10^3/uL (4.0-10.0)
[2017-06-23 14:43] LABS: LEFT SHIFT POS FLAG; POS COUNT POS FLAG; POSITIVE MORPH POS FLAG; WBC SCAT POS FLAG
[2017-06-23 14:44] LABS: ADD MANUAL DIFFER YES; DIFF SLIDE NUMBER 238
[2017-06-23 14:51] LABS: ALBUMIN 3.4 GM/DL (3.2-5.2); ALKALINE PHOSPHATASE 66 U/L (45-117); ALT/SGPT 33 U/L (12-78); ANION GAP 7 MEQ/L (8-16); AST/SGOT 21 U/L (7-37); BILIRUBIN,TOTAL 0.2 MG/DL (0.2-1.0); BLOOD UREA NITROGEN 27 MG/DL (7-18); CALCIUM LEVEL 8.2 MG/DL (8.8-10.2); CARBON DIOXIDE LEVEL 22 MEQ/L (21-32); CHLORIDE LEVEL 109 MEQ/L (98-107); CREATININE FOR GFR 0.47 MG/DL (0.55-1.02); GLOMERULAR FILTRATION RATE > 60.0 (>45); GLUCOSE, FASTING 124 MG/DL (80-110); POTASSIUM SERUM 4.7 MEQ/L (3.5-5.1); SODIUM LEVEL 138 MEQ/L (136-145); TOTAL PROTEIN 6.5 GM/DL (6.4-8.2)
[2017-06-23 15:05] LABS: ERYTHROCYTE SEDIMENTATION RATE 20 mm/hr (0-30)
[2017-06-23 15:38] LABS: BANDS 3 % (< 11)
[2017-06-23 15:39] LABS: ANISOCYTOSIS 2+; PLATELET CLUMPS SMALL AMT; POLYCHROMASIA 1+
== END ==
LOC: M SHH 14:23
DX: Z79.2 Long term (current) use of antibiotics (principal); T81.4XXD Infection following a procedure, subsequent encounter
CPT/HCPCS: 80053

== ENCOUNTER → 2017-06-26 | Outpatient (REF) | payer OTHER ==
[2017-06-26 10:28] LABS: MEAN CORPUSCULAR HEMOGLOBIN 31.6 pg (27.0-33.0); MEAN CORPUSCULAR HGB CONC 31.6 g/dl (32.0-36.5); PLATELET COUNT, AUTOMATED 250 10^3/uL (150-450); RED CELL DISTRIBUTION WIDTH 19.7 % (11.5-14.5); WHITE BLOOD COUNT 13.8 10^3/uL (4.0-10.0)
[2017-06-26 10:32] LABS: POS COUNT POS FLAG; POSITIVE MORPH POS FLAG
[2017-06-26 10:33] LABS: ADD MANUAL DIFFER YES; DIFF SLIDE NUMBER 124
[2017-06-26 10:52] LABS: ALBUMIN 3.4 GM/DL (3.2-5.2); ALBUMIN/GLOBULIN RATIO 1.06 (1.00-1.93); ALKALINE PHOSPHATASE 66 U/L (45-117); ALT/SGPT 35 U/L (12-78); ANION GAP 10 MEQ/L (8-16); AST/SGOT 14 U/L (7-37); BILIRUBIN,TOTAL 0.3 MG/DL (0.2-1.0); BLOOD UREA NITROGEN 28 MG/DL (7-18); CALCIUM LEVEL 8.4 MG/DL (8.8-10.2); CARBON DIOXIDE LEVEL 21 MEQ/L (21-32); CHLORIDE LEVEL 111 MEQ/L (98-107); CREATININE FOR GFR 0.49 MG/DL (0.55-1.02); GLOMERULAR FILTRATION RATE > 60.0 (>45); GLUCOSE, FASTING 95 MG/DL (80-110); SODIUM LEVEL 142 MEQ/L (136-145); TOTAL PROTEIN 6.6 GM/DL (6.4-8.2)
[2017-06-26 11:03] LABS: ANISOCYTOSIS 1+; HYPOCHROMASIA 1+
[2017-06-26 11:04] LABS: POIKILOCYTOSIS 1+
[2017-06-26 11:06] LABS: ERYTHROCYTE SEDIMENTATION RATE 27 mm/hr (0-30)
== END ==
LOC: M LAB REF 10:18
DX: T81.4XXD Infection following a procedure, subsequent encounter (principal); Z79.2 Long term (current) use of antibiotics; Y83.9 Surgical procedure, unspecified as the cause of abnormal reaction of the patient, or of later complication, without mention of misadventure at the time of the procedure
CPT/HCPCS: 80053

== ENCOUNTER → 2017-06-29 | Outpatient (REF) | payer OTHER ==
[2017-06-29 11:29] LABS: BASO # 0.1 10^3/uL (0.0-0.2); BASO % 0.5 % (0.0-1.0); EOS # 0.1 10^3/uL (0.0-0.50); EOS % 1.3 % (0.0-3.0); HEMATOCRIT 30.1 % (36.0-47.0); HEMOGLOBIN 9.4 g/dl (12.0-16.0); IMMATURE GRANULOCYTE # 0.5 10^3/uL (0-0); IMMATURE GRANULOCYTE % 4.9 % (0-0); LYMPH # 1.2 10^3/uL (1.5-4.5); LYMPH % 11.5 % (24.0-44.0); MEAN CORPUSCULAR HEMOGLOBIN 30.7 pg (27.0-33.0); MEAN CORPUSCULAR HGB CONC 31.2 g/dl (32.0-36.5); MEAN CORPUSCULAR VOLUME 98.4 fl (80.0-96.0); MONO # 0.9 10^3/uL (0.0-0.8); MONO % 8.7 % (0.0-5.0); NEUTROPHILS # 7.4 10^3/uL (1.8-7.7); NEUTROPHILS % 73.1 % (36.0-66.0); PLATELET COUNT, AUTOMATED 204 10^3/uL (150-450); RED BLOOD COUNT 3.06 10^6/uL (4.00-5.40); RED CELL DISTRIBUTION WIDTH 18.7 % (11.5-14.5); WHITE BLOOD COUNT 10.1 10^3/uL (4.0-10.0)
[2017-06-29 11:50] LABS: ALBUMIN 2.9 GM/DL (3.2-5.2); ALBUMIN/GLOBULIN RATIO 0.97 (1.00-1.93); ALKALINE PHOSPHATASE 66 U/L (45-117); ALT/SGPT 66 U/L (12-78); ANION GAP 9 MEQ/L (8-16); AST/SGOT 31 U/L (7-37); BILIRUBIN,TOTAL 0.3 MG/DL (0.2-1.0); BLOOD UREA NITROGEN 20 MG/DL (7-18); C REACTIVE PROTEIN QUANTITATIV 0.59 MG/DL (0.00-0.30); CALCIUM LEVEL 8.5 MG/DL (8.8-10.2); CARBON DIOXIDE LEVEL 21 MEQ/L (21-32); CHLORIDE LEVEL 112 MEQ/L (98-107); CREATININE FOR GFR 0.44 MG/DL (0.55-1.02); GLOMERULAR FILTRATION RATE > 60.0 (>45); GLUCOSE, FASTING 139 MG/DL (80-110); POTASSIUM SERUM 3.5 MEQ/L (3.5-5.1); SODIUM LEVEL 142 MEQ/L (136-145); TOTAL PROTEIN 5.9 GM/DL (6.4-8.2); VANCOMYCIN LEVEL TROUGH 14.2 UG/ML (10.0-20.0)
[2017-06-29 12:01] LABS: ERYTHROCYTE SEDIMENTATION RATE 30 mm/hr (0-30)
== END ==
LOC: M SHH 11:17
DX: Z51.81 Encounter for therapeutic drug level monitoring (principal); T81.4XXD Infection following a procedure, subsequent encounter; Z79.2 Long term (current) use of antibiotics
CPT/HCPCS: 80053

== ENCOUNTER → 2017-07-05 | Outpatient (REF) | payer OTHER ==
[2017-07-05 14:18] LABS: HEMATOCRIT 33.5 % (36.0-47.0); HEMOGLOBIN 10.6 g/dl (12.0-16.0); MEAN CORPUSCULAR HEMOGLOBIN 30.7 pg (27.0-33.0); MEAN CORPUSCULAR HGB CONC 31.6 g/dl (32.0-36.5); MEAN CORPUSCULAR VOLUME 97.1 fl (80.0-96.0); PLATELET COUNT, AUTOMATED 225 10^3/uL (150-450); RED BLOOD COUNT 3.45 10^6/uL (4.00-5.40); RED CELL DISTRIBUTION WIDTH 18.4 % (11.5-14.5); WHITE BLOOD COUNT 11.6 10^3/uL (4.0-10.0)
[2017-07-05 14:20] LABS: POS COUNT POS FLAG; POSITIVE MORPH POS FLAG
[2017-07-05 14:21] LABS: ADD MANUAL DIFFER YES; DIFF SLIDE NUMBER 265
[2017-07-05 14:42] LABS: ALBUMIN 3.4 GM/DL (3.2-5.2); ALKALINE PHOSPHATASE 76 U/L (45-117); ALT/SGPT 73 U/L (12-78); ANION GAP 10 MEQ/L (8-16); AST/SGOT 28 U/L (7-37); BILIRUBIN,TOTAL 0.2 MG/DL (0.2-1.0); BLOOD UREA NITROGEN 22 MG/DL (7-18); C REACTIVE PROTEIN QUANTITATIV < 0.30 MG/DL (0.00-0.30); CALCIUM LEVEL 8.1 MG/DL (8.8-10.2); CARBON DIOXIDE LEVEL 21 MEQ/L (21-32); CHLORIDE LEVEL 110 MEQ/L (98-107); CREATININE FOR GFR 0.46 MG/DL (0.55-1.02); GLOMERULAR FILTRATION RATE > 60.0 (>45); GLUCOSE, FASTING 89 MG/DL (80-110); POTASSIUM SERUM 3.6 MEQ/L (3.5-5.1); SODIUM LEVEL 141 MEQ/L (136-145); TOTAL PROTEIN 6.5 GM/DL (6.4-8.2); VANCOMYCIN LEVEL TROUGH 21.6 UG/ML (10.0-20.0)
[2017-07-05 14:49] LABS: ERYTHROCYTE SEDIMENTATION RATE 18 mm/hr (0-30)
[2017-07-05 15:00] LABS: ATYPICAL LYMPH 6 % (0-5); BANDS 1 % (< 11); EOSINOPHILS 4 % (0-5); LYMPHOCYTES 16 % (16-52); METAMYELOCYTES 3 % (0-0); MONOCYTES 11 % (0-8); NEUTROPHILS 59 % (35-75); NUCLEATED RED BLOOD CELL 1 % (0-0); PLATELET ESTIMATE NORMAL (NORMAL)
[2017-07-05 15:01] LABS: ANISOCYTOSIS 1+
== END ==
LOC: M SHH 13:41
DX: Z79.2 Long term (current) use of antibiotics (principal); T81.4XXD Infection following a procedure, subsequent encounter

== ENCOUNTER 2017-07-06 07:02 | Day surgery (SDC) | payer OTHER, MEDICARE ==
[2017-07-06] MEDS ORDERED: LIDOCAINE 3.5 % 1ML OPHTH TOPICAL GEL OU (07:15)
[2017-07-06] MEDS ORDERED: LR 1,000 ML IV (07:15)
[2017-07-06] MEDS ORDERED: LIDOCAINE 1% SDV 5 ML VIAL SC (07:15)
[2017-07-06] MEDS: BUPIVACAINE 0.75% 10 ML VIAL As Ordered (16:15)
[2017-07-06] MEDS ORDERED: dexameTHASONE 4 MG/ML 1ML VIAL (J1100) As Ordered (16:41)
[2017-07-06] MEDS ORDERED: PROPOFOL 200 MG/20 ML VIAL As Ordered (16:41)
[2017-07-06] MEDS ORDERED: MIDAZOLAM INJ 2 MG/2 ML VIAL (J2250) As Ordered (16:41)
[2017-07-06] MEDS ORDERED: LIDOCAINE 2% INJ 100 MG/5 ML SDV (FOR ANES.) As Ordered (16:41)
[2017-07-06] MEDS ORDERED: ONDANSETRON 4MG/2ML VIAL (J2405) As Ordered (16:41)
[2017-07-06] MEDS ORDERED: fentaNYL 100 MCG/2 ML INJECTION (J3010) As Ordered (16:42)
[2017-07-06] MEDS: POVIDONE-IODINE 5% OPHTH PREP SOL 30ML As Ordered (17:33)
[2017-07-06] MEDS: ERYTHROMYCIN OPHTH OINT As Ordered (17:48)
[2017-07-06] MEDS: LIDOCAINE 2% W/EPIN INJ 20ML **PRES FREE As Ordered (17:56)
== END 2017-07-06 19:30 | disposition home or self-care (01) ==
LOC: M SDC 07:02
DX: G51.0 Bell's palsy (principal); H02.203 Unspecified lagophthalmos right eye, unspecified eyelid; I10 Essential (primary) hypertension; R94.31 Abnormal electrocardiogram [ECG] [EKG]; E78.00 Pure hypercholesterolemia, unspecified; K21.9 Gastro-esophageal reflux disease without esophagitis; I69.928 Other speech and language deficits following unspecified cerebrovascular disease; I69.998 Other sequelae following unspecified cerebrovascular disease; R29.898 Other symptoms and signs involving the musculoskeletal system; M12.9 Arthropathy, unspecified; J45.909 Unspecified asthma, uncomplicated; F03.90 Unspecified dementia, unspecified severity, without behavioral disturbance, psychotic disturbance, mood disturbance, and anxiety; H91.91 Unspecified hearing loss, right ear; R42 Dizziness and giddiness; Z88.0 Allergy status to penicillin; Z88.2 Allergy status to sulfonamides; Z91.013 Allergy to seafood; Z91.018 Allergy to other foods; Z79.899 Other long term (current) drug therapy; Z87.820 Personal history of traumatic brain injury; Z98.51 Tubal ligation status; Z86.011 Personal history of benign neoplasm of the brain
CPT/HCPCS: 67880

== ENCOUNTER → 2017-07-08 | Outpatient (REF) | payer OTHER ==
[2017-07-08 09:13] LABS: BASO # 0.1 10^3/uL (0.0-0.2); BASO % 0.8 % (0.0-1.0); EOS # 0.4 10^3/uL (0.0-0.50); EOS % 3.9 % (0.0-3.0); HEMATOCRIT 32.5 % (36.0-47.0); HEMOGLOBIN 10.5 g/dl (12.0-16.0); IMMATURE GRANULOCYTE # 0.5 10^3/uL (0-0); IMMATURE GRANULOCYTE % 4.3 % (0-0); LYMPH # 1.5 10^3/uL (1.5-4.5); LYMPH % 13.6 % (24.0-44.0); MEAN CORPUSCULAR HEMOGLOBIN 31.1 pg (27.0-33.0); MEAN CORPUSCULAR HGB CONC 32.3 g/dl (32.0-36.5); MEAN CORPUSCULAR VOLUME 96.2 fl (80.0-96.0); MONO # 0.7 10^3/uL (0.0-0.8); MONO % 6.1 % (0.0-5.0); NEUTROPHILS # 7.6 10^3/uL (1.8-7.7); NEUTROPHILS % 71.3 % (36.0-66.0); PLATELET COUNT, AUTOMATED 226 10^3/uL (150-450); RED BLOOD COUNT 3.38 10^6/uL (4.00-5.40); RED CELL DISTRIBUTION WIDTH 17.4 % (11.5-14.5); WHITE BLOOD COUNT 10.7 10^3/uL (4.0-10.0)
[2017-07-08 09:26] LABS: ALBUMIN 3.1 GM/DL (3.2-5.2); ALBUMIN/GLOBULIN RATIO 1.07 (1.00-1.93); ALKALINE PHOSPHATASE 84 U/L (45-117); ALT/SGPT 74 U/L (12-78); ANION GAP 10 MEQ/L (8-16); AST/SGOT 26 U/L (7-37); BILIRUBIN,TOTAL 0.3 MG/DL (0.2-1.0); BLOOD UREA NITROGEN 16 MG/DL (7-18); C REACTIVE PROTEIN QUANTITATIV 0.31 MG/DL (0.00-0.30); CALCIUM LEVEL 8.1 MG/DL (8.8-10.2); CARBON DIOXIDE LEVEL 22 MEQ/L (21-32); CHLORIDE LEVEL 109 MEQ/L (98-107); CREATININE FOR GFR 0.49 MG/DL (0.55-1.02); GLOMERULAR FILTRATION RATE > 60.0 (>45); GLUCOSE, FASTING 125 MG/DL (80-110); POTASSIUM SERUM 3.5 MEQ/L (3.5-5.1); SODIUM LEVEL 141 MEQ/L (136-145); VANCOMYCIN LEVEL TROUGH 16.5 UG/ML (10.0-20.0)
[2017-07-08 09:37] LABS: ERYTHROCYTE SEDIMENTATION RATE 27 mm/hr (0-30)
== END ==
LOC: M LAB REF 08:57
DX: Z79.2 Long term (current) use of antibiotics (principal)

== ENCOUNTER → 2017-07-13 | Outpatient (REF) | payer OTHER ==
[2017-07-13 12:27] LABS: ALBUMIN 3.4 GM/DL (3.2-5.2); ALBUMIN/GLOBULIN RATIO 1.06 (1.00-1.93); ALKALINE PHOSPHATASE 118 U/L (45-117); ALT/SGPT 639 U/L (12-78); ANION GAP 9 MEQ/L (8-16); AST/SGOT 281 U/L (7-37); BILIRUBIN,TOTAL 0.5 MG/DL (0.2-1.0); BLOOD UREA NITROGEN 18 MG/DL (7-18); CALCIUM LEVEL 8.8 MG/DL (8.8-10.2); CARBON DIOXIDE LEVEL 23 MEQ/L (21-32); CHLORIDE LEVEL 107 MEQ/L (98-107); CREATININE FOR GFR 0.42 MG/DL (0.55-1.02); GLOMERULAR FILTRATION RATE > 60.0 (>45); GLUCOSE, FASTING 77 MG/DL (80-110); POTASSIUM SERUM 3.9 MEQ/L (3.5-5.1); SODIUM LEVEL 139 MEQ/L (136-145); TOTAL PROTEIN 6.6 GM/DL (6.4-8.2); VANCOMYCIN LEVEL TROUGH 17.1 UG/ML (10.0-20.0)
[2017-07-13 13:04] LABS: ERYTHROCYTE SEDIMENTATION RATE 42 mm/hr (0-30)
[2017-07-13 13:08] LABS: HEMATOCRIT 35.1 % (36.0-47.0); HEMOGLOBIN 11.3 g/dl (12.0-16.0); MEAN CORPUSCULAR HGB CONC 32.2 g/dl (32.0-36.5); MEAN CORPUSCULAR VOLUME 96.2 fl (80.0-96.0); PLATELET COUNT, AUTOMATED 280 10^3/uL (150-450); POS COUNT POS FLAG; POSITIVE MORPH POS FLAG; RED BLOOD COUNT 3.65 10^6/uL (4.00-5.40); RED CELL DISTRIBUTION WIDTH 17.4 % (11.5-14.5); WHITE BLOOD COUNT 10.1 10^3/uL (4.0-10.0)
[2017-07-13 13:09] LABS: ADD MANUAL DIFFER YES; DIFF SLIDE NUMBER 240
[2017-07-13 13:32] LABS: BASOPHILS 2 % (0-4); EOSINOPHILS 5 % (0-5); LYMPHOCYTES 16 % (16-52); NEUTROPHILS 77 % (35-75); PLATELET ESTIMATE NORMAL (NORMAL)
== END ==
LOC: M LAB REF 11:17
DX: Z79.2 Long term (current) use of antibiotics (principal)

== ENCOUNTER → 2017-07-16 | Outpatient (REF) | payer OTHER ==
[2017-07-16 11:08] LABS: BASO # 0.1 10^3/uL (0.0-0.2); BASO % 1.1 % (0.0-1.0); EOS # 0.5 10^3/uL (0.0-0.50); EOS % 5.7 % (0.0-3.0); HEMATOCRIT 30.2 % (36.0-47.0); HEMOGLOBIN 9.6 g/dl (12.0-16.0); IMMATURE GRANULOCYTE # 0.3 10^3/uL (0-0); IMMATURE GRANULOCYTE % 3.9 % (0-0); LYMPH # 1.5 10^3/uL (1.5-4.5); LYMPH % 17.5 % (24.0-44.0); MEAN CORPUSCULAR HEMOGLOBIN 30.6 pg (27.0-33.0); MEAN CORPUSCULAR HGB CONC 31.8 g/dl (32.0-36.5); MEAN CORPUSCULAR VOLUME 96.2 fl (80.0-96.0); MONO # 0.9 10^3/uL (0.0-0.8); MONO % 10.9 % (0.0-5.0); NEUTROPHILS # 5.1 10^3/uL (1.8-7.7); NEUTROPHILS % 60.9 % (36.0-66.0); PLATELET COUNT, AUTOMATED 267 10^3/uL (150-450); RED BLOOD COUNT 3.14 10^6/uL (4.00-5.40); RED CELL DISTRIBUTION WIDTH 17.3 % (11.5-14.5); WHITE BLOOD COUNT 8.4 10^3/uL (4.0-10.0)
[2017-07-16 11:45] LABS: ALBUMIN 2.6 GM/DL (3.2-5.2); ALKALINE PHOSPHATASE 106 U/L (45-117); ALT/SGPT 527 U/L (12-78); ANION GAP 14 MEQ/L (8-16); AST/SGOT 160 U/L (7-37); BILIRUBIN,TOTAL 0.4 MG/DL (0.2-1.0); BLOOD UREA NITROGEN 14 MG/DL (7-18); C REACTIVE PROTEIN QUANTITATIV 8.81 MG/DL (0.00-0.30); CALCIUM LEVEL 8.3 MG/DL (8.8-10.2); CARBON DIOXIDE LEVEL 18 MEQ/L (21-32); CHLORIDE LEVEL 106 MEQ/L (98-107); CREATININE FOR GFR 0.47 MG/DL (0.55-1.02); GLOMERULAR FILTRATION RATE > 60.0 (>45); GLUCOSE, FASTING 160 MG/DL (80-110); POTASSIUM SERUM 3.8 MEQ/L (3.5-5.1); SODIUM LEVEL 138 MEQ/L (136-145); TOTAL PROTEIN 5.5 GM/DL (6.4-8.2); VANCOMYCIN LEVEL TROUGH 11.3 UG/ML (10.0-20.0)
[2017-07-16 11:48] LABS: ERYTHROCYTE SEDIMENTATION RATE 54 mm/hr (0-30)
== END ==
LOC: M SHH 10:51
DX: T81.4XXD Infection following a procedure, subsequent encounter (principal); Z79.2 Long term (current) use of antibiotics; Y82.8 Other medical devices associated with adverse incidents

== ENCOUNTER → 2017-07-17 | Outpatient (CLI) | payer OTHER | LOC: M WUC 15:09 | DX: R05 Cough (principal) | CPT/HCPCS: 71046 ==

== ENCOUNTER → 2017-07-19 | Outpatient (REF) | payer OTHER ==
[2017-07-19 10:56] LABS: BASO # 0.1 10^3/uL (0.0-0.2); BASO % 0.8 % (0.0-1.0); EOS # 0.6 10^3/uL (0.0-0.50); EOS % 5.8 % (0.0-3.0); HEMATOCRIT 33.8 % (36.0-47.0); HEMOGLOBIN 10.3 g/dl (12.0-16.0); IMMATURE GRANULOCYTE # 0.3 10^3/uL (0-0); IMMATURE GRANULOCYTE % 2.4 % (0-0); LYMPH # 3.4 10^3/uL (1.5-4.5); LYMPH % 32.7 % (24.0-44.0); MEAN CORPUSCULAR HEMOGLOBIN 29.8 pg (27.0-33.0); MEAN CORPUSCULAR HGB CONC 30.5 g/dl (32.0-36.5); MEAN CORPUSCULAR VOLUME 97.7 fl (80.0-96.0); MONO # 1.2 10^3/uL (0.0-0.8); MONO % 11.4 % (0.0-5.0); NEUTROPHILS # 4.8 10^3/uL (1.8-7.7); NEUTROPHILS % 46.9 % (36.0-66.0); PLATELET COUNT, AUTOMATED 342 10^3/uL (150-450); RED BLOOD COUNT 3.46 10^6/uL (4.00-5.40); RED CELL DISTRIBUTION WIDTH 17.1 % (11.5-14.5); WHITE BLOOD COUNT 10.3 10^3/uL (4.0-10.0)
[2017-07-19 11:30] LABS: ALBUMIN/GLOBULIN RATIO 0.91 (1.00-1.93); ALKALINE PHOSPHATASE 114 U/L (45-117); ALT/SGPT 319 U/L (12-78); ANION GAP 11 MEQ/L (8-16); AST/SGOT 83 U/L (7-37); BILIRUBIN,TOTAL 0.4 MG/DL (0.2-1.0); BLOOD UREA NITROGEN 22 MG/DL (7-18); C REACTIVE PROTEIN QUANTITATIV 6.06 MG/DL (0.00-0.30); CALCIUM LEVEL 8.7 MG/DL (8.8-10.2); CARBON DIOXIDE LEVEL 22 MEQ/L (21-32); CHLORIDE LEVEL 112 MEQ/L (98-107); CREATININE FOR GFR 0.43 MG/DL (0.55-1.02); GLOMERULAR FILTRATION RATE > 60.0 (>45); GLUCOSE, FASTING 77 MG/DL (80-110); POTASSIUM SERUM 3.5 MEQ/L (3.5-5.1); SODIUM LEVEL 145 MEQ/L (136-145); TOTAL PROTEIN 6.3 GM/DL (6.4-8.2); VANCOMYCIN LEVEL TROUGH 14.7 UG/ML (10.0-20.0)
[2017-07-19 11:36] LABS: ERYTHROCYTE SEDIMENTATION RATE 53 mm/hr (0-30)
== END ==
LOC: M LAB REF 10:42
DX: T81.4XXD Infection following a procedure, subsequent encounter (principal); Z79.2 Long term (current) use of antibiotics

== ENCOUNTER → 2017-07-19 | Outpatient (CLI) | payer OTHER | LOC: M RAD 17:39 | DX: T81.4XXD Infection following a procedure, subsequent encounter (principal); Z45.2 Encounter for adjustment and management of vascular access device | CPT/HCPCS: 71045 ==

== ENCOUNTER → 2017-07-26 | Outpatient (REF) | payer OTHER ==
[2017-07-26 10:43] LABS: BASO # 0.1 10^3/uL (0.0-0.2); BASO % 0.7 % (0.0-1.0); EOS # 1.2 10^3/uL (0.0-0.50); EOS % 9.5 % (0.0-3.0); IMMATURE GRANULOCYTE # 0.5 10^3/uL (0-0); IMMATURE GRANULOCYTE % 3.9 % (0-0); LYMPH # 1.3 10^3/uL (1.5-4.5); LYMPH % 9.9 % (24.0-44.0); MEAN CORPUSCULAR HEMOGLOBIN 30.2 pg (27.0-33.0); MEAN CORPUSCULAR HGB CONC 30.8 g/dl (32.0-36.5); MONO # 1.3 10^3/uL (0.0-0.8); MONO % 10.2 % (0.0-5.0); NEUTROPHILS # 8.4 10^3/uL (1.8-7.7); NEUTROPHILS % 65.8 % (36.0-66.0); PLATELET COUNT, AUTOMATED 354 10^3/uL (150-450); RED BLOOD COUNT 3.98 10^6/uL (4.00-5.40); RED CELL DISTRIBUTION WIDTH 16.6 % (11.5-14.5); WHITE BLOOD COUNT 12.8 10^3/uL (4.0-10.0)
[2017-07-26 11:03] LABS: ERYTHROCYTE SEDIMENTATION RATE 49 mm/hr (0-30)
[2017-07-26 11:17] LABS: ALBUMIN 3.1 GM/DL (3.2-5.2); ALBUMIN/GLOBULIN RATIO 0.94 (1.00-1.93); ALKALINE PHOSPHATASE 129 U/L (45-117); ALT/SGPT 81 U/L (12-78); ANION GAP 8 MEQ/L (8-16); AST/SGOT 27 U/L (7-37); BILIRUBIN,TOTAL 0.6 MG/DL (0.2-1.0); BLOOD UREA NITROGEN 12 MG/DL (7-18); C REACTIVE PROTEIN QUANTITATIV 6.43 MG/DL (0.00-0.30); CARBON DIOXIDE LEVEL 27 MEQ/L (21-32); CHLORIDE LEVEL 105 MEQ/L (98-107); CREATININE FOR GFR 0.48 MG/DL (0.55-1.30); GLOMERULAR FILTRATION RATE > 60.0 (>45); GLUCOSE, FASTING 112 MG/DL (70-100); SODIUM LEVEL 140 MEQ/L (136-145); TOTAL PROTEIN 6.4 GM/DL (6.4-8.2); VANCOMYCIN LEVEL TROUGH 16.1 UG/ML (10.0-20.0)
== END ==
LOC: M SHH 10:30
DX: T81.4XXD Infection following a procedure, subsequent encounter (principal); Z79.2 Long term (current) use of antibiotics

== ENCOUNTER 2017-08-19 09:18 | Day surgery (SDC) | payer OTHER ==
[~2017-08-19 09:18] MED LIST changes: +ACETAMINOPHEN 325 MG TAB PO; -ALEN70SO PO; -AMIT50TA PO; -ARTI99.0 OU; -BACI500O8 TOP; -CLAR10CA3 PO; -DEXA1TA PO; -DEXA2TA PO; -DIFL200T PO; -DILT60TA PO; -DOCU60SY2 PO; -FLOM5CAP PO; -FLUTISP; -HYDR25TAB PO; -INSUHUMDS SC; -LISI-538 PO; -LISI40TAB PO; -LOPR1TAB6 PO; -METH18TA2 PO; -PANT40TA2 PO; -SENN8.6T17 PO; -SIMV10TA2 PO; -SYMB80INH INH; -TRAM50TA2 PO; -TYLE500T78 PO
[2017-08-19] MEDS ORDERED: TRIMETHOBENZAMIDE 300 MG CAP PO (09:30)
[2017-08-19] MEDS: LIDOCAINE 3.5 % 1ML OPHTH TOPICAL GEL OU (10:20)
[2017-08-19] MEDS ORDERED: PROPOFOL 200 MG/20 ML VIAL As Ordered (11:48)
[2017-08-19] MEDS ORDERED: fentaNYL 100 MCG/2 ML INJECTION (J3010) As Ordered (11:48)
[2017-08-19] MEDS ORDERED: MIDAZOLAM INJ 2 MG/2 ML VIAL (J2250) As Ordered (11:48)
[2017-08-19] MEDS ORDERED: LIDOCAINE 2% INJ 100 MG/5 ML SDV (FOR ANES.) As Ordered (11:48)
[2017-08-19] MEDS: LIDOCAINE 2% W/EPIN INJ 20ML **PRES FREE As Ordered (12:08)
[2017-08-19] MEDS: BUPIVACAINE 0.75% 10 ML VIAL As Ordered (12:11)
[2017-08-19] MEDS: ERYTHROMYCIN OPHTH OINT As Ordered (12:35)
== END 2017-08-19 13:26 | disposition home or self-care (01) ==
LOC: M SDC 09:18
DX: H16.001 Unspecified corneal ulcer, right eye (principal); G51.9 Disorder of facial nerve, unspecified; I10 Essential (primary) hypertension; F90.9 Attention-deficit hyperactivity disorder, unspecified type; E78.00 Pure hypercholesterolemia, unspecified; R94.31 Abnormal electrocardiogram [ECG] [EKG]; K21.9 Gastro-esophageal reflux disease without esophagitis; R29.898 Other symptoms and signs involving the musculoskeletal system; M12.9 Arthropathy, unspecified; F41.9 Anxiety disorder, unspecified; F32.9 Major depressive disorder, single episode, unspecified; H93.3X9 Disorders of unspecified acoustic nerve; J45.909 Unspecified asthma, uncomplicated; Z88.0 Allergy status to penicillin; Z88.2 Allergy status to sulfonamides; Z91.018 Allergy to other foods; Z91.013 Allergy to seafood; Z79.899 Other long term (current) drug therapy; Z79.01 Long term (current) use of anticoagulants; Z86.711 Personal history of pulmonary embolism; Z86.718 Personal history of other venous thrombosis and embolism; Z86.19 Personal history of other infectious and parasitic diseases; Z78.0 Asymptomatic menopausal state; Z98.51 Tubal ligation status
CPT/HCPCS: 67875